=== PATIENT | male | born 1960 | race Two or more races ===

== ENCOUNTER 2021-07-12 11:58 | Inpatient (IN) | payer MEDICAID ==
--- NOTE | 2021-07-11 14:15 | NUR ---
Pt. attended group today. Today's group was about the different communications styles i.e passive, aggressive and assertive. We discussed what the characteristics of each style was. We then discussed where they saw themselves at now and where they would like to be with their communication style. Pt. sat in the group quietly and did not share or wish to engage in the discussion. Carla Uribe LCSW
[~2021-07-12] VITALS: Ht 172.7 cm; Wt 61.2 kg
[~2021-07-12 11:58] MED LIST: ESCI5TAB PO; GLYC1TAB23 PO; KETO120S5 TP; METH-348 PO; PALI156D IM; TRAZ-251 PO; ZIPR20CA12 PO; ZIPR40CA2 PO
--- NOTE | 2021-07-12 15:18 | NUR ---
Noted patient's diet order got completed in EMR, notified RN via TC to ensure pt receives meal trays. Addendum: 07/12/21 at [address] Amended: Links added.
[2021-07-12] MEDS ORDERED: magnesium hydroxide 30ml (MOM) UD suspension PO PRN (15:25)
[2021-07-12] MEDS ORDERED: loperamide 2mg capsule PO PRN (15:25)
[2021-07-12] MEDS ORDERED: mag hydrox/Alum hydrox/simeth 30ml oral suspension PO PRN (15:25)
[2021-07-12] MEDS ORDERED: ZIPR80CA10 PO (16:10)
[2021-07-12] MEDS ORDERED: SODI104S3 NAS (16:10)
[2021-07-12] MEDS ORDERED: SODI104S3 (16:10)
[2021-07-12] MEDS ORDERED: DOCU100C40 PO (16:10)
[2021-07-12] MEDS ORDERED: TRAZ-256 PO (16:19)
[2021-07-12] MEDS ORDERED: METH-350 PO (16:19)
[2021-07-12] MEDS ORDERED: ESCI20TA39 PO (16:19)
[2021-07-12] MEDS ORDERED: KETO120S5 TP (16:19)
[2021-07-12] MEDS ORDERED: salt irrigation nasal spray 45 ML SPRAY NS PRN (16:50)
--- NOTE | 2021-07-12 17:12 | NUR ---
Nursing Progress Note: Legal hold: 5150 Client on involuntary status for GD Report received from nurse Faustino VALENCIA with use of SBAR Why are they here: Pt was at [facility] from 06/08/21-07/12/21 for GD/failure to thrive. Pt was discharged, re-evaluated and placed on a 5150. He was readmitted to [facility] on day of discharge 07/12/21. Pt has a Hx of Schizophrenia, depression, and anxiety. Pt has intermittent CAH to kill himself, pt is depressed and anhedonic, he has severely declined in his ADLs. Pt has a DTI ulcer on his right heel. Plan is for him to be conserved. Assessment What has happened this shift: Pt was readmitted at 1225. His heel ulcer was photographed and redressed; an Allevyn Life was applied. Medix boot was used while pt in bed, and heel was floated. Pt was toileted at regular intervals. Pt continues to be depressed with passive SI. Pt denied AH today though admits to hearing some yesterday. Asked pt what they said to him yesterday, he replied, "same thing." Clarified that pt meant they had told him to kill himself. Pt requested assistance with getting back into bed. Encouraged autonomy in ADLs, assistance provided as needed with transfers, toileting and bed mobility. S/I, H/I: Pt denied HI, has passive SI. A/VH: Pt denied AH today, reports he heard voices yesterday. Sleep: Pt took short naps throughout the day. ADL's: Requires assistance with bed mobility, transfers, toileting, hygiene, and meals at times. He is very drowsy in the morning and a bit unsteady on his feet. Pt has generalized weakness adn has difficulty getting out of bed on his own especially in the morning. Per PCT he needed assist with lunch. Group attendance: Yes, he did attend morning group. Were meds taken: Yes Any med S/E: Very drowsy/fatigued in the morning before and during breakfast. Mental Status Exam Appearance: Disheveled, edentulous older appearing man with dark hair, stahl, and moustache dressed in green hospital scrubs. Eye contact: Good Behavior: Slow moving, needs much support and encouragement to get up out of bed and room. Speech: Clear, slow, delayed response, minimal. Mood: Depressed, anhedonic Affect: Flat Thought process: Slow, may have some thought blocking. Thought Content: Hopeless, he's tired, he needs help with getting into and out of bed. Cognition: A/O X 3 Insight: Fair Judgment: Poor Interventions PRN's used: None Therapeutic interventions: 1:1 assessment, therapeutic communication, active listening, ensured contract for safety, medication administration/education/monitoring, encouragement to come to meals, encouragement with autonomy in ADLs, encouragement to participate in unit activities and attend groups, prompted toileting, assistance with ADLs including transfers, bed mobility, toileting, personal hygiene, bathing and eating, skin breakdown prevention, fall prevention, wound care, incontinent care, provided encouragement, distraction, redirection, positive reinforcement and Q15 minute safety checks. Restraints/seclusion/emergency medication: None Justification of Continued Inpatient Treatment: Pt is gravely disabled, he has had a decline in his ADL and is failure to thrive. Pt is homeless and unable to formulate a plan for food, long term. Plan is for him to be conserved. Addendum: 07/12/21 at 1736 by Lucia Henley RN (Lee) ADMIT NOTE/Nursing progress note.
[2021-07-12] MEDS: ziprasidone 20mg capsule PO SCH (20:14)
[2021-07-12] MEDS: docusate sod 100mg capsule PO SCH (20:15)
[2021-07-12] MEDS: traZODone 50mg tablet PO SCH (20:18)
[2021-07-12 20:36] VITALS: BP 110/72
--- NOTE | 2021-07-12 23:54 | NUR ---
Nursing Progress Note: Legal hold: 5150 Client on involuntary status for GD Report received from nurse Nereida VALENCIA with use of SBAR Why are they here: Pt was at [facility] from 06/08/21-07/12/21 for GD/failure to thrive. Pt was discharged, re-evaluated and placed on a 5150. He was readmitted to [facility] on day of discharge 07/12/21. Pt has a Hx of Schizophrenia, depression, and anxiety. Pt has intermittent CAH to kill himself, pt is depressed and anhedonic, he has severely declined in his ADLs. Pt has a DTI ulcer on his right heel. Plan is for him to be conserved. Assessment What has happened this shift: Pt was up in the group room watching tv at change of shift. He had a room change to 327B. Pt went to his room after snack was med compliant then went to bed. S/I, H/I: Pt denied HI, has passive SI. A/VH: Pt denied AH today, reports he heard voices yesterday. Sleep: See sleep assessment. ADL's: Requires assistance with bed mobility, transfers, toileting, hygiene, and meals at times. He is very drowsy in the morning and a bit unsteady on his feet. Pt has generalized weakness adn has difficulty getting out of bed on his own especially in the morning. Per PCT he needed assist with lunch. Group attendance: Yes, he did attend morning group. Were meds taken: Yes Any med S/E: Very drowsy/fatigued in the morning before and during breakfast. Mental Status Exam Appearance: Disheveled, edentulous older appearing man with dark hair, stahl, and moustache dressed in green hospital scrubs. Eye contact: Good Behavior: Slow moving, needs much support and encouragement to get up out of bed and room. Speech: Clear, slow, delayed response, minimal. Mood: Depressed, anhedonic Affect: Flat Thought process: Slow, may have some thought blocking. Thought Content: Hopeless, he's tired, he needs help with getting into and out of bed. Cognition: A/O X 3 Insight: Fair Judgment: Poor Interventions PRN's used: None Therapeutic interventions: 1:1 assessment, therapeutic communication, active listening, ensured contract for safety, medication administration/education/monitoring, encouragement to come to meals, encouragement with autonomy in ADLs, encouragement to participate in unit activities and attend groups, prompted toileting, assistance with ADLs including transfers, bed mobility, toileting, personal hygiene, bathing and eating, skin breakdown prevention, fall prevention, wound care, incontinent care, provided encouragement, distraction, redirection, positive reinforcement and Q15 minute safety checks. Restraints/seclusion/emergency medication: None Justification of Continued Inpatient Treatment: Pt is gravely disabled, he has had a decline in his ADL and is failure to thrive. Pt is homeless and unable to formulate a plan for food, retirement. Plan is for him to be conserved. Addendum: 07/13/21 at 0204 by Huy Narvaez RN Prn tylenol temp of 100.4
[2021-07-13] MEDS: acetaminophen 325mg tablet PO PRN (01:54)
--- NOTE | 2021-07-13 03:39 | NUR ---
Pt has been up x 3 during the night due to incontinence issues, which is unusual for this patient. He was lying in bed without covers and I asked if he wanted to be covered up, pt stated no because he was feeling hot. I felt his skin, it was hot to touch, I asked Huy his nurse to check his vitals, B/P 105/65 P 90 R 18 O2 94% Temp 100.4, I asked the patient if he was having any discomfort with voiding and he stated yes. Tylenol given for fever, upon recheck it was 98.8, will continue to monitor and notify dayshift stay to monitor and follow up with Dr regarding fever and c/o dysuria, with frequency tonight.
[2021-07-13 07:25] VITALS: BP 115/64
[2021-07-13] MEDS: docusate sod 100mg capsule PO SCH ×2 (08:16→20:00)
[2021-07-13] MEDS: ziprasidone 20mg capsule PO SCH ×2 (08:16→20:00)
[2021-07-13] MEDS: ESCITALOPRAM OXALATE 5 MG TABLET PO SCH (08:16)
[2021-07-13] MEDS: methylphenidate 5mg tablet PO SCH (08:16)
[2021-07-13 08:52] LABS: CLARITY,URINE SLIGHTLY CLOUDY (Clear); COLOR,URINE YELLOW (Yellow); GLUCOSE, URINE NEGATIVE (Neg); KETONES,URINE NEGATIVE (Neg); LEUKOCYTE ESTERASE ,URINE NEGATIVE (Neg); NITRITES, URINE NEGATIVE (Neg); OCCULT BLOOD,URINE NEGATIVE (Neg); PROTEIN,URINE NEGATIVE (Neg)
[2021-07-13 08:55] LABS: UA COLLECTION TYPE CLN CATCH MIDSTREAM
[2021-07-13 09:00] LABS: MUCUS STRANDS MODERATE /LPF (Neg); SQUAMOUS EPITHELIAL CELL,UR FEW /LPF (FEW)
[2021-07-13 09:01] LABS: BACTERIA,URINE FEW /HPF (Neg); RBC,URINE 0-2 /HPF (0-2)
[2021-07-13 09:02] LABS: HYALINE CASTS 0-3 /LPF (NEGATIVE)
--- NOTE | 2021-07-13 11:30 | NUR ---
5 DAY NOTICE Served Cuong a 5 day notice and faxed it back to [facility]. WELLINGTON Pearson
[2021-07-13] MEDS: lactose-reduced food (Ensure Enlive) - 237ml bottle PO SCH (12:45)
--- NOTE | 2021-07-13 15:00 | NUR ---
Recommend: 1. Offload heels when in bed using heel medix boot 2.Assess heel QSHIFT Addendum: 07/13/21 at 1558 by Sushma Ziegler RN Amended: Links added.
--- NOTE | 2021-07-13 15:53 | NUR ---
Nursing Progress Note: Legal hold: 5150 Client on involuntary status for GD Report received from nurse Caprice VALENCIA with use of SBAR Why are they here: Pt was at [facility] from 06/08/21-07/12/21 for GD/failure to thrive. Pt was discharged, re-evaluated and placed on a 5150. He was readmitted to [facility] on day of discharge 07/12/21. Pt has a Hx of Schizophrenia, depression, and anxiety. Pt has intermittent CAH to kill himself, pt is depressed and anhedonic, he has severely declined in his ADLs. Pt has a DTI ulcer on his right heel. Plan is for him to be conserved. Assessment What has happened this shift: Noc charge rn reported that pt was having frequency and dysuria last night as well as a low grade temp. This RN obtained an order for UA/C&S if indicated. A clean catch UA was collected and sent. UA results: 5-10 WBCs, few bacteria, a culture was indicated. Urine was tika colored and very slightly cloudy. Culture pending. Pt was up for breakfast and cooperative with medication. Pt has been prompted to toilet frequently this shift and has no episodes of urinary incontinence today. Pt denied SI and AH today. Pt has orders for a CBC/Diff and a CMP tomorrow morning. Allevyn dressing right heel C/D/I. Medix boot used while pt in bed for pressure offloading. S/I, H/I: Pt denies. A/VH: Pt denies. Sleep: Pt slept 4.75 hours last night, pt took intermittent naps throughout the day. ADL's: Requires assist with routine toileting, personal hygiene, bathing. Needs prompts to come to meals. Group attendance: No Were meds taken: Yes Any med S/E: None noted or reported. Mental Status Exam Appearance: Disheveled, edentulous older appearing man with dark hair, stahl, and moustache dressed in green hospital scrubs. Eye contact: Good Behavior: Slow moving, needs much support and encouragement to get up out of bed and room. Speech: Clear, slow, delayed response, minimal. Mood: Anhedonic Affect: Flat Thought process: Slow, may have some thought blocking. Thought Content: Pt did not express his thoughts today. Cognition: A/O X 3 Insight: Poor Judgment: Poor Interventions PRN's used: None Therapeutic interventions: 1:1 assessment, therapeutic communication, active listening, ensured contract for safety, medication administration/education/monitoring, encouragement to come to meals, encouragement with autonomy in ADLs, encouragement to participate in unit activities and attend groups, prompted toileting, assistance with ADLs including transfers, bed mobility, toileting, personal hygiene, bathing and eating, skin breakdown prevention, fall prevention, incontinent care, provided encouragement, distraction, redirection, positive reinforcement and Q15 minute safety checks. Restraints/seclusion/emergency medication: None Justification of Continued Inpatient Treatment: Pt is gravely disabled, he has had a decline in his ADL and is failure to thrive. Pt is homeless and unable to formulate a plan for food, retirement. Plan is for him to be conserved.
[2021-07-13 19:25] VITALS: BP 103/62
[2021-07-13] MEDS: traZODone 50mg tablet PO SCH (21:02)
--- NOTE | 2021-07-14 02:55 | NUR ---
Nursing Progress Note: Legal hold: 5150 Client on involuntary status for GD Report received from nurse Adolfo VALENCIA with use of SBAR Why are they here: Pt was at [facility] from 06/08/21-07/12/21 for GD/failure to thrive. Pt was discharged, re-evaluated and placed on a 5150. He was readmitted to [facility] on day of discharge 07/12/21. Pt has a Hx of Schizophrenia, depression, and anxiety. Pt has intermittent CAH to kill himself, pt is depressed and anhedonic, he has severely declined in his ADLs. Pt has a DTI ulcer on his right heel. Plan is for him to be conserved. Assessment What has happened this shift: Pt in bed at start of shift. Medix boot on rt foot, drsing on heal CD+I. Encouraged PO Fluid. Pt cooperative. Pt needed prompting to get OOB but ambulated independently to group room for snack. Ate snack and 2 juice boxes. Pt ambulated back and forth in amos then requested help getting back to bed. Voided so far this shift. x2 in urinal 150 cc clear tika urine and x2 on toilet. No bladder distention palpated. Pt denies any discomfort. Continues to be compliant when offered fluids, it is unlikely he will independently drink fluids. Urine culture pending, pt is afebrile. S/I, H/I: Pt denies. A/VH: Pt denies. Sleep: asleep at this time ADL's: Requires assist with routine toileting, personal hygiene, bathing. Needs prompts to come to meals. Group attendance: No Were meds taken: Yes Any med S/E: None noted or reported. Mental Status Exam Appearance: Disheveled, edentulous older appearing man with dark hair, stahl, and moustache dressed in green hospital scrubs. Eye contact: Good Behavior: Slow moving, needs much support and encouragement to get up out of bed and room. Speech: Clear, slow, delayed response, minimal. Mood: Anhedonic Affect: Flat Thought process: Slow, may have some thought blocking. Thought Content: Pt did not express his thoughts today. Cognition: A/O X 3 Insight: Poor Judgment: Poor Interventions PRN's used: None Therapeutic interventions: 1:1 assessment, therapeutic communication, active listening, ensured contract for safety, medication administration/education/monitoring, encouragement to come to meals, encouragement with autonomy in ADLs, encouragement to participate in unit activities and attend groups, prompted toileting, assistance with ADLs including transfers, bed mobility, toileting, personal hygiene, bathing and eating, skin breakdown prevention, fall prevention, incontinent care, provided encouragement, distraction, redirection, positive reinforcement and Q15 minute safety checks. Restraints/seclusion/emergency medication: None Justification of Continued Inpatient Treatment: Pt is gravely disabled, he has had a decline in his ADL and is failure to thrive. Pt is homeless and unable to formulate a plan for food, skilled nursing. Plan is for him to be conserved.
[2021-07-14 08:14] LABS: BASOPHILS % (AUTO) 0.2 % (0-1); EOSINOPHILS # (AUTO) 0.2 X10'3 (0-0.9); EOSINOPHILS % (AUTO) 2.8 % (0-6); HEMATOCRIT 35.6 % (42.0-52.0); HEMOGLOBIN 12.6 g/dl (14.0-17.9); LYMPHOCYTES # (AUTO) 2.4 X10'3 (1.1-4.8); LYMPHOCYTES % (AUTO) 35.3 % (21-51); MEAN CORPUSCULAR HEMOGLOBIN 32.5 PG (27.0-31.0); MEAN CORPUSCULAR HGB CONC 35.5 g/dL (33.0-36.5); MEAN CORPUSCULAR VOLUME 91.5 FL (78-98); MEAN PLATELET VOLUME 7.5 FL (7.4-10.4); MONOCYTES # (AUTO) 0.8 X10'3 (0-0.9); MONOCYTES % (AUTO) 11.4 % (2-12); NEUTROPHILS # (AUTO) 3.3 X10'3 (1.8-7.7); NEUTROPHILS % (AUTO) 50.3 % (42-75); PLATELET COUNT 168 X10'3 (140-440); RED BLOOD COUNT 3.89 X10'6 (4.70-6.10); RED CELL DISTRIBUTION WIDTH 13.4 % (11.5-14.5); WHITE BLOOD COUNT 6.7 X10'3 (4.5-11.0)
[2021-07-14] MEDS: docusate sod 100mg capsule PO SCH ×2 (08:18→20:36)
[2021-07-14] MEDS: ziprasidone 20mg capsule PO SCH ×2 (08:18→20:35)
[2021-07-14] MEDS: ESCITALOPRAM OXALATE 5 MG TABLET PO SCH (08:18)
[2021-07-14] MEDS: methylphenidate 5mg tablet PO SCH (08:19)
[2021-07-14] MEDS: cefpodoxime proxetil 100mg tablet PO SCH ×2 (08:19→17:28)
--- NOTE | 2021-07-14 08:24 | NUR ---
Sent signed Declaration to [facility] as part of the conservatorship process. WELLINGTON Pearson
[2021-07-14 08:36] LABS: ALANINE AMINOTRANSFERASE 65 U/L (12-78); ALBUMIN 3.1 G/DL (3.4-5.0); ALBUMIN/GLOBULIN RATIO 0.8 (1.1-1.5); ALKALINE PHOSPHATASE 86 IU/L (46-116); ANION GAP 6 (8-16); ASPARTATE AMINO TRANSFERASE 30 U/L (10-37); BILIRUBIN,TOTAL 0.5 MG/DL (0.1-1.0); BLOOD UREA NITROGEN 15 MG/DL (7-18); BUN/CREATININE RATIO 19.2 (5.4-32.0); CALCIUM 8.8 MG/DL (8.5-10.1); CHLORIDE 99 MMOL/L (99-107); CREATININE 0.78 MG/DL (0.60-1.10); GLUCOSE 97 MG/DL (70-104); POTASSIUM 3.9 MMOL/L (3.5-5.1); SODIUM 134 MMOL/L (135-145); TOTAL CARBON DIOXIDE 29.3 MMOL/L (24-32); TOTAL PROTEIN 7.1 G/DL (6.4-8.2); eGFR > 90 ML/MIN
[2021-07-14 08:56] VITALS: BP 121/73
[2021-07-14] MEDS: ketoconazole (Nizoral) shampoo TP SCH (09:20)
[2021-07-14] MEDS: lactose-reduced food (Ensure Enlive) - 237ml bottle PO SCH (12:44)
--- NOTE | 2021-07-14 14:49 | NUR ---
Nursing Progress Note: Legal hold: 5150 Client on involuntary status for GD Report received from nurse Caprice VALENCIA with use of SBAR Why are they here: Pt was at [facility] from 06/08/21-07/12/21 for GD/failure to thrive. Pt was discharged, re-evaluated and placed on a 5150. He was readmitted to [facility] on day of discharge 07/12/21. Pt has a Hx of Schizophrenia, depression, and anxiety. Pt has intermittent CAH to kill himself, pt is depressed and anhedonic, he has severely declined in his ADLs. Pt has a DTI ulcer on his right heel. Plan is for him to be conserved. Assessment What has happened this shift: Pt was incontinent of urine, his bed and clothes were saturated before breakfast. Pt was assisted with a shower today, his Nizoral shampoo was used per orders. Pt denied AH and SI today. Pt knew it was June 2021 but had lost track of the day/date. Pt was started on PO ABX Vantin for suspected UTI, culture pending. Preliminary results show no growth after one day. Culturelle was also started. Pt had labs drawn this morning. He had low levels of RBCs 3.89, Hgb 12.6, Hct 35.6, and albumin 3.1. Pt c/o not being able to chew his food well with [facility] soft diet as he has no teeth. Pt wished to have his food pureed. Notified RAYMON Go and the diet order was changed to pureed. Pt was prompted for toileting and has had no further incontinent episodes this shift. Medix boot utilized while pt in bed to relieve pressure. Right heel ulcer remains discolored and intact. S/I, H/I: Pt denies. A/VH: Pt denies. Sleep: Pt slept 7.25 hours last night, pt took intermittent naps throughout the day. ADL's: Requires prompting for toileting, personal hygiene, and to come to meals, needs assistance with bathing. Group attendance: No Were meds taken: Yes Any med S/E: None noted or reported. Mental Status Exam Appearance: Disheveled, edentulous older appearing man with dark hair, stahl, and moustache dressed in green hospital scrubs. Eye contact: Good Behavior: Slow moving, needs much support and encouragement to get up out of bed and room. Speech: Clear, slow, delayed response, minimal. Mood: Anhedonic Affect: Flat Thought process: Slow, may have some thought blocking. Thought Content: He wants pureed food. Cognition: A/O X 3 Insight: Poor Judgment: Poor Interventions PRN's used: None Therapeutic interventions: 1:1 assessment, therapeutic communication, active listening, ensured contract for safety, medication administration/education/monitoring, encouragement to come to meals, encouragement with autonomy in ADLs, encouragement to participate in unit activities and attend groups, prompted toileting, assistance with ADLs including transfers, bed mobility, toileting, personal hygiene, bathing and eating, skin breakdown prevention, fall prevention, incontinent care, provided encouragement, distraction, redirection, positive reinforcement and Q15 minute safety checks. Restraints/seclusion/emergency medication: None Justification of Continued Inpatient Treatment: Pt is gravely disabled, he has had a decline in his ADL and is failure to thrive. Pt is homeless and unable to formulate a plan for food, usp. Plan is for him to be conserved.
[2021-07-14 20:02] VITALS: BP 112/68
[2021-07-14] MEDS: traZODone 50mg tablet PO SCH (20:36)
[2021-07-14] MEDS: lactobacillus rhamnosus 10,000 MMU CELLS/CAPSULE PO SCH (20:36)
--- NOTE | 2021-07-15 02:28 | NUR ---
Nursing Progress Note: Legal hold: 5150 Client on involuntary status for GD Report received from nurse Adolfo VALENCIA with use of SBAR Why are they here: Pt was at [facility] from 06/08/21-07/12/21 for GD/failure to thrive. Pt was discharged, re-evaluated and placed on a 5150. He was readmitted to [facility] on day of discharge 07/12/21. Pt has a Hx of Schizophrenia, depression, and anxiety. Pt has intermittent CAH to kill himself, pt is depressed and anhedonic, he has severely declined in his ADLs. Pt has a DTI ulcer on his right heel. Plan is for him to be conserved. Assessment What has happened this shift: Pt up on unit at start of shift. More alert this shift, speech soft and slow, delays before answering questions. Pt ate snack in group room then stayed and watched a movie. Toileted before bed continent large amount of clear yellow urine. Later in shift incontinent large amount urine in bed requiring bed change. Rt heel floated in boot while in bed. S/I, H/I: Pt denies. A/VH: Pt denies. Sleep: asleep at this time ADL's: Requires assist with routine toileting, personal hygiene, bathing. Needs prompts to come to meals. Group attendance: No Were meds taken: Yes Any med S/E: None noted or reported. Mental Status Exam Appearance: man in green scrubs. Eye contact: Good Behavior: Out of bed walking independently Speech: Clear, slow, delayed response, minimal. Mood: Anhedonic Affect: Flat Thought process: Slow, may have some thought blocking. Thought Content: Pt did not express his thoughts today. Cognition: A/O X 3 Insight: Poor Judgment: Poor Interventions PRN's used: None Therapeutic interventions: 1:1 assessment, therapeutic communication, active listening, ensured contract for safety, medication administration/education/monitoring, encouragement to come to meals, encouragement with autonomy in ADLs, encouragement to participate in unit activities and attend groups, prompted toileting, assistance with ADLs including transfers, bed mobility, toileting, personal hygiene, bathing and eating, skin breakdown prevention, fall prevention, incontinent care, provided encouragement, distraction, redirection, positive reinforcement and Q15 minute safety checks. Restraints/seclusion/emergency medication: None Justification of Continued Inpatient Treatment: Pt is gravely disabled, he has had a decline in his ADL and is failure to thrive. Pt is homeless and unable to formulate a plan for food, retirement. Plan is for him to be conserved.
[2021-07-15 07:25] VITALS: BP 95/59
[2021-07-15] MEDS: cefpodoxime proxetil 100mg tablet PO SCH ×2 (08:34→18:17)
[2021-07-15] MEDS: lactobacillus rhamnosus 10,000 MMU CELLS/CAPSULE PO SCH ×2 (08:34→20:52)
[2021-07-15] MEDS: docusate sod 100mg capsule PO SCH ×2 (08:34→20:52)
[2021-07-15] MEDS: methylphenidate 5mg tablet PO SCH (08:34)
[2021-07-15] MEDS: ESCITALOPRAM OXALATE 5 MG TABLET PO SCH (08:34)
[2021-07-15] MEDS: ziprasidone 20mg capsule PO SCH ×2 (08:48→20:52)
[2021-07-15] MEDS: lactose-reduced food (Ensure Enlive) - 237ml bottle PO SCH (12:01)
--- NOTE | 2021-07-15 15:19 | NUR ---
PRESSURE ULCER EDUCATION: DEFINITION: A pressure ulcer is an area of skin that breaks down when you stay in one position too long. The constant pressure against the skin reduces the blood flow to that area and the affected tissue dies. CAUSES: "Being bedridden or in a wheelchair "Fragile skin "Having a chronic condition, such as diabetes or vascular disease "Inability to move certain parts of your body without assistance "Older age "Incontinence of urine or stool SYMPTOMS: "A reddened area that DOES NOT turn white when pressed on - this can be the beginning of a pressure ulcer "A blister, deep sore or a crater - these can be advanced pressure ulcers FIRST AID: "Relieve the pressure on this area "Keep the area clean and dry "Call your primary doctor if you see any of the above symptoms "DO NOT massage the area "DO NOT use a donut shaped or ring shaped pillow- these actually interfere with the blood flow and cause complications PREVENTION: "Check for pressure ulcers everyday "Change position at least every two hours to relieve pressure "Use items that help relieve pressure- pillows, sheepskin, foam padding, and powders. "Keep skin clean and dry "Eat healthy well balanced meals "Exercise daily IF YOU SEE ANY OF THESE SYMPTOMS WHILE IN THE HOSPITAL - TELL YOUR NURSE IMMEDIATELY. IF YOU SEE ANY OF THESE SYMPTOMS WHILE AT HOME OR HAVE ANY QUESTIONS OR CONCERNS ABOUT PRESSURE ULCERS - CALL YOUR PRIMARY DOCTOR IMMEDIATELY. Addendum: 07/15/21 at 1520 by Doris Parra RN Amended: Links added.
--- NOTE | 2021-07-15 17:16 | NUR ---
Nursing Progress Note: Legal hold: 5150 Client on involuntary status for GD Report received from TAVARES Cody with use of SBAR. Why they are here: Pt was at [facility] from 06/08/21-07/12/21 for GD/failure to thrive. Pt was discharged, re-evaluated and placed on a 5150. He was readmitted to [facility] on day of discharge 07/12/21. Pt has a Hx of Schizophrenia, depression, and anxiety. Pt has intermittent CAH to kill himself, pt is depressed and anhedonic, he has severely declined in his ADLs. Pt has a DTI ulcer on his right heel. Plan is for him to be conserved. Assessment What has happened this shift: Patient is resting quietly in bed at the start of the shift. Awakened for breakfast and is slow moving and requires minimum assistance getting out of bed. Prompted for toilet use and is continent. Answers to direct questions only. Cooperative with 1:1 assessment and medications. Seen by wound nurse today. Pressure relieving boot on when in bed. Isolates to his room most of the day but will come out when prompted and for meals. S/I, H/I: Denies A/VH: Denies Sleep: 2 hours in the morning. Sleeps frequently for long periods of time throughout the day. ADL's: Requires prompting for toileting, personal hygiene, and to come to meals, needs assistance with bathing. Group attendance: No Were meds taken: Yes Any med S/E: None observed or reported. Mental Status Exam Appearance: Disheveled, edentulous older appearing man with dark hair, stahl, and moustache somewhat disheveled with flakey skin wearing green unit scrubs. Eye contact: Good Behavior: Slow moving, needs much support and encouragement to get up out of bed and room, isolative, withdrawn. Speech: Clear, slow, delayed response, scant Mood: Ok. Affect: Flat Thought process: Slow, possible thought blocking. Thought Content: Poverty of thought. Cognition: A/O X 3 not to time Insight: Poor Judgment: Poor Interventions PRN's used: None Therapeutic interventions: 1:1 assessment, therapeutic communication, active listening, ensured contract for safety, medication administration/education/monitoring, encouragement to come to meals, encouragement with autonomy in ADLs, encouragement to participate in unit activities and attend groups, prompted toileting, assistance with ADLs including transfers, bed mobility, toileting, personal hygiene, bathing and eating, skin breakdown prevention, fall prevention, incontinent care, provided encouragement, distraction, redirection, positive reinforcement and Q15 minute safety checks. Restraints/seclusion/emergency medication: None Justification of Continued Inpatient Treatment: Pt is gravely disabled, he has had a decline in his ADL and is failure to thrive. Pt is homeless and unable to formulate a plan for food, [place]. Plan is for him to be conserved.
[2021-07-15 19:00] VITALS: BP 112/69
[2021-07-15 19:58] VITALS: BP 112/69
[2021-07-15] MEDS: traZODone 50mg tablet PO SCH (20:52)
--- NOTE | 2021-07-16 01:14 | NUR ---
Nursing Progress Note: Legal hold: 5250 Client on involuntary status for GD Report received from ANNIE Mata with use of SBAR. Why they are here: Pt was at [facility] from 06/08/21-07/12/21 for GD/failure to thrive. Pt was discharged, re-evaluated and placed on a 5150. He was readmitted to [facility] on day of discharge 07/12/21. Pt has a Hx of Schizophrenia, depression, and anxiety. Pt has intermittent CAH to kill himself, pt is depressed and anhedonic, he has severely declined in his ADLs. Pt has a DTI ulcer on his right heel. Plan is for him to be conserved. Assessment What has happened this shift: Patient watching TV in common area at the beginning of shift. Pleasant and cooperative with care; compliant with medication. PRN Trazodone provided this shift. Patient denies SI, HI, A/VH; does not appear to be responding to IS and no apparent delusions reported. He responds minimally to direct questions but makes needs known. Patient participated in HS snack and paced the unit, boot placed on R foot and toileted with staff assistance prior to bed; observed sleeping and does not appear to be having difficulty. S/I, H/I: Denies A/VH: Denies Sleep: Refer to sleep assessment ADL's: Requires prompting and staff assistance Group attendance: NA Were meds taken: Yes Any med S/E: None observed or reported Mental Status Exam Appearance: Disheveled and wearing green unit attire Eye contact: Good Behavior: Pleasant and cooperative, self isolative, withdrawn slow speech and movement Speech: Clear, slow, delayed response, scant Mood: Ok. Affect: Constricted Thought process: Thought blocking, poverty of thought Thought Content: Meeting needs Cognition: A/O X 3 not to time Insight: Poor Judgment: Poor Interventions PRN's used: Trazodone Therapeutic interventions: 1:1 assessment, therapeutic communication, active listening, ensured contract for safety, medication administration/education/monitoring, encouragement to come to meals, encouragement with autonomy in ADLs, encouragement to participate in unit activities and attend groups, prompted toileting, assistance with ADLs including transfers, bed mobility, toileting, personal hygiene, bathing and eating, skin breakdown prevention, fall prevention, incontinent care, provided encouragement, distraction, redirection, positive reinforcement and Q15 minute safety checks. Restraints/seclusion/emergency medication: NA Justification of Continued Inpatient Treatment: Pt is gravely disabled, he has had a decline in his ADL and is failure to thrive. Pt is homeless and unable to formulate a plan for food, correction. Plan is for him to be conserved.
[2021-07-16 08:00] VITALS: BP 178/78
[2021-07-16] MEDS: cefpodoxime proxetil 100mg tablet PO SCH ×2 (08:15→17:40)
[2021-07-16] MEDS: lactobacillus rhamnosus 10,000 MMU CELLS/CAPSULE PO SCH ×2 (08:15→20:36)
[2021-07-16] MEDS: ziprasidone 20mg capsule PO SCH ×2 (08:15→20:36)
[2021-07-16] MEDS: docusate sod 100mg capsule PO SCH ×2 (08:15→20:36)
[2021-07-16] MEDS: methylphenidate 5mg tablet PO SCH (08:15)
[2021-07-16] MEDS: ESCITALOPRAM OXALATE 5 MG TABLET PO SCH (08:15)
[2021-07-16] MEDS: lactose-reduced food (Ensure Enlive) - 237ml bottle PO SCH (12:30)
--- NOTE | 2021-07-16 14:29 | NUR ---
Initial: Pt admit for schizophrenia, depression, and anxiety. Pt initially on a mechanical soft chopped diet however was changed to pureed diet 07/14 per pt request per d/w RN via TC. Pt with fluctuating PO intake, initially with mostly 50% PO intake however more recently up to average 75% PO intake, though does continue to fluctuate. Noted pt participates in snacks per fat purification worker. Pt started on Ensure Enlive WL and pt documented with 100% PO intake of first ONS received. Overall pt likely meeting estimated nutrient needs with combined PO intake of meals, snacks, and ONS. LBM 07/14, receiving routine bowel care with additional PRN bowel care available. No nutrition intervention implemented at this time. Will continue to follow. Recommendations: 1) Continue pureed diet per pt preference 2) Ensure Enlive WL; monitor need to adjust ONS frequency 3) Offer snacks and encourage PO intake 4) Routine bowel care 5) Weekly scaled weights Addendum: 07/16/21 at [address] Amended: Links added.
--- NOTE | 2021-07-16 16:27 | NUR ---
Nursing Progress Note: Legal hold: 5150 Client on involuntary status for GD Report received from TAVARES Bales with use of SBAR. Why they are here: Pt was at [facility] from 06/08/21-07/12/21 for GD/failure to thrive. Pt was discharged, re-evaluated and placed on a 5150. He was readmitted to [facility] on day of discharge 07/12/21. Pt has a Hx of Schizophrenia, depression, and anxiety. Pt has intermittent CAH to kill himself, pt is depressed and anhedonic, he has severely declined in his ADLs. Pt has a DTI ulcer on his right heel. Plan is for him to be conserved. Assessment What has happened this shift: Patient is resting quietly in bed at the start of the shift. Awakened for breakfast and requires encouragement and assistance to get out of bed. Cooperative with 1:1 assessment and medications. Requires encouragement during meals to eat. Confirms that puree diet is his preference. Pressure relieving boot is in place while in bed. Isolates to his room most of the day sleeping. Does not engage in conversation but answers closed ended questions. S/I, H/I: Denies A/VH: Denies Sleep: 2 hours in the morning. Sleeps frequently for long periods of time throughout the day. ADL's: Requires prompting for toileting, personal hygiene, and to come to meals, needs assistance with bathing. Group attendance: NA Were meds taken: Yes Any med S/E: None observed or reported. Mental Status Exam Appearance: Disheveled, edentulous older appearing man with dark hair, stahl, and moustache somewhat disheveled with flakey skin wearing green unit scrubs. Eye contact: Good Behavior: Slow moving, needs support and encouragement to get up out of bed, isolative, withdrawn. Speech: Clear, slow, delayed response, scant Mood: Ok. Affect: Flat Thought process: Slow, possible thought blocking. Thought Content: Poverty of thought. Cognition: A/O X 3 not to time Insight: Poor Judgment: Poor Interventions PRN's used: None Therapeutic interventions: 1:1 assessment, therapeutic communication, active listening, ensured contract for safety, medication administration/education/monitoring, encouragement to come to meals, encouragement with autonomy in ADLs, encouragement to participate in unit activities and attend groups, prompted toileting, assistance with ADLs including transfers, bed mobility, toileting, personal hygiene, bathing and eating, skin breakdown prevention, fall prevention, incontinent care, provided encouragement, distraction, redirection, positive reinforcement and Q15 minute safety checks. Restraints/seclusion/emergency medication: None Justification of Continued Inpatient Treatment: Pt is gravely disabled, he has had a decline in his ADL and is failure to thrive. Pt is homeless and unable to formulate a plan for food, [facility]. Plan is for him to be conserved.
[2021-07-16 19:00] VITALS: BP 106/64
[2021-07-16] MEDS: traZODone 50mg tablet PO SCH (20:36)
--- NOTE | 2021-07-17 02:05 | NUR ---
Nursing Progress Note: Legal hold: 5250 Client on involuntary status for GD Report received from ANNIE Jacob with use of SBAR. Why they are here: Pt was at [facility] from 06/08/21-07/12/21 for GD/failure to thrive. Pt was discharged, re-evaluated and placed on a 5150. He was readmitted to [facility] on day of discharge 07/12/21. Pt has a Hx of Schizophrenia, depression, and anxiety. Pt has intermittent CAH to kill himself, pt is depressed and anhedonic, he has severely declined in his ADLs. Pt has a DTI ulcer on his right heel. Plan is for him to be conserved. Assessment What has happened this shift: Patient active on the unit at the beginning of shift. Pleasant and cooperative wit care; compliant with with medication. Denies SI, HI, A/VH; does not appear to be responding to IS and no apparent delusions reported. Patient requires some assistance getting in/out of bed as he has an unsteady gait. Patient participated in HS snack and watched TV in recreation room prior to bed; observed sleeping and does not appear to be having difficulty. S/I, H/I: Denies A/VH: Denies Sleep: Refer to sleep assessment ADL's: Requires prompting and staff assistance Group attendance: NA Were meds taken: Yes Any med S/E: None observed or reported Mental Status Exam Appearance: Disheveled and wearing green unit attire Eye contact: Good Behavior: Pleasant and cooperative, self isolative, withdrawn slow speech and movement Speech: Clear, slow, delayed response, scant Mood: Ok. Affect: Constricted Thought process: Poverty of thought Thought Content: Meeting needs Cognition: A/O X 3 not to time Insight: Poor Judgment: Poor Interventions PRN's used: Trazodone Therapeutic interventions: 1:1 assessment, therapeutic communication, active listening, ensured contract for safety, medication administration/education/monitoring, encouragement to come to meals, encouragement with autonomy in ADLs, encouragement to participate in unit activities and attend groups, prompted toileting, assistance with ADLs including transfers, bed mobility, toileting, personal hygiene, bathing and eating, skin breakdown prevention, fall prevention, incontinent care, provided encouragement, distraction, redirection, positive reinforcement and Q15 minute safety checks. Restraints/seclusion/emergency medication: NA Justification of Continued Inpatient Treatment: Pt is gravely disabled, he has had a decline in his ADL and is failure to thrive. Pt is homeless and unable to formulate a plan for food, senior living. Plan is for him to be conserved.
[2021-07-17 08:00] VITALS: BP 115/69
[2021-07-17] MEDS: docusate sod 100mg capsule PO SCH ×2 (09:06→20:28)
[2021-07-17] MEDS: lactobacillus rhamnosus 10,000 MMU CELLS/CAPSULE PO SCH ×2 (09:06→20:28)
[2021-07-17] MEDS: methylphenidate 5mg tablet PO SCH (09:06)
[2021-07-17] MEDS: ESCITALOPRAM OXALATE 5 MG TABLET PO SCH (09:06)
[2021-07-17] MEDS: cefpodoxime proxetil 100mg tablet PO SCH ×2 (09:06→17:57)
[2021-07-17] MEDS: ziprasidone 20mg capsule PO SCH ×2 (09:07→20:28)
[2021-07-17] MEDS: lactose-reduced food (Ensure Enlive) - 237ml bottle PO SCH (12:30)
--- NOTE | 2021-07-17 17:18 | NUR ---
Nursing Progress Note: Legal hold: 5150 Client on involuntary status for GD Report received from TAVARES Bales with use of SBAR. Why they are here: Pt was at [facility] from 06/08/21-07/12/21 for GD/failure to thrive. Pt was discharged, re-evaluated and placed on a 5150. He was readmitted to [facility] on day of discharge 07/12/21. Pt has a Hx of Schizophrenia, depression, and anxiety. Pt has intermittent CAH to kill himself, pt is depressed and anhedonic, he has severely declined in his ADLs. Pt has a DTI ulcer on his right heel. Plan is for him to be conserved. Assessment What has happened this shift: Patient was sleeping at change of shift and refused breakfast. RN got patient up for lunch. Patient needed assistance getting out of bed. Patient drank all his ensure and ate about 50% of his lunch. Patient is very thin. Patient does not engage in conversation and will answer closed end questions but nothing more. Patient only eats in the Community Room and will sit for a while but ultimately goes back to bed. Patient states no to suicidal ideation and denies audio/hallucinations. S/I, H/I: Denies A/VH: Denies Sleep: Sleeps most of the day. ADL's: Requires prompting for toileting, personal hygiene, and to come to meals, needs assistance with bathing. Group attendance: NA Were meds taken: Yes Any med S/E: None observed or reported. Mental Status Exam Appearance: Disheveled, toothless older gentleman with dark hair, short stahl Eye contact: Good Behavior: Slow moving, needs support and encouragement to get up out of bed, isolative, withdrawn. Speech: Clear, slow, poverty of speech Mood: Depressed Affect: Depressed Thought process: Slow, possible thought blocking. Thought Content: Poverty of thought. Cognition: A/O X 3 not to time Insight: Poor Judgment: Poor Interventions PRN's used: None Therapeutic interventions: 1:1 assessment, therapeutic communication, active listening, ensured contract for safety, medication administration/education/monitoring, encouragement to come to meals, encouragement with autonomy in ADLs, encouragement to participate in unit activities and attend groups, prompted toileting, assistance with ADLs including transfers, bed mobility, toileting, personal hygiene, bathing and eating, skin breakdown prevention, fall prevention, incontinent care, provided encouragement, distraction, redirection, positive reinforcement and Q15 minute safety checks. Restraints/seclusion/emergency medication: None Justification of Continued Inpatient Treatment: Pt is gravely disabled, he has had a decline in his ADL and is failure to thrive. Pt is homeless and unable to formulate a plan for food, long-term. Plan is for him to be conserved.
[2021-07-17 19:48] VITALS: BP 106/71
[2021-07-17] MEDS: traZODone 50mg tablet PO SCH (20:28)
--- NOTE | 2021-07-18 03:10 | NUR ---
Nursing Progress Note: Legal hold: 5250 Client on involuntary status for GD Report received from ANNIE Jacob with use of SBAR. Why they are here: Pt was at [facility] from 06/08/21-07/12/21 for GD/failure to thrive. Pt was discharged, re-evaluated and placed on a 5150. He was readmitted to [facility] on day of discharge 07/12/21. Pt has a Hx of Schizophrenia, depression, and anxiety. Pt has intermittent CAH to kill himself, pt is depressed and anhedonic, he has severely declined in his ADLs. Pt has a DTI ulcer on his right heel. Plan is for him to be conserved. Assessment What has happened this shift: Patient active on the unit at the beginning of shift. Pleasant and cooperative with care; compliant with with medication. Denies SI, HI, A/VH; does not appear to be responding to IS and no apparent delusions reported. Patient requires some assistance with ADLs and has an unsteady gait when getting out of bed. He was incontinent of urine this shift. Patient participated in HS snack and paced the unit prior to bed; observed sleeping and does not appear to be having difficulty. S/I, H/I: Denies A/VH: Denies Sleep: Refer to sleep assessment ADL's: Requires prompting and staff assistance Group attendance: NA Were meds taken: Yes Any med S/E: None observed or reported Mental Status Exam Appearance: Disheveled and wearing green unit attire Eye contact: Good Behavior: Pleasant and cooperative, self isolative, withdrawn slow speech and movement Speech: Clear, slow, delayed response, scant Mood: Isabella Affect: Constricted Thought process: Poverty of thought Thought Content: Meeting needs Cognition: A/O X 3 not to time Insight: Poor Judgment: Poor Interventions PRN's used: Trazodone Therapeutic interventions: 1:1 assessment, therapeutic communication, active listening, ensured contract for safety, medication administration/education/monitoring, encouragement to come to meals, encouragement with autonomy in ADLs, encouragement to participate in unit activities and attend groups, prompted toileting, assistance with ADLs including transfers, bed mobility, toileting, personal hygiene, bathing and eating, skin breakdown prevention, fall prevention, incontinent care, provided encouragement, distraction, redirection, positive reinforcement and Q15 minute safety checks. Restraints/seclusion/emergency medication: NA Justification of Continued Inpatient Treatment: Pt is gravely disabled, he has had a decline in his ADL and is failure to thrive. Pt is homeless and unable to formulate a plan for food, [facility]. Plan is for him to be conserved.
[2021-07-18 08:00] VITALS: BP 150/77
[2021-07-18] MEDS: docusate sod 100mg capsule PO SCH ×2 (08:28→20:44)
[2021-07-18] MEDS: methylphenidate 5mg tablet PO SCH (08:28)
[2021-07-18] MEDS: lactobacillus rhamnosus 10,000 MMU CELLS/CAPSULE PO SCH ×2 (08:28→20:44)
[2021-07-18] MEDS: ziprasidone 20mg capsule PO SCH ×2 (08:28→20:44)
[2021-07-18] MEDS: ESCITALOPRAM OXALATE 5 MG TABLET PO SCH (08:28)
[2021-07-18] MEDS: cefpodoxime proxetil 100mg tablet PO SCH ×2 (08:28→17:36)
--- NOTE | 2021-07-18 09:53 | NUR ---
Mailed original LPS Declaration to [facility] Public [facility] via certified mail. WELLINGTON Pearson
--- NOTE | 2021-07-18 12:55 | NUR ---
PROBABLE CAUSE HEARING Patients Name: Cuong Rodriguez Admission Date: 07/12/21 Date of 5150: 07/12/21 Written by: Meri Uribe Criteria: GD Summary of Facts: Pt status is GD. He continues to need prompting to eat or drink. He cannot make a viable plan for food or skilled nursing upon dc. Date of 5250: 07/15/21 Written by: Criteria: GD Summary of Facts: Depression and a/h have improved, pt has chronic depression. Pt does not have a viable plan for dc Diagnosis: major depressive disorder Behavior during past 48 HRS: pt seen by provider yesterday, he was able to answer close ended question he is doing okay, he does not have any insight he kept his eyes closed, he reports that he still feeling depressed, denies any psychotic symptoms, denies any suicide ideations also ideations, it was reported that during the later part of the day, it was reported that his appetite is good he is consuming reasonable amount of fluids. Pt is getting conserved by [facility] and has been served a five day notice FOOD: 25-50% SLEEPIN.5 ADLS: Requires prompting and assistance SENIOR LIVING: lives with mother and brother in [place] but she reports that she cannot take him back as she cannot meet his needs. MEDICATION DOSAGE FREQUENCY DURATION Geodon 80 mg po bid Trazodone 100 mg po q hs Lexapro 5 mg po q day Ritalin 20 mg po q day
[2021-07-18] MEDS: lactose-reduced food (Ensure Enlive) - 237ml bottle PO SCH (13:15)
--- NOTE | 2021-07-18 17:32 | NUR ---
Nursing Progress Note: Legal hold: 5250 Client on involuntary status for GD Report received from TAVARES Dotson with use of SBAR. Why they are here: Pt was at [facility] from 06/08/21-07/12/21 for GD/failure to thrive. Pt was discharged, re-evaluated and placed on a 5150. He was readmitted to [facility] on day of discharge 07/12/21. Pt has a Hx of Schizophrenia, depression, and anxiety. Pt has intermittent CAH to kill himself, pt is depressed and anhedonic, he has severely declined in his ADLs. Pt has a DTI ulcer on his right heel. Plan is for him to be conserved. Assessment What has happened this shift: RN received pt. asleep in bed at start of shift. Pt. awoke for breakfast and took all medications. Pt. is standby assist for walking as well as feeding. Pt. on pureed diet and needs encouragement to eat and drink. Pt. needs prompting for toileting. Pt. was incontinent x2 today. S/I, H/I: Denies A/VH: Denies Sleep: pt. slept 7.50 on NOC shift and napped intermittently during the day. ADL's: Requires prompting for toileting, personal hygiene, and to come to meals, needs assistance with bathing and encouragement while eating. Group attendance: No Were meds taken: Yes Any med S/E: Denies, but pt. has increased fatigue. Mental Status Exam Appearance: Disheveled, toothless older gentleman with dark hair, short stahl wearing clean green scrubs. Eye contact: Good. Behavior: Cooperative, slow moving, needs support and encouragement to get up out of bed, isolative, withdrawn. Speech: Clear, slow, poverty of speech. Mood: Depressed Affect: Congruent with mood. Thought process: Poverty of thought Thought Content: Circumstantial. Cognition: A/O X 3 not to time Insight: Poor Judgment: Poor Interventions PRN's used: None Therapeutic interventions: 1:1 assessment, therapeutic communication, active listening, ensured contract for safety, medication administration/education/monitoring, encouragement to come to meals, encouragement with autonomy in ADLs, encouragement to participate in unit activities and attend groups, prompted toileting, assistance with ADLs including transfers, bed mobility, toileting, personal hygiene, bathing and eating, skin breakdown prevention, fall prevention, incontinent care, provided encouragement, distraction, redirection, positive reinforcement and Q15 minute safety checks. Restraints/seclusion/emergency medication: None Justification of Continued Inpatient Treatment: Pt is gravely disabled, he has had a decline in his ADL and is failure to thrive. Pt is homeless and unable to formulate a plan for food, prison. Plan is for him to be conserved.
[2021-07-18 19:41] VITALS: BP 107/71
[2021-07-18] MEDS: traZODone 50mg tablet PO SCH (20:44)
[2021-07-18] MEDS: ketoconazole (Nizoral) shampoo TP SCH (21:59)
--- NOTE | 2021-07-19 01:45 | NUR ---
Nursing Progress Note: Legal hold: 5250 Client on involuntary status for GD Report received from ANNIE Padron with use of SBAR. Why they are here: Pt was at [facility] from 06/08/21-07/12/21 for GD/failure to thrive. Pt was discharged, re-evaluated and placed on a 5150. He was readmitted to [facility] on day of discharge 07/12/21. Pt has a Hx of Schizophrenia, depression, and anxiety. Pt has intermittent CAH to kill himself, pt is depressed and anhedonic, he has severely declined in his ADLs. Pt has a DTI ulcer on his right heel. Plan is for him to be conserved. Assessment What has happened this shift: Patient finishing dinner in the community room at the beginning of shift. Pleasant and cooperative with care; compliant with medication. Patient requires prompting and staff assistance to complete ADLs; showered this shift with staff assistance and Ketoconazole shampoo used. Patient briefly walked the unit and participated in HS snack. He's observed sleeping and does not appear to be having difficulty. S/I, H/I: Denies A/VH: Denies Sleep: Refer to sleep assessment ADL's: Requires prompting and staff assistance Group attendance: NA Were meds taken: Yes Any med S/E: None observed or reported Mental Status Exam Appearance: Neat, clean and appropriately dressed in green unit attire Eye contact: Good Behavior: Pleasant and cooperative, self isolative, withdrawn slow speech and movement Speech: Clear, slow, delayed response, scant Mood: [place] Affect: Constricted Thought process: Poverty of thought Thought Content: Meeting needs Cognition: A/O X 3 not to time Insight: Poor Judgment: Poor Interventions PRN's used: Trazodone Therapeutic interventions: 1:1 assessment, therapeutic communication, active listening, ensured contract for safety, medication administration/education/monitoring, encouragement to come to meals, encouragement with autonomy in ADLs, encouragement to participate in unit activities and attend groups, prompted toileting, assistance with ADLs including transfers, bed mobility, toileting, personal hygiene, bathing and eating, skin breakdown prevention, fall prevention, incontinent care, provided encouragement, distraction, redirection, positive reinforcement and Q15 minute safety checks. Restraints/seclusion/emergency medication: NA Justification of Continued Inpatient Treatment: Pt is gravely disabled, he has had a decline in his ADL and is failure to thrive. Pt is homeless and unable to formulate a plan for food, group home. Plan is for him to be conserved.
[2021-07-19 07:34] VITALS: BP 97/56
[2021-07-19] MEDS: lactobacillus rhamnosus 10,000 MMU CELLS/CAPSULE PO SCH ×2 (08:34→20:28)
[2021-07-19] MEDS: ESCITALOPRAM OXALATE 5 MG TABLET PO SCH (08:34)
[2021-07-19] MEDS: docusate sod 100mg capsule PO SCH ×2 (08:34→20:28)
[2021-07-19] MEDS: ziprasidone 20mg capsule PO SCH ×2 (08:34→20:28)
[2021-07-19] MEDS: methylphenidate 5mg tablet PO SCH (08:34)
[2021-07-19] MEDS: cefpodoxime proxetil 100mg tablet PO SCH ×2 (08:34→17:59)
[2021-07-19] MEDS: lactose-reduced food (Ensure Enlive) - 237ml bottle PO SCH (12:30)
--- NOTE | 2021-07-19 17:55 | NUR ---
Nursing Progress Note: Legal hold: 5250 Client on involuntary status for GD Report received from TAVARES Vasques with use of SBAR. Why they are here: Pt was at [facility] from 06/08/21-07/12/21 for GD/failure to thrive. Pt was discharged, re-evaluated and placed on a 5150. He was readmitted to [facility] on day of discharge 07/12/21. Pt has a Hx of Schizophrenia, depression, and anxiety. Pt has intermittent CAH to kill himself, pt is depressed and anhedonic, he has severely declined in his ADLs. Pt has a DTI ulcer on his right heel. Plan is for him to be conserved. Assessment What has happened this shift: RN received pt. asleep in bed at start of shift. Pt. awoke for breakfast and took all medications. Pt. assisted to toilet in the AM and was noted pt. had been incontinent of urine. Pt. needs much encouragement during meal times and has to be fed at times. 1:1 done at bedside, pt. gives minimal information but continues to report hearing voices telling him to hang himself. In the afternoon pt. observed getting up to the bathroom independently and returning to bed, however, pt. needs assistance putting MAXI BOOT back on. Pt. had no further bouts of incontinence today. S/I, H/I: Denies A/VH: CAH telling him to hang himself. Sleep: pt. slept 6.5 on NOC shift and napped intermittently during the day. ADL's: Requires prompting for toileting, personal hygiene, and to come to meals, needs assistance with bathing and encouragement while eating. Group attendance: No Were meds taken: Yes Any med S/E: Denies, but pt. is fatigued. Mental Status Exam Appearance: Disheveled, toothless older gentleman with dark hair, short stahl wearing clean green scrubs. Eye contact: Good. Behavior: Cooperative, slow moving, needs support and encouragement to get up out of bed, isolative, withdrawn. Speech: Clear, slow, poverty of speech. Mood: Depressed. Affect: Congruent with mood. Thought process: Poverty of thought Thought Content: Circumstantial. Cognition: A/O X 3 not to time Insight: Poor Judgment: Poor Interventions PRN's used: None Therapeutic interventions: 1:1 assessment, therapeutic communication, active listening, ensured contract for safety, medication administration/education/monitoring, encouragement to come to meals, encouragement with autonomy in ADLs, encouragement to participate in unit activities and attend groups, prompted toileting, assistance with ADLs including transfers, bed mobility, toileting, personal hygiene, bathing and eating, skin breakdown prevention, fall prevention, incontinent care, provided encouragement, distraction, redirection, positive reinforcement and Q15 minute safety checks. Restraints/seclusion/emergency medication: None Justification of Continued Inpatient Treatment: Pt is gravely disabled, he has had a decline in his ADL and is failure to thrive. Pt is homeless and unable to formulate a plan for food, penitentiary. Plan is for him to be conserved.
[2021-07-19 19:51] VITALS: BP 100/64
[2021-07-19] MEDS: traZODone 50mg tablet PO SCH (20:28)
--- NOTE | 2021-07-20 01:57 | NUR ---
Nursing Progress Note: Legal hold: 5250 Client on involuntary status for GD Report received from ANNIE Padron with use of SBAR. Why they are here: Pt was at [facility] from 06/08/21-07/12/21 for GD/failure to thrive. Pt was discharged, re-evaluated and placed on a 5150. He was readmitted to [facility] on day of discharge 07/12/21. Pt has a Hx of Schizophrenia, depression, and anxiety. Pt has intermittent CAH to kill himself, pt is depressed and anhedonic, he has severely declined in his ADLs. Pt has a DTI ulcer on his right heel. Plan is for him to be conserved. Assessment What has happened this shift: Patient laying in bed awake at the beginning of shift. Pleasant and cooperative with care; compliant with medication. Denies SI, HI, A/VH; does not appear to be responding to IS and no apparent delusions reported. One incontinent episode this shift. He refused HS snack and paced the unit prior to bed; observed sleeping and does not appear to be having difficulty. S/I, H/I: Denies A/VH: Denies Sleep: Refer to sleep assessment ADL's: Requires prompting and staff assistance Group attendance: NA Were meds taken: Yes Any med S/E: None observed or reported Mental Status Exam Appearance: Neat, clean and appropriately dressed in green unit attire Eye contact: Good Behavior: Pleasant and cooperative, self isolative, withdrawn slow speech and movement Speech: Clear, slow, delayed response, scant Mood: [place] Affect: Constricted Thought process: Poverty of thought Thought Content: Meeting needs Cognition: A/O X 3 not to time Insight: Poor Judgment: Poor Interventions PRN's used: Trazodone Therapeutic interventions: 1:1 assessment, therapeutic communication, active listening, ensured contract for safety, medication administration/education/monitoring, encouragement to come to meals, encouragement with autonomy in ADLs, encouragement to participate in unit activities and attend groups, prompted toileting, assistance with ADLs including transfers, bed mobility, toileting, personal hygiene, bathing and eating, skin breakdown prevention, fall prevention, incontinent care, provided encouragement, distraction, redirection, positive reinforcement and Q15 minute safety checks. Restraints/seclusion/emergency medication: NA Justification of Continued Inpatient Treatment: Pt is gravely disabled, he has had a decline in his ADL and is failure to thrive. Pt is homeless and unable to formulate a plan for food, group home. Plan is for him to be conserved.
[2021-07-20 07:12] VITALS: BP 106/54
[2021-07-20] MEDS: ESCITALOPRAM OXALATE 5 MG TABLET PO SCH (07:55)
[2021-07-20] MEDS: methylphenidate 5mg tablet PO SCH (07:55)
[2021-07-20] MEDS: docusate sod 100mg capsule PO SCH ×2 (07:55→20:56)
[2021-07-20] MEDS: ziprasidone 20mg capsule PO SCH ×2 (07:55→20:55)
[2021-07-20] MEDS: cefpodoxime proxetil 100mg tablet PO SCH ×2 (07:56→17:58)
[2021-07-20] MEDS: lactobacillus rhamnosus 10,000 MMU CELLS/CAPSULE PO SCH ×2 (07:56→20:56)
[2021-07-20] MEDS: lactose-reduced food (Ensure Enlive) - 237ml bottle PO SCH (13:03)
--- NOTE | 2021-07-20 17:16 | NUR ---
Nursing Progress Note: Legal hold: 5250 Client on involuntary status for GD Report received from TAVARES Vasques with use of SBAR. Why they are here: Pt was at [facility] from 06/08/21-07/12/21 for GD/failure to thrive. Pt was discharged, re-evaluated and placed on a 5150. He was readmitted to [facility] on day of discharge 07/12/21. Pt has a Hx of Schizophrenia, depression, and anxiety. Pt has intermittent CAH to kill himself, pt is depressed and anhedonic, he has severely declined in his ADLs. Pt has a DTI ulcer on his right heel. Plan is for him to be conserved. Assessment What has happened this shift: RN received pt. asleep in bed at start of shift. Pt. awoke for breakfast and took all medications. Pt. assisted to toilet in the AM and was noted pt. had been incontinent of urine. Pt. needs much encouragement during meal times and has to be fed at times. 1:1 done at bedside, pt. gives minimal information but continues to report hearing voices telling him to hang himself. Pt. becomes more independent in the afternoon, walking himself back to bed. However, pt. does not pull the covers over his body and found lying in bed and needs assistance putting his MAXI-BOOT on his right foot. S/I, H/I: Denies A/VH: CAH telling him to hang himself. Sleep: pt. slept 5.5 on NOC shift and napped intermittently during the day. ADL's: Requires prompting for toileting, personal hygiene, and to come to meals, needs assistance with bathing and encouragement while eating. Group attendance: No Were meds taken: Yes Any med S/E: Denies, but pt. is fatigued. Mental Status Exam Appearance: Disheveled, toothless older gentleman with dark hair, short stahl wearing clean green scrubs. Eye contact: Good. Behavior: Cooperative, slow moving, needs support and encouragement to get up out of bed, to eat, and to toilet. Pt. is isolative, withdrawn. Speech: Clear, slow, poverty of speech. Mood: Depressed. Affect: Congruent with mood. Thought process: Poverty of thought. Thought Content: Circumstantial. Cognition: A/O X 3 not to time Insight: Poor Judgment: Poor Interventions PRN's used: None Therapeutic interventions: 1:1 assessment, therapeutic communication, active listening, ensured contract for safety, medication administration/education/monitoring, encouragement to come to meals, encouragement with autonomy in ADLs, encouragement to participate in unit activities and attend groups, prompted toileting, assistance with ADLs including transfers, bed mobility, toileting, personal hygiene, bathing and eating, skin breakdown prevention, fall prevention, incontinent care, provided encouragement, distraction, redirection, positive reinforcement and Q15 minute safety checks. Restraints/seclusion/emergency medication: None Justification of Continued Inpatient Treatment: Pt is gravely disabled, he has had a decline in his ADL and is failure to thrive. Pt is homeless and unable to formulate a plan for food, correction. Plan is for him to be conserved.
[2021-07-20 20:53] VITALS: BP 103/64
[2021-07-20] MEDS: vitamin A & D ointment-NF 1 APPLIC TUBE TP SCH ×2 (20:54→20:57)
[2021-07-20] MEDS: traZODone 50mg tablet PO SCH (20:56)
--- NOTE | 2021-07-21 02:28 | NUR ---
Nursing Progress Note: Legal hold: 5250 Client on involuntary status for GD Report received from ANNIE Padron with use of SBAR. Why they are here: Pt was at [facility] from 06/08/21-07/12/21 for GD/failure to thrive. Pt was discharged, re-evaluated and placed on a 5150. He was readmitted to [facility] on day of discharge 07/12/21. Pt has a Hx of Schizophrenia, depression, and anxiety. Pt has intermittent CAH to kill himself, pt is depressed and anhedonic, he has severely declined in his ADLs. Pt has a DTI ulcer on his right heel. Plan is for him to be conserved. Assessment What has happened this shift: Pt walking in hallway upon shift change. Pt makes minimal response to conversation. Pt in community room before snack time. Pt stated thta what he had for dinner and said it wasn't very good. Pt in rec room watching TV at evening med pass. Pt took medications w/o complaint. A and D ointment applied to back of heel. Pt states that he hears the voices and they say the same thing they always have. Pt went to bed at 2200, helped into bed and boot put on. Pt turned automation engineering manager light tin the middle of the night and asked to use the restroom. S/I, H/I: Denies A/VH: CAH Pt states the same voices he's been hearing Sleep: pt. See sleep hours ADL's: Requires prompting for toileting, personal hygiene, and to come to meals, needs assistance with bathing and encouragement while eating. Group attendance: No group in the evenings Were meds taken: Yes Any med S/E: none Mental Status Exam Appearance: Disheveled, older gentlemen in green scrubs Eye contact: Good. Behavior: cooperative and polite, minimal speech Speech: Clear, slow, poverty of speech. Mood: Depressed. Affect:depressed Thought process: Poverty of thought. Thought Content: Circumstantial. Cognition: A/O X 3 not to time Insight: Poor Judgment: Poor Interventions PRN's used: None Therapeutic interventions: 1:1 assessment, therapeutic communication, active listening, ensured contract for safety, medication administration/education/monitoring, encouragement to come to meals, encouragement with autonomy in ADLs, encouragement to participate in unit activities and attend groups, prompted toileting, assistance with ADLs including transfers, bed mobility, toileting, personal hygiene, bathing and eating, skin breakdown prevention, fall prevention, incontinent care, provided encouragement, distraction, redirection, positive reinforcement and Q15 minute safety checks. Restraints/seclusion/emergency medication: None Justification of Continued Inpatient Treatment: Pt is gravely disabled, he has had a decline in his ADL and is failure to thrive. Pt is homeless and unable to formulate a plan for food, [facility]. Plan is for him to be conserved.
--- NOTE | 2021-07-21 07:40 | NUR ---
Reassessment: Pt continues on Puree diet with fluctuating PO intake, avg 55% x 12 meals and 100% ONS WL meeting est nutrient needs at this time. Pt noted to need encouragement and feeder at times. LBM receiving routine bowel care. No change to nutrition recommendations at this time, will continue to monitor. Recommendations: 1) Continue pureed diet per pt preference; assitance w/ meals 2) Ensure Enlive WL; monitor need to adjust ONS frequency 3) Offer snacks and encourage PO intake 4) Routine bowel care 5) Weekly scaled weights Addendum: 07/21/21 at [address] Amended: Links added.
[2021-07-21 07:43] VITALS: BP 129/72
[2021-07-21] MEDS: vitamin A & D ointment-NF 1 APPLIC TUBE TP SCH ×2 (07:58→20:45)
[2021-07-21] MEDS: methylphenidate 5mg tablet PO SCH (07:59)
[2021-07-21] MEDS: docusate sod 100mg capsule PO SCH ×2 (07:59→20:45)
[2021-07-21] MEDS: ziprasidone 20mg capsule PO SCH ×2 (07:59→20:44)
[2021-07-21] MEDS: lactobacillus rhamnosus 10,000 MMU CELLS/CAPSULE PO SCH ×2 (07:59→20:45)
[2021-07-21] MEDS: ESCITALOPRAM OXALATE 5 MG TABLET PO SCH (07:59)
[2021-07-21] MEDS: lactose-reduced food (Ensure Enlive) - 237ml bottle PO SCH (13:05)
--- NOTE | 2021-07-21 13:28 | NUR ---
Temporary Conservatorship Served [facility] and faxed proof of being served. He has court on 08/19/21 at 2 PM. Placed paperwork in his chart. WELLINGTON Pearson
--- NOTE | 2021-07-21 14:28 | NUR ---
Nursing Progress Note: Legal hold: 5250 Client on involuntary status for GD Report received from TAVARES Vasques with use of SBAR. Why they are here: Pt was at [facility] from 06/08/21-07/12/21 for GD/failure to thrive. Pt was discharged, re-evaluated and placed on a 5150. He was readmitted to [facility] on day of discharge 07/12/21. Pt has a Hx of Schizophrenia, depression, and anxiety. Pt has intermittent CAH to kill himself, pt is depressed and anhedonic, he has severely declined in his ADLs. Pt has a DTI ulcer on his right heel. Plan is for him to be conserved. Assessment What has happened this shift: RN received pt. asleep in bed at start of shift. Pt. did not awake for breakfast but took all medications. Pt. assisted to toilet in the late morning and patient had been incontinent of urine. Pt was cleaned any laying in bed. RN asked patient where his wound is located and patient stated on his but. RN looked to asses and then patient said "no, it's my heel." But RN found patient incontinent of stool. RN cleaned and changed patient. Patient walked to the C.R. for lunch. RN found patient sitting there and not moving. RN assisted patient with his meal. Patient does like to drink fluids. Patient denies S/H ideation. Patient nods yes that he hears voices. RN asked patient if the voices tell him to hang himself. Patient nods yes. RN asked if the medication helps the voices go away. Patient nods his head "no." S/I, H/I: Denies A/VH: CAH telling him to hang himself. Sleep: Patient sleeps or lays in bed most of the day. ADL's: Requires assistance with most ADLs Group attendance: No Were meds taken: Yes Any med S/E: Denies Mental Status Exam Appearance: Disheveled, toothless older gentleman with dark hair, short stahl wearing clean green scrubs. Eye contact: Good. Behavior: Cooperative, isolative, withdrawn. Speech: poverty of speech. Mood: Depressed. Affect: [place] Thought process: Poverty of thought. Thought Content: Circumstantial. Cognition: A/O X 3 not to time Insight: Poor Judgment: Poor Interventions PRN's used: None Therapeutic interventions: 1:1 assessment, therapeutic communication, active listening, ensured contract for safety, medication administration/education/monitoring, encouragement to come to meals, encouragement with autonomy in ADLs, encouragement to participate in unit activities and attend groups, prompted toileting, assistance with ADLs including transfers, bed mobility, toileting, personal hygiene, bathing and eating, skin breakdown prevention, fall prevention, incontinent care, provided encouragement, distraction, redirection, positive reinforcement and Q15 minute safety checks. Restraints/seclusion/emergency medication: None Justification of Continued Inpatient Treatment: Pt is gravely disabled, he has had a decline in his ADL and is failure to thrive. Pt is homeless and unable to formulate a plan for food, [facility]. Plan is for him to be conserved.
--- NOTE | 2021-07-21 17:28 | NUR ---
Group Activity Continued: (Chair Activity Bingo) Patient was actively able to follow the exercises being demonstrated during the Activity Bingo Game. Patient was set up for the game,(his card and chips on the table) and encouraged to play. Patient initiated doing the exercises (out of the corner of his eye and off to the side table) following and completing each move to the best of his ability. He needed assistance to move his chips to the correct spot on the card. Patient maintained this motivated over a 45 minute period of time. Patient remained non-verbal during this group. Please refer to the [facility] Case Notes for a complete overview of the session. Juju Gordon MA, SIGN LANGUAGE INSTRUCTOR #[id number] [facility], Art Therapist Addendum: 07/21/21 at 1733 by Juju Gordon SS Amended: Links added.
[2021-07-21 20:00] VITALS: BP 102/65
[2021-07-21] MEDS: traZODone 50mg tablet PO SCH (20:45)
--- NOTE | 2021-07-22 00:39 | NUR ---
Nursing Progress Note: Legal hold: 5250 Client on involuntary status for GD Report received from ANNIE Mata with use of SBAR. Why they are here: Pt was at [facility] from 06/08/21-07/12/21 for GD/failure to thrive. Pt was discharged, re-evaluated and placed on a 5150. He was readmitted to [facility] on day of discharge 07/12/21. Pt has a Hx of Schizophrenia, depression, and anxiety. Pt has intermittent CAH to kill himself, pt is depressed and anhedonic, he has severely declined in his ADLs. Pt has a DTI ulcer on his right heel. Plan is for him to be conserved. Assessment What has happened this shift: Recieved pt eating dinner in community room. Aske dpt how he was doing today? pt replied, "good", Do you like your dinner?, "No". Pt made minimal conversation, sat in the community room and watched [employer] movies for about an hour and went to room and laid there uncovered. Esperanza srivastava walked in and asked if the pt wanted his boot on and covered up? The pt replied, "yes". Pt took meds at [facility] w/o complaints, Applied A and D ointment to Right heel per orders. Asked pt if he hears voices? pt replys, "yes", what do they say? "the samr S/I, H/I: Denies A/VH: CAH telling him to hang himself. Sleep: Patient sleeps or lays in bed most of the day. ADL's: Requires assistance with most ADLs Group attendance: No Were meds taken: Yes Any med S/E: Denies Mental Status Exam Appearance: Disheveled, toothless older gentleman with dark hair, short stahl wearing clean green scrubs. Eye contact: Good. Behavior: Cooperative, isolative, withdrawn. Speech: poverty of speech. Mood: Depressed. Affect: Flat Thought process: Poverty of thought. Thought Content: Circumstantial. Cognition: A/O X 3 not to time Insight: Poor Judgment: Poor Interventions PRN's used: None Therapeutic interventions: 1:1 assessment, therapeutic communication, active listening, ensured contract for safety, medication administration/education/monitoring, encouragement to come to meals, encouragement with autonomy in ADLs, encouragement to participate in unit activities and attend groups, prompted toileting, assistance with ADLs including transfers, bed mobility, toileting, personal hygiene, bathing and eating, skin breakdown prevention, fall prevention, incontinent care, provided encouragement, distraction, redirection, positive reinforcement and Q15 minute safety checks. Restraints/seclusion/emergency medication: None Justification of Continued Inpatient Treatment: Pt is gravely disabled, he has had a decline in his ADL and is failure to thrive. Pt is homeless and unable to formulate a plan for food, half-way. Plan is for him to be conserved. Addendum: 07/22/21 at 0051 by Lisa Bermudez RN Accidently pushed a button and entered without finishing note, new note added in notes
--- NOTE | 2021-07-22 00:48 | NUR ---
Nursing Progress Note: Legal hold: 5250 Client on involuntary status for GD Report received from ANNIE Mata with use of SBAR. Why they are here: Pt was at [facility] from 06/08/21-07/12/21 for GD/failure to thrive. Pt was discharged, re-evaluated and placed on a 5150. He was readmitted to [facility] on day of discharge 07/12/21. Pt has a Hx of Schizophrenia, depression, and anxiety. Pt has intermittent CAH to kill himself, pt is depressed and anhedonic, he has severely declined in his ADLs. Pt has a DTI ulcer on his right heel. Plan is for him to be conserved. Assessment What has happened this shift: Received pt eating dinner in community room. Aske dpt how he was doing today? pt replied, "good", Do you like your dinner?, "No". Pt made minimal conversation, sat in the community room and watched [employer] movies for about an hour and went to room and laid there uncovered. This magazine writer walked in and asked if the pt wanted his boot on and covered up? The pt replied, "yes". Pt took meds at med pass w/o complaints, Applied A and D ointment to Right heel per orders. Asked pt if he hears voices? pt replys, "yes", what do they say? "the same thing", pt went to sleep shortly after. S/I, H/I: Denies A/VH: CAH: Says the same thing Sleep: See sleep hours ADL's: Requires assistance with most ADLs Group attendance: No group in the evenings Were meds taken: Yes Any med S/E: Denies Mental Status Exam Appearance: Disheveled, wearing green scrubs. Eye contact: Good. Behavior: Cooperative, isolative, withdrawn. Speech: poverty of speech. Mood: Depressed. Affect: Flat Thought process: Poverty of thought. Thought Content: Circumstantial. Cognition: A/O X 3 not to time Insight: Poor Judgment: Poor Interventions PRN's used: None Therapeutic interventions: 1:1 assessment, therapeutic communication, active listening, ensured contract for safety, medication administration/education/monitoring, encouragement to come to meals, encouragement with autonomy in ADLs, encouragement to participate in unit activities and attend groups, prompted toileting, assistance with ADLs including transfers, bed mobility, toileting, personal hygiene, bathing and eating, skin breakdown prevention, fall prevention, incontinent care, provided encouragement, distraction, redirection, positive reinforcement and Q15 minute safety checks. Restraints/seclusion/emergency medication: None Justification of Continued Inpatient Treatment: Pt is gravely disabled, he has had a decline in his ADL and is failure to thrive. Pt is homeless and unable to formulate a plan for food, fpc. Plan is for him to be conserved.
[2021-07-22] MEDS: venlafaxine XR 75mg capsule (Q24H) PO SCH (08:42)
[2021-07-22] MEDS: ziprasidone 20mg capsule PO SCH ×2 (08:42→20:38)
[2021-07-22] MEDS: vitamin A & D ointment-NF 1 APPLIC TUBE TP SCH ×2 (08:43→20:38)
[2021-07-22] MEDS: methylphenidate 5mg tablet PO SCH (08:43)
[2021-07-22] MEDS: lactobacillus rhamnosus 10,000 MMU CELLS/CAPSULE PO SCH ×2 (08:43→20:38)
[2021-07-22] MEDS: docusate sod 100mg capsule PO SCH ×2 (08:43→20:39)
[2021-07-22 09:08] VITALS: BP 112/75
[2021-07-22] MEDS: lactose-reduced food (Ensure Enlive) - 237ml bottle PO SCH (12:59)
--- NOTE | 2021-07-22 16:30 | NUR ---
Nursing Progress Note: Legal hold: T-Con Client on involuntary status for GD Report received from TAVARES Alberts, with use of SBAR. Why they are here: Pt was at [facility] from 06/08/21-07/12/21 for GD/failure to thrive. Pt was discharged, re-evaluated and placed on a 5150. He was readmitted to [facility] on day of discharge 07/12/21. Pt has a Hx of Schizophrenia, depression, and anxiety. Pt has intermittent CAH to kill himself, pt is depressed and anhedonic, he has severely declined in his ADLs. Pt has a DTI ulcer on his right heel. Plan is for him to be conserved. Assessment What has happened this shift: Received patient at shift change sleeping in bed. Patient attends breakfast in the community room with his peers, but he does not socialize with others. After breakfast Cuong was up walking the hallways, strengthening his legs for about an hour. Patient then went for a nap. Patient was hard to wake up for lunch, and ate lunch with his eyes closed most of the time. Patient was too tired to feed himself, so RN fed patient. As he was eating his left leg was tapping on the floor. Patient was then placed back in bed due to sedation and soft boot is applied to right foot. S/I, H/I: Denies A/VH: + AH Sleep: Patient sleeps on and off throughout the day. ADL's: Requires assistance with most ADLs Group attendance: No Were meds taken: Yes Any med S/E: Denies Mental Status Exam Appearance: Disheveled, toothless older gentleman with dark hair, short stahl wearing clean green scrubs. Eye contact: Good. Behavior: Cooperative, isolative, withdrawn. Speech: poverty of speech. Mood: Depressed. Affect: Flat Thought process: Poverty of thought. Thought Content: Getting needs met. Cognition: A/O X 3 not to time Insight: Poor Judgment: Poor Interventions PRN's used: None Therapeutic interventions: 1:1 assessment, therapeutic communication, active listening, ensured contract for safety, medication administration/education/monitoring, encouragement to come to meals, encouragement with autonomy in ADLs, encouragement to participate in unit activities and attend groups, prompted toileting, assistance with ADLs including transfers, bed mobility, toileting, personal hygiene, bathing and eating, skin breakdown prevention, fall prevention, incontinent care, provided encouragement, distraction, redirection, positive reinforcement and Q15 minute safety checks. Restraints/seclusion/emergency medication: None Justification of Continued Inpatient Treatment: Pt is gravely disabled, he has had a decline in his ADL and is failure to thrive. Pt is homeless and unable to formulate a plan for food, retirement. Plan is for him to be conserved
[2021-07-22 19:11] VITALS: BP 109/70
[2021-07-22] MEDS: traZODone 50mg tablet PO SCH (20:39)
--- NOTE | 2021-07-22 23:33 | NUR ---
Nursing Progress Note: Legal hold: T-Con Client on involuntary status for GD Report received from ANNIE Mata, with use of SBAR. Why they are here: Pt was at [facility] from 06/08/21-07/12/21 for GD/failure to thrive. Pt was discharged, re-evaluated and placed on a 5150. He was readmitted to [facility] on day of discharge 07/12/21. Pt has a Hx of Schizophrenia, depression, and anxiety. Pt has intermittent CAH to kill himself, pt is depressed and anhedonic, he has severely declined in his ADLs. Pt has a DTI ulcer on his right heel. Plan is for him to be conserved. Assessment What has happened this shift: Received pt eating dinner in community room at a table with cohorts. Pt made minimal responses and stated he was enjoying the ice cream. Pt sat and watched TV in community room till med pass. At med pass pt took all medications w/o complaint.Pt stses that he heard voices today and they say the same thing. Bed was remade due to old stain and clothes changed due to incontinence. A & D ointment applied to right heel. Pt heel put in boot and left foot propped on pillow. Pt went to sleep shortly after. S/I, H/I: Denies A/VH: + AH Sleep: See sleep hours ADL's: Requires assistance with most ADLs Group attendance: No group in the evenings Were meds taken: Yes Any med S/E: Denies Mental Status Exam Appearance: Disheveled, toothless older gentleman with dark hair, short stahl wearing clean green scrubs. Eye contact: Good. Behavior: Cooperative, isolative, withdrawn. Speech: poverty of speech. Mood: Depressed. Affect: Flat Thought process: Poverty of thought. Thought Content: Getting needs met. Cognition: A/O X 3 not to time Insight: Poor Judgment: Poor Interventions PRN's used: None Therapeutic interventions: 1:1 assessment, therapeutic communication, active listening, ensured contract for safety, medication administration/education/monitoring, encouragement to come to meals, encouragement with autonomy in ADLs, encouragement to participate in unit activities and attend groups, prompted toileting, assistance with ADLs including transfers, bed mobility, toileting, personal hygiene, bathing and eating, skin breakdown prevention, fall prevention, incontinent care, provided encouragement, distraction, redirection, positive reinforcement and Q15 minute safety checks. Restraints/seclusion/emergency medication: None Justification of Continued Inpatient Treatment: Pt is gravely disabled, he has had a decline in his ADL and is failure to thrive. Pt is homeless and unable to formulate a plan for food, group home. Plan is for him to be conserved
[2021-07-23 08:11] VITALS: BP 105/69
[2021-07-23] MEDS: venlafaxine XR 75mg capsule (Q24H) PO SCH (08:34)
[2021-07-23] MEDS: docusate sod 100mg capsule PO SCH ×2 (08:34→20:03)
[2021-07-23] MEDS: lactobacillus rhamnosus 10,000 MMU CELLS/CAPSULE PO SCH ×2 (08:34→20:04)
[2021-07-23] MEDS: ziprasidone 20mg capsule PO SCH ×2 (08:34→20:03)
[2021-07-23] MEDS: methylphenidate 5mg tablet PO SCH (08:35)
[2021-07-23] MEDS: vitamin A & D ointment-NF 1 APPLIC TUBE TP SCH ×2 (08:35→20:05)
[2021-07-23] MEDS: lactose-reduced food (Ensure Enlive) - 237ml bottle PO SCH (12:30)
--- NOTE | 2021-07-23 13:01 | NUR ---
Nursing Progress Note: Legal hold: TCon Client on involuntary status for GD Report received from nurse with use of SBAR: Ernestina Alberts RN Why are they here: Pt was at [facility] from 06/08/21-07/12/21 for GD/failure to thrive. Pt was discharged, re-evaluated and placed on a 5150. He was readmitted to [facility] on day of discharge 07/12/21. Pt has a Hx of Schizophrenia, depression, and anxiety. Pt has intermittent CAH to kill himself, pt is depressed and anhedonic, he has severely declined in his ADLs. Pt has a DTI ulcer on his right heel. Plan is for him to be conserved. Assessment What has happened this shift: Received pt. sleeping in bed at the beginning of the shift, he was awoken by staff to attend breakfast in the Group Room. Pt . continues to require encouragement and direction in order to perform ADLs, exhibits mild weakness, and is incontinent at times. Pt. was able to eat independently during breakfast, but at a very slow rate with encouragement. He does not interact with any of his peers, and after breakfast retreated back to bed. Pt's ordered A&D ointment to his right heel was applied, heels were floated, and foam boot was applied to right foot. 1:1 was completed at bedside, pt. presents as guarded and withdrawn. His speech is whispered and difficult to understand, but he will repeat himself when asked. Pt. denies S/I, but does admit to command A/RUBY which he is able to ignore. He also reports paranoid delusions that random others want to hurt him. When questioned by this aligner typewriter regarding why he is here on the unit, pt. was able to verbalize with some insight, "I wasn't taking care of myself." In the afternoon, pt. sits in a chair at bedside, and appears to be staring blankly in front of himself. He continues to be guarded and withdrawn. S/I, H/I: Denies A/VH: Pt. reports command A/RUBY Sleep: Sleep hours are 7.75, and pt. naps during much of the shift ADL's: Pt. requires direction and encouragement Group attendance: No Were meds taken: Yes Any med S/E: None Mental Status Exam Appearance: Hair and clothing disheveled r/t laying in bed Eye contact: Fair Behavior: Cooperative, fatigued, guarded, and withdrawn Speech: Whispers, minimal responses Mood: Guarded Affect: Constricted Thought process: Poverty of thought with possible thought blocking Thought Content: A/RUBY and paranoid delusions Cognition: A&O x3 (not to time) Insight: Poor Judgment: Poor Interventions PRN's used: None Therapeutic interventions: Introduced self and established rapport, maintained a safe and supportive environment, ensured contract for safety, provided direction and encouragement regarding ADLs, monitored rt. heel and completed ordered treatment/foam boot while in bed, continued to encourage Q2 hour toileting and monitored for incontinence episodes, and maintained Q 15min safety checks. Restraints/seclusion/emergency medication: N/A Justification of Continued Inpatient Treatment: Per RAYMON Go, pt. continues to require medication adjustments and a safe and supportive environment. Addendum: 07/23/21 at 1535 by Ailyn Galan RN Pt. required moderate to full assistance to eat lunch from this aligner typewriter r/t fatigue, endorsed to RAYMON Go.
[2021-07-23 19:36] VITALS: BP 106/69
[2021-07-23] MEDS: traZODone 50mg tablet PO SCH (20:03)
--- NOTE | 2021-07-24 01:05 | NUR ---
Nursing Progress Note: Legal hold: TCon Client on involuntary status for GD Report received from nurse with use of SBAR: ANNIE Mata Why are they here: Pt was at [facility] from 06/08/21-07/12/21 for GD/failure to thrive. Pt was discharged, re-evaluated and placed on a 5150. He was readmitted to [facility] on day of discharge 07/12/21. Pt has a Hx of Schizophrenia, depression, and anxiety. Pt has intermittent CAH to kill himself, pt is depressed and anhedonic, he has severely declined in his ADLs. Pt has a DTI ulcer on his right heel. Plan is for him to be conserved. Assessment What has happened this shift: Patient was found laying in bed sleeping at beginning of shift. Patient self isolated in room all shift. Patient had to awaken by nurse in order to give night medications. Patient was also assisted to restroom before bed. Wound care preformed on right heel. S/I, H/I: Denies A/VH: Denies Sleep:See sleep assessment ADL's: Pt. requires direction and encouragement Group attendance: No Were meds taken: Yes Any med S/E: None Mental Status Exam Appearance: Hair and clothing disheveled r/t laying in bed Eye contact: Fair Behavior: Cooperative, fatigued, guarded, and withdrawn Speech: Whispers, minimal responses Mood: Guarded Affect: Constricted Thought process: Poverty of thought with possible thought blocking Thought Content: A/RUBY and paranoid delusions Cognition: A&O x3 (not to time) Insight: Poor Judgment: Poor Interventions PRN's used: None Therapeutic interventions: Introduced self and established rapport, maintained a safe and supportive environment, ensured contract for safety, provided direction and encouragement regarding ADLs, monitored rt. heel and completed ordered treatment/foam boot while in bed, continued to encourage Q2 hour toileting and monitored for incontinence episodes, and maintained Q 15min safety checks. Restraints/seclusion/emergency medication: N/A Justification of Continued Inpatient Treatment: Per RAYMON Go, pt. continues to require medication adjustments and a safe and supportive environment.
[2021-07-24 08:00] VITALS: BP 107/64
[2021-07-24] MEDS: docusate sod 100mg capsule PO SCH ×2 (08:46→20:15)
[2021-07-24] MEDS: venlafaxine XR 75mg capsule (Q24H) PO SCH (08:46)
[2021-07-24] MEDS: methylphenidate 5mg tablet PO SCH (08:46)
[2021-07-24] MEDS: lactobacillus rhamnosus 10,000 MMU CELLS/CAPSULE PO SCH ×2 (08:46→20:15)
[2021-07-24] MEDS: ziprasidone 20mg capsule PO SCH ×2 (08:46→20:16)
[2021-07-24] MEDS: vitamin A & D ointment-NF 1 APPLIC TUBE TP SCH ×2 (08:48→20:17)
[2021-07-24] MEDS: lactose-reduced food (Ensure Enlive) - 237ml bottle PO SCH (12:30)
--- NOTE | 2021-07-24 17:36 | NUR ---
Nursing Progress Note: Legal hold: TCon Client on involuntary status for GD Report received from nurse, TAVARES Mitchell with use of SBAR Why are they here: Pt was at [facility] from 06/08/21-07/12/21 for GD/failure to thrive. Pt was discharged, re-evaluated and placed on a 5150. He was readmitted to [facility] on day of discharge 07/12/21. Pt has a Hx of Schizophrenia, depression, and anxiety. Pt has intermittent CAH to kill himself, pt is depressed and anhedonic, he has severely declined in his ADLs. Pt has a DTI ulcer on his right heel. Plan is for him to be conserved. Assessment What has happened this shift: Pt cooperative and polite during the 1:1 assessment. He is medication compliant asking questions about hs medicines throughout the day. Provided medication education as needed. Pt acknowledges understanding. Pt up for meals with assistance and encouragement. He continues to isolate on his bed. S/I, H/I: Denies A/VH: Pt. reports command A/RUBY Sleep: naps during much of the shift ADL's: Pt. requires direction and encouragement Group attendance: N/A Were meds taken: Yes Any med S/E: None Mental Status Exam Appearance: Hair neatly combed, pt is well groomed, dressed in personal attaire Eye contact: Fair Behavior: Cooperative, guarded, and withdrawn Speech: Whispers, minimal responses Mood: Guarded Affect: Constricted Thought process: Poverty of thought with thought blocking Thought Content: A/RUBY and paranoid delusions Cognition: A&O x3 (not to time) Insight: Poor Judgment: Poor Interventions PRN's used: None Therapeutic interventions: Assist pt up for meals and snacks, assist pt to the restroom prior to lunch, kept right heel up and floating while in bed, medication administration/educatioin/monitoring, and maintained Q 15min safety checks. Restraints/seclusion/emergency medication: N/A Justification of Continued Inpatient Treatment: Per RAYMON Go, pt. continues to require medication adjustments and a safe and supportive environment.
[2021-07-24] MEDS: traZODone 50mg tablet PO SCH (20:16)
[2021-07-24 20:55] VITALS: BP 116/63
--- NOTE | 2021-07-25 00:57 | NUR ---
Nursing Progress Note: Legal hold: TCon Client on involuntary status for GD Report received from nurse, TAVARES Mata with use of SBAR Why are they here: Pt was at [facility] from 06/08/21-07/12/21 for GD/failure to thrive. Pt was discharged, re-evaluated and placed on a 5150. He was readmitted to [facility] on day of discharge 07/12/21. Pt has a Hx of Schizophrenia, depression, and anxiety. Pt has intermittent CAH to kill himself, pt is depressed and anhedonic, he has severely declined in his ADLs. Pt has a DTI ulcer on his right heel. Plan is for him to be conserved. Assessment What has happened this shift: Pt was in the group room sitting on the exercise bike watching tv. he did not interact with peers he was med compliant and ate snack in group room before returning to his room and bed. S/I, H/I: Denies A/VH: Pt. reports command A/RUBY Sleep: See sleep assessment ADL's: Pt. requires direction and encouragement Group attendance: N/A Were meds taken: Yes Any med S/E: None Mental Status Exam Appearance: Hair neatly combed, pt is well groomed, dressed in personal attaire Eye contact: Fair Behavior: Cooperative, guarded, and withdrawn Speech: Whispers, minimal responses Mood: Guarded Affect: Constricted Thought process: Poverty of thought with thought blocking Thought Content: A/RUBY and paranoid delusions Cognition: A&O x3 (not to time) Insight: Poor Judgment: Poor Interventions PRN's used: None Therapeutic interventions: Assist pt up for meals and snacks, assist pt to the restroom prior to lunch, kept right heel up and floating while in bed, medication administration/educatioin/monitoring, and maintained Q 15min safety checks. Restraints/seclusion/emergency medication: N/A Justification of Continued Inpatient Treatment: Per RAYMON oG, pt. continues to require medication adjustments and a safe and supportive environment.
[2021-07-25 08:00] VITALS: BP 110/72
[2021-07-25] MEDS: vitamin A & D ointment-NF 1 APPLIC TUBE TP SCH ×2 (08:14→20:09)
[2021-07-25] MEDS: lactobacillus rhamnosus 10,000 MMU CELLS/CAPSULE PO SCH ×2 (08:14→20:08)
[2021-07-25] MEDS: venlafaxine XR 75mg capsule (Q24H) PO SCH (08:14)
[2021-07-25] MEDS: methylphenidate 5mg tablet PO SCH (08:14)
[2021-07-25] MEDS: docusate sod 100mg capsule PO SCH ×2 (08:14→20:08)
[2021-07-25] MEDS: ziprasidone 20mg capsule PO SCH ×2 (08:14→20:09)
--- NOTE | 2021-07-25 12:03 | NUR ---
Nursing Progress Note: Legal hold: TCon Client on involuntary status for GD Report received from nurse with use of SBAR: ANNIE Vasques Why are they here: Pt was at [facility] from 06/08/21-07/12/21 for GD/failure to thrive. Pt was discharged, re-evaluated and placed on a 5150. He was readmitted to [facility] on day of discharge 07/12/21. Pt has a Hx of Schizophrenia, depression, and anxiety. Pt has intermittent CAH to kill himself, pt is depressed and anhedonic, he has severely declined in his ADLs. Pt has a DTI ulcer on his right heel. Plan is for him to be conserved. Assessment What has happened this shift: Received pt. sleeping in bed at the beginning of the shift, he was again awoken by staff to attend breakfast in the Group Room. Pt. continues to require encouragement and direction in order to perform ADLs, exhibits mild weakness, and is incontinent at times. He continues to eat independently at a very slow rate, requiring prompting and encouragement. Afterwards, pt. returned back to his room where he sat at bedside looking over his [employer], he put his new slippers on. This instructional writer examined pressure area present on pt's right heel and ordered A&D Ointment was applied, no s/s of increased redness or open areas. Foam boot applied and heels continue to be floated when pt. is in bed. 1:1 was completed, pt.continues to present as guarded with a blunted affect, but he does brighten with conversation. He continues to deny S/I, but does admit to ongoing command A/RUBY which he is able to ignore. Pt. denies any further paranoid thoughts that others want to hurt, but admits to feeling anxious. When this instructional writer questioned pt. regarding the cause of his anxiety, he stated, "I don't know." He agrees to tell staff if he begins to feel unsafe on the unit. Pt. remained guarded throughout the shift, however he was observed to be out of his room sitting in the Recreation Room watching TV. However, pt. is not observed to be interacting with others. S/I, H/I: Denies A/VH: Pt. reports ongoing command A/RUBY Sleep: Sleep hours are 7.25, and pt. naps intermittently during the shift ADL's: Pt. requires direction and encouragement Group attendance: No Were meds taken: Yes Any med S/E: None Mental Status Exam Appearance: Neat and appropriately dressed Eye contact: Fair Behavior: Cooperative, fatigued, guarded, and withdrawn Speech: Whispers, minimal responses Mood: Guarded Affect: Blunted with some brightening Thought process: Poverty of thought with possible thought blocking Thought Content: A/RUBY Cognition: A&O x3 (not to time) Insight: Poor Judgment: Poor Interventions PRN's used: None Therapeutic interventions: Maintained a safe and supportive environment, ensured contract for safety, provided direction and encouragement regarding ADLs with assistance as needed, monitored rt. heel and completed ordered treatment/foam boot while in bed, continued to encourage Q2 hour toileting and monitored for incontinence episodes, provided active listening and positive encouragement, and maintained Q 15min safety checks. Restraints/seclusion/emergency medication: N/A Justification of Continued Inpatient Treatment: Per RAYMON Go, pt. continues to require medication adjustments and a safe and supportive environment.
[2021-07-25] MEDS: lactose-reduced food (Ensure Enlive) - 237ml bottle PO SCH ×2 (13:04→18:21)
[2021-07-25] MEDS: traZODone 50mg tablet PO SCH (20:08)
[2021-07-25 20:47] VITALS: BP 105/63
--- NOTE | 2021-07-26 00:08 | NUR ---
Nursing Progress Note: Legal hold: TCon Client on involuntary status for GD Report received from nurse with use of SBAR: ANNIE Mata Why are they here: Pt was at [facility] from 06/08/21-07/12/21 for GD/failure to thrive. Pt was discharged, re-evaluated and placed on a 5150. He was readmitted to [facility] on day of discharge 07/12/21. Pt has a Hx of Schizophrenia, depression, and anxiety. Pt has intermittent CAH to kill himself, pt is depressed and anhedonic, he has severely declined in his ADLs. Pt has a DTI ulcer on his right heel. Plan is for him to be conserved. Assessment What has happened this shift: Pt was in bed at change of shift lying in bed awake. He got up and went to the rec room and watched tv for a while then moved to the group room when a noisy peer started watching. Cuong stayed in the group room sitting by him self tillnack ate snack and was med compliant. Pt retired to his room shortly after Meds. S/I, H/I: Denies A/VH: Pt. reports ongoing command A/RUBY Sleep: See sleep assessment. ADL's: Pt. requires direction and encouragement Group attendance: No Were meds taken: Yes Any med S/E: None Mental Status Exam Appearance: Neat and appropriately dressed Eye contact: Fair Behavior: Cooperative, fatigued, guarded, and withdrawn Speech: Whispers, minimal responses Mood: Guarded Affect: Blunted with some brightening Thought process: Poverty of thought with possible thought blocking Thought Content: A/RUBY Cognition: A&O x3 (not to time) Insight: Poor Judgment: Poor Interventions PRN's used: None Therapeutic interventions: Maintained a safe and supportive environment, ensured contract for safety, provided direction and encouragement regarding ADLs with assistance as needed, monitored rt. heel and completed ordered treatment/foam boot while in bed, continued to encourage Q2 hour toileting and monitored for incontinence episodes, provided active listening and positive encouragement, and maintained Q 15min safety checks. Restraints/seclusion/emergency medication: N/A Justification of Continued Inpatient Treatment: Per RAYMON Go, pt. continues to require medication adjustments and a safe and supportive environment.
[2021-07-26] MEDS: lactobacillus rhamnosus 10,000 MMU CELLS/CAPSULE PO SCH ×2 (08:28→20:15)
[2021-07-26] MEDS: ziprasidone 20mg capsule PO SCH ×2 (08:28→20:19)
[2021-07-26] MEDS: methylphenidate 5mg tablet PO SCH (08:28)
[2021-07-26] MEDS: docusate sod 100mg capsule PO SCH ×2 (08:28→20:15)
[2021-07-26] MEDS: venlafaxine XR 75mg capsule (Q24H) PO SCH (08:28)
[2021-07-26] MEDS: lactose-reduced food (Ensure Enlive) - 237ml bottle PO SCH ×3 (08:29→17:55)
[2021-07-26] MEDS: vitamin A & D ointment-NF 1 APPLIC TUBE TP SCH ×2 (08:44→20:21)
[2021-07-26 08:53] VITALS: BP 108/64
[2021-07-26] MEDS: ketoconazole (Nizoral) shampoo TP SCH (10:07)
--- NOTE | 2021-07-26 12:23 | NUR ---
Nursing Progress Note: Legal hold: TCon Client on involuntary status for GD Report received from nurse with use of SBAR: ANNIE Vasques Why are they here: Pt was at [facility] from 06/08/21-07/12/21 for GD/failure to thrive. Pt was discharged, re-evaluated and placed on a 5150. He was readmitted to [facility] on day of discharge 07/12/21. Pt has a Hx of Schizophrenia, depression, and anxiety. Pt has intermittent CAH to kill himself, pt is depressed and anhedonic, he has severely declined in his ADLs. Pt has a DTI ulcer on his right heel. Plan is for him to be conserved. Assessment What has happened this shift: Received pt. sleeping in bed at the beginning of the shift, he was again awoken by staff to attend breakfast in the Group Room. Pt. continues to require encouragement and direction in order to perform ADLs, exhibits mild weakness, and is incontinent at times. Pt. required much assistance from staff in order to eat his breakfast this morning r/t fatigue, he appeared to have some difficulty waking up as is not unusual for him. He was able to consume 75% of his meal and all of his Ensure with assistance. After breakfast, pt. was shaved and showered with total assistance from male staff member. He appeared more animated afterwards and reported feeling better. Pt. stood in his room looking out the window watching the snow fall, 1:1 was completed. Pt. reports ongoing command A/RUBY, but denies any further paranoid delusions that others want to hurt him. He responds mostly yes or no to questions, with a whispered and delayed response. When this television writer questioned pt. regarding depression or anxiety, he nodded yes to both. When questioned regarding the cause of his depression, pt. stated after a delay, "About everything." He requested medication for anxiety, but does not appear to be anxious. This television writer provided pt. with a warm blanket and encouraged him to relax. Pt. ended up falling asleep, foam boot applied in bed. Pt. remained guarded throughout the shift, however he continues to be more visible on the unit. S/I, H/I: Denies A/VH: Pt. reports ongoing command A/RUBY Sleep: Sleep hours are 6.5, and pt. naps intermittently during the shift ADL's: Pt. requires direction and encouragement Group attendance: No Were meds taken: Yes Any med S/E: None Mental Status Exam Appearance: Neat and appropriately dressed Eye contact: Fair Behavior: Cooperative, fatigued, guarded, and withdrawn Speech: Whispers, minimal responses. Delayed Mood: Guarded Affect: Blunted with some brightening Thought process: Poverty of thought with possible thought blocking Thought Content: A/RUBY Cognition: A&O x3 (not to time) Insight: Poor Judgment: Poor Interventions PRN's used: None Therapeutic interventions: Maintained a safe and supportive environment, ensured contract for safety, provided direction and encouragement regarding ADLs with assistance as needed, monitored rt. heel and completed ordered treatment/foam boot while in bed, continued to encourage Q2 hour toileting and monitored for incontinence episodes, provided active listening and positive encouragement, and maintained Q 15min safety checks. Restraints/seclusion/emergency medication: N/A Justification of Continued Inpatient Treatment: Per RAYMON Go, pt. continues to require medication adjustments and a safe and supportive environment.
--- NOTE | 2021-07-26 13:56 | NUR ---
Reassessment: Pt continues on Puree diet with fluctuating PO intake, avg 64% x 13 meals and mostly 100% ONS WL meeting est nutrient needs at this time. Noted Ensure Enlive has been changed to TID, though this is not needed at this time as it will be exceeding pt's nutritional needs. Pt noted to need encouragement and feeder at times. LBM receiving routine bowel care. No change to nutrition recommendations at this time, will continue to monitor. Recommendations: 1) Continue pureed diet per pt preference; assistance w/ meals 2) Ensure Enlive TID, recommend decreasing frequency to Once daily 3) Offer snacks and encourage PO intake 4) Routine bowel care 5) Weekly scaled weights Addendum: 07/26/21 at [address] Amended: Links added.
[2021-07-26] MEDS: traZODone 50mg tablet PO SCH (20:15)
[2021-07-26 20:26] VITALS: BP 111/70
--- NOTE | 2021-07-26 23:50 | NUR ---
Nursing Progress Note: Legal hold: TCon Client on involuntary status for GD Report received from nurse with use of SBAR: ANNIE Mata Why are they here: Pt was at [facility] from 06/08/21-07/12/21 for GD/failure to thrive. Pt was discharged, re-evaluated and placed on a 5150. He was readmitted to [facility] on day of discharge 07/12/21. Pt has a Hx of Schizophrenia, depression, and anxiety. Pt has intermittent CAH to kill himself, pt is depressed and anhedonic, he has severely declined in his ADLs. Pt has a DTI ulcer on his right heel. Plan is for him to be conserved. Assessment What has happened this shift: Received pt. sleeping in bed at the beginning of the shift, Pt was awaken for meds then returned to sleep. Pt did not interact with staff or peers this shift. S/I, H/I: Denies A/VH: Pt. reports ongoing command A/RUBY Sleep: See sleep assessment ADL's: Pt. requires direction and encouragement Group attendance: No Were meds taken: Yes Any med S/E: None Mental Status Exam Appearance: Neat and appropriately dressed Eye contact: Fair Behavior: Cooperative, fatigued, guarded, and withdrawn Speech: Whispers, minimal responses. Delayed Mood: Guarded Affect: Blunted with some brightening Thought process: Poverty of thought with possible thought blocking Thought Content: A/RUBY Cognition: A&O x3 (not to time) Insight: Poor Judgment: Poor Interventions PRN's used: None Therapeutic interventions: Maintained a safe and supportive environment, ensured contract for safety, provided direction and encouragement regarding ADLs with assistance as needed, monitored rt. heel and completed ordered treatment/foam boot while in bed, continued to encourage Q2 hour toileting and monitored for incontinence episodes, provided active listening and positive encouragement, and maintained Q 15min safety checks. Restraints/seclusion/emergency medication: N/A Justification of Continued Inpatient Treatment: Per RAYMON Go, pt. continues to require medication adjustments and a safe and supportive environment.
[2021-07-27 07:20] VITALS: BP 102/57
[2021-07-27] MEDS: vitamin A & D ointment-NF 1 APPLIC TUBE TP SCH ×2 (08:54→20:18)
[2021-07-27] MEDS: venlafaxine XR 75mg capsule (Q24H) PO SCH (08:54)
[2021-07-27] MEDS: lactobacillus rhamnosus 10,000 MMU CELLS/CAPSULE PO SCH ×2 (08:54→20:17)
[2021-07-27] MEDS: lactose-reduced food (Ensure Enlive) - 237ml bottle PO SCH ×3 (08:54→18:20)
[2021-07-27] MEDS: ziprasidone 20mg capsule PO SCH ×2 (08:54→20:17)
[2021-07-27] MEDS: docusate sod 100mg capsule PO SCH ×2 (08:54→20:18)
[2021-07-27] MEDS: methylphenidate 5mg tablet PO SCH (08:55)
--- NOTE | 2021-07-27 14:14 | NUR ---
Nursing Progress Note: Legal hold: TCon Client on involuntary status for GD Report received from nurse with use of SBAR: ANNIE Vasques Why are they here: Pt was at [facility] from 06/08/21-07/12/21 for GD/failure to thrive. Pt was discharged, re-evaluated and placed on a 5150. He was readmitted to [facility] on day of discharge 07/12/21. Pt has a Hx of Schizophrenia, depression, and anxiety. Pt has intermittent CAH to kill himself, pt is depressed and anhedonic, he has severely declined in his ADLs. Pt has a DTI ulcer on his right heel. Plan is for him to be conserved. Assessment What has happened this shift: Received pt. sleeping in bed at the beginning of the shift, he was difficult to arouse for breakfast r/t fatigue. Pt. slept in until approximately 0900, when he was awoken to take his medications, and escorted to the Group Room to eat. During breakfast, pt. required moderate to full assistance to eat. Afterwards, pt. returned to his room for a nap and 1:1 was completed. Pt. denies any A/RUBY this shift, however continues to report ongoing depression and anxiety. Upon further questioning he states, "It's the same as yesterday." Pt. was awoken for snack, and afterwards spent time watching TV and working out on the exercise bike, this blurb writer provided positive encouragement, and pt. reported contentment. Pt. attended both Groups today with encouragement from staff. He was visible on the unit throughout most of the shift, however continues to be guarded and is not observed to be interacting with others. Pt. reports no BM x5 days, however he denies any discomfort and bowl sounds are active X4 quadrants. He is currently taking scheduled Colace, will administer MOM, and continue to monitor. S/I, H/I: Denies A/VH: Pt. denies, does not appear to be responding to internal stimuli Sleep: Sleep hours are 8, ADL's: Pt. requires direction and encouragement. He requires moderate to total assistance at times. Group attendance: Yes Were meds taken: Yes Any med S/E: None Mental Status Exam Appearance: Neat and appropriately dressed Eye contact: Fair Behavior: Cooperative, fatigued, and guarded Speech: Whispers, minimal responses. Delayed Mood: Guarded Affect: Blunted with some brightening Thought process: Poverty of thought with possible thought blocking Thought Content: A/RUBY Cognition: A&O x3 (not to time) Insight: Poor Judgment: Poor Interventions PRN's used: None Therapeutic interventions: Maintained a safe and supportive environment, ensured contract for safety, provided direction and encouragement regarding ADLs with assistance as needed, monitored rt. heel and completed ordered treatment/foam boot while in bed, continued to encourage Q2 hour toileting and monitored for incontinence episodes, provided active listening and positive encouragement, encouraged participation on the unit, and maintained Q 15min safety checks. Restraints/seclusion/emergency medication: N/A Justification of Continued Inpatient Treatment: Per RAYMON Go, pt. continues to require medication adjustments and a safe and supportive environment. Addendum: 07/27/21 at 1625 by Ailyn Galan RN Obtained orders for a Dulcolax Suppository r/t no BM X5 days from RAYMON Go. Pt. is agreeable to this, will administer after dinner. Addendum: 07/27/21 at 1839 by Ailyn Galan RN Suppository not needed, pt. was able to have a large BM.
[2021-07-27] MEDS ORDERED: bisacodyl 10mg suppository rectal RC STA (16:21)
[2021-07-27] MEDS: bisacodyl 10mg suppository rectal RC ONE ×2 (16:30→18:20)
[2021-07-27 19:40] VITALS: BP 97/66
[2021-07-27] MEDS: traZODone 50mg tablet PO SCH (20:17)
--- NOTE | 2021-07-28 00:50 | NUR ---
Nursing Progress Note: Legal hold: TCon Client on involuntary status for GD Report received from nurse with use of SBAR: ANNIE Vasques Why are they here: Pt was at [facility] from 06/08/21-07/12/21 for GD/failure to thrive. Pt was discharged, re-evaluated and placed on a 5150. He was readmitted to [facility] on day of discharge 07/12/21. Pt has a Hx of Schizophrenia, depression, and anxiety. Pt has intermittent CAH to kill himself, pt is depressed and anhedonic, he has severely declined in his ADLs. Pt has a DTI ulcer on his right heel. Plan is for him to be conserved. Assessment What has happened this shift: Patient isolates in his room following shift change. He sits in a chair at bedside. Patient is non verbal except when questioned directly. Eye contact is poor. Patient is clean and wearing scrubs. Patient denies S/I or H/I, he denies hallucinations. Patient speaks in a quiet voice. Patient is compliant with medications including rectal suppository. Vitamin cream applied to patients heel on his right foot. Patient continued to sit at bedside until retiring to sleep. S/I, H/I: Denies. A/VH: Pt. denies. Sleep: Will tally at 0500 hours. ADL's: Pt. requires direction and encouragement. He requires moderate to total assistance at times. Group attendance:No group on health services manager. Were meds taken: Yes, medication compliant. Any med S/E: None noted or observed. Mental Status Exam Appearance: Clean, wearing green scrubs. Eye contact: Poor. Behavior: Cooperative, fatigued, and guarded Speech: Whispers, minimal responses. Delayed response. Mood: Guarded. Affect: Blunted. Thought process: Poverty of thought with possible thought blocking. Thought Content: Unknown. Cognition: A&O x3 (not to time) Insight: Poor. Judgment: Poor. Interventions PRN's used: None. Therapeutic interventions: Maintained a safe and supportive environment, ensured contract for safety, provided direction and encouragement regarding ADLs with assistance as needed, monitored rt. heel and completed ordered treatment/foam boot while in bed, continued to encourage Q2 hour toileting and monitored for incontinence episodes, provided active listening and positive encouragement, encouraged participation on the unit, and maintained Q 15min safety checks. Restraints/seclusion/emergency medication: N/A Justification of Continued Inpatient Treatment: Per RAYMON Go, pt. continues to require medication adjustments and a safe and supportive environment.
[2021-07-28 07:38] VITALS: BP 115/69
[2021-07-28] MEDS: lactose-reduced food (Ensure Enlive) - 237ml bottle PO SCH ×3 (07:53→17:10)
[2021-07-28] MEDS: methylphenidate 5mg tablet PO SCH (07:53)
[2021-07-28] MEDS: venlafaxine XR 75mg capsule (Q24H) PO SCH (07:53)
[2021-07-28] MEDS: ziprasidone 20mg capsule PO SCH ×2 (07:53→20:37)
[2021-07-28] MEDS: lactobacillus rhamnosus 10,000 MMU CELLS/CAPSULE PO SCH ×2 (07:53→20:37)
[2021-07-28] MEDS: docusate sod 100mg capsule PO SCH ×2 (07:53→20:37)
[2021-07-28] MEDS: vitamin A & D ointment-NF 1 APPLIC TUBE TP SCH ×2 (07:54→20:37)
--- NOTE | 2021-07-28 17:03 | NUR ---
Nursing Progress Note: Legal hold: TCon Client on involuntary status for GD Report received from TAVARES Dotson with use of SBAR. Why they are here: Pt was at [facility] from 06/08/21-07/12/21 for GD/failure to thrive. Pt was discharged, re-evaluated and placed on a 5150. He was readmitted to [facility] on day of discharge 07/12/21. Pt has a Hx of Schizophrenia, depression, and anxiety. Pt has intermittent CAH to kill himself, pt is depressed and anhedonic, he has severely declined in his ADLs. Pt has a DTI ulcer on his right heel. Plan is for him to be conserved. Assessment What has happened this shift: Patient is resting quietly in bed at the start of the shift. Requires prompting for toilet use and is continent prior to breakfast. Eats breakfast in the community room and interacts very little with staff and peers. Requires encouragement to eat but does so independently. Patient is cooperative with 1:1 assessment and medications. Incontinent of urine in the late morning and requires assistance to change. Isolative to his room in the late morning and is withdrawn. Answers to direct questions only. Speech is very minimal, quiet and delayed. Attends group with staff encouragement. Spends time in the afternoon watching TV in the community room. S/I, H/I: Denies A/VH: Denies. Does not appear internally occupied Sleep: 6.25 hours per sleep assessment. Naps frequently throughout the day. ADL's: Pt. requires direction and encouragement. He requires moderate to total assistance at times. Group attendance: Yes Were meds taken: Yes Any med S/E: None observed or reported Mental Status Exam Appearance: Older man, unshaven, somewhat disheveled from sleep, appropriately dressed in green unit scrubs Eye contact: Fair Behavior: Cooperative, fatigued, and guarded Speech: Clear, soft, scant, delayed Mood: Ok. Euthymic Affect: Blunted Thought process: Poverty of thought with possible thought blocking Thought Content: Poverty of thought Cognition: A&O x2 to self and place Insight: Poor Judgment: Poor Interventions PRN's used: None Therapeutic interventions: Maintained a safe and supportive environment, ensured contract for safety, provided direction and encouragement regarding ADLs with assistance as needed, monitored rt. heel and completed ordered treatment/foam boot while in bed, continued to encourage Q2 hour toileting and monitored for incontinence episodes, provided active listening and positive encouragement, encouraged participation on the unit, and maintained Q 15min safety checks. Restraints/seclusion/emergency medication: N/A Justification of Continued Inpatient Treatment: Per RAYMON Go, pt. continues to require medication adjustments and a safe and supportive environment.
[2021-07-28 19:48] VITALS: BP 115/65
[2021-07-28] MEDS: traZODone 50mg tablet PO SCH (20:36)
--- NOTE | 2021-07-29 05:18 | NUR ---
Nursing Progress Note: Legal hold: TCon Client on involuntary status for GD Report received from nurse with use of SBAR: RN Why are they here: Pt was at [facility] from 06/08/21-07/12/21 for GD/failure to thrive. Pt was discharged, re-evaluated and placed on a 5150. He was readmitted to [facility] on day of discharge 07/12/21. Pt has a Hx of Schizophrenia, depression, and anxiety. Pt has intermittent CAH to kill himself, pt is depressed and anhedonic, he has severely declined in his ADLs. Pt has a DTI ulcer on his right heel. Plan is for him to be conserved. Assessment What has happened this shift: Pts vital signs WNL, physical assessment WNL. R heel was placed in foam boot after A+D anointment was applied. Pt denies pain at this time. Pt is a +1 assist to restroom. He utilizes call light to alert staff when he needs to go. Hernan placed under pt due to past episodes of incontinence. Pt has a flat affect and does not engage in conversation although he does answer direct questions with short answers. Pt slept soundly, and used call light twice throughout the shift to go to the bathroom. S/I, H/I: Denies. A/VH: Pt. denies. Sleep: Will tally at 0500 hours. ADL's: Pt. requires direction and encouragement. He requires moderate to total assistance at times. Group attendance:NA Were meds taken: Yes, medication compliant. Any med S/E: None noted or observed. Mental Status Exam Appearance: Clean, wearing green scrubs. Eye contact: Poor. Behavior: Cooperative, fatigued, and guarded Speech: Whispers, minimal responses. Delayed response. Mood: Guarded. Affect: Blunted. Thought process: Poverty of thought with possible thought blocking. Thought Content: Unknown. Cognition: A&O x3 (not to time) Insight: Poor. Judgment: Poor. Interventions PRN's used: None. Therapeutic interventions: Maintained a safe and supportive environment, ensured contract for safety, provided direction and encouragement regarding ADLs with assistance as needed, monitored rt. heel and completed ordered treatment/foam boot while in bed, continued to encourage Q2 hour toileting and monitored for incontinence episodes, provided active listening and positive encouragement, encouraged participation on the unit, and maintained Q 15min safety checks. Restraints/seclusion/emergency medication: N/A Justification of Continued Inpatient Treatment: Per RAYMON Go, pt. continues to require medication adjustments and a safe and supportive environment.
[2021-07-29] MEDS: venlafaxine XR 75mg capsule (Q24H) PO SCH (07:31)
[2021-07-29] MEDS: ziprasidone 20mg capsule PO SCH ×2 (07:31→21:19)
[2021-07-29] MEDS: methylphenidate 5mg tablet PO SCH (07:31)
[2021-07-29] MEDS: lactose-reduced food (Ensure Enlive) - 237ml bottle PO SCH ×3 (07:31→17:57)
[2021-07-29] MEDS: lactobacillus rhamnosus 10,000 MMU CELLS/CAPSULE PO SCH ×2 (07:31→21:18)
[2021-07-29] MEDS: docusate sod 100mg capsule PO SCH ×2 (07:31→21:19)
[2021-07-29] MEDS: vitamin A & D ointment-NF 1 APPLIC TUBE TP SCH ×2 (07:31→20:00)
[2021-07-29 08:00] VITALS: BP 107/72
--- NOTE | 2021-07-29 17:51 | NUR ---
Nursing Progress Note: Legal hold: TCon Client on involuntary status for GD Report received from TAVARES Bales with use of SBAR. Why they are here: Pt was at [facility] from 06/08/21-07/12/21 for GD/failure to thrive. Pt was discharged, re-evaluated and placed on a 5150. He was readmitted to [facility] on day of discharge 07/12/21. Pt has a Hx of Schizophrenia, depression, and anxiety. Pt has intermittent CAH to kill himself, pt is depressed and anhedonic, he has severely declined in his ADLs. Pt has a DTI ulcer on his right heel. Plan is for him to be conserved. Assessment What has happened this shift: Patient is resting quietly in bed at the start of the shift. Upon awakening the patient is noted to be incontinent of urine. Requires extensive assistance to change and clean up. Patient then sits in the rec room watching TV. Cooperative with 1:1 assessment and medications. Appears to be in a good mood AEB smiling and even chuckles once. Eats breakfast in the community room and interacts very little with peers. After breakfast the patient paces the unit and watches TV. In the afternoon the patient is noted napping. Heel has pressure relieving boot on while in bed. Tx to heel as ordered. S/I, H/I: Denies A/VH: Denies. Does not appear internally occupied Sleep: Naps in the afternoon. ADL's: Pt. requires direction and encouragement. He requires moderate to total assistance at times. Group attendance: NA Were meds taken: Yes Any med S/E: None observed or reported Mental Status Exam Appearance: Older man, unshaven, somewhat disheveled from sleep, appropriately dressed in green unit scrubs Eye contact: Fair Behavior: Cooperative, guarded Speech: Clear, soft, scant, delayed Mood: Could be better, but ok. Affect: Blunted Thought process: Poverty of thought with possible thought blocking Thought Content: Poverty of thought Cognition: A&O x2 to self and place Insight: Poor Judgment: Poor Interventions PRN's used: None Therapeutic interventions: Maintained a safe and supportive environment, ensured contract for safety, provided direction and encouragement regarding ADLs with assistance as needed, monitored rt. heel and completed ordered treatment/foam boot while in bed, continued to encourage Q2 hour toileting and monitored for incontinence episodes, provided active listening and positive encouragement, encouraged participation on the unit, and maintained Q 15min safety checks. Restraints/seclusion/emergency medication: N/A Justification of Continued Inpatient Treatment: RAYMON Harvey, pt. continues to require medication adjustments and a safe and supportive environment.
[2021-07-29 19:32] VITALS: BP 100/60
[2021-07-29] MEDS: traZODone 50mg tablet PO SCH (21:19)
--- NOTE | 2021-07-30 04:27 | NUR ---
Nursing Progress Note: Legal hold: TCon Client on involuntary status for GD Report received from ANNIE Padron with use of SBAR. Why are they here: Pt was at [facility] from 06/08/21-07/12/21 for GD/failure to thrive. Pt was discharged, re-evaluated and placed on a 5150. He was readmitted to [facility] on day of discharge 07/12/21. Pt has a Hx of Schizophrenia, depression, and anxiety. Pt has intermittent CAH to kill himself, pt is depressed and anhedonic, he has severely declined in his ADLs. Pt has a DTI ulcer on his right heel. Plan is for him to be conserved. Assessment What has happened this shift: Patient isolates in his room following shift change. This patient isolates. He does not initiate conversation, he does however respond to direct questions. Patient is somewhat disheveled. Dried food is on patients mouth and scrubs. Patient states he doesn't want to wear his boot in bed. After wound care to patients heel, that heel was then floated over a pillow. The patient is a little more talkative this shift, he responds positively following assistance with ADL's. S/I, H/I: Denies. A/VH: Pt. denies. Sleep: Will tally at 0500 hours. ADL's: Pt. requires direction and encouragement. He requires moderate to total assistance at times. Group attendance:No group on night shift supervisor. Were meds taken: Yes, medication compliant. Any med S/E: None noted or observed. Mental Status Exam Appearance: Clean, wearing green scrubs. Eye contact: Poor. Behavior: Cooperative, fatigued, and guarded Speech: Whispers, minimal responses. Delayed response. Mood: Guarded, moments of brightening. Affect: Blunted. Thought process: Poverty of thought with possible thought blocking. Thought Content: Unknown. Cognition: A&O x3 (not to time) Insight: Fair. Judgment:Fair.. Interventions PRN's used: None. Therapeutic interventions: Maintained a safe and supportive environment, ensured contract for safety, provided direction and encouragement regarding ADLs with assistance as needed, monitored rt. heel and completed ordered treatment/foam boot while in bed, continued to encourage Q2 hour toileting and monitored for incontinence episodes, provided active listening and positive encouragement, encouraged participation on the unit, and maintained Q 15min safety checks. Restraints/seclusion/emergency medication: N/A Justification of Continued Inpatient Treatment: Per RAYMON Go, pt. continues to require medication adjustments and a safe and supportive environment.
[2021-07-30] MEDS: ziprasidone 20mg capsule PO SCH ×2 (07:57→19:28)
[2021-07-30] MEDS: methylphenidate 5mg tablet PO SCH (07:57)
[2021-07-30] MEDS: vitamin A & D ointment-NF 1 APPLIC TUBE TP SCH ×2 (07:58→19:28)
[2021-07-30] MEDS: lactobacillus rhamnosus 10,000 MMU CELLS/CAPSULE PO SCH ×2 (07:58→19:28)
[2021-07-30] MEDS: lactose-reduced food (Ensure Enlive) - 237ml bottle PO SCH ×3 (07:58→17:17)
[2021-07-30] MEDS: venlafaxine XR 75mg capsule (Q24H) PO SCH (07:58)
[2021-07-30] MEDS: docusate sod 100mg capsule PO SCH ×2 (07:58→19:28)
[2021-07-30 08:00] VITALS: BP 96/69
--- NOTE | 2021-07-30 17:19 | NUR ---
Nursing Progress Note: Legal hold: TCon Client on involuntary status for GD Report received from TAVARES Bales with use of SBAR. Why they are here: Pt was at [facility] from 06/08/21-07/12/21 for GD/failure to thrive. Pt was discharged, re-evaluated and placed on a 5150. He was readmitted to [facility] on day of discharge 07/12/21. Pt has a Hx of Schizophrenia, depression, and anxiety. Pt has intermittent CAH to kill himself, pt is depressed and anhedonic, he has severely declined in his ADLs. Pt has a DTI ulcer on his right heel. Plan is for him to be conserved. Assessment What has happened this shift: Patient is resting quietly in bed at the start of the shift. Encouraged to use the toilet once awake which he does independently and is continent. Cooperative with 1:1 assessment and medications. Eats meals in the community room and interact very little with peers. Requires encouragement and minimal assist for eating. In the morning patient spends time watching TV in the rec room. Naps off and on throughout the day. S/I, H/I: Denies A/VH: Denies. Does not appear internally occupied Sleep: Nap off and on throughout the day. ADL's: Pt. requires direction and encouragement. He requires moderate to total assistance at times. Group attendance: No Were meds taken: Yes Any med S/E: None observed or reported Mental Status Exam Appearance: Older man appropriately dressed in green unit scrubs. Eye contact: Fair Behavior: Cooperative, guarded Speech: Clear, soft, scant, delayed Mood: Ok. Affect: Blunted Thought process: Poverty of thought with possible thought blocking Thought Content: Poverty of thought Cognition: A&O x2 to self and place Insight: Poor Judgment: Poor Interventions PRN's used: None Therapeutic interventions: Maintained a safe and supportive environment, ensured contract for safety, provided direction and encouragement regarding ADLs with assistance as needed, monitored rt. heel and completed ordered treatment/foam boot while in bed, continued to encourage Q2 hour toileting and monitored for incontinence episodes, provided active listening and positive encouragement, encouraged participation on the unit, and maintained Q 15min safety checks. Restraints/seclusion/emergency medication: N/A Justification of Continued Inpatient Treatment: Per RAYMON Go, pt. continues to require medication adjustments and a safe and supportive environment.
[2021-07-30] MEDS: traZODone 50mg tablet PO SCH (19:28)
[2021-07-30 20:00] VITALS: BP 104/66
--- NOTE | 2021-07-31 05:36 | NUR ---
Nursing Progress Note: Legal hold: TCon Client on involuntary status for GD Report received from TAVARES Jacob with use of SBAR. Why they are here: Pt was at [facility] from 06/08/21-07/12/21 for GD/failure to thrive. Pt was discharged, re-evaluated and placed on a 5150. He was readmitted to [facility] on day of discharge 07/12/21. Pt has a Hx of Schizophrenia, depression, and anxiety. Pt has intermittent CAH to kill himself, pt is depressed and anhedonic, he has severely declined in his ADLs. Pt has a DTI ulcer on his right heel. Plan is for him to be conserved. Assessment What has happened this shift: Patient is eating dinner in the community room at the start of the shift. Following dinner he remains there and watches TV. Interacts appropriately with peers. Cooperative with 1:1 assessment and medications. Answers direct questions only and speech is quiet and delayed. Requires prompting for toilet use and is continent prior to HS. S/I, H/I: Denies A/VH: Denies. Does not appear internally occupied Sleep: See sleep assessment ADL's: Pt. requires direction and encouragement. He requires moderate to total assistance at times. Group attendance: NA Were meds taken: Yes Any med S/E: None observed or reported Mental Status Exam Appearance: Older man appropriately dressed in green unit scrubs. Eye contact: Fair Behavior: Cooperative, guarded Speech: Clear, soft, scant, delayed Mood: Ok. Affect: Blunted Thought process: Poverty of thought with possible thought blocking Thought Content: Poverty of thought Cognition: A&O x2 to self and place Insight: Poor Judgment: Poor Interventions PRN's used: None Therapeutic interventions: Maintained a safe and supportive environment, ensured contract for safety, provided direction and encouragement regarding ADLs with assistance as needed, monitored rt. heel and completed ordered treatment/foam boot while in bed, continued to encourage Q2 hour toileting and monitored for incontinence episodes, provided active listening and positive encouragement, encouraged participation on the unit, and maintained Q 15min safety checks. Restraints/seclusion/emergency medication: N/A Justification of Continued Inpatient Treatment: Per RAYMON Go, pt. continues to require medication adjustments and a safe and supportive environment.
[2021-07-31 08:00] VITALS: BP 128/79
[2021-07-31] MEDS: docusate sod 100mg capsule PO SCH ×2 (08:30→20:00)
[2021-07-31] MEDS: methylphenidate 5mg tablet PO SCH (08:31)
[2021-07-31] MEDS: ziprasidone 20mg capsule PO SCH ×2 (08:31→21:12)
[2021-07-31] MEDS: venlafaxine XR 75mg capsule (Q24H) PO SCH (08:31)
[2021-07-31] MEDS: lactobacillus rhamnosus 10,000 MMU CELLS/CAPSULE PO SCH ×2 (08:31→21:12)
[2021-07-31] MEDS: vitamin A & D ointment-NF 1 APPLIC TUBE TP SCH ×2 (08:32→20:00)
[2021-07-31] MEDS: lactose-reduced food (Ensure Enlive) - 237ml bottle PO SCH ×3 (08:32→18:11)
--- NOTE | 2021-07-31 16:20 | NUR ---
Nursing Progress Note: Legal hold: TCon Client on involuntary status for GD Report received from TAVARES Mitchell with use of SBAR. Why they are here: Pt was at [facility] from 06/08/21-07/12/21 for GD/failure to thrive. Pt was discharged, re-evaluated and placed on a 5150. He was readmitted to [facility] on day of discharge 07/12/21. Pt has a Hx of Schizophrenia, depression, and anxiety. Pt has intermittent CAH to kill himself, pt is depressed and anhedonic, he has severely declined in his ADLs. Pt has a DTI ulcer on his right heel. Plan is for him to be conserved. Assessment What has happened this shift: Pt appears to be asleep at the start of this shift. Pt up for breakfast, He gets up uses the restroom and walks to the dining area without assistance. Pt observed eating alone in the dining room. Naps off and on throughout the day. S/I, H/I: Denies A/VH: Denies. Does not appear internally occupied Sleep: off and on throughout the day. ADL's: Pt. requires prompts and encouragement. Group attendance: No Were meds taken: Yes Any med S/E: None observed or reported Mental Status Exam Appearance: Clean wearing green unit scrubs. Eye contact: Fair Behavior: Cooperative, guarded Speech: Clear, delayed Mood: "good" Affect: Blunted Thought process: Poverty of thought with possible thought blocking Thought Content: Poverty of thought Cognition: A&O x2 to self and place Insight: Poor Judgment: Poor Interventions PRN's used: None Therapeutic interventions: Provided 1:1 assessment. monitored rt. heel and completed ordered treatment/foam boot while in bed, medication administration/education/monitorig, and maintained Q 15min safety checks. Restraints/seclusion/emergency medication: N/A Justification of Continued Inpatient Treatment: Per RAYMON Go, pt. continues to require medication adjustments and a safe and supportive environment.
[2021-07-31 19:29] VITALS: BP 115/72
[2021-07-31] MEDS: traZODone 50mg tablet PO SCH (21:12)
--- NOTE | 2021-08-01 04:52 | NUR ---
Nursing Progress Note: Legal hold: TCon Client on involuntary status for GD Report received from ANNIE Jacob with use of SBAR. Why they are here: Pt was at [facility] from 06/08/21-07/12/21 for GD/failure to thrive. Pt was discharged, re-evaluated and placed on a 5150. He was readmitted to [facility] on day of discharge 07/12/21. Pt has a Hx of Schizophrenia, depression, and anxiety. Pt has intermittent CAH to kill himself, pt is depressed and anhedonic, he has severely declined in his ADLs. Pt has a DTI ulcer on his right heel. Plan is for him to be conserved. Assessment What has happened this shift: Patient is eating dinner in the community room at the start of the shift. When done, he came and requested help due to incontinence. Patient cooperates with 1:1 assessment and medications, but only responds to yes/no questions. He has poverty of speech and it is somewhat delayed. Patient is cooperative with toileting prior to bed. S/I,H/I: Denies A/VH: Denies. Sleep: See sleep assessment ADL's: Pt. requires direction and encouragement. He requires moderate to total assistance at times. Group attendance: N/A Were meds taken: Yes Any med S/E: None observed or reported Mental Status Exam Appearance: Older man appropriately dressed in green unit scrubs. Eye contact: Fair Behavior: Cooperative, guarded, quiet, delayed responses Speech: Clear, soft, scant, delayed Mood: Ok. Affect: Blunted Thought process: Poverty of thought with possible thought blocking Thought Content: Poverty of thought Cognition: A&O x2 to self and place Insight: Poor Judgment: Poor Interventions PRN's used: None Therapeutic interventions: Maintained a safe and supportive environment, ensured contract for safety, provided direction and encouragement regarding ADLs with assistance as needed, monitored rt. heel and completed ordered treatment/foam boot while in bed, continued to encourage Q2 hour toileting and monitored for incontinence episodes, provided active listening and positive encouragement, encouraged participation on the unit, and maintained Q 15min safety checks. Restraints/seclusion/emergency medication: N/A Justification of Continued Inpatient Treatment: Per RAYMON Go, pt. continues to require medication adjustments and a safe and supportive environment.
--- NOTE | 2021-08-01 07:30 | NUR ---
Reassessment: Pt continues on Puree diet with fluctuating PO intake, avg 54% x 11 meals and avg 75% ONS TID exceeding est nutrient needs at this time. Recommend decrease frequency of ONS to BID. Pt noted to need encouragement and feeder at times. [facility] 07/29 receiving routine bowel care. No change to nutrition recommendations at this time, will continue to monitor. Recommendations: 1) Continue pureed diet per pt preference; assistance w/ meals 2) Ensure Enlive TID, recommend decreasing frequency to BID 3) Offer snacks and encourage PO intake 4) Routine bowel care 5) Weekly scaled weights Addendum: 08/01/21 at [address] Amended: Links added.
[2021-08-01 07:50] VITALS: BP 111/76
[2021-08-01] MEDS: ziprasidone 20mg capsule PO SCH ×2 (08:39→20:23)
[2021-08-01] MEDS: lactobacillus rhamnosus 10,000 MMU CELLS/CAPSULE PO SCH ×2 (08:39→20:24)
[2021-08-01] MEDS: docusate sod 100mg capsule PO SCH ×2 (08:39→20:25)
[2021-08-01] MEDS: venlafaxine XR 75mg capsule (Q24H) PO SCH (08:39)
[2021-08-01] MEDS: methylphenidate 5mg tablet PO SCH (08:39)
[2021-08-01] MEDS: lactose-reduced food (Ensure Enlive) - 237ml bottle PO SCH ×3 (08:41→18:11)
[2021-08-01] MEDS: vitamin A & D ointment-NF 1 APPLIC TUBE TP SCH ×2 (08:42→20:00)
--- NOTE | 2021-08-01 15:19 | NUR ---
Nursing Progress Note: Legal hold: TCon Client on involuntary status for GD Report received from RN with use of SBAR Why they are here: Pt was at [facility] from 06/08/21-07/12/21 for GD/failure to thrive. Pt was discharged, re-evaluated and placed on a 5150. He was readmitted to [facility] on day of discharge 07/12/21. Pt has a Hx of Schizophrenia, depression, and anxiety. Pt has intermittent CAH to kill himself, pt is depressed and anhedonic, he has severely declined in his ADLs. Pt has a DTI ulcer on his right heel. Plan is for him to be conserved. Assessment What has happened this shift: Received patient in bed sleeping w/o distress at the beginning of the shift. Pt up before breakfast and all meals. Pt took AM meds w/o issue and smiling during breakfast. Pt spent time watching TV and appeared to enjoy being around others, although he doesnt say much. He spent time looking outside the window in his room in afternoon. Pt was having difficulty swallowing food at lunch and requested his food pureed. Pt seen ambulating and socializing on unit throughout the day. S/I, H/I: Denies A/VH: Denies. Does not appear internally occupied Sleep: Napped ADL's: Requires prompts and encouragement Group attendance: No Were meds taken: Yes Any med S/E: None observed or reported Mental Status Exam Appearance: Casual in green scrubs. Eye contact: Fair Behavior: Cooperative, guarded Speech: Clear, delayed Mood: "I feel good" Affect: Blunted Thought process: Poverty of thought Thought Content: Poverty of thought Cognition: A&O x2 to self and place Insight: Poor Judgment: Poor Interventions PRN's used: None Therapeutic interventions: Provided 1:1 assessment. Monitored rt. heel and completed ordered treatment/foam boot while in bed, medication administration/education/monitoring, and maintained Q 15min safety checks. Restraints/seclusion/emergency medication: N/A Justification of Continued Inpatient Treatment: Per RAYMON Go, pt. continues to require medication adjustments and a safe and supportive environment.
[2021-08-01 20:20] VITALS: BP 100/64
[2021-08-01] MEDS: traZODone 50mg tablet PO SCH (20:24)
--- NOTE | 2021-08-02 03:34 | NUR ---
Nursing Progress Note: Legal hold: T-Con Client on involuntary status for GD Report received from ANNIE Padron with use of SBAR. Why they are here: Pt was at [facility] from 06/08/21-07/12/21 for GD/failure to thrive. Pt was discharged, re-evaluated and placed on a 5150. He was readmitted to [facility] on day of discharge 07/12/21. Pt has a Hx of Schizophrenia, depression, and anxiety. Pt has intermittent CAH to kill himself, pt is depressed and anhedonic, he has severely declined in his ADLs. Pt has a DTI ulcer on his right heel. Plan is for him to be conserved. Assessment What has happened this shift: Patient seen pacing the halls after finishing his dinner. He ended up in the chair in his room looking outside. Patient reports he was able to easier eat his food tonight. He had food in his stahl, so that was cleaned up. He continues to have delayed responses to questions. Later at 0015, patient woke up and got up to go to the bathroom. He lost balance and landed on his butt. Patient helped back to bed. The patient denies pain, injury, discomfort. "I just landed on my butt." S/I,H/I: Denies A/VH: Denies. Sleep: See sleep assessment ADL's: Pt. requires direction and encouragement. He requires moderate to total assistance at times. Group attendance: N/A Were meds taken: Yes Any med S/E: None observed or reported Mental Status Exam Appearance: Older man appropriately dressed in green unit scrubs. Eye contact: Fair Behavior: Cooperative, guarded, quiet, delayed responses Speech: Clear, soft, scant, delayed Mood: Ok. Affect: Blunted Thought process: Poverty of thought with possible thought blocking Thought Content: Poverty of thought Cognition: A&O x2 to self and place Insight: Poor Judgment: Poor Interventions PRN's used: None Therapeutic interventions: Maintained a safe and supportive environment, ensured contract for safety, provided direction and encouragement regarding ADLs with assistance as needed, monitored rt. heel and completed ordered treatment/foam boot while in bed, continued to encourage Q2 hour toileting and monitored for incontinence episodes, provided active listening and positive encouragement, encouraged participation on the unit, and maintained Q 15min safety checks. Restraints/seclusion/emergency medication: N/A Justification of Continued Inpatient Treatment: RAYMON Harvey, pt. continues to require medication adjustments and a safe and supportive environment.
[2021-08-02] MEDS: docusate sod 100mg capsule PO SCH ×2 (07:44→20:21)
[2021-08-02] MEDS: ziprasidone 20mg capsule PO SCH ×2 (07:44→20:21)
[2021-08-02] MEDS: venlafaxine XR 75mg capsule (Q24H) PO SCH (07:44)
[2021-08-02] MEDS: lactobacillus rhamnosus 10,000 MMU CELLS/CAPSULE PO SCH ×2 (07:44→20:21)
[2021-08-02] MEDS: methylphenidate 5mg tablet PO SCH (07:45)
[2021-08-02] MEDS: vitamin A & D ointment-NF 1 APPLIC TUBE TP SCH ×2 (07:45→20:00)
[2021-08-02 07:47] VITALS: BP 111/71
[2021-08-02] MEDS: lactose-reduced food (Ensure Enlive) - 237ml bottle PO SCH ×3 (08:00→17:56)
--- NOTE | 2021-08-02 09:03 | NUR ---
Pt. attended group today. We talked about healthy living habits such as sleep, exercise, and nutrition and medication management. Pt. sat quietly in the group listening to his peers and this [employer]. He sat on the exercise bike during the group and slowly moved his legs. His overall demeanor was calm and pleasant. Meri Uribe LCSW
--- NOTE | 2021-08-02 14:18 | NUR ---
Nursing Progress Note: Legal hold: TCon Client on involuntary status for GD Report received from RN with use of SBAR Why they are here: Pt was at [facility] from 06/08/21-07/12/21 for GD/failure to thrive. Pt was discharged, re-evaluated and placed on a 5150. He was readmitted to [facility] on day of discharge 07/12/21. Pt has a Hx of Schizophrenia, depression, and anxiety. Pt has intermittent CAH to kill himself, pt is depressed and anhedonic, he has severely declined in his ADLs. Pt has a DTI ulcer on his right heel. Plan is for him to be conserved. Assessment What has happened this shift: Patient was asleep at change of shift and up for breakfast. Patient took his medication without and swallowing problem. Patient stayed in the Community Room for a while. Patient was seen walking down the amos with wet pants. RN took patient to the BR and cleaned him up. Diaper was soaked. RN gave patient a sponge bath in the BR. RN cleaned patient's bed. Patient needs to be checked q 2 hours to see if he is wet. Patient was tearful when RN cleaned patient up. A little later patient walked by the nurses stations and said "Thank you" to RN. Patient appears depressed but is up a lot more in the afternoon and stays in the CR and watches T.V. Patient denies suicidal ideation and denies A/V hallucinations. S/I, H/I: Denies A/VH: Denies. Sleep: Napped in the morning ADL's: Patient is almost complete care. Group attendance: No Were meds taken: Yes Any med S/E: None observed or reported Mental Status Exam Appearance: Casual in green scrubs. Eye contact: Fair Behavior: Cooperative Speech: Soft. Poverty of Speech Mood: Depressed Affect: Flat Thought process: Linear Thought Content: Difficult to ascertain Cognition: A&O x2 to self and place Insight: Poor Judgment: Poor Interventions PRN's used: None Therapeutic interventions: Provided 1:1 assessment. Monitored rt. heel and completed ordered treatment/foam boot while in bed, medication administration/education/monitoring, and maintained Q 15min safety checks. Restraints/seclusion/emergency medication: N/A Justification of Continued Inpatient Treatment: Per RAYMON Go, pt. continues to require medication adjustments and a safe and supportive environment.
[2021-08-02 20:00] VITALS: BP 106/72
[2021-08-02] MEDS: traZODone 50mg tablet PO SCH (20:21)
--- NOTE | 2021-08-03 01:33 | NUR ---
Nursing Progress Note: [place] Legal hold: TCon Client on involuntary status for GD Report received from RN with use of SBAR Why they are here: Pt was at [facility] from 06/08/21-07/12/21 for GD/failure to thrive. Pt was discharged, re-evaluated and placed on a 5150. He was readmitted to [facility] on day of discharge 07/12/21. Pt has a Hx of Schizophrenia, depression, and anxiety. Pt has intermittent CAH to kill himself, pt is depressed and anhedonic, he has severely declined in his ADLs. Pt has a DTI ulcer on his right heel. Plan is for him to be conserved. Assessment What has happened this shift: Patient was asleep at change of shift. Woke pt up for assessment, pt denies MH symptoms and voiced no needs. Pt did not get up for snacks, took all HS medications and took pt to the BR where his diaper was soaked. Cleaned pt up and put dry scrubs on. Pt went back to bed and stated he was sleepy. S/I, H/I: Denies A/VH: Denies. Sleep: ADL's: Patient is almost complete care. Group attendance: No Were meds taken: Yes Any med S/E: None observed or reported Mental Status Exam Appearance: Casual in green scrubs. Eye contact: Fair Behavior: Cooperative Speech: Soft. Poverty of Speech Mood: Depressed Affect: Flat Thought process: Linear Thought Content: Difficult to ascertain Cognition: A&O x2 to self and place Insight: Poor Judgment: Poor Interventions PRN's used: None Therapeutic interventions: Provided 1:1 assessment. Monitored rt. heel and completed ordered treatment/foam boot while in bed, medication administration/education/monitoring, and maintained Q 15min safety checks. Restraints/seclusion/emergency medication: N/A Justification of Continued Inpatient Treatment: Per RAYMON Go, pt. continues to require medication adjustments and a safe and supportive environment.
[2021-08-03 07:51] VITALS: BP 114/69
[2021-08-03] MEDS: lactose-reduced food (Ensure Enlive) - 237ml bottle PO SCH ×3 (08:00→18:06)
[2021-08-03] MEDS: vitamin A & D ointment-NF 1 APPLIC TUBE TP SCH ×2 (08:00→20:00)
[2021-08-03] MEDS: lactobacillus rhamnosus 10,000 MMU CELLS/CAPSULE PO SCH ×2 (08:28→20:33)
[2021-08-03] MEDS: docusate sod 100mg capsule PO SCH ×2 (08:28→20:33)
[2021-08-03] MEDS: venlafaxine XR 75mg capsule (Q24H) PO SCH (08:28)
[2021-08-03] MEDS: methylphenidate 5mg tablet PO SCH (08:29)
[2021-08-03] MEDS: ziprasidone 20mg capsule PO SCH ×2 (08:29→20:33)
--- NOTE | 2021-08-03 17:35 | NUR ---
Nursing Progress Note: Legal hold: TCon Client on involuntary status for GD Report received from RN with use of SBAR Why they are here: Pt was at [facility] from 06/08/21-07/12/21 for GD/failure to thrive. Pt was discharged, re-evaluated and placed on a 5150. He was readmitted to [facility] on day of discharge 07/12/21. Pt has a Hx of Schizophrenia, depression, and anxiety. Pt has intermittent CAH to kill himself, pt is depressed and anhedonic, he has severely declined in his ADLs. Pt has a DTI ulcer on his right heel. Plan is for him to be conserved. Assessment Received patient while he was sleeping in his bed. Assisted patient from his bed to a standing position, and ambulated patient to the bathroom in his room to urinate. Patient moves easily and is moderately strong. Patient incontinent of urine. Patient received toileting and jr-care from ERIC Abdi. Patient was then assisted with ambulation to the dining room for coffee. Patient required prompting but minimal assist with eating his meals. Patient toileted at least every 2 hours and as needed. Patient takes approximately one hour to eat each meal. Patient drinks Ensure Shake sent by the kitchen at each meal. During lunch, patient was noted to have white thick drainage on his entire tongue, and c/o a sore throat. Text sent to RAYMON Artis, to inform patient looks as though he has a yeast infection on his tongue and possibly including his throat. Waiting to hear back from Efraín after text sent. Patient denies any problems during 1:1 patient assessment, and informs the wound on his right heel does not cause any pain at this time. Patient assisted to his room for wound care on his right heel. Dark area on right heel appears to be 3cm x 2cm. Sock and slipper removed from right foot. A syringe of normal saline, cleansed darkened area right posterior heel using 2x2 gauze. Applied A & D Ointment, as well as covered with a bordered gauze. Reapplied sock and slipper and placed right foot in a Medix Boot per wound care orders. Patients right heel elevated while in bed. Rested this afternoon in bed and will get patient up in a chair in the dining room for dinner. S/I, H/I: Denies A/VH: Denies. Sleep: 8.25 hrs at night ADL's: Requires assistance with eating, toileting, wound care, prompting and showering at this time. Group attendance: No Group Meeting held this morning. Attended Group Meeting this afternoon. Were meds taken: Yes, without hesitation. Any med S/E: None observed or reported Mental Status Exam Appearance: Short Stature Male with Black Hair Dressed in green scrubs. Eye contact: Fair Behavior: Cooperative Speech: Soft. Poverty of Speech Mood: Blunted. Depressed. Affect: Flat Thought process: Linear Thought Content: Difficult to ascertain Cognition: A&O x2 to self and place Insight: Poor Judgment: Poor Interventions PRN's used: None Therapeutic interventions: Provided 1:1 assessment. Monitored rt. heel and completed ordered treatment/foam boot while in bed, medication administration/education/monitoring, and maintained Q 15min safety checks. Restraints/seclusion/emergency medication: N/A Justification of Continued Inpatient Treatment: Per RAYMON Go, pt. continues to require medication adjustments and a safe and supportive environment.
[2021-08-03] MEDS ORDERED: fluconazole 150mg tablet PO ONE (18:00)
[2021-08-03] MEDS: acetaminophen 325mg tablet PO PRN (18:09)
[2021-08-03 19:49] VITALS: BP 86/51
[2021-08-03] MEDS: traZODone 50mg tablet PO SCH (20:32)
[2021-08-03 20:38] VITALS: BP 110/70
--- NOTE | 2021-08-04 02:46 | NUR ---
Nursing Progress Note: Cuong Legal hold: TCon Client on involuntary status for GD Report received from RN with use of SBAR Why they are here: Pt was at [facility] from 06/08/21-07/12/21 for GD/failure to thrive. Pt was discharged, re-evaluated and placed on a 5150. He was readmitted to [facility] on day of discharge 07/12/21. Pt has a Hx of Schizophrenia, depression, and anxiety. Pt has intermittent CAH to kill himself, pt is depressed and anhedonic, he has severely declined in his ADLs. Pt has a DTI ulcer on his right heel. Plan is for him to be conserved. Assessment Patient was falling asleep in the community room, pt assisted to his room by the Charge Nurse. Pt was toileted and changed and given his onetime dose of Diflucan. Pt was showered this evening with assistance from PCT, October. Pt was assisted back to bed, right foot placed in Medix boot and elevated per wound care orders. Pt took all HS medications and voiced no needs. Pt observed to be sleeping and in no distress. Pt assisted to toilet X2 during NOC shift. S/I, H/I: Denies A/VH: Denies. Sleep: ADL's: Requires assistance with eating, toileting, wound care, prompting and showering at this time. Group attendance: Were meds taken: Yes, without hesitation. Any med S/E: None observed or reported Mental Status Exam Appearance: Short Stature Male with Black Hair Dressed in green scrubs. Eye contact: Fair Behavior: Cooperative Speech: Soft. Poverty of Speech Mood: Blunted. Depressed. Affect: Flat Thought process: Linear Thought Content: Difficult to ascertain Cognition: A&O x2 to self and place Insight: Poor Judgment: Poor Interventions PRN's used: None Therapeutic interventions: Provided 1:1 assessment. Monitored rt. heel and completed ordered treatment/foam boot while in bed, medication administration/education/monitoring, and maintained Q 15min safety checks. Restraints/seclusion/emergency medication: N/A Justification of Continued Inpatient Treatment: Per RAYMON Go, pt. continues to require medication adjustments and a safe and supportive environment.
--- NOTE | 2021-08-04 07:14 | NUR ---
Sent placement packet to [facility]. [place] Pearson
--- NOTE | 2021-08-04 07:16 | NUR ---
[facility] phone # [phone] (Warren). [facility] phone# [phone] (Andria), fax# [phone]. WELL[place] Pearson
[2021-08-04 07:42] VITALS: BP 116/73
[2021-08-04] MEDS: vitamin A & D ointment-NF 1 APPLIC TUBE TP SCH ×2 (08:00→20:03)
[2021-08-04] MEDS: docusate sod 100mg capsule PO SCH ×2 (08:17→20:03)
[2021-08-04] MEDS: lactobacillus rhamnosus 10,000 MMU CELLS/CAPSULE PO SCH ×2 (08:17→20:03)
[2021-08-04] MEDS: ziprasidone 20mg capsule PO SCH ×2 (08:18→20:03)
[2021-08-04] MEDS: lactose-reduced food (Ensure Enlive) - 237ml bottle PO SCH ×3 (08:18→18:01)
[2021-08-04] MEDS: methylphenidate 5mg tablet PO SCH (08:18)
[2021-08-04] MEDS: venlafaxine XR 75mg capsule (Q24H) PO SCH (08:18)
--- NOTE | 2021-08-04 17:12 | NUR ---
Nursing Progress Note: Legal hold: TCon Client on involuntary status for GD Report received from RN with use of SBAR Why they are here: Pt was at [facility] from 06/08/21-07/12/21 for GD/failure to thrive. Pt was discharged, re-evaluated and placed on a 5150. He was readmitted to [facility] on day of discharge 07/12/21. Pt has a History of Schizophrenia, depression, and anxiety. Pt has intermittent CAH to kill himself, patient is depressed and anhedonic, he has severely declined in his ADLs. Pt has a DTI ulcer on his right heel. Plan is for him to be conserved. Assessment: Received patient while he was in the bathroom voiding at the time. Patient had saturated Depends on from last night. Dry Depends applied with clean green scrubs. 1:1 patient assessment & interview done with this patient. Patient is soft spoken and replies to each question asked. Patient reports I dont have any problems today. Patient reports sleeping well last night. Patient ambulated to the dining room with stand by assist at approximately 0640. Patient requested a cup of coffee at 0705. Yesterday patient had a tongue coated in thrush of white & red, with noted white pustules down his throat. Patient stated at that time that his throat really hurt. Diflucan po given last night. Patients tongue is pink in color today with no noted white pustules in back of his throat. Patient reports he can swallow easier today. Patient ambulated approximately 5 laps around the unit after breakfast, and sat and exercised his legs on the stationary bike until lunch. Patient was able to feed himself breakfast and lunch. Patients wound care provided to right heel per Wound Care orders. Area darkened on right heel and appears smaller than initially visualized a few weeks ago. A & D Ointment applied to Tegaderm dressing and applied to right heel. Medix boot applied to patients right foot per orders. Patient has rested in bed this afternoon. Of note, patient asked if he could call his mother this morning. Informed RAYMON Kenny, of patients request, and informed by Efraín that he has already to call all of his contact phone numbers in which he could not connect to any family members at all. S/I, H/I: Denies A/VH: Denies. Sleep: 2 hour nap this afternoon. ADL's: Requires assistance with meal set up and showers. Group attendance: Attended Morning Group Meeting. No Group Meeting held this afternoon. Were meds taken: Yes, without hesitation. Any med S/E: None observed or reported Mental Status Exam Appearance: Short Stature Male with Black Hair Dressed in green scrubs. Eye contact: Fair Behavior: Cooperative Speech: Soft. Poverty of Speech Mood: Blunted. Flat. Affect: Flat Thought process: Linear Thought Content: Difficult to ascertain Cognition: A&O x2 to self and place Insight: Poor Judgment: Poor Interventions PRN's used: None Therapeutic interventions: Provided 1:1 assessment. Monitored rt. heel and completed ordered treatment/foam boot while in bed, medication administration/education/monitoring, and maintained Q 15min safety checks. Restraints/seclusion/emergency medication: N/A Justification of Continued Inpatient Treatment: RAYMON Harvye, pt. continues to require medication adjustments and a safe and supportive environment.
[2021-08-04 19:00] VITALS: BP 110/71
[2021-08-04] MEDS: traZODone 50mg tablet PO SCH (20:03)
--- NOTE | 2021-08-05 03:21 | NUR ---
Nursing Progress Note: Cuong Legal hold: TCon Client on involuntary status for GD Report received from RN with use of SBAR Why they are here: Pt was at [facility] from 06/08/21-07/12/21 for GD/failure to thrive. Pt was discharged, re-evaluated and placed on a 5150. He was readmitted to [facility] on day of discharge 07/12/21. Pt has a History of Schizophrenia, depression, and anxiety. Pt has intermittent CAH to kill himself, patient is depressed and anhedonic, he has severely declined in his ADLs. Pt has a DTI ulcer on his right heel. Plan is for him to be conserved. Assessment: Received patient in community room finishing up with dinner. Pt states he is doing well and has no needs at this time. Pt states he is feeling better and can swallow much easier. Patient requires assistance with toileting and 1 2 person transfer assist. Pt to bed with boot on right heel elevated. S/I, H/I: Denies A/VH: Denies. Sleep: ADL's: Requires assistance with meal set, toileting, showers. Group attendance: Were meds taken: Yes, without hesitation. Any med S/E: None observed or reported Mental Status Exam Appearance: Short Stature Male with Black Hair Dressed in green scrubs. Eye contact: Fair Behavior: Cooperative Speech: Soft. Poverty of Speech Mood: Blunted. Flat. Affect: Flat Thought process: Linear Thought Content: Difficult to ascertain Cognition: A&O x2 to self and place Insight: Poor Judgment: Poor Interventions PRN's used: None Therapeutic interventions: Provided 1:1 assessment. Monitored rt. heel and completed ordered treatment/foam boot while in bed, medication administration/education/monitoring, and maintained Q 15min safety checks. Restraints/seclusion/emergency medication: N/A Justification of Continued Inpatient Treatment: Per RAYMON Go, pt. continues to require medication adjustments and a safe and supportive environment.
[2021-08-05 07:48] VITALS: BP 123/75
[2021-08-05] MEDS: methylphenidate 5mg tablet PO SCH (07:51)
[2021-08-05] MEDS: docusate sod 100mg capsule PO SCH ×2 (07:51→20:45)
[2021-08-05] MEDS: venlafaxine XR 75mg capsule (Q24H) PO SCH (07:51)
[2021-08-05] MEDS: lactobacillus rhamnosus 10,000 MMU CELLS/CAPSULE PO SCH ×2 (07:52→20:45)
[2021-08-05] MEDS: vitamin A & D ointment-NF 1 APPLIC TUBE TP SCH ×2 (07:52→20:45)
[2021-08-05] MEDS: ziprasidone 20mg capsule PO SCH ×2 (07:52→20:45)
[2021-08-05] MEDS: lactose-reduced food (Ensure Enlive) - 237ml bottle PO SCH ×3 (07:52→17:52)
--- NOTE | 2021-08-05 15:23 | NUR ---
Nursing Progress Note: Legal hold: TCON Client on involuntary status for GD Report received from nurse Ernestina Avila RN with use of SBAR Why are they here: Pt was at [facility] from 06/08/21-07/12/21 for GD/failure to thrive. Pt was discharged, re-evaluated and placed on a 5150. He was readmitted to [facility] on day of discharge 07/12/21. Pt has a Hx of Schizophrenia, depression, and anxiety. Pt has intermittent CAH to kill himself, pt is depressed and anhedonic, he has severely declined in his ADLs. Pt has a DTI ulcer on his right heel. Plan is for him to be conserved. Assessment What has happened this shift: Pt was up for breakfast. Pt was cooperative with medication and able to take them whole all at once with water without difficulty. Pt watched some TV in the rec room after breakfast. Before lunch he was sitting in the chair in his room looking out the window at the view. When asked if pt was feeling depressed, he replied, "yeah." Pt has a delayed response to most questions but will answer if given time. When asked about AH he said, "they're here." When asked what they are saying he replied, "same thing...they tell me to kill myself." When asked if he felt like the meds were helping he answered "yes." Asked pt if he had any questions for this RN. He asked, "can you bring me something for my anxiety?" Pt verbalizes that he feels anxious every day. Pt does not have any PRN anxiety meds ordered currently. Notified RAYMON Go who states that he will order something. S/I, H/I: Pt denies. A/VH: +CAH Sleep: Pt slept 6.75 hours last night per noc shift report, pt took a nap in the afternoon. ADL's: Requires prompting for toileting and assistance with urinary incontinent episodes, personal hygiene, bathing. Needs prompts to come to meals. Group attendance: No Were meds taken: Yes Any med S/E: None noted or reported. Mental Status Exam Appearance: Thin, older appearing man with dark hair dressed in green hospital scrubs. Eye contact: Fair Behavior: Slow moving, does not socialize, mostly isolative to self though is present in the milieu for meals and TV, paces slowly in the amos at times. Speech: Clear, slow, delayed response, minimal. Mood: Depressed Affect: Flat Thought process: Slow, may have some thought blocking. Thought Content: He feels anxious daily. Cognition: A/O X 3 Insight: Fair Judgment: Poor Interventions PRN's used: None Therapeutic interventions: 1:1 assessment, therapeutic communication, active listening, ensured contract for safety, medication administration/education/monitoring, encouragement to come to meals, encouragement with autonomy in ADLs, encouragement to participate in unit activities and attend groups, prompted toileting, assistance with personal hygiene, bathing, dressing, and incontinent care, skin breakdown prevention, fall prevention, provided encouragement, distraction, redirection, positive reinforcement and Q15 minute safety checks. Restraints/seclusion/emergency medication: None Justification of Continued Inpatient Treatment: Pt is gravely disabled, he has had a decline in his ADL and is failure to thrive. Pt is homeless and unable to formulate a plan for food, alf. He is in the process of conservatorship.
[2021-08-05 19:00] VITALS: BP 106/70
[2021-08-05] MEDS: traZODone 50mg tablet PO SCH (20:45)
--- NOTE | 2021-08-06 01:54 | NUR ---
5150 NOTE: REASON FOR ADMISSION: Patients current status is gravely disabled. He continues to need prompting to eat or drink. He cannot make a viable plan for food or nursing home when discharged. Patient is diagnosed with schizophrenia. Has a history of non-compliance with treatment and auditory hallucinations.
--- NOTE | 2021-08-06 03:21 | NUR ---
Nursing Progress Note: Cuong Legal hold: TCON Client on involuntary status for GD Report received from nurse Adolfo VALENCIA with use of SBAR Why are they here: Patients current status is gravely disabled. He continues to need prompting to eat or drink. He cannot make a viable plan for food or senior care when discharged. Patient is diagnosed with schizophrenia. Has a history of non-compliance with treatment and auditory hallucinations. Assessment What has happened this shift: Received pt in community room still working on his meal tray. PT stated he is getting tired of the pureed food prep. He states he hears voices and they tell him to kill himself, although he doesnt hear it currently today. He also states he is slightly depressed. Pt stayed in the community for a while listening and watching TV with peers. Took all HS medications without issue and was assisted to the bathroom before retiring to bed. S/I, H/I: Pt denies. A/VH: +CAH Sleep: ADL's: Requires prompting for toileting and assistance with urinary incontinent episodes, personal hygiene, bathing. Needs prompts to come to meals. Group attendance: No Were meds taken: Yes Any med S/E: None noted or reported. Mental Status Exam Appearance: Thin, older appearing man with dark hair dressed in green hospital scrubs. Eye contact: Fair Behavior: Slow moving, does not socialize, mostly isolative to self though , paces slowly in the amos at times. Speech: Clear, slow, delayed response, minimal. Mood: Depressed Affect: Flat Thought process: Slow, may have some thought blocking. Thought Content: He feels anxious daily. Cognition: A/O X 3 Insight: Fair Judgment: Poor Interventions PRN's used: None Therapeutic interventions: 1:1 assessment, therapeutic communication, active listening, ensured contract for safety, medication administration/education/monitoring, encouragement to come to meals, encouragement with autonomy in ADLs, encouragement to participate in unit activities and attend groups, prompted toileting, assistance with personal hygiene, bathing, dressing, and incontinent care, skin breakdown prevention, fall prevention, provided encouragement, distraction, redirection, positive reinforcement and Q15 minute safety checks. Restraints/seclusion/emergency medication: None Justification of Continued Inpatient Treatment: Pt is gravely disabled, he has had a decline in his ADL and is failure to thrive. Pt is homeless and unable to formulate a plan for food, senior care. He is in the process of conservatorship.
[2021-08-06 08:00] VITALS: BP 109/71
[2021-08-06] MEDS: lactobacillus rhamnosus 10,000 MMU CELLS/CAPSULE PO SCH ×2 (08:12→20:07)
[2021-08-06] MEDS: vitamin A & D ointment-NF 1 APPLIC TUBE TP SCH ×2 (08:12→20:07)
[2021-08-06] MEDS: ziprasidone 20mg capsule PO SCH ×2 (08:12→20:07)
[2021-08-06] MEDS: docusate sod 100mg capsule PO SCH ×2 (08:12→20:07)
[2021-08-06] MEDS: venlafaxine XR 75mg capsule (Q24H) PO SCH (08:12)
[2021-08-06] MEDS: methylphenidate 5mg tablet PO SCH (08:12)
[2021-08-06] MEDS: lactose-reduced food (Ensure Enlive) - 237ml bottle PO SCH ×3 (08:13→17:43)
--- NOTE | 2021-08-06 15:33 | NUR ---
Nursing Progress Note: Legal hold: TCON Client on involuntary status for GD Report received from nurse Ernestina Avila RN with use of SBAR Why are they here: Patients current status is gravely disabled. He continues to need prompting to eat or drink. He cannot make a viable plan for food or long term when discharged. Patient is diagnosed with schizophrenia. Has a history of non-compliance with treatment and auditory hallucinations. Assessment What has happened this shift: Pt put on his call light to ask for help getting out of bed for breakfast. His soft boot was removed from right heel and pt was prompted to use the bathroom Pt was cooperative with medication and able to take them whole with water without difficulty. Pt watched some football in the rec room today. Pt continues to endorse some depression and ongoing CAH to kill himself. No episodes of urinary incontinence this shift. No unsafe behaviors noted. S/I, H/I: Pt denies. A/VH: +CAH Sleep: Pt slept 5.75 hours last night per noc shift report. ADL's: Requires prompting for toileting and assistance with urinary incontinent episodes, personal hygiene, bathing. Needs prompts to come to meals, cannot remove his pressure relieving soft boot by himself. Group attendance: No groups today. Were meds taken: Yes Any med S/E: None noted or reported. Mental Status Exam Appearance: Thin, older appearing man with dark hair dressed in green hospital scrubs. Eye contact: Fair Behavior: Slow moving, does not socialize, watches TV. Speech: Clear, slow, delayed response, minimal. Mood: Depressed Affect: Flat Thought process: Slow, may have some thought blocking. Thought Content: He like football. Cognition: A/O X 3 Insight: Fair Judgment: Poor Interventions PRN's used: None Therapeutic interventions: 1:1 assessment, therapeutic communication, active listening, ensured contract for safety, medication administration/education/monitoring, encouragement to come to meals, encouragement with autonomy in ADLs, encouragement to participate in unit activities and attend groups, prompted toileting, assistance with personal hygiene, bathing, dressing, and incontinent care, skin breakdown prevention, fall prevention, provided encouragement, distraction, redirection, positive reinforcement and Q15 minute safety checks. Restraints/seclusion/emergency medication: None Justification of Continued Inpatient Treatment: Pt is gravely disabled, he has had a decline in his ADL and is failure to thrive. Pt is homeless and unable to formulate a plan for food, long term. He is in the process of conservatorship.
[2021-08-06 19:00] VITALS: BP 127/75
[2021-08-06] MEDS: acetaminophen 325mg tablet PO PRN (19:02)
[2021-08-06] MEDS: traZODone 50mg tablet PO SCH (20:07)
--- NOTE | 2021-08-07 02:43 | NUR ---
Nursing Progress Note: Cuong Legal hold: TCON Client on involuntary status for GD Report received from nurse Adolfo VALENCIA with use of SBAR Why are they here: Patients current status is gravely disabled. He continues to need prompting to eat or drink. He cannot make a viable plan for food or alf when discharged. Patient is diagnosed with schizophrenia. Has a history of non-compliance with treatment and auditory hallucinations. Assessment What has happened this shift: Pt in his room finishing up his meal tray. Cooperative with care and vitals and states he has back pain 8/10. PRN Tylenol given with good effect. When asked about having suicidal thoughts the patient responded yes however couldnt understand if he had a plan or not. Stated his depression is 5/10. Pt got up and went to the community room and watched TV with another peer until bedtime. S/I, H/I: +SI A/VH: Denies Sleep: ADL's: Requires prompting for toileting and assistance with urinary incontinent episodes, personal hygiene, bathing, cannot remove his pressure relieving soft boot by himself. Group attendance: Were meds taken: Yes Any med S/E: None noted or reported. Mental Status Exam Appearance: Thin, older appearing man with dark hair dressed in green hospital scrubs. Eye contact: Fair Behavior: Slow moving, does not socialize, watches TV. Speech: Clear, slow, delayed response, minimal. Mood: Depressed Affect: Flat Thought process: Slow, may have some thought blocking. Thought Content: could not assess Cognition: A/O X 3 Insight: Fair Judgment: Poor Interventions PRN's used: None Therapeutic interventions: 1:1 assessment, therapeutic communication, active listening, ensured contract for safety, medication administration/education/monitoring, encouragement to come to meals, encouragement with autonomy in ADLs, encouragement to participate in unit activities and attend groups, prompted toileting, assistance with personal hygiene, bathing, dressing, and incontinent care, skin breakdown prevention, fall prevention, provided encouragement, distraction, redirection, positive reinforcement and Q15 minute safety checks. Restraints/seclusion/emergency medication: None Justification of Continued Inpatient Treatment: Pt is gravely disabled, he has had a decline in his ADL and is failure to thrive. Pt is homeless and unable to formulate a plan for food, alf. He is in the process of conservatorship.
[2021-08-07 07:18] VITALS: BP 129/73
--- NOTE | 2021-08-07 07:27 | NUR ---
Reassessment: Pt continues on Puree diet now w/ double protein TID with fluctuating PO intake, avg 60% x 15 meals and avg 77% ONS TID exceeding est nutrient needs at this time. Communicated w/ RN recommendation to decrease frequency of ONS to Once daily or d/c all together. [facility] 07/29 receiving routine bowel care. No change to nutrition recommendations at this time, will continue to monitor. Recs 1. Continue Puree diet w/ double protein TID per diet order 2. Ensure Enlive TID; decreased frequency to Once daily 3. Bowel care per rx 4. Weekly wts Addendum: 08/07/21 at [address] Amended: Links added.
[2021-08-07] MEDS ORDERED: LORazepam 1 MG tablet PO SCH (08:00)
[2021-08-07] MEDS: vitamin A & D ointment-NF 1 APPLIC TUBE TP SCH ×2 (08:00→20:00)
[2021-08-07] MEDS: methylphenidate 5mg tablet PO SCH (08:34)
[2021-08-07] MEDS: docusate sod 100mg capsule PO SCH ×2 (08:34→20:36)
[2021-08-07] MEDS: venlafaxine XR 75mg capsule (Q24H) PO SCH (08:34)
[2021-08-07] MEDS: ziprasidone 20mg capsule PO SCH ×2 (08:34→20:35)
[2021-08-07] MEDS: lactobacillus rhamnosus 10,000 MMU CELLS/CAPSULE PO SCH ×2 (08:34→20:35)
[2021-08-07] MEDS: lactose-reduced food (Ensure Enlive) - 237ml bottle PO SCH ×3 (08:46→18:00)
[2021-08-07] MEDS: fluconazole 40mg/ml oral suspension 35ml bottle PO SCH (16:22)
--- NOTE | 2021-08-07 16:46 | NUR ---
Nursing Progress Note: Cuong Legal hold: TCON Client on involuntary status for GD Report received from nurse Ernestina Avila RN with use of SBAR Why are they here: Patients current status is gravely disabled. He cannot make a viable plan for food or assisted when discharged. Patient is diagnosed with schizophrenia. Has a history of non-compliance with treatment and auditory hallucinations. Assessment What has happened this shift: Pt. received sleeping at shift change. He woke to receive his medication and 1:1 assessment completed at the bedside. Pt. denies SI, HI, he endorses some voices. Pt. presents as extremely fatigued, hrs of sleep approx. 7. N.O for 1mg Ativan started yesterday. Pt. was unable to verbalize admission reasons stating I dont know. Pt. continues to show thick white plaques covering his tongue, and he c/o a sore throat. Pt. was restarted on PO diflucan swish and spit for thrush, and Ativan was decreased to 0.5mg BID. Pt. continues to require extensive assist with ADLs. Pt. was assisted tit [employer] room to watch football. N.O swish and spit started for thrush, zero ASEs found. S/I, H/I: Denies. A/VH: Endorses AH, denies VH Sleep: 6.75 hrs per NOC, two naps. ADL's: Requires assistance, and has episodes of incontinence. Group attendance: No groups today. Were meds taken: Yes Any med S/E: None noted or reported. Mental Status Exam Appearance: Older male, thin green hospital scrubs. Eye contact: Fair Behavior: Socially withdrawn Speech: Soft spoken and slow. Mood: Depressed Affect: Flat Thought process: Poverty of thought. Thought Content: Im very tired. Cognition: A/O X 3 Insight: Fair Judgment: Poor Interventions PRN's used: None Therapeutic interventions: 1:1 assessment, therapeutic communication, active listening, ensured contract for safety, medication administration/education/monitoring, encouragement to come to meals, encouragement with autonomy in ADLs, encouragement to participate in unit activities and attend groups, prompted toileting, assistance with personal hygiene, bathing, dressing, and incontinent care, skin breakdown prevention, fall prevention, provided encouragement, distraction, redirection, positive reinforcement and Q15 minute safety checks. Restraints/seclusion/emergency medication: None Justification of Continued Inpatient Treatment: Pt is gravely disabled, he has had a decline in his ADL and is failure to thrive. Pt is homeless and unable to formulate a plan for food, assisted. He is in the process of conservatorship.
[2021-08-07 20:00] VITALS: BP 119/78
[2021-08-07] MEDS: traZODone 50mg tablet PO SCH (20:36)
[2021-08-07] MEDS: LORazepam 0.5 MG tablet PO SCH (20:36)
--- NOTE | 2021-08-08 04:01 | NUR ---
Nursing Progress Note: Legal hold: TCON Client on involuntary status for GD Report received from nurse Cecil RN with use of SBAR Why are they here: Patients current status is gravely disabled. He cannot make a viable plan for food or chcf when discharged. Patient is diagnosed with schizophrenia. Has a history of non-compliance with treatment and auditory hallucinations. Assessment What has happened this shift: Pt. Sitting at bedside eating his dinner at start of shift. He answers questions but there is a long pause and he answers usually only yes or no questions. Pt. denies SI, HI, he did not answer when asked about voices. Pt has white coating on tongue denies sore throat. Pt up on unit waking back and forth in amos for a while. Ointment applied to rt heel boot to elevate heel applied at bedtime. Pt had an episode of incontinence during night. Cooperative with linen and clothing change went right back to sleep. S/I, H/I: Denies. A/VH: Endorses AH, denies VH Sleep: asleep at this time ADL's: Requires assistance, and has episodes of incontinence. Group attendance: NA Were meds taken: Yes Any med S/E: None noted or reported. Mental Status Exam Appearance: Short thin man in green hospital scrubs. Eye contact: Fair Behavior: Socially withdrawn Speech: Soft spoken and slow. Mood: Depressed Affect: Flat Thought process: Poverty of thought. Thought Content: Im very tired. Cognition: A/O X 3 Insight: Fair Judgment: Poor
[2021-08-08 08:00] VITALS: BP 108/69
[2021-08-08] MEDS: fluconazole 40mg/ml oral suspension 35ml bottle PO SCH (08:16)
[2021-08-08] MEDS: methylphenidate 5mg tablet PO SCH (08:16)
[2021-08-08] MEDS: venlafaxine XR 75mg capsule (Q24H) PO SCH (08:16)
[2021-08-08] MEDS: docusate sod 100mg capsule PO SCH ×2 (08:16→20:33)
[2021-08-08] MEDS: lactobacillus rhamnosus 10,000 MMU CELLS/CAPSULE PO SCH ×2 (08:16→20:33)
[2021-08-08] MEDS: LORazepam 0.5 MG tablet PO SCH ×2 (08:16→20:33)
[2021-08-08] MEDS: ziprasidone 20mg capsule PO SCH ×2 (08:17→20:33)
[2021-08-08] MEDS: vitamin A & D ointment-NF 1 APPLIC TUBE TP SCH ×2 (08:17→20:35)
[2021-08-08] MEDS: lactose-reduced food (Ensure Enlive) - 237ml bottle PO SCH ×3 (08:17→17:52)
--- NOTE | 2021-08-08 16:44 | NUR ---
Nursing Progress Note: Legal hold: TCON Client on involuntary status for GD Report received from nurse Cecil VALENCIA with use of SBAR Why are they here: Patients current status is gravely disabled. He cannot make a viable plan for food or senior care when discharged. Patient is diagnosed with schizophrenia. Has a history of non-compliance with treatment and auditory hallucinations. Assessment What has happened this shift: Patient was asleep at change of shift and gotten up for breakfast. Patient was able to feed himself and he looked good today. Patient ate well. Patient says he does hear voices but not now. Patient denies VH. Patient also denies suicidal/homicidal ideation. Later in the morning patient was incontinent of urine in his bed. RN cleaned patient and the bed and then made his bed. RN walked with patient to the Community Room to watch T.V. Patient was steady on his feet. Patient ate lunch in the CR by himself. Late afternoon patient walked back to his bed. RN placed patient's boot on and covered him up until dinner. Patient is sweet and easy to take care of. + S/I, H/I: Denies. A/VH: Yes AH, denies VH Sleep: Napped in the morning and afternoon ADL's: Requires assistance, and has episodes of incontinence. Group attendance: No groups today. Were meds taken: Yes Any med S/E: None noted or reported. Mental Status Exam Appearance: Small stature older gentleman wearing green hospital scrubs. Eye contact: Fair Behavior: Withdrawn, [place]ola[place] Speech: Soft spoken, Poverty of speech Mood: Depressed Affect: Flat Thought process: Linear Thought Content: Difficult to ascertain Cognition: A/O X 3 Insight: Fair Judgment: Poor Interventions PRN's used: None Therapeutic interventions: 1:1 assessment, therapeutic communication, active listening, ensured contract for safety, medication administration/education/monitoring, encouragement to come to meals, encouragement with autonomy in ADLs, encouragement to participate in unit activities and attend groups, prompted toileting, assistance with personal hygiene, bathing, dressing, and incontinent care, skin breakdown prevention, fall prevention, provided encouragement, distraction, redirection, positive reinforcement and Q15 minute safety checks. Restraints/seclusion/emergency medication: None Justification of Continued Inpatient Treatment: Pt is gravely disabled, he has had a decline in his ADL and is failure to thrive. Pt is homeless and unable to formulate a plan for food, senior care. He is in the process of conservatorship.
[2021-08-08 19:54] VITALS: BP 110/70
[2021-08-08] MEDS: traZODone 50mg tablet PO SCH (20:33)
--- NOTE | 2021-08-09 03:01 | NUR ---
Nursing Progress Note: Cuong Legal hold: TCON Client on involuntary status for GD Report received from nurse Cecil RN with use of SBAR Why are they here: Patients current status is gravely disabled. He cannot make a viable plan for food or intermediate when discharged. Patient is diagnosed with schizophrenia. Has a history of non-compliance with treatment and auditory hallucinations. Assessment What has happened this shift: Pt. Sitting at bedside eating his dinner at start of shift. He answers questions, speech is halting with long pauses. In response to inquiry said "I had a good day how was your day" Pt. denies SI, HI, A/V hallucinations. Does not appear to be responding to internal stimuli. Pt up on unit waking back and forth in amos for a while. Pt incontinent urine wearing a depends. Cooperative with jr care and depend change. Pt has white areas in mouth oral care done. Pt cooperative but does not perform hygiene tasks even with instruction. Ointment applied to rt heel boot to elevate heel applied at bedtime. S/I, H/I: Denies. A/VH: denies Sleep: asleep at this time ADL's: Requires assistance, and has episodes of incontinence. Group attendance: NA Were meds taken: Yes Any med S/E: None noted or reported. Mental Status Exam Appearance: Short thin man in green hospital scrubs. Eye contact: Fair Behavior: Socially withdrawn Speech: Soft spoken and slow. Mood: Depressed Affect: Flat Thought process: Poverty of thought. Thought Content: Im very tired. Cognition: A/O X 3 Insight: Fair Judgment: Poor
[2021-08-09 07:34] VITALS: BP 140/81
[2021-08-09] MEDS: lactose-reduced food (Ensure Enlive) - 237ml bottle PO SCH ×3 (08:24→18:00)
[2021-08-09] MEDS: fluconazole 40mg/ml oral suspension 35ml bottle PO SCH (08:24)
[2021-08-09] MEDS: vitamin A & D ointment-NF 1 APPLIC TUBE TP SCH ×2 (08:24→20:00)
[2021-08-09] MEDS: methylphenidate 5mg tablet PO SCH (08:27)
[2021-08-09] MEDS: lactobacillus rhamnosus 10,000 MMU CELLS/CAPSULE PO SCH ×2 (08:32→19:55)
[2021-08-09] MEDS: LORazepam 0.5 MG tablet PO SCH ×2 (08:32→19:55)
[2021-08-09] MEDS: venlafaxine XR 75mg capsule (Q24H) PO SCH (08:32)
[2021-08-09] MEDS: docusate sod 100mg capsule PO SCH ×2 (08:32→19:55)
[2021-08-09] MEDS: ziprasidone 20mg capsule PO SCH ×2 (10:14→19:55)
--- NOTE | 2021-08-09 15:56 | NUR ---
Nursing Progress Note: CLARISSA Legal hold: TCON Client on involuntary status for GD Report received from TAVARES Vasques with use of SBAR Why are they here: Patients current status is gravely disabled. He cannot make a viable plan for food or halfway when discharged. Assessment What has happened this shift: Received patient sleeping at shift change, no distress noted. Pt was awoken by staff to eat his breakfast. Pt ate 100%. Pt was incontinent of urine. Pt was assisted to the toilet where he had a BM. Pt showered and linens changed. Oral care performed. Pt denies S/I, H/I. Endorses intermittent AH, but denies VH. Pt took nap after breakfast, got up at snack time and then watched T.V in rec room. Pt eats slow, but eats independently. Pt is able to make needs known when asked. Pt sat in his room chair most of the afternoon. S/I, H/I: Denies. A/VH: Yes AH, denies VH Sleep: 5.5 hours per sleep assessment. Intermittent naps ADL's: Requires assistance, and has episodes of incontinence. Group attendance: No scheduled groups today. Were meds taken: Yes, without issue. Any med S/E: None noted or reported. Mental Status Exam Appearance: Small stature older gentleman wearing green hospital scrubs. Scruffy facial hair. Eye contact: Fair Behavior: Calm, cooperative, presents depressed. Speech: Soft spoken, Poverty of speech Mood: Depressed Affect: Flat Thought process: Linear Thought Content: Difficult to ascertain Cognition: A/O X 3 Insight: Fair Judgment: Poor Interventions PRN's used: None Therapeutic interventions: 1:1 assessment, therapeutic communication, active listening, medication administration/education/monitoring, encouragement to come to meals, encouragement with autonomy in ADLs, encouragement to participate in unit activities and attend groups, prompted toileting, assistance with personal hygiene, bathing, dressing, and incontinent care, skin breakdown prevention, fall prevention, provided encouragement, positive reinforcement and Q15 minute safety checks. Restraints/seclusion/emergency medication: None Justification of Continued Inpatient Treatment: Pt is gravely disabled, he has had a decline in his ADL and is failure to thrive. Pt is homeless and unable to formulate a plan for food, halfway. He is in the process of conservatorship.
[2021-08-09 18:57] VITALS: BP 110/68
[2021-08-09 19:01] VITALS: BP 110/68
[2021-08-09] MEDS: traZODone 50mg tablet PO SCH (19:55)
--- NOTE | 2021-08-10 00:19 | NUR ---
Nursing Progress Note: Legal hold: TCON Client on involuntary status for GD Report received from ANNIE Mata with use of SBAR Why are they here: Patients current status is gravely disabled. He cannot make a viable plan for food or usp when discharged. Assessment What has happened this shift: Patient eating dinner in his room at the beginning of shift. Pleasant and cooperative with care; compliant with medication. Pressure wound appears to be improving. Denies SI, HI, A/VH. Patient observed briefly walking the unit and watching TV in the community room. Patient assisted to the toilet, brief changed and his boot put on R foot prior to bed; observed sleeping and does not appear to be having difficulty. S/I, H/I: Denies A/VH: Denies Sleep: Refer to sleep assessment ADL's: Requires prompting and assistance Group attendance: NA Were meds taken: Yes Any med S/E: None observed or reported Mental Status Exam Appearance: Neat and appropriately dressed in green unit attire Eye contact: Good Behavior: Pleasant and cooperative, self isolates Speech: Low volume, minimal, delayed responses Mood: Depressed Affect: Flat Thought process: Poverty of thought Thought Content: Meeting needs Cognition: A/O X 3 Insight: Fair Judgment: Poor Interventions PRN's used: None Therapeutic interventions: 1:1 assessment, therapeutic communication, active listening, medication administration/education/monitoring, encouragement to come to meals, encouragement with autonomy in ADLs, encouragement to participate in unit activities and attend groups, prompted toileting, assistance with personal hygiene, bathing, dressing, and incontinent care, skin breakdown prevention, fall prevention, provided encouragement, positive reinforcement and Q15 minute safety checks. Restraints/seclusion/emergency medication: None Justification of Continued Inpatient Treatment: Pt is gravely disabled, he has had a decline in his ADL and is failure to thrive. Pt is homeless and unable to formulate a plan for food, usp. He is in the process of conservatorship.
[2021-08-10 07:24] VITALS: BP 128/71
[2021-08-10] MEDS: fluconazole 40mg/ml oral suspension 35ml bottle PO SCH (08:28)
[2021-08-10] MEDS: venlafaxine XR 75mg capsule (Q24H) PO SCH (08:29)
[2021-08-10] MEDS: lactobacillus rhamnosus 10,000 MMU CELLS/CAPSULE PO SCH ×2 (08:29→20:48)
[2021-08-10] MEDS: docusate sod 100mg capsule PO SCH ×3 (08:29→20:46)
[2021-08-10] MEDS: methylphenidate 5mg tablet PO SCH (08:29)
[2021-08-10] MEDS: LORazepam 0.5 MG tablet PO SCH ×2 (08:29→20:46)
[2021-08-10] MEDS: lactose-reduced food (Ensure Enlive) - 237ml bottle PO SCH ×3 (08:29→18:05)
[2021-08-10] MEDS: ziprasidone 20mg capsule PO SCH ×2 (08:29→20:47)
[2021-08-10] MEDS: vitamin A & D ointment-NF 1 APPLIC TUBE TP SCH ×2 (08:30→20:51)
--- NOTE | 2021-08-10 16:58 | NUR ---
Nursing Progress Note: CLARISSA Legal hold: TCON Client on involuntary status for GD Report received from TAVARES Vasques with use of SBAR Why are they here: Patients current status is gravely disabled. He cannot make a viable plan for food or alf when discharged. Assessment What has happened this shift: Received patient sleeping at shift change, no distress noted. Pt was awoken for breakfast. Pt was incontinent of urine. Pts was changed, oral care and hygiene were completed. Pt is able to assist with ADLs, but continues to be incontinent of urine. Pt remained out of bed until after lunch, sitting in rec room (with mask on) watching T.V. After lunch pt was assisted to toilet where he had a BM. Pt c/o pain, moderate/ hard stool noted. Received order to increase stool softener to 100mg TID and increase fluid intake. Encouraged fluid at each encounter. Pt was reeducated on the use of his call light so staff can assist him to the bathroom. Pt requires moderate amount of encouragement for ADLs, but pt is willing and complies. Pt wasnt very talkative today, but was able to make needs known. Pt said not today when asked about AH. S/I, H/I: Denies both. A/VH: Not today. Sleep: 7.25 hours per sleep assessment. Napped after lunch. ADL's: Requires assistance, and has episodes of urine incontinence. Group attendance: No scheduled groups today r/t Covid outbreak on unit. Were meds taken: Yes, without issue. Any med S/E: None noted or reported. Mental Status Exam Appearance: Small stature older gentleman wearing green hospital scrubs. Scruffy facial hair. Eye contact: Fair Behavior: Calm, cooperative, presents depressed. Speech: Soft spoken, Poverty of speech Mood: Depressed Affect: Flat Thought process: Linear Thought Content: Difficult to ascertain Cognition: A/O X 3 Insight: Fair Judgment: Poor Interventions PRN's used: None Therapeutic interventions: 1:1 assessment, therapeutic communication, active listening, medication administration/education/monitoring, encouragement to participate in unit activities and attend groups, prompted toileting, assistance with personal hygiene, bathing, dressing, and incontinent care, skin breakdown prevention, fall prevention, provided encouragement, positive reinforcement and Q15 minute safety checks. Restraints/seclusion/emergency medication: None Justification of Continued Inpatient Treatment: Pt is gravely disabled, he has had a decline in his ADL and is failure to thrive. Pt is homeless and unable to formulate a plan for food, alf. He is in the process of conservatorship.
[2021-08-10 20:10] VITALS: BP 105/69
[2021-08-10] MEDS: traZODone 50mg tablet PO SCH (20:47)
--- NOTE | 2021-08-11 03:09 | NUR ---
Nursing Progress Note: Legal hold: TCON Client on involuntary status for GD Report received from ANNIE Mata with use of SBAR Why are they here: Patients current status is gravely disabled. He cannot make a viable plan for food or senior care when discharged. Assessment What has happened this shift: Patient was found sitting in his room eating dinner at beginning of shift. Patient was checked on again later and had only eaten 25%. Patient traveled to recreation room and watched movies with other patients. Patient needed assisted talking medications due to him continuing to drop them. Patient was assisted to the bathroom and then into bed. Nurse placed A&D ointment on patient heal and preformed oral care on patient S/I, H/I: Denies A/VH: Denies Sleep: Refer to sleep assessment ADL's: Requires prompting and assistance Group attendance: NA Were meds taken: Yes Any med S/E: None observed or reported Mental Status Exam Appearance: Neat and appropriately dressed in green unit attire Eye contact: Good Behavior: Pleasant and cooperative, self isolates Speech: Low volume, minimal, delayed responses Mood: Depressed Affect: Flat Thought process: Poverty of thought Thought Content: Meeting needs Cognition: A/O X 3 Insight: Fair Judgment: Poor Interventions PRN's used: None Therapeutic interventions: 1:1 assessment, therapeutic communication, active listening, medication administration/education/monitoring, encouragement to come to meals, encouragement with autonomy in ADLs, encouragement to participate in unit activities and attend groups, prompted toileting, assistance with personal hygiene, bathing, dressing, and incontinent care, skin breakdown prevention, fall prevention, provided encouragement, positive reinforcement and Q15 minute safety checks. Restraints/seclusion/emergency medication: None Justification of Continued Inpatient Treatment: Pt is gravely disabled, he has had a decline in his ADL and is failure to thrive. Pt is homeless and unable to formulate a plan for food, senior care. He is in the process of conservatorship.
[2021-08-11 08:00] VITALS: BP 137/66
[2021-08-11] MEDS: vitamin A & D ointment-NF 1 APPLIC TUBE TP SCH ×2 (08:00→20:51)
[2021-08-11] MEDS: methylphenidate 5mg tablet PO SCH (08:30)
[2021-08-11] MEDS: lactobacillus rhamnosus 10,000 MMU CELLS/CAPSULE PO SCH ×2 (08:31→20:49)
[2021-08-11] MEDS: docusate sod 100mg capsule PO SCH ×3 (08:31→20:49)
[2021-08-11] MEDS: ziprasidone 20mg capsule PO SCH ×2 (08:31→20:50)
[2021-08-11] MEDS: LORazepam 0.5 MG tablet PO SCH ×2 (08:31→20:51)
[2021-08-11] MEDS: venlafaxine XR 75mg capsule (Q24H) PO SCH (08:31)
[2021-08-11] MEDS: lactose-reduced food (Ensure Enlive) - 237ml bottle PO SCH ×3 (08:33→18:00)
[2021-08-11] MEDS: fluconazole 40mg/ml oral suspension 35ml bottle PO SCH (08:34)
--- NOTE | 2021-08-11 13:44 | NUR ---
PLACEMENT UPDATE Per Abrahan Cuong Rosa's packet has been sent to the following: Tello Chun: they are reviewing [facility]; they declined due to clt's medical needs Len Tucker: sent an email to see if they are accepting people, also have a call in to Tello Gupta: have 2 messages in with no call back yet, conservator is also calling. WELLINGTON Pearson
--- NOTE | 2021-08-11 17:34 | NUR ---
Nursing Progress Note: CLARISSA Legal hold: TCON Client on involuntary status for GD Report received from TAVARES Jacob with use of SBAR Why are they here: Patients current status is gravely disabled. He cannot make a viable plan for food or penitentiary when discharged. Assessment What has happened this shift: RN received pt. asleep in bed at start of the shift. Pt. was incontinent of urine and changed. Pt. awoke for breakfast and ate at his bedside. Pt. asked to lie down after breakfast. RN attempted to get pt. up for toileting, but while standing up pt. became incontinent. Pt. changed and sat up in his chair, pt. looking outside window. Pt. denies all mental health symptoms during interview but gives minimal info. Pt. does make a joke during 1:1. Pt. became incontinent while sitting in his chair and needed to be changed. Pt. wanted to lie down and sleep afterward. In afternoon pt. got up and observed sitting in community room watching TV. Pt. observed pacing hallway. Oral hygiene done. S/I, H/I: Denies A/VH: Denies Sleep: 7 hours per sleep assessment. Napped intermittently. ADL's: Requires assistance, and has episodes of urine incontinence. Group attendance: No scheduled groups today r/t Covid outbreak on unit. Were meds taken: Yes Any med S/E: None noted or reported. Mental Status Exam Appearance: Small stature older gentleman wearing green hospital scrubs. Scruffy facial hair. Eye contact: Fair Behavior: Calm, cooperative, socially withdrawn, and guarded. Speech: Soft spoken, Poverty of speech Mood: Depressed Affect: Flat Thought process: Linear Thought Content: Circumstantial Cognition: A/O X 3 Insight: Fair Judgment: Poor Interventions PRN's used: None Therapeutic interventions: 1:1 assessment, therapeutic communication, active listening, medication administration/education/monitoring, encouragement to participate in unit activities and attend groups, prompted toileting, assistance with personal hygiene, bathing, dressing, and incontinent care, skin breakdown prevention, fall prevention, provided encouragement, positive reinforcement and Q15 minute safety Restraints/seclusion/emergency medication: None Justification of Continued Inpatient Treatment: Pt is gravely disabled, he has had a decline in his ADL and is failure to thrive. Pt is homeless and unable to formulate a plan for food, penitentiary. He is in the process of conservatorship.
--- NOTE | 2021-08-11 18:16 | NUR ---
Provider started pt. on Nystatin oral solution in addition to Diflucan due to persistent thrush.
[2021-08-11 19:00] VITALS: BP 130/80
[2021-08-11] MEDS: traZODone 50mg tablet PO SCH (20:51)
[2021-08-11] MEDS: nystatin 500,000 unit/5ML UD oral suspension PO SCH (21:00)
--- NOTE | 2021-08-12 02:17 | NUR ---
Nursing Progress Note: CLARISSA Legal hold: TCON Client on involuntary status for GD Report received from TAVARES Padron with use of SBAR Why are they here: Patients current status is gravely disabled. He cannot make a viable plan for food or snf when discharged. Assessment Patient was found eating dinner in his room at beginning of shift. Patient drank 100% of his nutrition shake. Patient was assisted to restroom by nurse after an incontinent episode. Patient was assisted into bed and wound care was preformed. Patient took all night medications but had to be assisted due to hands shaking. Oral care was preformed and patient went to bed. S/I, H/I: Denies A/VH: Denies Sleep:See sleep assessment ADL's: Requires assistance, and has episodes of urine incontinence. Group attendance: No scheduled groups today r/t Covid outbreak on unit. Were meds taken: Yes Any med S/E: None noted or reported. Mental Status Exam Appearance: Small stature older gentleman wearing [employer] scrubs. Scruffy facial hair. Eye contact: Fair Behavior: Calm, cooperative, socially withdrawn, and guarded. Speech: Soft spoken, Poverty of speech Mood: Depressed Affect: Flat Thought process: Linear Thought Content: Circumstantial Cognition: A/O X 3 Insight: Fair Judgment: Poor Interventions PRN's used: None Therapeutic interventions: 1:1 assessment, therapeutic communication, active listening, medication administration/education/monitoring, encouragement to participate in unit activities and attend groups, prompted toileting, assistance with personal hygiene, bathing, dressing, and incontinent care, skin breakdown prevention, fall prevention, provided encouragement, positive reinforcement and Q15 minute safety Restraints/seclusion/emergency medication: None Justification of Continued Inpatient Treatment: Pt is gravely disabled, he has had a decline in his ADL and is failure to thrive. Pt is homeless and unable to formulate a plan for food, snf. He is in the process of conservatorship.
[2021-08-12 08:00] VITALS: BP 121/71
[2021-08-12] MEDS: LORazepam 0.5 MG tablet PO SCH ×2 (08:38→20:47)
[2021-08-12] MEDS: docusate sod 100mg capsule PO SCH ×3 (08:38→20:42)
[2021-08-12] MEDS: fluconazole 40mg/ml oral suspension 35ml bottle PO SCH (08:38)
[2021-08-12] MEDS: lactobacillus rhamnosus 10,000 MMU CELLS/CAPSULE PO SCH ×2 (08:38→20:42)
[2021-08-12] MEDS: lactose-reduced food (Ensure Enlive) - 237ml bottle PO SCH ×3 (08:39→18:00)
[2021-08-12] MEDS: venlafaxine XR 75mg capsule (Q24H) PO SCH (08:39)
[2021-08-12] MEDS: ziprasidone 20mg capsule PO SCH ×2 (08:40→20:40)
[2021-08-12] MEDS: methylphenidate 5mg tablet PO SCH (08:40)
[2021-08-12] MEDS: nystatin 500,000 unit/5ML UD oral suspension PO SCH ×3 (08:40→20:53)
[2021-08-12] MEDS: vitamin A & D ointment-NF 1 APPLIC TUBE TP SCH ×2 (08:41→20:47)
[2021-08-12] MEDS ORDERED: LORazepam 0.5 MG tablet PO ONE (13:30)
--- NOTE | 2021-08-12 16:58 | NUR ---
F/u 08/12: Pt PO continues to fluctuate on pureed/thin diet w/ double protein TIDWM per diet order ~64% avg overall meeting estimated needs. Pt actually receiving vanilla Ensure high protein TIDWM at this time as national shortage on Ensure Enlive except for chocolate which pt reports as allergy. SANTO d/w RN regarding stopping Ensure Enlive TIDWM if MD agreeable. RN reports when pt received Ensures he eats much less of his meals as well likely explaining fluctuating PO trends. LBM 08/10 receiving routine colace. No nutrition intervention at this time. Will continue to monitor. Recs 1. Continue Puree diet w/ double protein TID per diet order 2. Ensure Enlive TID; stop as exceeding nutrient needs and eating less of meals when consumes per RN; if MD agreeable 3. Bowel care per rx 4. Weekly wts Addendum: 08/12/21 at [address] Amended: Links added.
--- NOTE | 2021-08-12 17:04 | NUR ---
Nursing Progress Note: CLARISSA Legal hold: TCON Client on involuntary status for GD Report received from TAVARES Bales with use of SBAR Why are they here: Patients current status is gravely disabled. He cannot make a viable plan for food or [facility] when discharged. Assessment Received patient when he was lying in bed. 1:1 patient assessment completed, and patient started to feed himself while in his bed with the HOB up. Medications administered to patient and wound care provided to deep tissue injury on his right heel. Patient toileted a minimum of every 1.5 hours during the day. Patient reports he is slightly anxious this morning. Ativan given with 0800 medications. Patient got out of bed without assistance and was walking in the hallway and went to the Community Room where he was sitting at least 6 feet away from other patients, watching a movie. At approximately 1330, took patient his lunch in the Community Room. Patient was noted to be tapping his feet and had visible shaking of his forearms per ERIC Abdi. Jin asked patient if he was okay, and he responded No, anxiety. TC placed to RAYMON Moreno, to request one time dose of Ativan 0.5 mg po now. Etelvina approved the order and Ativan was immediately dispensed to the patient. Approximately 45 minutes later, patient states he was feeling better, and requested to return to bed. Assisted patient to his bathroom and he was helped to the toilet to void or have a BM. Patient voided, Depends changed and placed in new green scrubs and assisted to bed to rest with Medix Boot on his right foot. S/I, H/I: Denies A/VH: Denies Sleep: 9.50 hours ADL's: Requires assistance, and has episodes of urine incontinence. Group attendance: No Scheduled Group Meetings today. Were meds taken: Yes, without hesitation. Any med S/E: None noted or reported. Mental Status Exam Appearance: Small stature older gentleman with black stahl wearing green hospital scrubs. Eye contact: Fair, mostly looks down to floor when conversing. Behavior: Calm, Cooperative. Speech: Soft spoken, Poverty of speech Mood: Hopeless Affect: Despondent Thought process: Poverty of Thought Thought Content: Poverty of Thought Cognition: A/O X 3 Insight: Fair Judgment: Poor Interventions PRN's used: None Therapeutic interventions: 1:1 assessment, therapeutic communication, active listening, medication administration/education/monitoring, encouragement to participate in unit activities and attend groups, prompted toileting, assistance with personal hygiene, bathing, dressing, and incontinent care, skin breakdown prevention, fall prevention, provided encouragement, positive reinforcement and Q15 minute safety Restraints/seclusion/emergency medication: None Justification of Continued Inpatient Treatment: Pt is gravely disabled, he has had a decline in his ADL and is failure to thrive. Pt is homeless and unable to formulate a plan for food, mcfp. He is in the process of conservatorship.
[2021-08-12 19:23] VITALS: BP 122/85
[2021-08-12] MEDS: traZODone 50mg tablet PO SCH (20:47)
--- NOTE | 2021-08-13 00:07 | NUR ---
Nursing Progress Note: CLARISSA Legal hold: TCON Client on involuntary status for GD Report received from TAVARES aguirre with use of SBAR Why are they here: Patients current status is gravely disabled. He cannot make a viable plan for food or [facility] when discharged. Assessment Patient was observed sitting in room finishing dinner at beginning of shift. Patient was given ensure and drank 100%. Patient was seen walking alone to community room and watching tv with other patients. Patient took all night medications including oral rinse. Patient went back to his room after eating snack. Patient was assisted to bathroom by nurse after incontinent episode. Patient had oral care preformed as well as wound care. After new clothes patient got into bed and went to sleep. S/I, H/I: Denies A/VH: Denies Sleep: See sleep assessment ADL's: Requires assistance, and has episodes of urine incontinence. Group attendance: No Scheduled Group Meetings today. Were meds taken: Yes, without hesitation. Any med S/E: None noted or reported. Mental Status Exam Appearance: Small stature older gentleman with black stahl wearing green hospital scrubs. Eye contact: Fair, mostly looks down to floor when conversing. Behavior: Calm, Cooperative. Speech: Soft spoken, Poverty of speech Mood: Hopeless Affect: Despondent Thought process: Poverty of Thought Thought Content: Poverty of Thought Cognition: A/O X 3 Insight: Fair Judgment: Poor Interventions PRN's used: None Therapeutic interventions: 1:1 assessment, therapeutic communication, active listening, medication administration/education/monitoring, encouragement to participate in unit activities and attend groups, prompted toileting, assistance with personal hygiene, bathing, dressing, and incontinent care, skin breakdown prevention, fall prevention, provided encouragement, positive reinforcement and Q15 minute safety Restraints/seclusion/emergency medication: None Justification of Continued Inpatient Treatment: Pt is gravely disabled, he has had a decline in his ADL and is failure to thrive. Pt is homeless and unable to formulate a plan for food, [facility]. He is in the process of conservatorship.
[2021-08-13 06:54] VITALS: BP 114/63
[2021-08-13] MEDS: LORazepam 0.5 MG tablet PO SCH (07:52)
[2021-08-13] MEDS: lactobacillus rhamnosus 10,000 MMU CELLS/CAPSULE PO SCH ×2 (07:52→20:49)
[2021-08-13] MEDS: docusate sod 100mg capsule PO SCH ×3 (07:52→20:49)
[2021-08-13] MEDS: fluconazole 40mg/ml oral suspension 35ml bottle PO SCH (07:53)
[2021-08-13] MEDS: venlafaxine XR 75mg capsule (Q24H) PO SCH (07:53)
[2021-08-13] MEDS: methylphenidate 5mg tablet PO SCH (07:53)
[2021-08-13] MEDS: nystatin 500,000 unit/5ML UD oral suspension PO SCH ×3 (07:53→20:49)
[2021-08-13] MEDS: lactose-reduced food (Ensure Enlive) - 237ml bottle PO SCH (07:53)
[2021-08-13] MEDS: vitamin A & D ointment-NF 1 APPLIC TUBE TP SCH ×2 (07:53→20:50)
[2021-08-13] MEDS: ziprasidone 20mg capsule PO SCH ×2 (07:56→20:49)
[2021-08-13 08:00] VITALS: BP 114/63
[2021-08-13 08:58] LABS: HIV ANTIBODY 1&2 RAPID NON-REACTIVE (Neg)
[2021-08-13] MEDS ORDERED: LORazepam 0.5 MG tablet PO PRN ×2 (13:20→20:00)
[2021-08-13 14:59] LABS: ALANINE AMINOTRANSFERASE 89 U/L (12-78); ALBUMIN 3.5 G/DL (3.4-5.0); ALBUMIN/GLOBULIN RATIO 0.8 (1.1-1.5); ALKALINE PHOSPHATASE 116 IU/L (46-116); ANION GAP 7 (8-16); ASPARTATE AMINO TRANSFERASE 38 U/L (10-37); BILIRUBIN,TOTAL 0.3 MG/DL (0.1-1.0); BLOOD UREA NITROGEN 22 MG/DL (7-18); BUN/CREATININE RATIO 26.5 (5.4-32.0); CALCIUM 8.7 MG/DL (8.5-10.1); CHLORIDE 101 MMOL/L (99-107); CREATININE 0.83 MG/DL (0.60-1.10); GLUCOSE 129 MG/DL (70-104); POTASSIUM 4.3 MMOL/L (3.5-5.1); SODIUM 138 MMOL/L (135-145); TOTAL CARBON DIOXIDE 29.7 MMOL/L (24-32); TOTAL PROTEIN 7.8 G/DL (6.4-8.2); eGFR > 90 ML/MIN
--- NOTE | 2021-08-13 17:33 | NUR ---
Nursing Progress Note: CLARISSA Legal hold: TCON Client on involuntary status for GD Report received from TAVARES Bales with use of SBAR Why are they here: Patients current status is gravely disabled. He cannot make a viable plan for food or care home when discharged. Assessment Received patient who awoke before breakfast and was toileted at this time. Incontinent of a large amount of urine in Depends. Incontinent care, scrubs and depends changed. Patient unsteady on his feet ambulating to the Community Room for breakfast. During my third day today with the patient, noted increased lethargy, decreased speech and conversation, only answers yes/no to questions asked, increased difficulty ambulating alone; Patient steps to the right three steps or back and almost loses his balance. Patient fed himself meals, and takes up to 2-3 hours to eat in the Community Room or with HOB up in his Hospital Bed. Oral care provided after each meal. Patient slowly completes his own oral care. Discussed concerns with Nereida & Etelvina regarding patient currently on Ativan twice a day scheduled, with his noted decreased mobility, verbal communication & urinary incontinence. Patient started the increased dose over the last few days. Patient is able to tell staff Anxiety when he is experiencing a problem. Patient has declined over the past 3 days on Ativan. Per Etelvina, received order to change Ativan to 0.5mg po q6h prn anxiety, draw CMP today, and change Ensure Live to one can/day per Fur Cleaner. Dietary states patient is eating his protein daily and has a great appetite. Orders input. Labs for CMP & Ammonia drawn. (1700) Patient only received the 0800 dose of Ativan 0.5 mg po today. Patient was observed getting out of his bed without assistance, and ambulated to the Community Room then to the end of the amos and stated "Can I get a shower now." ERIC Lopez assisted the patient to shower and bed linens changed. Patient requested to sit in the Community Room after his shower was complete. Patient awake and waiting for dinner at this time. Patient has been able to get up without assistance and ambulate approximately 5 laps around the hallways. Patient is steady and stable with ambulating alone at this time. Much improvement noted this afternoon as compared to the last 3 days. S/I, H/I: Denies A/VH: - AH /+ VH Patient states Sometimes, when asked if he has verbal hallucinations. Sleep: 7.0 hrs. ADL's: Requires assistance with all tasks, especially when Incontinent of Urine, Tray Set Up, Oral Care Group attendance: No Scheduled Group Meetings today. Were meds taken: Yes, without hesitation. Any med S/E: None noted or reported. Mental Status Exam Appearance: Small stature older gentleman with black stahl wearing green hospital scrubs. Eye contact: Poor, mostly looks down to floor when conversing. Behavior: Withdrawn Speech: Difficult to hear. Answers Yes/No. Does not generate conversations. Mood: Flat Affect: Flat Thought process: Poverty of Thought Thought Content: Poverty of Thought Cognition: A/O X 3 Insight: Fair Judgment: Poor Interventions PRN's used: None Therapeutic interventions: 1:1 assessment, therapeutic communication, active listening, medication administration/education/monitoring, encouragement to participate in unit activities and attend groups, prompted toileting, assistance with personal hygiene, bathing, dressing, and incontinent care, skin breakdown prevention, fall prevention, provided encouragement, positive reinforcement and Q15 minute safety Restraints/seclusion/emergency medication: None Justification of Continued Inpatient Treatment: Pt is gravely disabled, he has had a decline in his ADL and is failure to thrive. Pt is homeless and unable to formulate a plan for food, care home. He is in the process of conservatorship.
[2021-08-13 19:00] VITALS: BP 105/65
[2021-08-13] MEDS: traZODone 50mg tablet PO SCH (20:49)
--- NOTE | 2021-08-13 23:54 | NUR ---
Nursing Progress Note: Legal hold: TCON Client on involuntary status for GD Report received from TAVARES Padron with use of SBAR Why are they here: Patients current status is gravely disabled. He cannot make a viable plan for food or intermediate when discharged. Assessment: The patient is out of his room shortly following shift change. He engages in watching a movie in the break room. 1:1 Interview in the community room. The patient is alert, oriented, and polite. The patient speaks very softly. The patient denies H/I, S/I, or any hallucinations. The patient tells this underwriter solicitation director that he is still feeling very depressed, "but I feel a little bit better." Patient enjoys movie. He is compliant with medications. Lotion applied to patients right heel, no skin breakdown noted. Oral care completed. Patient finishes movie and ambulates to bed. S/I, H/I: Denies. A/VH: Denies. Sleep: Will tally in am. ADL's: Requires some prompting. Group attendance: No group on nights. Were meds taken: Yes, medication compliant. Any med S/E: None noted or reported Mental Status Exam: Appearance: Clean, wearing green scrubs. Eye contact: Fair. Behavior: Quiet, exhibits light socialization. Speech: Soft speech, regular rhythm. Mood: Flat. Affect: Flat. Thought process: Poverty of Thought. Thought Content: Poverty of Thought. Cognition: A/O X 3. Insight: Fair. Judgment: Poor. Interventions PRN's used: None. Therapeutic interventions: 1:1 assessment, therapeutic communication, active listening, medication administration/education/monitoring, encouragement to participate in unit activities and attend groups, prompted toileting, assistance with personal hygiene, bathing, dressing, and incontinent care, skin breakdown prevention, fall prevention, provided encouragement, positive reinforcement and Q15 minute safety Restraints/seclusion/emergency medication: None Justification of Continued Inpatient Treatment: Pt is gravely disabled, he has had a decline in his ADL and is failure to thrive. Pt is homeless and unable to formulate a plan for food, intermediate. He is in the process of conservatorship. Addendum: 08/14/21 at 0609 by Syed Mayfield RN Around 0400 Cuong activated his emergency akhtar. He had voided in bed. He was assisted to bathroom. Patient voided in toilet. He was then cleaned, His pull up diaper changed. He was given fresh scrubs. He slowly walked to bed. This underwriter solicitation director learned upon questioning the patient, that he is , from [place]. He tells this underwriter solicitation director that he remembers enjoying ceremonial dances when younger. The patient then retired to sleep.
[2021-08-14 08:00] VITALS: BP 108/79
[2021-08-14] MEDS: vitamin A & D ointment-NF 1 APPLIC TUBE TP SCH ×2 (08:00→20:50)
[2021-08-14] MEDS: lactose-reduced food (Ensure Enlive) - 237ml bottle PO SCH (08:00)
[2021-08-14] MEDS: methylphenidate 5mg tablet PO SCH (09:07)
[2021-08-14] MEDS: venlafaxine XR 75mg capsule (Q24H) PO SCH (09:07)
[2021-08-14] MEDS: lactobacillus rhamnosus 10,000 MMU CELLS/CAPSULE PO SCH ×2 (09:07→20:44)
[2021-08-14] MEDS: docusate sod 100mg capsule PO SCH ×3 (09:07→20:44)
[2021-08-14] MEDS: ziprasidone 20mg capsule PO SCH ×2 (09:08→20:44)
[2021-08-14] MEDS: fluconazole 40mg/ml oral suspension 35ml bottle PO SCH (09:09)
[2021-08-14] MEDS: nystatin 500,000 unit/5ML UD oral suspension PO SCH ×3 (09:09→20:44)
--- NOTE | 2021-08-14 16:25 | NUR ---
Nursing Progress Note: Legal hold: TCON Client on involuntary status for GD Report received from TAVARES Mitchell with use of SBAR Why are they here: Patients current status is gravely disabled. He cannot make a viable plan for food or alf when discharged. Assessment What happened this shift: At the start of shift pt up and asking for coffee. Pt toileted, faced washed then assisted with ambulation to the community room for coffee. Pt later ate his meal there while watching TV alone. After breakfast pt assisted back to his room. Pt again toileted. Pt incontinent of urine. Incontinent care, depends and scrubs changed. Oral care performed then both Diflucan and Nystatin given. It is noted pt has broken off sharp pieces of teeth on both upper and lower gums and bleeding. Pt reports, "my mouth is painful all the time." The blood appears to be from these sharp teeth. Pt is somewhat unsteady most of the morning. In the later part of the afternoon he did ambulate on his own up and down the hallway twice then went into the community room and got on the exercise bike. S/I, H/I: Denies A/VH: Endorses some +AH Sleep: Short nap in am ADL's: Pt is a total care pt most of the time Group attendance: N/A Were Meds taken: Yes Any med S/E: None noted or reported. Mental Status Exam Appearance: Small stature, thin, older gentleman with salt & pepper stahl wearing [facility] scrubs. Eye contact: Poor, mostly looks down Behavior: Withdrawn, cooperative Speech: Mumbles Mood: Depressed Affect: Flat Thought process: Getting his basic needs met Thought Content: only responds to questions Cognition: A/O X 3 Insight: Fair Judgment: Poor Interventions PRN's used: None Therapeutic interventions: Provided therapeutic communication during 1:1 assessment, medication administration/education/monitoring, provided full care with ADL's, assisted with ambulation, monitored fall prevention, and Q15 minute safety Restraints/seclusion/emergency medication: None Justification of Continued Inpatient Treatment: Pt is gravely disabled, he has had a decline in his ADL and is failure to thrive. Pt is homeless and unable to formulate a plan for food, alf. He is in the process of conservatorship.
[2021-08-14 19:02] VITALS: BP 170/70
[2021-08-14] MEDS: traZODone 50mg tablet PO SCH (20:44)
--- NOTE | 2021-08-15 02:18 | NUR ---
Nursing Progress Note: Legal hold: TCON Client on involuntary status for GD Report received from TAVARES Padron with use of SBAR Why are they here: Patients current status is gravely disabled. He cannot make a viable plan for food or skilled nursing when discharged. Assessment What happened this shift: Pt up eating in group room at start of shift. Pt eats extremely slowly. His verbal responses to questions are delayed. He speaks softly and slowly. Pt said he hears voices that tell him to hurt himself. Pt is slightly more animated than last week. He toileted himself. Asked for a clean depends afterward. Pt Walked in halls before going to bed. S/I, H/I: Denies A/VH: Endorses some +CAH Sleep: Sleeping at this time ADL's: Independent to bathroom x1 this shift. Group attendance: N/A Were Meds taken: Yes Any med S/E: None noted or reported. Mental Status Exam Appearance: Small stature, thin, older gentleman with salt & pepper stahl wearing green hospital scrubs. Eye contact: Poor, mostly looks down Behavior: Withdrawn, cooperative Speech: Soft and slow Mood: Depressed Affect: Flat Thought process: Getting his basic needs met Thought Content: only responds to questions Cognition: A/O X 3 Insight: Fair Judgment: Poor Interventions PRN's used: None Therapeutic interventions: Provided therapeutic communication during 1:1 assessment, medication administration/education/monitoring, provided full care with ADL's, assisted with ambulation, monitored fall prevention, and Q15 minute safety Restraints/seclusion/emergency medication: None Justification of Continued Inpatient Treatment: Pt is gravely disabled, he has had a decline in his ADL and is failure to thrive. Pt is homeless and unable to formulate a plan for food, skilled nursing. He is in the process of conservatorship.
[2021-08-15 07:25] VITALS: BP 96/52
[2021-08-15] MEDS: nystatin 500,000 unit/5ML UD oral suspension PO SCH ×4 (08:00→20:46)
[2021-08-15] MEDS: ziprasidone 20mg capsule PO SCH ×2 (08:07→20:46)
[2021-08-15] MEDS: venlafaxine XR 75mg capsule (Q24H) PO SCH (08:07)
[2021-08-15] MEDS: lactobacillus rhamnosus 10,000 MMU CELLS/CAPSULE PO SCH (08:07)
[2021-08-15] MEDS: docusate sod 100mg capsule PO SCH ×3 (08:08→20:46)
[2021-08-15] MEDS: methylphenidate 5mg tablet PO SCH (08:08)
[2021-08-15] MEDS: vitamin A & D ointment-NF 1 APPLIC TUBE TP SCH ×2 (08:59→20:47)
[2021-08-15] MEDS: lactose-reduced food (Ensure Enlive) - 237ml bottle PO SCH (08:59)
--- NOTE | 2021-08-15 12:29 | NUR ---
Nutrition Consult "pt underweight and not gaining": Pt PO ~48% avg pureed/thin diet per pt request w/ double protein TIDWM per diet order. Currently PO 100% avg vanilla ensure high protein once daily given only chocolate ensure enlive in stock at this time and pt reported chocolate allergy. Current PO meal/ONS intake meeting estimated kcal needs and providing almost double estimated protein needs. RD d/w RN regarding ONS impact on meal trends as prior RN reported ONS at meals negatively impacted meal intake. Pt current wt appropriate as well as PO intake not including snacks provided on the floor. No further nutrition intervention at this time. Addendum: 08/15/21 at [address] Amended: Links added.
--- NOTE | 2021-08-15 16:36 | NUR ---
Nursing Progress Note: Cuong Wang Legal hold: TCON Client on involuntary status for GD Report received from Nurse Nila VALENCIA with use of SBAR Why are they here: Patient current status is gravely disabled. He cannot make a viable plan for food or detention when discharged. Patient is diagnosed with schizophrenia. Has a history of non-compliance with treatment and auditory hallucinations. Assessment What has happened this shift: Pt. received sleeping in his room, he awoke and received his medications and 1:1 assessment completed at the bedside. Pt. reports he was admitted because I wasnt taking care of myself, currently denies S/HI but endorses AH voices telling me to kill myself, denies V/H. Pt. requires assistance with ADLs and toileting. Pt. ate his breakfast in his room this morning and received oral care after his meal. Pt. observed shaking one leg consistently and reported a lot of anxiety PRN Ativan given; med was effective. Pt. ambulating and sat in the main tv room this shift, but doesnt interact or socialize with cohorts. He ate lunch in main dining area, however minimal verbal exchange observed. Pt. continues to receive Nystatin PO with minimal residual of thrush found on tongue, he denies pain or discomfort. S/I, H/I: Denies. A/VH: Endorses AH, denies VH Sleep: 7.5 hrs per NOC, two naps ADL's: Minimum to extensive assist. With ADLs. Group attendance: No groups. Were meds taken: Yes Any med S/E: None noted or reported. Mental Status Exam Appearance: Older male, very thin and wearing green hospital scrubs. Eye contact: Fair Behavior: Withdrawn Speech: Soft spoken and slow. Mood: Depressed Affect: Flat Thought process: Poverty of thought. Thought Content: Im very tired. Cognition: A/O X 3 Insight: Fair Judgment: Poor Interventions PRN's used: Ativan Therapeutic interventions: 1:1 assessment, therapeutic communication, active listening, ensured contract for safety, medication administration/education/monitoring, encouragement to come to meals, encouragement with autonomy in ADLs, encouragement to participate in unit activities and attend groups, prompted toileting, assistance with personal hygiene, bathing, dressing, and incontinent care, skin breakdown prevention, fall prevention, provided encouragement, distraction, redirection, positive reinforcement and Q15 minute safety checks. Restraints/seclusion/emergency medication: None Justification of Continued Inpatient Treatment: Pt is gravely disabled, he has had a decline in his ADL and is failure to thrive. Pt is homeless and unable to formulate a plan for food, detention. He is in the process of conservatorship.
[2021-08-15 20:03] VITALS: BP 103/71
[2021-08-15] MEDS: traZODone 50mg tablet PO SCH (20:46)
--- NOTE | 2021-08-16 02:24 | NUR ---
Nursing Progress Note: Legal hold: TCON Client on involuntary status for GD Report received from TAVARES Jacob with use of SBAR Why they are here: Patients current status is gravely disabled. He cannot make a viable plan for food or [facility] when discharged. Assessment What happened this shift: Pt sitting in room eating in start of shift. Pt eats extremely slowly. Ate only 25% of dinner drank 100% of Ensure. Per Nutrition Consult "pt underweight and not gaining" Pt does not like pureed diet. Offered Yogurt which he said he does not like. Offered applesauce which he said "I have been eating Applesauce all day." Given a jello which he ate about 1/2 of. His verbal responses to questions are delayed. He speaks softly and slowly. Pt denied A/H this shift. Pt was incontinent a large amount of Urine. Ambulates independently, Did not independently use the toilet this shift. S/I, H/I: Denies A/VH: Denied Sleep: Sleeping at this time ADL's: Incontinent Group attendance: N/A Were Meds taken: Yes Any med S/E: None noted or reported. Mental Status Exam Appearance: Small stature, thin, older gentleman with salt & pepper stahl wearing [facility] scrubs. Eye contact: Poor, mostly looks down Behavior: Withdrawn, pleasant and cooperative Speech: Soft and slow Mood: Depressed Affect: Flat Thought process: Getting his basic needs met Thought Content: only responds to questions Cognition: A/O X 3 Insight: Fair Judgment: Poor Interventions PRN's used: None Therapeutic interventions: Provided therapeutic communication during 1:1 assessment, medication administration/education/monitoring, provided full care with ADL's, assisted with ambulation, monitored fall prevention, and Q15 minute safety Restraints/seclusion/emergency medication: None Justification of Continued Inpatient Treatment: Pt is gravely disabled, he has had a decline in his ADL and is failure to thrive. Pt is homeless and unable to formulate a plan for food, [facility]. He is in the process of conservatorship.
[2021-08-16 07:25] VITALS: BP 113/69
[2021-08-16] MEDS: docusate sod 100mg capsule PO SCH ×3 (08:04→20:06)
[2021-08-16] MEDS: methylphenidate 5mg tablet PO SCH (08:04)
[2021-08-16] MEDS: nystatin 500,000 unit/5ML UD oral suspension PO SCH ×3 (08:05→20:06)
[2021-08-16] MEDS: ziprasidone 20mg capsule PO SCH ×2 (08:05→20:05)
[2021-08-16] MEDS: vitamin A & D ointment-NF 1 APPLIC TUBE TP SCH ×2 (08:05→20:06)
[2021-08-16] MEDS: venlafaxine XR 75mg capsule (Q24H) PO SCH (08:05)
[2021-08-16] MEDS: lactose-reduced food (Ensure Enlive) - 237ml bottle PO SCH (08:29)
[2021-08-16] MEDS: ketoconazole (Nizoral) shampoo TP SCH (13:23)
[2021-08-16] MEDS: LORazepam 0.5 MG tablet PO SCH ×2 (13:24→20:06)
--- NOTE | 2021-08-16 17:17 | NUR ---
Nursing Progress Note: Legal hold: TCON Client on involuntary status for GD Report received from TAVARES Vasques with use of SBAR Why they are here: Patients current status is gravely disabled. He cannot make a viable plan for food or jail when discharged. Assessment What happened this shift: Received patient sleeping at shift change, no distress noted. Pt woke and ate breakfast in his room. Pt continues to be incontinent of urine and requires frequent toileting. Patient after breakfast, oral care completed and clean scrubs. Pt was showered in the afternoon. Pt came to group room and watched T.V for the morning. Noted he independently walked back to his room to get his Ensure. Pt is encouraged fluids at each encounter. Pt ate 100% of his breakfast; 100% Ensure. Lunch 75% of meal and Ensure. Pt is not much of a conversationalist, but answers questions appropriately. Pt denies all psychotic symptoms. Pt was awake and out of bed most of the shift. New wound care order: Discontinue boot, encourage pt to doff sock in bed. Float heels. S/I, H/I: Denies both. A/VH: Denies both today. Sleep: 6.75 hours per sleep assessment ADL's: Incontinent. Showered today. Group attendance: No scheduled group today. Were Meds taken: Yes, without issue. Any med S/E: None noted or reported. Mental Status Exam Appearance: Small stature, thin, older gentleman with salt & pepper stahl wearing [facility] scrubs. Eye contact: Poor, mostly looks down Behavior: Withdrawn, pleasant and cooperative. Watched T.V Speech: Soft and slow, minimal. Mood: Euthymic. Affect: Flat Thought process: Getting his basic needs met Thought Content: Only responds to questions Cognition: A/O X 3 Insight: Fair Judgment: Poor Interventions PRN's used: None Therapeutic interventions: Provided therapeutic communication during 1:1 assessment, medication administration/education/monitoring, provided full care with ADL's, assisted with ambulation, monitored fall prevention, and Q15 minute safety Restraints/seclusion/emergency medication: None Justification of Continued Inpatient Treatment: Pt is gravely disabled, he has had a decline in his ADL and is failure to thrive. Pt is homeless and unable to formulate a plan for food, jail. He is in the process of conservatorship.
--- NOTE | 2021-08-16 18:07 | NUR ---
It was brought to copy writer's attention that after pt voided in toilet there was mild amount of blood in toilet. Toilet had been flushed, so copy writer unsure of where blood came from. Pt has not had a BM today and is on scheduled Colace 100mg TID. Oceanography Teacher changed pt's depends three times today each time depends were full. No blood was noted. Oceanography Teacher asked pt if it hurt when he had a BM pt stated shook head "yes." Oceanography Teacher shook his head yes when asked if it hurt when he urinated. Pt then said "my foot hurts too." Notified RAYMON Benitez - continue to monitor and endorse to NOC shift. Pt will receive another dose of Colace this evening. Pt has not tenderness with palpation and auscultated bowel sounds x4.
[2021-08-16 19:12] VITALS: BP 127/87
[2021-08-16] MEDS: traZODone 50mg tablet PO SCH (20:05)
--- NOTE | 2021-08-17 00:22 | NUR ---
Nursing Progress Note: Legal hold: TCON Client on involuntary status for GD Report received from Cecil RN with use of SBAR Why they are here: Patients current status is gravely disabled. He cannot make a viable plan for food or skilled nursing when discharged. Assessment What happened this shift: Pt in community room watching TV at shift change. Pt spoke minimally and made short replies to questions. Pt had snack in community room and took evening meds w/o complications. After snack this nurse went to get the pt and the pt had soaked through his green scrubs and shirt. Pt brought back to his room where scrubs and brief promptly changed.No blood noted in toilet as it had been noted in a previous report. Oral care performed and chap stick applied.Pt given prune juice, and drank all of it. Shaved patients mustache. Applied A and D ointment to right heel and floated pts feet per wound care order. Patient states he still hears voices. Patient went to sleep shortly after. New wound care order: Discontinue boot, encourage pt to doff sock in bed. Float heels. S/I, H/I: Denies both. A/VH: positive A/H Sleep: See sleep hours ADL's: Incontinent. Showered today. Group attendance: No group in the evenings Were Meds taken: Yes, without issue. Any med S/E: None noted or reported. Mental Status Exam Appearance: Small stature, thin, older gentleman with salt & pepper stahl wearing green hospital scrubs. Eye contact: Poor, mostly looks down Behavior: Withdrawn, pleasant and cooperative. Watched T.V Speech: Soft and slow, minimal. Mood: Euthymic. Affect: Flat Thought process: Getting his basic needs met Thought Content: Only responds to questions Cognition: A/O X 3 Insight: Fair Judgment: Poor Interventions PRN's used: None Therapeutic interventions: Provided therapeutic communication during 1:1 assessment, medication administration/education/monitoring, provided full care with ADL's, assisted with ambulation, monitored fall prevention, and Q15 minute safety Restraints/seclusion/emergency medication: None Justification of Continued Inpatient Treatment: Pt is gravely disabled, he has had a decline in his ADL and is failure to thrive. Pt is homeless and unable to formulate a plan for food, skilled nursing. He is in the process of conservatorship.
[2021-08-17 07:00] VITALS: BP 112/64
[2021-08-17] MEDS: venlafaxine XR 75mg capsule (Q24H) PO SCH (08:06)
[2021-08-17] MEDS: docusate sod 100mg capsule PO SCH ×3 (08:06→20:20)
[2021-08-17] MEDS: methylphenidate 5mg tablet PO SCH (08:06)
[2021-08-17] MEDS: ziprasidone 20mg capsule PO SCH ×2 (08:06→20:19)
[2021-08-17] MEDS: LORazepam 0.5 MG tablet PO SCH ×3 (08:07→20:20)
[2021-08-17] MEDS: lactose-reduced food (Ensure Enlive) - 237ml bottle PO SCH (08:50)
[2021-08-17] MEDS: vitamin A & D ointment-NF 1 APPLIC TUBE TP SCH ×2 (08:50→20:20)
[2021-08-17] MEDS: nystatin 500,000 unit/5ML UD oral suspension PO SCH ×3 (08:50→20:20)
--- NOTE | 2021-08-17 16:51 | NUR ---
Nursing Progress Note: Cuong Wang Legal hold: TCON Client on involuntary status for GD Report received from TAVARES Vasques with use of SBAR Why they are here: Patients current status is gravely disabled. He cannot make a viable plan for food or senior care when discharged. Assessment What happened this shift: Received patient sleeping in his room, he woke to receive his medication, and 1:1 assessment completed at the bedside. Pt. denies SI, HI has no A/H, V/H and denies anxiety as well. Pt. reports he was admitted d/t not taking care of myself. Pt. ate his breakfast in his room; good intake, his thrush continues and Nystatin PO in place. Pt. napped after breakfast and ambulated ad dipesh before lunch. He ate lunch in the MDR with cohorts, but remains socially withdrawn, he does not present as internally preoccupied. Pt. continues to present with poverty of thought and struggles to engage. S/I, H/I: Denies both. A/VH: Denies. Sleep: 7.5 hours per NOC, two naps ADL's: Requires assist with intermittent incontinence. Group attendance: No group today. Were Meds taken: Yes Any med S/E: None noted or reported. Mental Status Exam Appearance: Thin, older male wearing green hospital scrubs. Eye contact: Poor Behavior: Pleasant, withdrawn, isolates Speech: Soft spoken Mood: Euthymic. Affect: Flat Thought process: Getting his needs met Thought Content: Resting Cognition: A/O X 3 Insight: Fair Judgment: Poor Interventions PRN's used: None Therapeutic interventions: Provided therapeutic communication during 1:1 assessment, medication administration/education/monitoring, provided full care with ADL's, assisted with ambulation, monitored fall prevention, and Q15 minute safety Restraints/seclusion/emergency medication: None Justification of Continued Inpatient Treatment: Pt is gravely disabled, he has had a decline in his ADL and is failure to thrive. Pt is homeless and unable to formulate a plan for food, senior care. He is in the process of conservatorship.
--- NOTE | 2021-08-17 17:39 | NUR ---
Pt. reported BM last night, no s/sx of constipation on my shift. Meal intake 75% to 100%.
[2021-08-17 19:27] VITALS: BP 117/78
[2021-08-17] MEDS: traZODone 50mg tablet PO SCH (20:20)
--- NOTE | 2021-08-18 00:49 | NUR ---
Nursing Progress Note: Cuong Wang Legal hold: TCON Client on involuntary status for GD Report received from ANNIE Cote with use of SBAR Why they are here: Patients current status is gravely disabled. He cannot make a viable plan for food or fci when discharged. Assessment What happened this shift: Pt in community room watching TV with cohorts at shift change. Pt non verbal today, nods head yes or no. Pt took self to bathroom and had a large BM. Pt went back to the community room where snacks were served, pt had a hot tea. Pt got meds shortly after w/o complications. Pt shook head yes claiming he still hears voices. Pt went to bed at 2200. Pt got cleaned up, oral care performed, ChapStick applied, A and D ointment applied to right heel, heels floated. Pt went to sleep. S/I, H/I: Denies both. A/VH: yes V/H Sleep: ADL's: Requires assist with intermittent incontinence. Group attendance: No group in the evenings Were Meds taken: Yes Any med S/E: None noted or reported. Mental Status Exam Appearance: Thin, older male wearing green hospital scrubs. Eye contact: Poor Behavior: Pleasant, withdrawn, isolates Speech: Soft spoken Mood: Euthymic. Affect: Flat Thought process: Getting his needs met Thought Content: Resting Cognition: A/O X 3 Insight: Fair Judgment: Poor Interventions PRN's used: None Therapeutic interventions: Provided therapeutic communication during 1:1 assessment, medication administration/education/monitoring, provided full care with ADL's, assisted with ambulation, monitored fall prevention, and Q15 minute safety Restraints/seclusion/emergency medication: None Justification of Continued Inpatient Treatment: Pt is gravely disabled, he has had a decline in his ADL and is failure to thrive. Pt is homeless and unable to formulate a plan for food, fci. He is in the process of conservatorship.
[2021-08-18 08:00] VITALS: BP 116/73
[2021-08-18] MEDS: lactose-reduced food (Ensure Enlive) - 237ml bottle PO SCH (08:00)
[2021-08-18] MEDS: methylphenidate 5mg tablet PO SCH (08:16)
[2021-08-18] MEDS: ziprasidone 20mg capsule PO SCH ×2 (08:16→20:11)
[2021-08-18] MEDS: LORazepam 0.5 MG tablet PO SCH ×3 (08:16→20:11)
[2021-08-18] MEDS: venlafaxine XR 75mg capsule (Q24H) PO SCH (08:16)
[2021-08-18] MEDS: docusate sod 100mg capsule PO SCH ×3 (08:16→20:11)
[2021-08-18] MEDS: nystatin 500,000 unit/5ML UD oral suspension PO SCH ×3 (08:47→20:11)
[2021-08-18] MEDS: vitamin A & D ointment-NF 1 APPLIC TUBE TP SCH ×2 (08:47→20:00)
--- NOTE | 2021-08-18 09:12 | NUR ---
Reassessment: Pt PO ~65% avg of pureed/thin meals per pt request w/ double protein TIDWM per diet order. Currently PO ~83% avg vanilla ensure high protein once daily given only chocolate ensure enlive in stock at this time and pt reported chocolate allergy. Current PO meal/ONS intake exceeding estimated kcal needs.LBM 08/16, receiving routine bowel care. No further nutrition intervention at this time. Will continue to monitor. Recs 1. Continue Puree diet w/ double protein TID per diet order 2. Ensure Enlive PO daily per Physician 3. Bowel care per rx 4. Weekly wts Addendum: 08/18/21 at 911 by Real Ledbetter Senior Support Analyst RD Amended: Links added. Addendum: 08/18/21 at [address] I have reviewed assessment by Senior Support Analyst
--- NOTE | 2021-08-18 17:39 | NUR ---
Nursing Progress Note Legal hold: TCON Client on involuntary status for GD Report received from RN with use of SBAR Why they are here: Patients current status is gravely disabled. He cannot make a viable plan for food or intermediate when discharged. Assessment What happened this shift: Received Pt in bed sleeping w/o distress. Pt woke for vitals and was cooperative. Pt ate breakfast and lunch slowly yet well and took meds w/o issues. Pt continues to deny anxiety or depression at this time and denies A/VHs as well. Pt eating better as pain in mouth decreases. Pt ambulated in AM and watched TV in Rec. Rm with others. Pt ambulated about halls as well. Although Pts movements are very slow and requires much time to complete adls, eating etc., he is quite capable. Pt does not interact much with peers or staff. He will answer Qs in soft slow voice. S/I, H/I: Denies A/VH: Denies Sleep: Napped in morning and afternoon ADL's: Requires assist with intermittent incontinence Group attendance: No groups today Were Meds taken: Yes Any med S/E: None noted or reported Mental Status Exam Appearance: Mildly disheveled in hospital for special care scrubs Eye contact: Poor Behavior: Pleasant, withdrawn, isolative Speech: Soft, quiet Mood: Euthymic Affect: Flat Thought process: Getting his needs met Thought Content: Resting Cognition: A/O X 3 Insight: Fair Judgment: Poor Interventions PRN's used: None Therapeutic interventions: Provided therapeutic communication during 1:1 assessment, medication administration/education/monitoring, provided full care with ADL's, assisted with ambulation, monitored fall prevention, and Q15 minute safety Restraints/seclusion/emergency medication: None Justification of Continued Inpatient Treatment: Pt is gravely disabled, he has had a decline in his ADL and is failure to thrive. Pt is homeless and unable to formulate a plan for food, intermediate. He is in the process of conservatorship.
[2021-08-18 20:00] VITALS: BP 125/77
[2021-08-18] MEDS: traZODone 50mg tablet PO SCH (20:11)
[2021-08-18 21:39] VITALS: BP 125/77
--- NOTE | 2021-08-18 23:53 | NUR ---
Nursing Progress Note Legal hold: TCON Client on involuntary status for GD Report received from Adolfo VALENCIA with use of SBAR Why they are here: Patients current status is gravely disabled. He cannot make a viable plan for food or long-term when discharged. Assessment What happened this shift: Pt eating dinner at bedside at shift change. Pt needed help opening containers. Pt taken to bathroom and got cleaned up after eating and walked to rec room to watch TV. Pt didn't have much to say today, answers were minimal and speech very soft. Pt admits to still hearing same voices from when he first arrived on unit. Pt asked for hot tea at snack time. Pt took meds at evening med pass w/o complications. Pt cleaned and put to bed, A and D ointment applied to right heel , heels floated S/I, H/I: Denies A/VH: A/H + Sleep: See sleep hours ADL's: Requires assist with intermittent incontinence Group attendance: No group in the evenings Were Meds taken: Yes Any med S/E: None noted or reported Mental Status Exam Appearance: Mildly disheveled in green hospital scrubs Eye contact: Poor Behavior: Pleasant, withdrawn, isolative Speech: Soft, quiet Mood: Euthymic Affect: Flat Thought process: Getting his needs met Thought Content: watching TV and rest Cognition: A/O X 3 Insight: Fair Judgment: Poor Interventions PRN's used: None Therapeutic interventions: Provided therapeutic communication during 1:1 assessment, medication administration/education/monitoring, provided full care with ADL's, assisted with ambulation, monitored fall prevention, and Q15 minute safety Restraints/seclusion/emergency medication: None Justification of Continued Inpatient Treatment: Pt is gravely disabled, he has had a decline in his ADL and is failure to thrive. Pt is homeless and unable to formulate a plan for food, long-term. He is in the process of conservatorship.
[2021-08-19] MEDS: vitamin A & D ointment-NF 1 APPLIC TUBE TP SCH ×2 (08:00→20:54)
[2021-08-19] MEDS: docusate sod 100mg capsule PO SCH ×3 (08:07→20:52)
[2021-08-19] MEDS: LORazepam 0.5 MG tablet PO SCH ×3 (08:07→20:52)
[2021-08-19] MEDS: venlafaxine XR 75mg capsule (Q24H) PO SCH (08:07)
[2021-08-19] MEDS: ziprasidone 20mg capsule PO SCH ×2 (08:07→20:52)
[2021-08-19] MEDS: methylphenidate 5mg tablet PO SCH (08:07)
[2021-08-19] MEDS: lactose-reduced food (Ensure Enlive) - 237ml bottle PO SCH (08:09)
[2021-08-19 08:27] VITALS: BP 118/77
[2021-08-19] MEDS: nystatin 500,000 unit/5ML UD oral suspension PO SCH ×3 (11:12→20:53)
--- NOTE | 2021-08-19 17:14 | NUR ---
Nursing Progress Note Legal hold: TCON Client on involuntary status for GD Report received from Nii CHAPIN with use of SBAR: Why they are here: Patients current status is gravely disabled. He cannot make a viable plan for food or nursing home when discharged. Assessment What happened this shift: Patient resting quietly in bed at the start of the shift. Awakened for breakfast and is incontinent. Requires assistance to get out of bed and change. Ambulates slowly but independently. Cooperative with 1:1 assessment and medications. Watches TV in the community room after breakfast. Right heel elevated when in bed. Seen today by wound nurse. Answers direct questions only and speech is soft and scant but clear. Continues on oral nystatin for thrush. Denies mouth pain at this time. Naps in the afternoon. S/I, H/I: Denies A/VH: Denies Sleep: Naps in the adternoon ADL's: Requires minimum to moderate assistance. Group attendance: NA Were Meds taken: Yes Any med S/E: None observed or reported. Mental Status Exam Appearance: Older appearing thin man, somewhat disheveled, wearing green hospital scrubs. Eye contact: Fair Behavior: Pleasant, withdrawn Speech: Soft, quiet, scant Mood: Good. Affect: Constricted Thought process: Somewhat linear with long pauses. Possible thought blocking. Thought Content: Poverty of thought Cognition: A/O x2 to self and place. Insight: Poor Judgment: Poor Interventions PRN's used: None Therapeutic interventions: Provided therapeutic communication during 1:1 assessment, medication administration/education/monitoring, provided full care with ADL's, assisted with ambulation, monitored fall prevention, and Q15 minute safety Restraints/seclusion/emergency medication: None Justification of Continued Inpatient Treatment: Pt is gravely disabled, he has had a decline in his ADL and is failure to thrive. Pt is homeless and unable to formulate a plan for food, nursing home. He is in the process of conservatorship.
[2021-08-19 19:58] VITALS: BP 113/76
[2021-08-19] MEDS: traZODone 50mg tablet PO SCH (20:52)
--- NOTE | 2021-08-20 04:08 | NUR ---
Nursing Progress Note Legal hold: TCON Client on involuntary status for GD Report received from Adolfo VALENCIA with use of SBAR Why they are here: Patients current status is gravely disabled. He cannot make a viable plan for food or jail when discharged. Assessment What happened this shift: Pt finished eating dinner by the time this personal lines underwriter was out on the floor. Pt spent good portion of the night in the community room passively watching TV while another patient spoke at him. No noticeable distress or response to this. Patient ate a snack before bedtime and was compliant with all medications. Verbal responses were incredibly rare and as such patient did not report any symptoms. Patient was helped back to room and encouraged to do as many bedtime ADLs as possible. patient was then given a limited bedbath, received new scrubs, and had heels elevated before falling asleep. S/I, H/I: Denies A/VH: Sleep: See sleep hours ADL's: Requires assist with intermittent incontinence Group attendance: No group in the evenings Were Meds taken: Yes Any med S/E: None noted or reported Mental Status Exam Appearance: disheveled, unwashed in green hospital scrubs Eye contact: almost absent Behavior: withdrawn, isolative Speech: Soft, quiet Mood: Euthymic Affect: Flat Thought process: Getting his needs met Thought Content: watching TV and rest Cognition: A/O X 3 Insight: Fair Judgment: Poor Interventions PRN's used: None Therapeutic interventions: Provided therapeutic communication during 1:1 assessment, medication administration/education/monitoring, provided full care with ADL's, assisted with ambulation, monitored fall prevention, and Q15 minute safety Restraints/seclusion/emergency medication: None Justification of Continued Inpatient Treatment: Pt is gravely disabled, he has had a decline in his ADL and is failure to thrive. Pt is homeless and unable to formulate a plan for food, jail. He is in the process of conservatorship.
[2021-08-20] MEDS: docusate sod 100mg capsule PO SCH ×3 (07:49→20:30)
[2021-08-20] MEDS: LORazepam 0.5 MG tablet PO SCH ×3 (07:49→20:30)
[2021-08-20] MEDS: methylphenidate 5mg tablet PO SCH (07:49)
[2021-08-20] MEDS: nystatin 500,000 unit/5ML UD oral suspension PO SCH ×2 (07:49→13:11)
[2021-08-20] MEDS: venlafaxine XR 75mg capsule (Q24H) PO SCH (07:49)
[2021-08-20] MEDS: ziprasidone 20mg capsule PO SCH ×2 (07:50→20:30)
[2021-08-20] MEDS: lactose-reduced food (Ensure Enlive) - 237ml bottle PO SCH (07:50)
[2021-08-20 08:21] VITALS: BP 108/65
--- NOTE | 2021-08-20 17:12 | NUR ---
Nursing Progress Note Legal hold: TCON Client on involuntary status for GD Report received from Evelyn CHAPIN with use of SBAR Why they are here: Patients current status is gravely disabled. He cannot make a viable plan for food or assisted when discharged. Assessment What happened this shift: Patient resting quietly in bed at the start of the shift. Assisted to the restroom and is continent. Cooperative with medications and 1:1 assessment. Oral care provided which patient requires assistance with. Denies any mouth pain at this time. Continues on oral nystatin for thrush. Eats breakfast and interacts appropriately with staff and peers. Eats slowly but independently. After breakfast the patient watches TV in the community room then returns to his room and naps. Heels are offloaded as ordered. Awakened for lunch and eats slowly. Watches TV in the community room and then returns to his room and takes a short nap. Hospitalist notified of thrush not improving. New order is given for PO Diflucan. Patient requests to make a phone call which staff assists with and patient talks on the phone with his mom before returning to his nap. S/I, H/I: Denies A/VH: Denies Sleep: 2 hours in the morning. Takes long naps during the day. ADL's: Requires minimum to moderate assistance Group attendance: NA Were Meds taken: Yes Any med S/E: None observed or reported. Mental Status Exam Appearance: Older appearing thin man, somewhat disheveled, wearing green hospital scrubs. Eye contact: Fair Behavior: Pleasant, withdrawn Speech: Soft, quiet, scant Mood: Good. Affect: Constricted Thought process: Somewhat linear with long pauses. Possible thought blocking. Thought Content: Poverty of thought Cognition: A/O x2 to self and place Insight: Poor Judgment: Poor Interventions PRN's used: None Therapeutic interventions: Provided therapeutic communication during 1:1 assessment, medication administration/education/monitoring, provided full care with ADL's, assisted with ambulation, monitored fall prevention, and Q15 minute safety Restraints/seclusion/emergency medication: None Justification of Continued Inpatient Treatment: Pt is gravely disabled, he has had a decline in his ADL and is failure to thrive. Pt is homeless and unable to formulate a plan for food, assisted. He is in the process of conservatorship.
[2021-08-20] MEDS: fluconazole 100mg tablet PO SCH (17:33)
[2021-08-20 19:30] VITALS: BP 137/76
[2021-08-20] MEDS: traZODone 50mg tablet PO SCH (20:29)
--- NOTE | 2021-08-21 02:18 | NUR ---
Nursing Progress Note Cuong Legal hold: TCON Client on involuntary status for GD Report received from Adolfo CHAPIN with use of SBAR Why they are here: Patients current status is gravely disabled. He cannot make a viable plan for food or snf when discharged. Assessment What happened this shift: Patient in community room watching football game. Pt calm and cooperative, makes minimal conversation and only answers by nodding his head yes or no. Pt had a snack before bedtime and took all HS medications without issue. Pt noted to be using the stationary bicycle before going to bed. PT assisted to bed and helped with ADLs. Heals floated before pt fell asleep. S/I, H/I: Denies A/VH: Denies Sleep: ADL's: Requires minimum to moderate assistance Group attendance: NA Were Meds taken: Yes Any med S/E: None observed or reported. Mental Status Exam Appearance: Older appearing thin man, somewhat disheveled, wearing green hospital scrubs. Eye contact: Fair Behavior: Pleasant, withdrawn Speech: Soft, quiet, scant Mood: Good. Affect: Constricted Thought process: Somewhat linear with long pauses. Possible thought blocking. Thought Content: Poverty of thought Cognition: A/O x2 to self and place Insight: Poor Judgment: Poor Interventions PRN's used: None Therapeutic interventions: Provided therapeutic communication during 1:1 assessment, medication administration/education/monitoring, provided full care with ADL's, assisted with ambulation, monitored fall prevention, and Q15 minute safety Restraints/seclusion/emergency medication: None Justification of Continued Inpatient Treatment: Pt is gravely disabled, he has had a decline in his ADL and is failure to thrive. Pt is homeless and unable to formulate a plan for food, snf. He is in the process of conservatorship.
[2021-08-21] MEDS: lactose-reduced food (Ensure Enlive) - 237ml bottle PO SCH (08:00)
[2021-08-21] MEDS ORDERED: venlafaxine XR 75mg capsule (Q24H) PO SCH ×2 (08:00)
[2021-08-21] MEDS ORDERED: venlafaxine 37.5mg tablet PO SCH (08:00)
[2021-08-21 08:03] VITALS: BP 114/69
[2021-08-21] MEDS: docusate sod 100mg capsule PO SCH ×3 (08:33→20:22)
[2021-08-21] MEDS: LORazepam 0.5 MG tablet PO SCH ×3 (08:33→20:22)
[2021-08-21] MEDS: ziprasidone 20mg capsule PO SCH ×2 (08:34→20:22)
[2021-08-21] MEDS: methylphenidate 5mg tablet PO SCH (08:35)
[2021-08-21] MEDS: fluconazole 100mg tablet PO SCH (13:22)
--- NOTE | 2021-08-21 17:10 | NUR ---
Nursing Progress Note: Legal hold: TCON Client on involuntary status for GD Report received from ANNIE Rivas with use of SBAR Why they are here: Patients current status is gravely disabled. He cannot make a viable plan for food or prison when discharged. Assessment What happened this shift: Received patient while he was sleeping in bed. Socks were still on the patient. Wound care orders are to remove socks when patient is in bed as well as float his right heel. Right heel has 2 areas that are a slight purple in color and the skin around the deep tissue injury is peeling off at this time. Patient having slight difficulty arousing before ambulating to the dining room after change of Attends and clothing. Patient unsteady on feet, walking sideways and backwards, with moderate supervision required so that he does not fall. Patient requested to go back to bed after breakfast. Patient on Ativan three times a day. Patient slept from [id number]. Asked patient if he was too drowsy to take another dose of Ativan, or if he would like to hold it for this dose. Patient stated Give it to me. Will continue to monitor patients response to Ativan and his ability to function while eating meals, ambulating in the hallway, and participating in activities. Patient fed self for lunch then has been sitting in Community Room this afternoon. Photo taken of left heel per Policy & Procedure and placed in patient's chart. S/I, H/I: Denies A/VH: Denies Sleep: 6.5 hours. ADL's: Requires minimum to moderate assistance to ambulate, to complete own oral care, and feed himself his meals in the dining room. Stayed awake but remained drowsy throughout the day. Group attendance: No Group Meeting Held Today. Were Meds taken: Yes, Without Hesitation. Any med S/E: Increased Drowsiness this morning and after 0800 dose of Ativan. Will continue to monitor patients ability to ambulate. Patient required moderate assistance to ambulate to/from dining room. Mental Status Exam Appearance: Older appearing thin man, somewhat disheveled, wearing green hospital scrubs. Eye contact: Poor Behavior: Speech: Slow, Whispers. Responds only by Shaking Head or Saying Yes/No in Soft Voice. Mood: Good. Affect: Constricted Thought process: Disorganized. Thought Blocking Thought Content: Poverty of thought Cognition: A & O x2 (Person; Place). Insight: Poor Judgment: Poor Interventions PRN's used: None Therapeutic interventions: Provided therapeutic communication during 1:1 assessment, medication administration/education/monitoring, provided full care with ADL's, assisted with ambulation, monitored fall prevention, and Q15 minute safety Restraints/seclusion/emergency medication: None Justification of Continued Inpatient Treatment: Pt is gravely disabled, he has had a decline in his ADL and is failure to thrive. Pt is homeless and unable to formulate a plan for food, prison. He is in the process of conservatorship.
[2021-08-21 19:22] VITALS: BP 118/64
[2021-08-21] MEDS: traZODone 50mg tablet PO SCH (20:22)
--- NOTE | 2021-08-22 02:47 | NUR ---
Nursing Progress Note: Legal hold: TCON Client on involuntary status for GD Report received from ANNIE Mata with use of SBAR Why they are here: Patients current status is gravely disabled. He cannot make a viable plan for food or [facility] when discharged. Assessment What happened this shift: Received in the community room finishing up his dinner. Pt slow to respond to questions but does eventually answer. Pt states he is always depressed and that his anxiety is a little better since receiving Ativan. PCT assisted pt to the bathroom. Pt up for snacks and took all HS medications without issue. Pt noted to be sitting in his room in a chair looking out the window before bed time. Wound care orders state to encourage pt to remove sock while in bed and float heels on pillows. S/I, H/I: Denies A/VH: Denies Sleep: 6.5 hours. ADL's: Requires minimum to moderate assistance to ambulate, to complete own oral care, and feed himself his meals in the dining room. Group attendance: Were Meds taken: Yes, Any med S/E: none noted Mental Status Exam Appearance: Older appearing thin man, somewhat disheveled, wearing green hospital scrubs. Eye contact: Poor Behavior: Pleasant, withdrawn Speech: Slow, Whispers. Responds only by Shaking Head or Saying Yes/No in Soft Voice. Mood: Good. Affect: Constricted Thought process: Disorganized. Thought Blocking Thought Content: Poverty of thought Cognition: A & O x2 (Person; Place). Insight: Poor Judgment: Poor Interventions PRN's used: None Therapeutic interventions: Provided therapeutic communication during 1:1 assessment, medication administration/education/monitoring, provided full care with ADL's, assisted with ambulation, monitored fall prevention, and Q15 minute safety Restraints/seclusion/emergency medication: None Justification of Continued Inpatient Treatment: Pt is gravely disabled, he has had a decline in his ADL and is failure to thrive. Pt is homeless and unable to formulate a plan for food, [facility]. He is in the process of conservatorship.
[2021-08-22] MEDS: fluconazole 100mg tablet PO SCH (07:44)
[2021-08-22] MEDS: ziprasidone 20mg capsule PO SCH ×2 (07:44→21:18)
[2021-08-22] MEDS: venlafaxine XR 75mg capsule (Q24H) PO SCH (07:45)
[2021-08-22] MEDS: docusate sod 100mg capsule PO SCH ×3 (07:45→21:17)
[2021-08-22] MEDS: LORazepam 0.5 MG tablet PO SCH ×3 (07:46→21:17)
[2021-08-22] MEDS: methylphenidate 5mg tablet PO SCH (07:46)
[2021-08-22] MEDS: lactose-reduced food (Ensure Enlive) - 237ml bottle PO SCH ×2 (08:00→09:00)
[2021-08-22 08:44] VITALS: BP 138/80
--- NOTE | 2021-08-22 14:23 | NUR ---
Pt. attended group today. Today's group was about the different communications styles i.e passive, aggressive and assertive. We discussed what the characteristics of each style was. We then discussed where they saw themselves at now and where they would like to be with their communication style. Pt. sat and listened in the group. He didn't not respond when asked questions, he just sat quietly and ate his snack. His demeanor is calm and compliant. Meri Uribe, RECORDS OFFICER
--- NOTE | 2021-08-22 17:00 | NUR ---
Nursing Progress Note: Cuong Wang Legal hold: TCON Client on involuntary status for GD Report received from Nila CHAPIN with use of SBAR Why they are here: Patients current status is gravely disabled. He cannot make a viable plan for food or chcf when discharged. Assessment What happened this shift: Pt. received sleeping in his room, he woke to receive his medication and 1:1 assessment completed at the bedside. Pt. denies SI, HI, A/H, V/H, and no c/o anxiety. Pt. presents with thought blocking, guarded, and very soft spoken, and offers few words. He does report not taking care of myself as reason r/t admit. Pt. continues on diflucan PO for ongoing thrush, no c/o pain reported. Pt. required assistance to get dressed, oral hygiene, and was incontinent; jr care provided. He ate his meals in the dining room with cohorts, but socially isolates himself, he stayed OOB most of the shift watching TV, and attended group. Pt. was toileted Q2hr, and Tx to Rt. heel continues with no s/sx of infection. Pt. was encouraged to nap at 1500 as he presents with fatigue. Pt. slept for a few hours before dinner. S/I, H/I: Denies A/VH: Denies Sleep: One nap (2hr) ADL's: Requires minimum to moderate assistance Group attendance: Yes Were Meds taken: Yes Any med S/E: None observed or reported. Mental Status Exam Appearance: Older male, thin, and wearing green hospital scrubs. Eye contact: Fair Behavior: Pleasant, withdrawn Speech: Soft, minimal Mood: Im okay. Affect: Flat Thought process: Thought blocking Thought Content: Poverty of thought Cognition: A/O x2 Insight: Poor Judgment: Poor Interventions PRN's used: None Therapeutic interventions: Provided therapeutic communication during 1:1 assessment, medication administration/education/monitoring, provided full care with ADL's, assisted with ambulation, monitored fall prevention, and Q15 minute safety Restraints/seclusion/emergency medication: None Justification of Continued Inpatient Treatment: Pt is gravely disabled, he has had a decline in his ADL and is failure to thrive. Pt is homeless and unable to formulate a plan for food, chcf. He is in the process of conservatorship.
[2021-08-22 20:22] VITALS: BP 115/75
[2021-08-22] MEDS: traZODone 50mg tablet PO SCH (21:17)
--- NOTE | 2021-08-23 02:44 | NUR ---
Nursing Progress Note: Cuong Wang Legal hold: TCON Client on involuntary status for GD Report received from TAVARES Mata with use of SBAR Why they are here: Patients current status is gravely disabled. He cannot make a viable plan for food or mcc when discharged. Assessment What happened this shift: Pt. received eating dinner in the group room, 1:1 assessment completed at the bedside. Pt. denies SI, HI, A/H, V/H, and no c/o anxiety. Pt. presents with thought blocking, guarded, and very soft spoken. Pt. was given assistance to get dressed in clean scrubs at bedtime, oral hygiene was provided, pt was incontinent. Changed brief and provided wound care to the Rt heel. Heels elevated to relieve pressure. S/I, H/I: Denies A/VH: Denies Sleep: Sleeping at this time ADL's: Requires minimum to moderate assistance Group attendance: N/A Were Meds taken: Yes Any med S/E: None observed or reported. Mental Status Exam Appearance: Older male, thin, and wearing green hospital scrubs. Eye contact: Fair Behavior: Pleasant, withdrawn Speech: Soft, minimal Mood: Im okay. Affect: Flat Thought process: Thought blocking Thought Content: Poverty of thought Cognition: A/O x2 Insight: Poor Judgment: Poor Interventions PRN's used: None Therapeutic interventions: Provided therapeutic communication during 1:1 assessment, medication administration/education/monitoring, provided full care with ADL's, assisted with ambulation, monitored fall prevention, and Q15 minute safety Restraints/seclusion/emergency medication: None Justification of Continued Inpatient Treatment: Pt is gravely disabled, he has had a decline in his ADL and is failure to thrive. Pt is homeless and unable to formulate a plan for food, mcc. He is in the process of conservatorship.
[2021-08-23] MEDS: ziprasidone 20mg capsule PO SCH ×2 (07:56→20:08)
[2021-08-23] MEDS: venlafaxine XR 75mg capsule (Q24H) PO SCH (07:57)
[2021-08-23] MEDS: methylphenidate 5mg tablet PO SCH (07:57)
[2021-08-23] MEDS: docusate sod 100mg capsule PO SCH ×3 (07:57→20:07)
[2021-08-23] MEDS: fluconazole 100mg tablet PO SCH (07:57)
[2021-08-23] MEDS: LORazepam 0.5 MG tablet PO SCH ×3 (07:57→20:07)
[2021-08-23 08:37] VITALS: BP 166/70
--- NOTE | 2021-08-23 17:36 | NUR ---
Nursing Progress Note: Cuong Wang Legal hold: TCON Client on involuntary status for GD Report received from TAVARES Vasques with use of SBAR Why they are here: Patients current status is gravely disabled. He cannot make a viable plan for food or senior living when discharged. Assessment What happened this shift: Patient received sleeping in bed at change of shift. He was escorted by staff to the community room for breakfast. Patient was receptive to 1:1 assessment and routine medication. He presents with slow responses and movements, however is able to complete tasks. Patient noted eating independently this morning. He presents as quiet, yet polite and cooperative. Pt. continues on Diflucan PO for ongoing thrush, no c/o pain reported. Patient was noted sitting in the community room with peers after breakfast. He denies SI/HI, AH or VH. Does not appear to be responding to IS. Patient escorted back to room after breakfast. This show card writer assisted patient to the restroom along with oral care and personal hygiene. Wound care treatment provided to R heel per order, clean and dry. Patients heels ZAIN and continue to be floated while he is in bed. Patient is self-isolative, does not communicate with other peers very often. Patient was noted to be incontinent later in the day requiring new scrubs and jr-care, which was provided by staff. He attended group x1 today. He napped intermittently throughout the day and was observed participating in the community room for all meal/snack times today. S/I, H/I: Denies both A/VH: Denies both. Does not appear to be responding to IS. Sleep: Napped intermittently throughout the day ADL's: Requires minimum to moderate assistance Group attendance: Yes x1 Were Meds taken: Yes Any med S/E: None observed or reported. Mental Status Exam Appearance: Older male, thin, and wearing green hospital scrubs. Eye contact: Fair Behavior: Pleasant, withdrawn, quiet Speech: Soft, minimal Mood: Doing okay Affect: Flat Thought process: Thought blocking Thought Content: Poverty of thought Cognition: A&O x2 Insight: Poor Judgment: Poor Interventions PRN's used: None Therapeutic interventions: Provided therapeutic communication during 1:1 assessment, medication administration/education/monitoring, provided full care with ADL's, assisted with ambulation, monitored fall prevention, and Q15 minute safety. Restraints/seclusion/emergency medication: None Justification of Continued Inpatient Treatment: Pt is gravely disabled, he has had a decline in his ADL and is failure to thrive. Pt is homeless and unable to formulate a plan for food, senior living. He is in the process of conservatorship.
--- NOTE | 2021-08-23 17:52 | NUR ---
Group Art Tx Continued: Patient remained in the group and was able to maintain a focus upon listening as others in the group process shared. Patient never fully engaged in any communication or completion of the activities. Patient remained pleasant and presented as interested in what was taking place around him. * Please refer to [employer] for a compete overview of the group experience for this patient. Juju Gordon MA, PROCESSING MANAGER #[id number] [facility], [facility] Art Therapist Addendum: 08/23/21 at 1753 by Juju Gordon SS Amended: Links added.
[2021-08-23 20:00] VITALS: BP 101/68
[2021-08-23] MEDS: traZODone 50mg tablet PO SCH (20:08)
--- NOTE | 2021-08-24 01:02 | NUR ---
Nursing Progress Note Legal hold: TCON Report received from Brandie Mata RN Why they are here: Patients current status is gravely disabled. He cannot make a viable plan for food or alf when discharged. Evening assessment: The patient spent the entire evening watching tv and very slowly eating his dinner. He did not appear to be socializing with others. He did feed himself but ate very little. During the evening assessment he gave no eye contact and gave one or two word replies to the assessment questions. His affect was flat and his speech was slow and monotone. He was medication compliant. He required assistance with toileting and getting ready for bed. When asked if he felt depressed he stated "like a 5" He admits to AH and denies that they are improving. He denied visual hallucinations. Suicidal and homicidal thoughts are denied. The patient will remain on the inpatient unit until he is placed by the public guardian in the appropriate level of care.
[2021-08-24 07:43] VITALS: BP 141/88
[2021-08-24] MEDS: lactose-reduced food (Ensure Enlive) - 237ml bottle PO SCH (08:00)
[2021-08-24] MEDS: LORazepam 0.5 MG tablet PO SCH ×3 (08:06→20:12)
[2021-08-24] MEDS: venlafaxine XR 75mg capsule (Q24H) PO SCH (08:06)
[2021-08-24] MEDS: methylphenidate 5mg tablet PO SCH (08:06)
[2021-08-24] MEDS: docusate sod 100mg capsule PO SCH ×3 (08:06→20:12)
[2021-08-24] MEDS: ziprasidone 20mg capsule PO SCH ×2 (08:06→20:12)
[2021-08-24] MEDS: fluconazole 100mg tablet PO SCH (08:07)
--- NOTE | 2021-08-24 15:05 | NUR ---
Reassessment: Pt PO ~65% avg of pureed/thin meals per pt request w/ double protein TIDWM per diet order in addition to ~70% avg vanilla ensure enlive. Current PO meal/ONS intake exceeding estimated kcal/protein needs. Recommend d/c double protein TIDWM to help reduce excessive kcal/protein intake. LBM 08/23, receiving routine bowel care. Will continue to monitor. Addendum: 08/24/21 at [address] RD Amended: Links added. Addendum: 08/24/21 at [address] Recommendations: 1. Continue Puree diet as tolerated per pt request 2. Discontinue double protein TIDWM 3. Ensure Enlive PO daily per Physician 4. Bowel care per rx 5. Weekly wts Addendum: 08/24/21 at [address] I have reviewed assessment by public health internship
--- NOTE | 2021-08-24 17:05 | NUR ---
Nursing Progress Note: Cuong Wang Legal hold: TCON Client on involuntary status for GD Report received from TAVARES Vasques with use of SBAR Why they are here: Patients current status is gravely disabled. He cannot make a viable plan for food or mcc when discharged. Assessment What happened this shift: Patient received sleeping in bed at shift change. He was receptive to routine medication and morning assessment. Patient escorted to the community room for breakfast by staff. Patient requires set-up assistance for meals and is able to eat slowly but independently. He continues to present with slow responses and movements, yet is able to complete tasks. He denies SI/HI, AH or VH. Does not appear to be responding to IS. Patient was incontinent of urine and required jr-care and new scrubs provided by staff. He was observed sitting in a chair looking out his window today. He continues to self-isolate the majority of the day and present as quiet, yet polite and cooperative. This greeting card writer assisted patient with oral care and personal hygiene today. Patient did not attend group therapy today despite encouragement. Wound care treatment provided to R heel per order, clean and dry. Patients heels ZAIN and continue to be floated while he is in bed. He napped intermittently throughout the day and was observed participating in the community room for all meal/snack times today. S/I, H/I: Denies both A/VH: Denies both. Does not appear to be responding to IS. Sleep: Napped intermittently throughout the day ADL's: Requires minimum to moderate assistance Group attendance: No Were Meds taken: Yes Any med S/E: None observed or reported. Mental Status Exam Appearance: Older male, thin, and wearing [facility] scrubs. Eye contact: Fair Behavior: Pleasant, withdrawn, quiet Speech: Soft, minimal Mood: Doing okay Affect: Flat Thought process: Thought blocking Thought Content: Poverty of thought Cognition: A&O x2 Insight: Poor Judgment: Poor Interventions PRN's used: None Therapeutic interventions: Provided therapeutic communication during 1:1 assessment, medication administration/education/monitoring, provided full care with ADL's, assisted with ambulation, monitored fall prevention, and Q15 minute safety. Restraints/seclusion/emergency medication: None Justification of Continued Inpatient Treatment: Pt is gravely disabled, he has had a decline in his ADL and is failure to thrive. Pt is homeless and unable to formulate a plan for food, mcc. He is in the process of conservatorship.
[2021-08-24] MEDS: traZODone 50mg tablet PO SCH (20:12)
[2021-08-24 20:52] VITALS: BP 102/72
--- NOTE | 2021-08-24 22:09 | NUR ---
Pt was observed to have tremor to his legs while sitting, which I have not observed in the patient before, assessment done for EPS and pt is also having stiffness to his arms with +cogwheeling, contacted OCP and he ordered Cogentin 1 mg po x 1 now and he will evaluate in the am.
[2021-08-24] MEDS ORDERED: benztropine 1mg tablet PO ONE (22:10)
--- NOTE | 2021-08-25 00:34 | NUR ---
Nursing Progress Note: for Cuong Wang Legal hold: TCON Client on involuntary status for GD Report received from TAVARES Vasques with use of SBAR Why they are here: Patients current status is gravely disabled. He cannot make a viable plan for food or detention when discharged. Assessment What happened this shift: Patient eating dinner in community room during shift change. He was receptive to routine medication and assessment. Patient requiring set-up assistance for meals and is able to eat independently but slowly. He continues to present with slow responses and movements, and is rigid with movements. He denies SI/HI, AH or VH. Does not appear to be responding to IS. Patient incontinent of urine and unkept, shower assist provided by staff. Wound care treatment to R heel per order, clean and dry. Patients heels ZAIN and continue to be floated while he is in bed. In the community room for a movie he requested to watch and snack time. S/I, H/I: Denies both A/VH: Denies both. Does not appear to be responding to IS. Sleep: sleeping after shower. ADL's: Requires moderate assistance Group attendance: No Were Meds taken: Yes Any med S/E: None observed or reported. Mental Status Exam Appearance: Thin, unkept, wearing green hospital scrubs. Eye contact: Fair Behavior: Pleasant, withdrawn, quiet Speech: Soft, minimal Mood: Doing okay Affect: Flat Thought process: Thought blocking Thought Content: Poverty of thought Cognition: A&O x2 Insight: Poor Judgment: Poor Interventions PRN's used: None Therapeutic interventions: Provided therapeutic communication during 1:1 assessment, medication administration/education/monitoring, full care with ADL's, assisted with ambulation, monitored fall prevention, and Q15 minute safety. Restraints/seclusion/emergency medication: None Justification of Continued Inpatient Treatment: Pt is gravely disabled, he has had a decline in his ADL and is failure to thrive. Pt is homeless and unable to formulate a plan for food, detention. He is in the process of conservatorship.
[2021-08-25 08:00] VITALS: BP 105/66
[2021-08-25] MEDS: LORazepam 0.5 MG tablet PO SCH ×3 (08:19→20:26)
[2021-08-25] MEDS: methylphenidate 5mg tablet PO SCH (08:19)
[2021-08-25] MEDS: docusate sod 100mg capsule PO SCH ×3 (08:19→20:26)
[2021-08-25] MEDS: ziprasidone 20mg capsule PO SCH ×2 (08:19→20:26)
[2021-08-25] MEDS: venlafaxine XR 75mg capsule (Q24H) PO SCH (08:19)
[2021-08-25] MEDS: fluconazole 100mg tablet PO SCH (08:19)
[2021-08-25] MEDS: lactose-reduced food (Ensure Enlive) - 237ml bottle PO SCH (08:31)
--- NOTE | 2021-08-25 15:58 | NUR ---
Group Art Tx Continued: Patient was sitting at the group table still eating his lunch at the onset of group. Patient was able to eat his lunch and then join into the session. Patient was able to listen, however, did not connect, communicate or attempt to interact with anyone specifically. Juju Gordon MA, MATHEMATICAL SCIENTIST #[id number] [facility], Art Therapist Addendum: 08/25/21 at 1604 by Juju Gordon SS Amended: Links added.
--- NOTE | 2021-08-25 16:39 | NUR ---
Nursing Progress Note: Legal hold: TCon Client on involuntary status for GD Report received from nurse with use of SBAR: ANNIE Vasques Why are they here: Pt was at [facility] from 06/08/21-07/12/21 for GD/failure to thrive. Pt was discharged, re-evaluated and placed on a 5150. He was readmitted to [facility] on day of discharge 07/12/21. Pt has a Hx of Schizophrenia, depression, and anxiety. Pt has intermittent CAH to kill himself, pt is depressed and anhedonic, he has severely declined in his ADLs. Pt has a DTI ulcer on his right heel. Plan is for him to be conserved. Assessment What has happened this shift: Received pt. sleeping in bed at the beginning of the shift, he was awoken by staff to attend breakfast in the Group Room. Pt. was observed to be eating independently and denied the need for any help from staff, although he continues to eat at a very slow pace. Afterwards, pt. required direction and encouragement from this entry writer to return to his room for a nap, as he exhibited fatigue and was again observed to have tremor in his legs while sitting. However, pt. did not exhibit any other s/s of EPS, and when questioned by this entry writer stated, "It's normal for me." 1:1 was completed at bedside, pt. denies all MH s/s however does admit to some ongoing paranoid delusional thoughts that random others may want to hurt him. His speech remains whispered with a delayed response, however his affect is brighter. Oral care was provided and pt's socks were removed and his were floated while in bed. Pt. was observed to be more present on the unit this shift, and was up watching TV in the Recreation Room and attended afternoon group. S/I, H/I: Denies A/VH: Pt. denies, does not appear to be responding to internal stimuli Sleep: Sleep hours are 6.75, and pt. naps intermittently ADL's: Pt. requires direction and encouragement. He requires moderate to total assistance at times. Group attendance: Yes Were meds taken: Yes Any med S/E: None Mental Status Exam Appearance: Neat and appropriately dressed, however ongoing mild weakness and requires assistance with ADLs Eye contact: Fair Behavior: Cooperative, quiet, and slow to respond Speech: Whispers, minimal responses. Delayed Mood: Guarded Affect: Blunted with some brightening Thought process: Poverty of thought with possible thought blocking Thought Content: A/RUBY Cognition: A&O x4 Insight: Poor Judgment: Poor Interventions PRN's used: None Therapeutic interventions: Maintained a safe and supportive environment, ensured contract for safety, provided direction and encouragement regarding ADLs with assistance as needed, monitored rt. heel and floated heels while in bed, continued to encourage Q2 hour toileting and monitored for incontinence episodes, provided active listening and positive encouragement, encouraged participation on the unit, and maintained Q 15min safety checks. Restraints/seclusion/emergency medication: N/A Justification of Continued Inpatient Treatment: RAYMON Harvey, pt. continues to require a safe and supportive environment. He continues to await placement.
[2021-08-25 19:26] VITALS: BP 93/58
[2021-08-25] MEDS: traZODone 50mg tablet PO SCH (20:26)
[2021-08-25] MEDS: benztropine 1mg tablet PO SCH (20:26)
--- NOTE | 2021-08-25 23:22 | NUR ---
Nursing Progress Note: Cuong Legal hold: TCon Client on involuntary status for GD Report received from nurse with use of SBAR: Faustino VALENCIA Why are they here: Pt was at [facility] from 06/08/21-07/12/21 for GD/failure to thrive. Pt was discharged, re-evaluated and placed on a 5150. He was readmitted to [facility] on day of discharge 07/12/21. Pt has a Hx of Schizophrenia, depression, and anxiety. Pt has intermittent CAH to kill himself, pt is depressed and anhedonic, he has severely declined in his ADLs. Pt has a DTI ulcer on his right heel. Plan is for him to be conserved. Assessment What has happened this shift: Received pt in the community room finishing up his dinner. Pt stated he was doing well (nodding his head with a smile.) He is cooperative, quiet and slow to respond. Pt took HS medications without issue and stayed in community room watching a movie with peers until bedtime. PCT assisted pt to the restroom, and floated heels. Pt had no other needs and is in no distress. Continue to monitor throughout the night. S/I, H/I: Denies A/VH: Pt. denies, does not appear to be responding to internal stimuli Sleep: ADL's: Pt. requires direction and encouragement. He requires moderate to total assistance at times. Group attendance: NA Were meds taken: Yes Any med S/E: None Mental Status Exam Appearance: Neat and appropriately dressed, however ongoing mild weakness and requires assistance with ADLs Eye contact: Fair Behavior: Cooperative, quiet, and slow to respond Speech: Whispers, minimal responses. Delayed Mood: Guarded Affect: Blunted with some brightening Thought process: Poverty of thought with possible thought blocking Thought Content: A/RUBY Cognition: A&O x4 Insight: Poor Judgment: Poor Interventions PRN's used: None Therapeutic interventions: Maintained a safe and supportive environment, ensured contract for safety, provided direction and encouragement regarding ADLs with assistance as needed, monitored rt. heel and floated heels while in bed, continued to encourage Q2 hour toileting and monitored for incontinence episodes, provided active listening and positive encouragement, encouraged participation on the unit, and maintained Q 15min safety checks. Restraints/seclusion/emergency medication: N/A Justification of Continued Inpatient Treatment: Per RAYMON Go, pt. continues to require a safe and supportive environment. He continues to await placement.
[2021-08-26 08:00] VITALS: BP 126/75
[2021-08-26] MEDS: lactose-reduced food (Ensure Enlive) - 237ml bottle PO SCH (08:00)
[2021-08-26] MEDS: venlafaxine XR 75mg capsule (Q24H) PO SCH (08:30)
[2021-08-26] MEDS: methylphenidate 5mg tablet PO SCH (08:31)
[2021-08-26] MEDS: fluconazole 100mg tablet PO SCH (08:31)
[2021-08-26] MEDS: benztropine 1mg tablet PO SCH ×2 (08:31→20:10)
[2021-08-26] MEDS: ziprasidone 20mg capsule PO SCH ×2 (08:31→20:10)
[2021-08-26] MEDS: LORazepam 0.5 MG tablet PO SCH ×3 (08:31→20:10)
[2021-08-26] MEDS: docusate sod 100mg capsule PO SCH ×3 (08:31→20:11)
[2021-08-26] MEDS ORDERED: magnesium hydroxide 30ml (MOM) UD suspension PO ONE (15:30)
--- NOTE | 2021-08-26 17:30 | NUR ---
Nursing Progress Note: Cuong Legal hold: TCon Client on involuntary status for GD Report received from nurse with use of SBAR: ANNIE Linares Why are they here: Pt was at [facility] from 06/08/21-07/12/21 for GD/failure to thrive. Pt was discharged, re-evaluated and placed on a 5150. He was readmitted to [facility] on day of discharge 07/12/21. Pt has a Hx of Schizophrenia, depression, and anxiety. Pt has intermittent CAH to kill himself, pt is depressed and anhedonic, he has severely declined in his ADLs. Pt has a DTI ulcer on his right heel. Plan is for him to be conserved. Assessment What has happened this shift: Patient received sleeping in his room at change of shift. He was awoken by staff to join in the community room with peers for breakfast. He was receptive to routine medication and morning assessment. Patient observed eating breakfast independently this morning only requiring set-up assistance. He was escorted back to his room after breakfast and was observed quietly sitting in a chair looking out his window. Patient continues to present with slow responses and movements, yet is able to complete tasks. Patient was receptive to 1:1 assessment and scheduled medications. His speech remains whispered with a delayed response. He denies SI/HI, AH or VH. Does not appear to be responding to IS. Patient was independent of personal hygiene care on this shift, noted going to the bathroom independently without assistance. He continues to self-isolate the majority of the day and present as quiet, yet polite and cooperative. Wound care treatment provided to R heel per order, clean and dry. Patients heels CUSHION GUM APPLICATOR and continue to be floated while he is in bed. Oral care provided. Patient was noted to be more active on the unit this shift, observed quietly sitting in the community room with peers watching television throughout the day. He was incontinent x1 today requiring assistance with hygiene care and changing into clean green scrubs. He participated for all meals/snacks in the community room. S/I, H/I: Denies A/VH: Pt. denies, does not appear to be responding to internal stimuli Sleep: Sleep hours are 6.25, no naps noted today ADL's: Pt. requires direction and encouragement. He requires moderate to total assistance at times. Group attendance: No group provided Were meds taken: Yes Any med S/E: None observed or reported Mental Status Exam Appearance: Neat and appropriately dressed, however ongoing mild weakness and requires assistance with ADLs Eye contact: Fair Behavior: Cooperative, quiet, and slow to respond Speech: Whispers, minimal responses. Delayed. Poverty of speech. Mood: Guarded Affect: Blunted with some brightening Thought process: Poverty of thought with possible thought blocking Thought Content: Meeting needs. Unable to assess, patient has poverty of speech. Cognition: A&O x4 Insight: Poor Judgment: Poor Interventions PRN's used: None Therapeutic interventions: Maintained a safe and supportive environment, ensured contract for safety, provided direction and encouragement regarding ADLs with assistance as needed, monitored rt. heel and floated heels while in bed, continued to encourage Q2 hour toileting and monitored for incontinence episodes, provided active listening and positive encouragement, encouraged participation on the unit, and maintained Q 15min safety checks. Restraints/seclusion/emergency medication: N/A Justification of Continued Inpatient Treatment: RAYMON Harvey, pt. continues to require a safe and supportive environment. He continues to await placement.
[2021-08-26] MEDS: traZODone 50mg tablet PO SCH (20:10)
[2021-08-26 20:29] VITALS: BP 111/70
--- NOTE | 2021-08-27 02:29 | NUR ---
Nursing Progress Note: Cuong Legal hold: TCon Client on involuntary status for GD Report received from nurse with use of SBAR: ANNIE Harmon Why are they here: Pt was at [facility] from 06/08/21-07/12/21 for GD/failure to thrive. Pt was discharged, re-evaluated and placed on a 5150. He was readmitted to [facility] on day of discharge 07/12/21. Pt has a Hx of Schizophrenia, depression, and anxiety. Pt has intermittent CAH to kill himself, pt is depressed and anhedonic, he has severely declined in his ADLs. Pt has a DTI ulcer on his right heel. Plan is for him to be conserved. Assessment What has happened this shift: Patient received sleeping in his room at change of shift. He was cooperative to routine medication and night assessment. Patient was sitting in the community room drinking tea when nurse gave him his night medications. Patient continues to present with slow responses and movements, but is able to complete tasks. S/I, H/I: Denies A/VH: Pt. denies, does not appear to be responding to internal stimuli Sleep: will tally at the end of shift ADL's: Pt. requires direction and encouragement. He requires moderate to total assistance at times. Group attendance: No group provided Were meds taken: Yes Any med S/E: None observed or reported Mental Status Exam Appearance: Neat and appropriately dressed, however ongoing mild weakness and requires assistance with ADLs Eye contact: Fair Behavior: Cooperative, quiet, and slow to respond Speech: Whispers, minimal responses. Delayed. Poverty of speech. Mood: Guarded Affect: Blunted with some brightening Thought process: Poverty of thought with possible thought blocking Thought Content: Meeting needs. Unable to assess, patient has poverty of speech. Cognition: A&O x4 Insight: Poor Judgment: Poor Interventions PRN's used: None Therapeutic interventions: Maintained a safe and supportive environment, ensured contract for safety, provided direction and encouragement regarding ADLs with assistance as needed, monitored rt. heel and floated heels while in bed, continued to encourage Q2 hour toileting and monitored for incontinence episodes, provided active listening and positive encouragement, encouraged participation on the unit, and maintained Q 15min safety checks. Restraints/seclusion/emergency medication: N/A Justification of Continued Inpatient Treatment: Per RAYMON Go, pt. continues to require a safe and supportive environment. He continues to await placement.
[2021-08-27 07:15] VITALS: BP 118/69
[2021-08-27] MEDS: polyethylene glycol 3350 17gm powd pack PO SCH (08:02)
[2021-08-27] MEDS: benztropine 1mg tablet PO SCH ×2 (08:02→20:47)
[2021-08-27] MEDS: fluconazole 100mg tablet PO SCH (08:02)
[2021-08-27] MEDS: ziprasidone 20mg capsule PO SCH ×2 (08:02→20:46)
[2021-08-27] MEDS: venlafaxine XR 75mg capsule (Q24H) PO SCH (08:02)
[2021-08-27] MEDS: docusate sod 100mg capsule PO SCH ×3 (08:02→20:47)
[2021-08-27] MEDS: methylphenidate 5mg tablet PO SCH (08:03)
[2021-08-27] MEDS: LORazepam 0.5 MG tablet PO SCH ×3 (08:03→20:48)
[2021-08-27] MEDS: lactose-reduced food (Ensure Enlive) - 237ml bottle PO SCH (08:22)
--- NOTE | 2021-08-27 12:48 | NUR ---
Nursing Progress Note: Legal hold: TCon Client on involuntary status for GD Report received from nurse with use of SBAR: ANNIE Linares Why are they here: Pt was at [facility] from 06/08/21-07/12/21 for GD/failure to thrive. Pt was discharged, re-evaluated and placed on a 5150. He was readmitted to [facility] on day of discharge 07/12/21. Pt has a Hx of Schizophrenia, depression, and anxiety. Pt has intermittent CAH to kill himself, pt is depressed and anhedonic, he has severely declined in his ADLs. Pt has a DTI ulcer on his right heel. Plan is for him to be conserved. Assessment What has happened this shift: Received pt. sleeping in bed at the beginning of the shift, he awoke independently and attended breakfast in the Group Room. Pt. was able to eat independently and is requiring less direction and assistance to preform ADLs, however continues to exhibit mild weakness and is incontinent at times. 1:1 was completed, pt.continues to present with whispered speech with delayed responses, but he does brighten with conversation. He continues to deny any S/I, but does admit to ongoing command A/RUBY which he is able to ignore. Pt. also jokes with this technical proposal writer when questioned regarding any needs, he states with a laugh and a wide grin, "Bring me some weed." Pt. remains up on the unit throughout much of the day watching TV. He is not observed to be interacting with others, however his affect is brighter. S/I, H/I: Denies A/VH: Pt. reports ongoing command A/RUBY Sleep: Sleep hours are 8.25, ADL's: Pt. requires direction and encouragement Group attendance: No Were meds taken: Yes Any med S/E: None Mental Status Exam Appearance: Neat and appropriately dressed Eye contact: Fair Behavior: Cooperative, fatigued, guarded, and withdrawn Speech: Whispers, minimal responses Mood: Guarded Affect: Blunted with brightening Thought process: Poverty of thought Thought Content: Immediate needs and A/RUBY Cognition: A&O x3 (not to time) Insight: Poor Judgment: Poor Interventions PRN's used: None Therapeutic interventions: Maintained a safe and supportive environment, ensured contract for safety, provided direction and encouragement regarding ADLs with assistance as needed, monitored rt. heel and kept floated while in bed, continued to encourage Q2 hour toileting and monitored for incontinence episodes, provided active listening and positive encouragement, and maintained Q 15min safety checks. Restraints/seclusion/emergency medication: N/A Justification of Continued Inpatient Treatment: Per RAYMON Hill, pt. continues to require a safe and supportive environment. Discharge per conservator.
[2021-08-27 17:50] VITALS: BP 115/76
--- NOTE | 2021-08-27 17:50 | NUR ---
Fall: Pt. was heard yelling out for "Help," at approximately 1750 from his room. Tech responded to pt. and found him sitting on the floor with his back resting against his bed. Pt. reported to staff that he was reaching for a piece of candy on his table while ambulating in his room and slipped. Pt. denied any pain or injuries and was assessed by this journalists and other writers and no injuries were found. Pt. denied any dizziness or feelings of lightheadedness prior to the fall. V/S were WNL. Pt. was helped up from the floor by two staff members and was able to ambulate independently to dinner in the Group Room. A yellow fall band was placed on pt, he continues to wear non-slip socks, and bed continues to be low and locked. Fall was reported to RAYMON Hill and no new orders were obtained. Per RAYMON Hill, pt's Cogentin has been increased which will decrease his stiff movements, and hopefully reduce his risk of falls in the future. Will endorse to Noc shift and continue to monitor.
--- NOTE | 2021-08-27 19:30 | NUR ---
Verbal order received from Lanette ENNIS to do CMP, CBC & UA in the am (in light of pt fall)
[2021-08-27 20:14] VITALS: BP 95/65
[2021-08-27] MEDS: traZODone 50mg tablet PO SCH (20:48)
--- NOTE | 2021-08-28 03:00 | NUR ---
Nursing Progress Note: Legal hold: TCon Client on involuntary status for GD Report received from ANNIE Jacob with use of SBAR: Why are they here: Pt was at [facility] from 06/08/21-07/12/21 for GD/failure to thrive. Pt was discharged, re-evaluated and placed on a 5150. He was readmitted to [facility] on day of discharge 07/12/21. Pt has a Hx of Schizophrenia, depression, and anxiety. Pt has intermittent CAH to kill himself, pt is depressed and anhedonic, he has severely declined in his ADLs. Pt has a DTI ulcer on his right heel. Plan is for him to be conserved. Assessment What has happened this shift: At the start of the shift, pt was up to the bathroom with assistance, then back to bed. He is oriented to himself and speaks softly (whispers). He denies any discomfort at the time of examination. He denies any AH/VH or SI/HI. He responds appropriately to questions and took his medicines whole in applesauce without any difficulty I got an order from the P.A. earlier in the shift to do am labs: CMP, CBC and UA (if able to obtain it) in light of his fall S/I, H/I: Denies A/VH: Pt. denies any current hallucinations Sleep: Sleeping at the time of this note ADL's: Pt. requires direction and encouragement Group attendance: N/A Were meds taken: Yes- whole with applesauce Any med S/E: None Mental Status Exam: Appearance: Elderly male, fair grooming, wearing green scrubs (edentulous) Eye contact: Fair Behavior: Cooperative, guarded, and withdrawn Speech: Whispers, minimal responses Mood: "Ok" Affect: Blunted with brightening (smiled once) Thought process: Poverty of thought Thought Content: Going to sleep Cognition: A&O to self and situation Insight: Poor Judgment: Poor Interventions PRN's used: None Therapeutic interventions: Maintained a safe and supportive environment, ensured contract for safety, provided direction and encouragement regarding ADLs with assistance as needed, monitored rt. heel and kept floated while in bed, continued to encourage Q2 hour toileting and monitored for incontinence episodes, provided active listening and positive encouragement, and maintained Q 15min safety checks. Restraints/seclusion/emergency medication: N/A Justification of Continued Inpatient Treatment: Per RAYMON Hill, pt. continues to require a safe and supportive environment. Discharge per rafy.
[2021-08-28 08:10] VITALS: BP 112/108
[2021-08-28] MEDS: ziprasidone 20mg capsule PO SCH ×2 (08:23→20:20)
[2021-08-28] MEDS: LORazepam 0.5 MG tablet PO SCH ×2 (08:24→12:58)
[2021-08-28] MEDS: benztropine 1mg tablet PO SCH ×2 (08:24→20:21)
[2021-08-28] MEDS: venlafaxine XR 75mg capsule (Q24H) PO SCH (08:24)
[2021-08-28] MEDS: methylphenidate 5mg tablet PO SCH (08:24)
[2021-08-28] MEDS: docusate sod 100mg capsule PO SCH ×2 (08:24→20:20)
[2021-08-28] MEDS: polyethylene glycol 3350 17gm powd pack PO SCH (08:25)
[2021-08-28] MEDS: fluconazole 100mg tablet PO SCH (08:25)
[2021-08-28 08:38] LABS: BASOPHILS % (AUTO) 0.5 % (0-1); EOSINOPHILS # (AUTO) 0.1 X10'3 (0-0.9); EOSINOPHILS % (AUTO) 1.5 % (0-6); HEMATOCRIT 42.2 % (42.0-52.0); HEMOGLOBIN 14.7 g/dl (14.0-17.9); LYMPHOCYTES # (AUTO) 1.7 X10'3 (1.1-4.8); LYMPHOCYTES % (AUTO) 36.4 % (21-51); MEAN CORPUSCULAR HGB CONC 34.8 g/dL (33.0-36.5); MEAN CORPUSCULAR VOLUME 91.9 FL (78-98); MEAN PLATELET VOLUME 7.5 FL (7.4-10.4); MONOCYTES # (AUTO) 0.5 X10'3 (0-0.9); MONOCYTES % (AUTO) 9.8 % (2-12); NEUTROPHILS # (AUTO) 2.5 X10'3 (1.8-7.7); NEUTROPHILS % (AUTO) 51.8 % (42-75); PLATELET COUNT 154 X10'3 (140-440); RED CELL DISTRIBUTION WIDTH 13.2 % (11.5-14.5); WHITE BLOOD COUNT 4.8 X10'3 (4.5-11.0)
[2021-08-28] MEDS: lactose-reduced food (Ensure Enlive) - 237ml bottle PO SCH (08:41)
[2021-08-28] MEDS: acetaminophen 325mg tablet PO PRN (08:49)
[2021-08-28 08:58] LABS: ALANINE AMINOTRANSFERASE 94 U/L (12-78); ALBUMIN 3.8 G/DL (3.4-5.0); ALBUMIN/GLOBULIN RATIO 0.9 (1.1-1.5); ALKALINE PHOSPHATASE 132 IU/L (46-116); ANION GAP 5 (8-16); ASPARTATE AMINO TRANSFERASE 47 U/L (10-37); BILIRUBIN,TOTAL 0.3 MG/DL (0.1-1.0); BLOOD UREA NITROGEN 22 MG/DL (7-18); BUN/CREATININE RATIO 29.3 (5.4-32.0); CALCIUM 8.9 MG/DL (8.5-10.1); CHLORIDE 103 MMOL/L (99-107); CREATININE 0.75 MG/DL (0.60-1.10); GLUCOSE 94 MG/DL (70-104); POTASSIUM 4.6 MMOL/L (3.5-5.1); SODIUM 139 MMOL/L (135-145); TOTAL CARBON DIOXIDE 31.3 MMOL/L (24-32); TOTAL PROTEIN 7.9 G/DL (6.4-8.2); eGFR > 90 ML/MIN
[2021-08-28] MEDS ORDERED: LORazepam 0.5 MG tablet PO PRN (16:50)
--- NOTE | 2021-08-28 17:22 | NUR ---
Nursing Progress Note: Cuong Legal hold: TCon Client on involuntary status for GD Report received from nurse with use of SBAR: Darren RN Why are they here: Pt was at [facility] from 06/08/21-07/12/21 for GD/failure to thrive. Pt was discharged, re-evaluated and placed on a 5150. He was readmitted to [facility] on day of discharge 07/12/21. Pt has a Hx of Schizophrenia, depression, and anxiety. Pt has a DTI ulcer on his right heel. Plan is for him to be conserved. Assessment What has happened this shift: Pt. received sleeping in his room, he woke to recive his medications and 1:1 assessment completed at the bedside. Pt. denies SI, HI, AH,VH, but endorses anxiety sometimes. He reports he w s admitted d/t not taking care of myself and is unable to verbalize a discharge plan; pt. is currently pending conservatorship. Pt. presents as frail with a whispered voice. Pt. reported pain in his throat and was given PRN Tylenol X1; effective. He ate his meals in the dining room with cohorts, but does not engage socially, he is willing to sit with others at a tables. Pt. often remained after meals and watched tv. Pt. continues with Tx for thrush, however thrush is still prevalent; provider aware. In addition, pt has broken teeth at the gum line with sharp edges present; provider has requested dental consult. Tx for Rt. heel continues and left open to air, documented photo completed this shift. Pt. SP fall from 08/27/21 without injuries, and no c/o pain this shift. Pt. had unwitnessed fall at 1512, he was found sitting on the floor in dining room, pt. reported pain to Rt. arm but sated I didnt hit my head, no swelling or redness noted, mobility intact, VSS. Fall intervention in place, and pt. encouraged to transfer with staff present. He was assisted to his room for incontinence/jr care as needed this shift, two naps this shift. S/I, H/I: Denies A/VH: Pt. Denies both, no s/sx of responding to internal stimuli Sleep: Sleep hours are 6.50, two naps today ADL's: He requires moderate to total assistance and encouragement Group attendance: No group today Were meds taken: Yes Any med S/E: None observed or reported Mental Status Exam Appearance: Thin male with tattoos and facial hair wearing green unit scrubs Eye contact: Fair Behavior: Cooperative, unsocial, and slow to respond Speech: Whispers, poverty of speech. Mood: Down cast Affect: Flat Thought process: Poverty of thought with possible thought blocking Thought Content: Meeting needs. Cognition: A&O x4 Insight: Poor Judgment: Poor Interventions PRN's used: None Therapeutic interventions: Maintained a safe and supportive environment, ensured contract for safety, provided direction and encouragement regarding ADLs with assistance as needed, monitored rt. heel and floated heels while in bed, continued to encourage Q2 hour toileting and monitored for incontinence episodes, provided active listening and positive encouragement, encouraged participation on the unit, and maintained Q 15min safety checks. Restraints/seclusion/emergency medication: N/A Justification of Continued Inpatient Treatment: RAYMON Harvey, pt. continues to require a safe and supportive environment. He continues to await placement.
[2021-08-28 19:27] VITALS: BP 132/80
[2021-08-28 19:55] LABS: CLARITY,URINE CLEAR (Clear); COLOR,URINE YELLOW (Yellow); GLUCOSE, URINE NEGATIVE (Neg); KETONES,URINE NEGATIVE (Neg); LEUKOCYTE ESTERASE ,URINE NEGATIVE (Neg); NITRITES, URINE NEGATIVE (Neg); OCCULT BLOOD,URINE NEGATIVE (Neg); PH,URINE 6.5 (4.8-8.0); PROTEIN,URINE NEGATIVE (Neg)
[2021-08-28 20:07] LABS: UA COLLECTION TYPE NON-SPECIFIED
--- NOTE | 2021-08-29 03:00 | NUR ---
Nursing Progress Note: Legal hold: TCon Client on involuntary status for GD Report received from ANNIE Jacob with use of SBAR: Why are they here: Pt was at [facility] from 06/08/21-07/12/21 for GD/failure to thrive. Pt was discharged, re-evaluated and placed on a 5150. He was readmitted to [facility] on day of discharge 07/12/21. Pt has a Hx of Schizophrenia, depression, and anxiety. Pt has intermittent CAH to kill himself, pt is depressed and anhedonic, he has severely declined in his ADLs. Pt has a DTI ulcer on his right heel. Plan is for him to be conserved. Assessment What has happened this shift: At the start of the shift, pt was up in the TV room. He responded appropriately to questions and denied any current discomfort. He is oriented to himself/situation and speaks softly (whispers). He ambulated back to his room with observation. He has a slow, slightly unsteady, shuffling gait. He was able to void in the toilet. He also provided the urine specimen for U/A. He denies any discomfort from his fall earlier in the day. He denies any AH/VH or SI/HI. He took all his medicines whole in applesauce without any difficulty Labs: UA: WNL CBC: WNL CMP Normal except AST: 47 ALT: 94 & Alk Phos: 132 S/I, H/I: Denies A/VH: Pt. denies any current hallucinations Sleep: Sleeping at the time of this note ADL's: Pt. requires direction and encouragement Group attendance: N/A Were meds taken: Yes- whole with applesauce Any med S/E: None Mental Status Exam: Appearance: Elderly male, fair grooming, wearing green scrubs (edentulous) Eye contact: Fair Behavior: Cooperative, guarded, and withdrawn Speech: Whispers, minimal responses Mood: "Good" Affect: Blunted with brightening (smiled once) Thought process: Poverty of thought Thought Content: Going to sleep Cognition: A&O to self and situation Insight: Poor Judgment: Poor Interventions PRN's used: None Therapeutic interventions: Maintained a safe and supportive environment, ensured contract for safety, provided direction and encouragement regarding ADLs with assistance as needed, monitored rt. heel and kept floated while in bed. Provided active listening and positive encouragement, and maintained Q 15min safety checks. MONITOR PT WHILE HE IS AMBULATING SINCE HE IS UNSTEADY Restraints/seclusion/emergency medication: N/A Justification of Continued Inpatient Treatment: Per RAYMON Hill, pt. continues to require a safe and supportive environment. Discharge per conservbacilio.
[2021-08-29 07:50] VITALS: BP 122/76
[2021-08-29] MEDS: venlafaxine XR 75mg capsule (Q24H) PO SCH (07:58)
[2021-08-29] MEDS: benztropine 1mg tablet PO SCH ×2 (07:58→20:42)
[2021-08-29] MEDS: polyethylene glycol 3350 17gm powd pack PO SCH (07:58)
[2021-08-29] MEDS: ziprasidone 20mg capsule PO SCH ×2 (07:58→20:42)
[2021-08-29] MEDS: docusate sod 100mg capsule PO SCH ×2 (07:58→20:43)
[2021-08-29] MEDS: methylphenidate 5mg tablet PO SCH (07:59)
[2021-08-29] MEDS: lactose-reduced food (Ensure Enlive) - 237ml bottle PO SCH (08:41)
--- NOTE | 2021-08-29 17:51 | NUR ---
Nursing Progress Note: Legal hold: TCon Client on involuntary status for GD Report received from ANNIE Dotson with use of SBAR: Why are they here: Pt was at [facility] from 06/08/21-07/12/21 for GD/failure to thrive. Pt was discharged, re-evaluated and placed on a 5150. He was readmitted to [facility] on day of discharge 07/12/21. Pt has a Hx of Schizophrenia, depression, and anxiety. Pt has intermittent CAH to kill himself, pt is depressed and anhedonic, he has severely declined in his ADLs. Pt has a DTI ulcer on his right heel. Plan is for him to be conserved. Assessment What has happened this shift: Received patient while he was sleeping in bed. Patient awoke easily and ambulated to the bathroom to void. Patient extremely unsteady on his feet. Patient required assistance of 2 staff members, who when ambulating, side stepped to left or right, almost falling. PATIENT CANNOT AMBULATE WITHOUT THE ASSISTANCE OF TWO STAFF MEMBERS AT ANY TIME. Patient has had 2 recent falls, and is extremely unsteady on his feet. Patient speaks softly, and answers with yes or no responses. 1:1 Patient Assessment and Interview Done. Patient voided in the toilet, but his Depends was saturated in urine when he awoke. Patient then ambulated to the Community Room to eat breakfast. Patient fed himself 100% of his Pureed Breakfast, then sat and watched TV until approximately 1000. Patient again toileted at that time, then again at least every 2 hours. Patients right heel has a healing DTI, with a light purple spot the size of a quarter, with layers of dry skin surround his heel. Will continue to monitor patient closely. S/I, H/I: Denies A/VH: Denies Sleep: 6.50 hours ADL's: Pt. requires direction and encouragement Group attendance: N/A Were meds taken: Yes, without hesitation. Any med S/E: None observed or reported. Mental Status Exam: Appearance: Elderly male, fair grooming, wearing green scrubs (edentulous) Eye contact: Fair Behavior: Cooperative. Guarded Speech: Whispers Mood: "Good" Affect: Blunted. Smiles at times. Thought process: Poverty of thought Thought Content: Poverty of Thought. Cognition: A&O x2 Insight: Poor Judgment: Poor Interventions PRN's used: None Therapeutic interventions: Maintained a safe and supportive environment, ensured contract for safety, provided direction and encouragement regarding ADLs with assistance as needed, monitored rt. heel and kept floated while in bed. Provided active listening and positive encouragement, and maintained Q 15min safety checks. MONITOR PT WHILE HE IS AMBULATING SINCE HE IS UNSTEADY Restraints/seclusion/emergency medication: N/A Justification of Continued Inpatient Treatment: Per RAYMON Hill, pt. continues to require a safe and supportive environment. Discharge per conservator.
[2021-08-29 20:09] VITALS: BP 128/83
--- NOTE | 2021-08-30 03:00 | NUR ---
Nursing Progress Note: Legal hold: TCon Client on involuntary status for GD Report received from ANNIE Jacob with use of SBAR: Why are they here: Pt was at [facility] from 06/08/21-07/12/21 for GD/failure to thrive. Pt was discharged, re-evaluated and placed on a 5150. He was readmitted to [facility] on day of discharge 07/12/21. Pt has a Hx of Schizophrenia, depression, and anxiety. Pt has intermittent CAH to kill himself, pt is depressed and anhedonic, he has severely declined in his ADLs. Pt has a DTI ulcer on his right heel. Plan is for him to be conserved. Assessment What has happened this shift: At the start of the shift, pt was up in the bathroom. He was able to get back to bed with observation. His gait is unsteady, bradykinesic, and shuffling. He does display some extrapyramydal-like effects of repetitive chewing despite no food in his mouth (on Benztropine) He responded appropriately to questions and denied any current discomfort. He is oriented to himself/situation and speaks softly (whispers). He denies any AH/VH or SI/HI. He took all his medicines whole in applesauce without any difficulty Labs 08/28/2021: UA: WNL CBC: WNL CMP Normal except AST: 47 ALT: 94 & Alk Phos: 132 S/I, H/I: Denies A/VH: Pt. denies any current hallucinations Sleep: Sleeping at the time of this note ADL's: Pt. requires direction and encouragement. MONITOR PT WHILE HE IS AMBULATING SINCE HE IS UNSTEADY Group attendance: N/A Were meds taken: Yes- whole with applesauce Any med S/E: None Mental Status Exam: Appearance: Elderly male, fair grooming, wearing green scrubs (edentulous) Eye contact: Fair Behavior: Cooperative, guarded, and withdrawn Speech: Whispers, minimal responses Mood: "Good" Affect: Blunted with brightening (smiled occasionally) Thought process: Poverty of thought Thought Content: Going to sleep Cognition: A&O to self and situation Insight: Poor Judgment: Poor Interventions PRN's used: None Therapeutic interventions: Maintained a safe and supportive environment, ensured contract for safety, provided direction and encouragement regarding ADLs with assistance as needed, monitored rt. heel and kept floated while in bed. Provided active listening and positive encouragement, and maintained Q 15min safety checks. Restraints/seclusion/emergency medication: N/A Justification of Continued Inpatient Treatment: Per RAYMON Hill, pt. continues to require a safe and supportive environment. Discharge per conservator.
[2021-08-30 08:00] VITALS: BP 101/74
[2021-08-30] MEDS: benztropine 1mg tablet PO SCH ×2 (08:16→20:04)
[2021-08-30] MEDS: lactose-reduced food (Ensure Enlive) - 237ml bottle PO SCH (08:16)
[2021-08-30] MEDS: docusate sod 100mg capsule PO SCH ×2 (08:16→20:04)
[2021-08-30] MEDS: venlafaxine XR 75mg capsule (Q24H) PO SCH (08:16)
[2021-08-30] MEDS: ziprasidone 20mg capsule PO SCH ×2 (08:17→20:04)
[2021-08-30] MEDS: polyethylene glycol 3350 17gm powd pack PO SCH (08:17)
[2021-08-30] MEDS: methylphenidate 5mg tablet PO SCH (08:27)
--- NOTE | 2021-08-30 15:52 | NUR ---
Group Art Tx, Continued: Patient was able to comprehend and complete the drawing fromt heart exercise. His drawing expressed a broken looking heart holding soft red and orange colors. Patient nodded he would be interested in working 1:1 to write via a board of education secretary/helper to complete the journaling. Please note:Based on this therapists observation,this is the most complete and emotional expression this patient has done since his admission and time in group art therapy. *Please refer to [facility] for a complete overview of todays session. Juju Gordon MA, HELPER SHEAR OPERATOR #[id number] [facility] Art Therapist Addendum: 08/30/21 at 1554 by Juju Gordon SS Amended: Links added.
--- NOTE | 2021-08-30 17:57 | NUR ---
Nursing Progress Note: Legal hold: TCon Client on involuntary status for GD Report received from ANNIE Jacob with use of SBAR: Why are they here: Pt was at [facility] from 06/08/21-07/12/21 for GD/failure to thrive. Pt was discharged, re-evaluated and placed on a 5150. He was readmitted to [facility] on day of discharge 07/12/21. Pt has a Hx of Schizophrenia, depression, and anxiety. Pt has intermittent CAH to kill himself, pt is depressed and anhedonic, he has severely declined in his ADLs. Pt has a DTI ulcer on his right heel. Plan is for him to be conserved. What happened this shift: Received patient while he was sleeping in his bed. Woke patient up to toilet and go to the dining room for his breakfast. Ambulated to toilet to void with the assist of 2 persons. Patient was unsteady on feet while walking from his bed to the toilet, and made multiple steps backwards and sideways. Patient was difficult without the assistance of two staff members. Patient was incontinent of urine in his Depends before taking him to the bathroom. Patient ate 100% of his breakfast without assistance. Patient picked up his pill cups from in front of him, and poured each pill cup into his mouth then took a drink of fluids, and continued with the 2 other cups of pills. Patient has been up all day. Spoke to RAYMON Kenny, and ordered a PT evaluation and treat, as he requires a walker at this time due to the past 3 days of 2 falls. Patient participated by coloring a heart in the afternoon group meeting, and enjoyed making a paper airplane and flying it across the Community Room. Patient had three bowel movements, and was toileted successfully multiple times throughout the day. S/I, H/I: Denies A/VH: Denies Sleep: 9.75 hours ADL's: Patient received a shower, oral care and a change of linen & socks. Group attendance: There was no morning Group Meeting, but patient attended and participated in the afternoon Group Art Meeting. Were meds taken: Yes, without hesitation. Patient picked up own pill cups (3 of them) and administered own medications. Any med S/E: None observed or reported. Mental Status Exam: Appearance: Elderly male, fair grooming, wearing green scrubs (edentulous) Eye contact: Fair Behavior: Cooperative. Speech: Speaking in sentences. Smiling and Laughing loudly. Mood: "Good" Affect: Thought process: Poverty of thought Thought Content: Speaking with his mother. Cognition: A&O to self and situation Insight: Poor Judgment: Poor Interventions PRN's used: None Therapeutic interventions: Maintained a safe and supportive environment, ensured contract for safety, provided direction and encouragement regarding ADLs with assistance as needed, monitored rt. heel and kept floated while in bed. Provided active listening and positive encouragement, and maintained Q 15min safety checks. Restraints/seclusion/emergency medication: N/A Justification of Continued Inpatient Treatment: Per RAYMON Hill, pt. continues to require a safe and supportive environment. Discharge per rafy.
[2021-08-30 20:57] VITALS: BP 117/85
--- NOTE | 2021-08-30 23:12 | NUR ---
Nursing Progress Note: Legal hold: TCon Client on involuntary status for GD Report received from ANNIE Lincoln with use of SBAR: Why are they here: Pt was at [facility] from 06/08/21-07/12/21 for GD/failure to thrive. Pt was discharged, re-evaluated and placed on a 5150. He was readmitted to [facility] on day of discharge 07/12/21. Pt has a Hx of Schizophrenia, depression, and anxiety. Pt has intermittent CAH to kill himself, pt is depressed and anhedonic, he has severely declined in his ADLs. Pt has a DTI ulcer on his right heel. Plan is for him to be conserved. What happened this shift: Pt was ambulating in the amos at change of shift. Spent time in the group room eating and sitting quietly Pt is pleasant, says he feels good and is smiling. Pt seems to have trouble with dexterity using smaller pill cup but was able to take his pills. S/I, H/I: Denies A/VH: Denies Sleep: 9.75 hours ADL's: Pt assisted with oral care Group attendance: No evening groups Were meds taken: Yes Any med S/E: None observed or reported. Mental Status Exam: Appearance: Elderly male, fair grooming, wearing green scrubs, poor dentition Eye contact: Fair Behavior: Cooperative. Speech: Speaking in sentences. Smiling and Laughing loudly. Mood: "Good" Affect: blunted Thought process: linear Thought Content: poverty of thought Cognition: A&O to self and situation Insight: Poor Judgment: Poor Interventions PRN's used: None Therapeutic interventions: Maintained a safe and supportive environment, ensured contract for safety, provided direction and encouragement regarding ADLs with assistance as needed, monitored rt. heel and kept floated while in bed. Provided active listening and positive encouragement, and maintained Q 15min safety checks. Restraints/seclusion/emergency medication: N/A Justification of Continued Inpatient Treatment: Per RAYMON Hill, pt. continues to require a safe and supportive environment. Discharge per rafy.
--- NOTE | 2021-08-31 07:28 | NUR ---
Reassessment: Pt PO ~100% avg of pureed/thin meals per pt request w/ double protein TIDWM per diet order in addition to ~100% avg vanilla ensure enlive. Current PO meal/ONS intake greatly exceeding estimated kcal/protein needs. Recommend d/c double protein TIDWM and ONS to help reduce excessive kcal/protein intake. LBM 2, receiving routine bowel care. Will continue to monitor. Recommendations: 1. Continue Puree diet as tolerated per pt request 2. Discontinue double protein TIDWM 3. Ensure Enlive PO daily per Physician, consider d/c 4. Bowel care per rx 5. Weekly wts Addendum: 08/31/21 at [address] Amended: Links added.
[2021-08-31] MEDS: polyethylene glycol 3350 17gm powd pack PO SCH (07:46)
[2021-08-31] MEDS: venlafaxine XR 75mg capsule (Q24H) PO SCH (07:50)
[2021-08-31] MEDS: ziprasidone 20mg capsule PO SCH ×2 (07:50→20:08)
[2021-08-31] MEDS: docusate sod 100mg capsule PO SCH ×2 (07:51→20:07)
[2021-08-31] MEDS: benztropine 1mg tablet PO SCH ×2 (07:51→20:08)
[2021-08-31] MEDS: methylphenidate 5mg tablet PO SCH (07:51)
[2021-08-31 07:52] VITALS: BP 121/75
[2021-08-31] MEDS: lactose-reduced food (Ensure Enlive) - 237ml bottle PO SCH (08:00)
--- NOTE | 2021-08-31 17:43 | NUR ---
Group Art Tx, Continued: Patient was engaged and participating at his currently functional level. He has been better able to follow the directives, although is unable to clearly identify or talk about his loss. He ed a picture of a house with a pencil... he noted when asked "I'ts just an ordinary house." No further conversations. *Please refer to [id number] for a complete overview of todays session. Juju Gordon MA, THERAPY AIDE #[id number] [facility] Art Therapist Addendum: 08/31/21 at 1744 by Juju Gordon SS Amended: Links added.
--- NOTE | 2021-08-31 18:00 | NUR ---
Nursing Progress Note: Cuong Legal hold: TCon Client on involuntary status for GD Report received from ANNIE Vasques with use of SBAR: Why are they here: Pt was at [facility] from 06/08/21-07/12/21 for GD/failure to thrive. Pt was discharged, re-evaluated and placed on a 5150. He was readmitted to [facility] on day of discharge 07/12/21. Pt has a Hx of Schizophrenia, depression, and anxiety. Pt has intermittent CAH to kill himself, pt is depressed and anhedonic, he has severely declined in his ADLs. Pt has a DTI ulcer on his right heel. Plan is for him to be conserved. What happened this shift: Patient received sleeping in bed at change of shift. He was awoken by staff to toilet and perform ADLs before breakfast. Patient was noted to be incontinent/ continent of urine. He was escorted to the community room by staff requiring one person assist with ambulation. He presents as unsteady with a shuffled gait. Patient observed sitting in the community room watching television until breakfast arrived. He was receptive to routine medication. Patient was observed eating his breakfast without assistance. Patient received shower this morning requiring assistance from staff. He was dressed in clean clothing with clean linen applied to bed. 1:1 assessment completed, lungs CTA. Patient denies SI/HI, AH or VH. Does not appear to be responding to internal stimuli. He was observed sleeping in his room later in the morning until lunch arrived. Patient continues to present as withdrawn and self-isolative throughout the day. He communicates in very low tone whispers. He was observed participating in group therapy later in the day. Oral care provided to patient by staff. Patients feet were cleaned per ADL care and left out to air and floating while in bed. Patient observed sleeping in his room between meals and group therapy today. He joined for all meal/snack times in the community room. S/I, H/I: Denies A/VH: Denies. Does not appear to be responding to IS. Sleep: Slept 7.25 hours last night per NOC shift. Napped intermittently throughout the day. ADL's: Patient received a shower, oral care and a change of linen & socks. Requires one person assist. Group attendance: Yes Were meds taken: Yes, without hesitation. Any med S/E: None observed or reported. Mental Status Exam: Appearance: Clean, showered this shift. Elderly male, fair grooming, wearing green scrubs (edentulous) Eye contact: Fair Behavior: Cooperative, quiet, self-isolative Speech: Speaking in very low tone whispers Mood: "Good" Affect: Flat Thought process: Poverty of thought Thought Content: Meeting needs. Cognition: A&O to self and situation Insight: Poor Judgment: Poor Interventions PRN's used: None Therapeutic interventions: Maintained a safe and supportive environment, ensured contract for safety, provided direction and encouragement regarding ADLs with assistance as needed, monitored rt. heel and kept floated while in bed. Provided active listening and positive encouragement, and maintained Q 15min safety checks. Restraints/seclusion/emergency medication: N/A Justification of Continued Inpatient Treatment: Patient continues to require a safe and supportive environment. Discharge per conservator.
[2021-08-31 20:00] VITALS: BP 108/66
--- NOTE | 2021-09-01 00:35 | NUR ---
Nursing Progress Note: Legal hold: TCon Client on involuntary status for GD Report received from ANNIE Harmon with use of SBAR: Why are they here: Pt was at [facility] from 06/08/21-07/12/21 for GD/failure to thrive. Pt was discharged, re-evaluated and placed on a 5150. He was readmitted to [facility] on day of discharge 07/12/21. Pt has a Hx of Schizophrenia, depression, and anxiety. Pt has intermittent CAH to kill himself, pt is depressed and anhedonic, he has severely declined in his ADLs. Pt has a DTI ulcer on his right heel. Plan is for him to be conserved. Assessment What has happened this shift: Received pt in the bathroom. Pt has steady gait and is not requiring assistance. Pt remained in his room all shift. Pt cooperative with assessment and medications. Pt asleep by 2030. S/I, H/I: Denies A/VH: Pt. denies any current hallucinations Sleep: Sleeping at the time of this note ADL's: Pt. requires direction and encouragement. MONITOR PT WHILE HE IS AMBULATING SINCE HE IS UNSTEADY Group attendance: N/A Were meds taken: Yes- whole with applesauce Any med S/E: None Mental Status Exam: Appearance: Elderly male, fair grooming, wearing green scrubs (edentulous) Eye contact: Fair Behavior: Cooperative, guarded, and withdrawn Speech: Whispers, minimal responses Mood: "Good" Affect: Blunted with brightening (smiled occasionally) Thought process: Poverty of thought Thought Content: Going to sleep Cognition: A&O to self and situation Insight: Poor Judgment: Poor Interventions PRN's used: None Therapeutic interventions: Maintained a safe and supportive environment, ensured contract for safety, provided direction and encouragement regarding ADLs with assistance as needed, monitored rt. heel and kept floated while in bed. Provided active listening and positive encouragement, and maintained Q 15min safety checks. Restraints/seclusion/emergency medication: N/A Justification of Continued Inpatient Treatment: Per RAYMON Hill, pt. continues to require a safe and supportive environment. Discharge per rafy.
[2021-09-01 07:52] VITALS: BP 127/78
[2021-09-01] MEDS: venlafaxine XR 75mg capsule (Q24H) PO SCH (07:56)
[2021-09-01] MEDS: docusate sod 100mg capsule PO SCH ×2 (07:57→20:53)
[2021-09-01] MEDS: methylphenidate 5mg tablet PO SCH (07:57)
[2021-09-01] MEDS: benztropine 1mg tablet PO SCH ×2 (07:57→20:53)
[2021-09-01] MEDS: ziprasidone 20mg capsule PO SCH ×2 (07:57→20:53)
[2021-09-01] MEDS: polyethylene glycol 3350 17gm powd pack PO SCH (07:57)
[2021-09-01 08:00] VITALS: BP_SYST 131; BP_SYST 135; BP_SYST 138; BP_DIAS 84; BP_DIAS 86; BP_DIAS 93
[2021-09-01] MEDS: lactose-reduced food (Ensure Enlive) - 237ml bottle PO SCH ×2 (08:00→08:24)
--- NOTE | 2021-09-01 09:01 | NUR ---
PLACEMENT UPDATE Andria from [facility] reported Cuong's packet is currently at [facility], [facility], and [facility]. [facility]. She reported he has been denied at all of the [place] facilities ([facility], [place], etc). Sent updated notes (08/17/21-08/31/21) to Andria. WELLINGTON Pearson
--- NOTE | 2021-09-01 16:12 | NUR ---
Nursing Progress Note: Legal hold: TCon Client on involuntary status for GD Report received from ANNIE Vasques with use of SBAR: Why are they here: Pt was at [facility] from 06/08/21-07/12/21 for GD/failure to thrive. Pt was discharged, re-evaluated and placed on a 5150. He was readmitted to [facility] on day of discharge 07/12/21. Pt has a Hx of Schizophrenia, depression, and anxiety. Pt has intermittent CAH to kill himself, pt is depressed and anhedonic, he has severely declined in his ADLs. Pt has a DTI ulcer on his right heel. Plan is for him to be conserved. What happened this shift: Pt was sleeping at change of shift. Today washed pts feet and applied barrier cream for dry cracked feet. Taught pt to use walker due to recent falls. Pt displayed good technique walking with walker and walking faster. Pts conservator called today and spoke with pt. She told him his hearing will be tomorrow in [facility] court. Pt declined desiring to attend court via web camera. Pt ambulating on his own and laid self in bed. Pt needed help positioning himself in bed and floating heels. Pt encouraged and set up for oral care.. S/I, H/I: Denies A/VH: Denies. Does not appear to be responding to IS. Sleep: Napped intermittently throughout the day. ADL's: Patient received a shower, oral care and a change of linen & socks. Requires one person assist. Group attendance: Yes Were meds taken: Yes, without hesitation. Any med S/E: None observed or reported. Mental Status Exam: Appearance: Clean, showered this shift. Elderly male, fair grooming, wearing green scrubs (edentulous) Eye contact: Fair Behavior: Cooperative, quiet, self-isolative Speech: Speaking in very low tone whispers Mood: "Good" Affect: Flat Thought process: Poverty of thought Thought Content: Meeting needs. Cognition: A&O to self and situation Insight: Poor Judgment: Poor Interventions PRN's used: None Therapeutic interventions: Maintained a safe and supportive environment, ensured contract for safety, provided direction and encouragement regarding ADLs with assistance as needed, monitored rt. heel and kept floated while in bed. Provided active listening and positive encouragement, and maintained Q 15min safety checks. Restraints/seclusion/emergency medication: N/A Justification of Continued Inpatient Treatment: Patient continues to require a safe and supportive environment. Discharge per conservator.
[2021-09-01 19:52] VITALS: BP 101/79
[2021-09-01 20:00] VITALS: BP_SYST 113; BP_SYST 128; BP_DIAS 73; BP_DIAS 78; BP_DIAS 80
[2021-09-01] MEDS: traZODone 50mg tablet PO PRN (20:53)
--- NOTE | 2021-09-02 01:30 | NUR ---
Nursing Progress Note: Legal hold: TCon Client on involuntary status for GD Report received from ANNIE Mata with use of SBAR: Why are they here: Pt was at [facility] from 06/08/21-07/12/21 for GD/failure to thrive. Pt was discharged, re-evaluated and placed on a 5150. He was readmitted to [facility] on day of discharge 07/12/21. Pt has a Hx of Schizophrenia, depression, and anxiety. Pt has intermittent CAH to kill himself, pt is depressed and anhedonic, he has severely declined in his ADLs. Pt has a DTI ulcer on his right heel. Plan is for him to be conserved. What happened this shift: Patient finishing his dinner at the beginning of shift. Pleasant and cooperative with care; compliant with medication. Patient denies SI, HI, A/VH; endorsed depression. Patient provided oral care and changed into clean scrubs prior to bed. Wound care to R heel completed; wound appears to be healing with no s/s of infection and patient denies discomfort. Lotion applied to both feet and clean socks applied. Patient is self initiating care and asking for help when needed. He continues to ambulate well with FFW. Observed sleeping and does not appear to be having difficulty. S/I, H/I: Denies A/VH: Denies Sleep: Refer to sleep assessment ADL's: Requires some assistance with hygiene and grooming, ambulates with FFW Group attendance: NA Were meds taken: Yes Any med S/E: None observed or reported Mental Status Exam: Appearance: Neat and appropriately dressed in green unit attire Eye contact: Good Behavior: Pleasant and cooperative, self-isolative Speech: Clear, quiet, minimal Mood: "Good" Affect: Flat Thought process: Poverty of thought Thought Content: Meeting needs Cognition: A&O to self and situation Insight: Poor Judgment: Poor Interventions PRN's used: None Therapeutic interventions: Maintained a safe and supportive environment, ensured contract for safety, provided direction and encouragement regarding ADLs with assistance as needed, monitored rt. heel and kept floated while in bed. Provided active listening and positive encouragement, and maintained Q 15min safety checks. Restraints/seclusion/emergency medication: NA Justification of Continued Inpatient Treatment: Patient continues to require a safe and supportive environment. Discharge per conservator.
[2021-09-02 07:52] VITALS: BP 121/72
[2021-09-02 08:00] VITALS: BP_SYST 134; BP_SYST 136; BP_SYST 148; BP_DIAS 82; BP_DIAS 87; BP_DIAS 91
[2021-09-02] MEDS: ziprasidone 20mg capsule PO SCH ×2 (08:22→20:35)
[2021-09-02] MEDS: methylphenidate 5mg tablet PO SCH (08:22)
[2021-09-02] MEDS: benztropine 1mg tablet PO SCH ×2 (08:22→20:35)
[2021-09-02] MEDS: polyethylene glycol 3350 17gm powd pack PO SCH (08:22)
[2021-09-02] MEDS: venlafaxine XR 75mg capsule (Q24H) PO SCH (08:22)
[2021-09-02] MEDS: docusate sod 100mg capsule PO SCH ×2 (08:22→20:35)
--- NOTE | 2021-09-02 17:39 | NUR ---
Nursing Progress Note: Cuong Legal hold: TCon Client on involuntary status for GD Report received from Ernestina Alberts RN with use of SBAR: Why are they here: Pt was at [facility] from 06/08/21-07/12/21 for GD/failure to thrive. Pt was discharged, re-evaluated and placed on a 5150. He was readmitted to [facility] on day of discharge 07/12/21. Pt has a Hx of Schizophrenia, depression, and anxiety. Pt has intermittent CAH to kill himself, pt is depressed and anhedonic, he has severely declined in his ADLs. Pt has a DTI ulcer on his right heel. Plan is for him to be conserved. What happened this shift: Patient received sleeping in his room at shift change. He was awoken to eat breakfast in his room. Patient noted to be in good-spirits, smiling and laughing with staff on this shift. 1:1 assessment completed, lungs CTA. He was receptive to routine medication. Patient continues requiring standby assist with transfers and ambulation. Patient noted to be unsteady on his feet, having to catch himself from falling while ambulating between his bed and the bathroom. Staff assisted patient to sit down in chair next to his bed. Oral care provided to patient by staff. Patients feet were cleaned per ADL care and left out to air and floating while in bed. Patient endorsed that he is feeling the same, just tired. Patient ate all meals today without assistance. He denies SI/HI, AH or VH. Does not appear to be responding to internal stimuli. Patient continues to present as withdrawn and self-isolative throughout the day. He communicates in very low tone whispers. Patient observed sleeping in his room most of the day aside from meal and snack times. S/I, H/I: Denies A/VH: Denies. Does not appear to be responding to IS. Sleep: Slept 6.75 hours last night per NOC shift. Napped intermittently throughout the day. ADL's: Requires prompting and one person assist. Group attendance: None provided Were meds taken: Yes, without hesitation. Any med S/E: None observed or reported. Mental Status Exam: Appearance: Elderly male, fair grooming, wearing green scrubs (edentulous) Eye contact: Fair Behavior: Cooperative, quiet, self-isolative Speech: Speaking in very low tone whispers Mood: Feeling the same, just tired. Affect: Flat Thought process: Poverty of thought Thought Content: Meeting needs. Cognition: A&O to self and situation Insight: Poor Judgment: Poor Interventions PRN's used: None Therapeutic interventions: Maintained a safe and supportive environment, ensured contract for safety, provided direction and encouragement regarding ADLs with assistance as needed, monitored rt. heel and kept floated while in bed. Provided active listening and positive encouragement, and maintained Q 15min safety checks. Restraints/seclusion/emergency medication: N/A Justification of Continued Inpatient Treatment: Patient continues to require a safe and supportive environment. Discharge per conservator. Per RAYMON Go, no change in medication or treatment plan at this time patient is awaiting placement.
[2021-09-02 19:57] VITALS: BP 109/64
[2021-09-02 20:00] VITALS: BP_SYST 113; BP_SYST 122; BP_SYST 130; BP_DIAS 71; BP_DIAS 72; BP_DIAS 76
[2021-09-02] MEDS: traZODone 50mg tablet PO PRN (20:35)
--- NOTE | 2021-09-03 02:19 | NUR ---
Nursing Progress Note: Legal hold: TCon Client on involuntary status for GD Report received from ANNIE Mata with use of SBAR: Why are they here: Pt was at [facility] from 06/08/21-07/12/21 for GD/failure to thrive. Pt was discharged, re-evaluated and placed on a 5150. He was readmitted to [facility] on day of discharge 07/12/21. Pt has a Hx of Schizophrenia, depression, and anxiety. Pt has intermittent CAH to kill himself, pt is depressed and anhedonic, he has severely declined in his ADLs. Pt has a DTI ulcer on his right heel. Plan is for him to be conserved. What happened this shift: Patient sitting up in his ed at the beginning of shift. Pleasant and cooperative with care; compliant with medication. Orthostatic VSS and ambulating well with FFW (needs some reminders to use FFW). He was joking with fha underwriter this shift and denies SI, HI, A/VH. Patient participated in HS snack in the community room and continued to watch TV with peers. Staff assisted with hygiene care prior to bed; observed sleeping and does not appear to be having difficulty. S/I, H/I: Denies A/VH: Denies Sleep: Refer to sleep assessment ADL's: Requires some assistance with hygiene and grooming, ambulates with FFW Group attendance: NA Were meds taken: Yes Any med S/E: None observed or reported Mental Status Exam: Appearance: Neat and appropriately dressed in green unit attire Eye contact: Good Behavior: Pleasant and cooperative, active on the unit Speech: Clear, quiet, minimal Mood: "Good" Affect: Congruent Thought process: Linear Thought Content: Meeting needs Cognition: A&O to self and situation Insight: Poor Judgment: Poor Interventions PRN's used: None Therapeutic interventions: Maintained a safe and supportive environment, ensured contract for safety, provided direction and encouragement regarding ADLs with assistance as needed, monitored rt. heel and kept floated while in bed. Provided active listening and positive encouragement, and maintained Q 15min safety checks. Restraints/seclusion/emergency medication: NA Justification of Continued Inpatient Treatment: Patient continues to require a safe and supportive environment. Discharge per conservator.
[2021-09-03 07:40] VITALS: BP 129/77
[2021-09-03 08:00] VITALS: BP_SYST 100; BP_SYST 110; BP_DIAS 70; BP_DIAS 80
[2021-09-03] MEDS: docusate sod 100mg capsule PO SCH ×2 (08:10→20:08)
[2021-09-03] MEDS: lactose-reduced food (Ensure Enlive) - 237ml bottle PO SCH (08:10)
[2021-09-03] MEDS: polyethylene glycol 3350 17gm powd pack PO SCH (08:10)
[2021-09-03] MEDS: ziprasidone 20mg capsule PO SCH ×2 (08:10→20:08)
[2021-09-03] MEDS: benztropine 1mg tablet PO SCH ×2 (08:10→20:09)
[2021-09-03] MEDS: venlafaxine XR 75mg capsule (Q24H) PO SCH (08:10)
[2021-09-03] MEDS: methylphenidate 5mg tablet PO SCH (08:11)
--- NOTE | 2021-09-03 14:42 | NUR ---
Nursing Progress Note: Legal hold: TCon Client on involuntary status for GD Report received from nurse with use of SBAR: Ernestina Alberts RN Why are they here: Pt was at [facility] from 06/08/21-07/12/21 for GD/failure to thrive. Pt was discharged, re-evaluated and placed on a 5150. He was readmitted to [facility] on day of discharge 07/12/21. Pt has a Hx of Schizophrenia, depression, and anxiety. Pt has intermittent CAH to kill himself, pt is depressed and anhedonic, he has severely declined in his ADLs. Pt has a DTI ulcer on his right heel. Plan is for him to be conserved. Assessment What has happened this shift: Received pt. sleeping in bed at the beginning of the shift, he awoke and greeted this poem writer animatedly. Pt. continues to be able to eat independently with set-up help only from staff. He also continues to be more present on the unit, and was observed to be watching TV in the Recreation Room throughout much of the morning, but remains withdrawn from others. 1:1 was completed at bedside in the afternoon. Pt. denies any command A/RUBY this shift which have been an ongoing struggle for him. He also denies any other MH s/s, and his speech volume has improved although he continues to respond to direct questions only with a minimal response. Fall precautions remain in place, and pt. continues to exhibit some unsteadiness on his feet requiring stand-by assistance with transfers. Pt. must be reminded to use his FWW. Orthostatic V/S were completed and were WNL. Pt's unsteadiness appeared to increase after lunch possibly r/t fatigue. He required assistance changing his clothes, and then completely lost his balance falling backwards onto the bed. This poem writer was at bedside and helped to guide pt. to sit on the bed. Pt. was encouraged to nap and agreed, oral care was provided and pt's socks were removed and his were floated while in bed. Will continue to monitor. S/I, H/I: Denies A/VH: Pt. denies, does not appear to be responding to internal stimuli Sleep: Sleep hours are 6.75, and pt. naps intermittently ADL's: Pt. requires direction and encouragement. He requires stand-by assistance with transfers and a FWW r/t ongoing weakness/unsteadiness and fall precautions. Group attendance: N/A Were meds taken: Yes Any med S/E: None Mental Status Exam Appearance: Hair and clothing disheveled Eye contact: Good Behavior: Cooperative, guarded, and withdrawn Speech: Soft, however volume has improved. Pt. responds to closed-ended questions with a minimal response. Mood: Guarded, however pleasant Affect: Blunted with brightening Thought process: Poverty of thought with possible thought blocking Thought Content: Goal oriented Cognition: A&O x4 Insight: Poor Judgment: Poor Interventions PRN's used: None Therapeutic interventions: Maintained a safe and supportive environment, ensured contract for safety, maintained fall precautions and provided stand-by assistance with transfers, monitored rt. heel and floated heels while in bed, obtained orthostatic V/S per orders, continued to encourage Q2 hour toileting and monitored for incontinence episodes, provided active listening and positive encouragement, encouraged participation on the unit, and maintained Q 15min safety checks. Restraints/seclusion/emergency medication: N/A Justification of Continued Inpatient Treatment: Per Dr. Byrd, pt. continues to require medication adjustments due to blood pressure issues and a safe and supportive environment.
[2021-09-03 19:40] VITALS: BP 130/77
[2021-09-03 19:54] VITALS: BP_SYST 113; BP_SYST 115; BP_SYST 129; BP_DIAS 64; BP_DIAS 77; BP_DIAS 80
[2021-09-03] MEDS: traZODone 50mg tablet PO PRN (20:08)
--- NOTE | 2021-09-04 02:55 | NUR ---
Nursing Progress Note: Legal hold: TCON Client on involuntary status for GD Report received from ANNIE Mata with use of SBAR: Why are they here: Pt was at [facility] from 06/08/21-07/12/21 for GD/failure to thrive. Pt was discharged, re-evaluated and placed on a 5150. He was readmitted to [facility] on day of discharge 07/12/21. Pt has a Hx of Schizophrenia, depression, and anxiety. Pt has intermittent CAH to kill himself, pt is depressed and anhedonic, he has severely declined in his ADLs. Pt has a DTI ulcer on his right heel. Plan is for him to be conserved. What happened this shift: Patient finishing his dinner in his room at the beginning of shift. Pleasant and cooperative with care; compliant with medication. Orthostatic VSS this shift. Denies SI, HI, A/VH. He continues to joke and laugh with staff. Patient briefly walked the unit and watched TV. One urinary incontinent episode this shift. Foot care and oral care provided prior to bed; observed sleeping and does not appear to be having difficulty. S/I, H/I: Denies A/VH: Denies Sleep: Refer to sleep assessment ADL's: Requires some assistance with hygiene and grooming, ambulates with FFW Group attendance: NA Were meds taken: Yes Any med S/E: None observed or reported Mental Status Exam: Appearance: Neat and appropriately dressed in green unit attire Eye contact: Good Behavior: Pleasant and cooperative, social with staff Speech: Clear, quiet, minimal Mood: "Good" Affect: Congruent Thought process: Linear Thought Content: Meeting needs Cognition: A&O to self and situation Insight: Poor Judgment: Poor Interventions PRN's used: None Therapeutic interventions: Maintained a safe and supportive environment, ensured contract for safety, provided direction and encouragement regarding ADLs with assistance as needed, monitored rt. heel and kept floated while in bed. Provided active listening and positive encouragement, and maintained Q 15min safety checks. Restraints/seclusion/emergency medication: NA Justification of Continued Inpatient Treatment: Patient continues to require a safe and supportive environment.
[2021-09-04 07:00] VITALS: BP 111/77
[2021-09-04 07:44] VITALS: BP 113/74
[2021-09-04] MEDS: polyethylene glycol 3350 17gm powd pack PO SCH (08:20)
[2021-09-04] MEDS: methylphenidate 5mg tablet PO SCH (08:21)
[2021-09-04] MEDS: venlafaxine XR 75mg capsule (Q24H) PO SCH (08:21)
[2021-09-04] MEDS: ziprasidone 20mg capsule PO SCH ×2 (08:21→20:19)
[2021-09-04] MEDS: benztropine 1mg tablet PO SCH ×2 (08:22→20:19)
[2021-09-04] MEDS: docusate sod 100mg capsule PO SCH ×2 (08:22→20:19)
[2021-09-04] MEDS: lactose-reduced food (Ensure Enlive) - 237ml bottle PO SCH (08:22)
[2021-09-04 08:29] LABS: BASOPHILS % (AUTO) 0.4 % (0-1); EOSINOPHILS # (AUTO) 0.1 X10'3 (0-0.9); EOSINOPHILS % (AUTO) 2.7 % (0-6); HEMATOCRIT 39.5 % (42.0-52.0); HEMOGLOBIN 13.6 g/dl (14.0-17.9); LYMPHOCYTES # (AUTO) 1.6 X10'3 (1.1-4.8); LYMPHOCYTES % (AUTO) 37.3 % (21-51); MEAN CORPUSCULAR HEMOGLOBIN 31.8 PG (27.0-31.0); MEAN CORPUSCULAR HGB CONC 34.6 g/dL (33.0-36.5); MEAN CORPUSCULAR VOLUME 92.1 FL (78-98); MEAN PLATELET VOLUME 7.4 FL (7.4-10.4); MONOCYTES # (AUTO) 0.5 X10'3 (0-0.9); MONOCYTES % (AUTO) 10.8 % (2-12); NEUTROPHILS # (AUTO) 2.1 X10'3 (1.8-7.7); NEUTROPHILS % (AUTO) 48.8 % (42-75); PLATELET COUNT 144 X10'3 (140-440); RED BLOOD COUNT 4.28 X10'6 (4.70-6.10); RED CELL DISTRIBUTION WIDTH 13.3 % (11.5-14.5); WHITE BLOOD COUNT 4.3 X10'3 (4.5-11.0)
[2021-09-04 08:49] LABS: ALANINE AMINOTRANSFERASE 97 U/L (12-78); ALBUMIN 3.4 G/DL (3.4-5.0); ALBUMIN/GLOBULIN RATIO 0.9 (1.1-1.5); ALKALINE PHOSPHATASE 145 IU/L (46-116); ASPARTATE AMINO TRANSFERASE 46 U/L (10-37); BILIRUBIN,DIRECT 0.2 MG/DL (0-0.3); BILIRUBIN,TOTAL 0.3 MG/DL (0.1-1.0); TOTAL PROTEIN 7.3 G/DL (6.4-8.2)
--- NOTE | 2021-09-04 09:48 | NUR ---
ORTHOSTATIC VITALS Supine: 111/77 HR: 81 Sittin/79 HR: 84 Standin/74. HR 87 Patient reports that he gets dizzy with standing.
--- NOTE | 2021-09-04 18:19 | NUR ---
Nursing Progress Note: Legal hold: T-Con Client on involuntary status for GD Report received from nurse with use of SBAR: Ernestina Alberts RN Why are they here: Pt was at [facility] from 06/08/21-07/12/21 for GD/failure to thrive. Pt was discharged, re-evaluated and placed on a 5150. He was readmitted to [facility] on day of discharge 07/12/21. Pt has a Hx of Schizophrenia, depression, and anxiety. Pt has intermittent CAH to kill himself, pt is depressed and anhedonic, he has severely declined in his ADLs. Pt has a DTI ulcer on his right heel. Plan is for him to be conserved. Assessment What has happened this shift: Received patient sleeping in bed at shift change. Breakfast is served in the patients room, and he is able to eat independently. Orthostatic vitals were performed and were WNL, although patient reports dizziness with standing. Patient takes his medications without hesitation. A&D ointment applied to right heel, which is healing well. Patient does have some tardive dyskinesia AEB abnormal mouth movements, patient is on Cogentin 1 mg b.i.d. Patient denies AVH. Patient is eating well and had a BM today. Patient has to be reminded to use walker. S/I, H/I: Denies A/VH: Pt. denies, does not appear to be responding to internal stimuli Sleep: Sleep hours are 7.5, and pt. naps intermittently ADL's: Pt. requires direction and encouragement. He requires stand-by assistance with transfers and a FWW r/t ongoing weakness/unsteadiness and fall precautions. Group attendance: N/A Were meds taken: Yes Any med S/E: None Mental Status Exam Appearance: male with salt and pepper hair wearing green scrubs. Eye contact: Good Behavior: Cooperative, withdrawn Speech: Soft. Pt. responds to closed-ended questions with a minimal response. Mood: Pleasant. Affect: Blunted. Thought process: Poverty of thought with possible thought blocking Thought Content: Goal oriented Cognition: A&O x4 Insight: Poor Judgment: Poor Interventions PRN's used: None Therapeutic interventions: Maintained a safe and supportive environment, ensured contract for safety, maintained fall precautions and provided stand-by assistance with transfers, monitored rt. heel and floated heels while in bed, obtained orthostatic V/S per orders, continued to encourage Q2 hour toileting and monitored for incontinence episodes, provided active listening and positive encouragement, encouraged participation on the unit, and maintained Q 15min safety checks. Restraints/seclusion/emergency medication: N/A Justification of Continued Inpatient Treatment: Per Dr. Byrd, pt. continues to require medication adjustments and a safe and supportive environment.
[2021-09-04 19:48] VITALS: BP 107/69
[2021-09-04 19:55] VITALS: BP 107/69
[2021-09-04 19:56] VITALS: BP 116/81
[2021-09-04 19:57] VITALS: BP 102/71
--- NOTE | 2021-09-05 01:36 | NUR ---
Nursing Progress Note: Legal hold: T-Con Client on involuntary status for GD Report received from nurse with use of SBAR: Ernestina Alberts RN Why are they here: Pt was at [facility] from 06/08/21-07/12/21 for GD/failure to thrive. Pt was discharged, re-evaluated and placed on a 5150. He was readmitted to [facility] on day of discharge 07/12/21. Pt has a Hx of Schizophrenia, depression, and anxiety. Pt has intermittent CAH to kill himself, pt is depressed and anhedonic, he has severely declined in his ADLs. Pt has a DTI ulcer on his right heel. Plan is for him to be conserved. Assessment What has happened this shift: Received patient sleeping in bed at shift change Up to group room for snack. Pt says he hears voices telling him to kill himself. He said if he was to kill himself he would use a rope. When asked where he would like to go when he leaves here he said "[place] it was [place] to [place] it [place]." Orthostatic vitals were performed and were WNL, Patient takes his medications without hesitation. S/I, H/I: Denies A/VH: Pt says he hears voices telling him to kill himself. Sleep:sleeping at this time ADL's: Pt. requires direction and encouragement. He independently transferred from bed to FWW and ambulated to group room. Group attendance: N/A Were meds taken: Yes Any med S/E: None Mental Status Exam Appearance: male with salt and pepper hair wearing green scrubs. Eye contact: Good Behavior: Cooperative, withdrawn Speech: Soft. Pt. more talkative this shift than in past Mood: Pleasant. Affect: Blunted. Thought process: Slow but linear Thought Content: Goal oriented Cognition: A&O x4 Insight: Poor Judgment: Poor Interventions PRN's used: None Therapeutic interventions: Maintained a safe and supportive environment, ensured contract for safety, maintained fall precautions and provided stand-by assistance with transfers, monitored rt. heel and floated heels while in bed, obtained orthostatic V/S per orders, continued to encourage Q2 hour toileting and monitored for incontinence episodes, provided active listening and positive encouragement, encouraged participation on the unit, and maintained Q 15min safety checks. Restraints/seclusion/emergency medication: N/A Justification of Continued Inpatient Treatment: Per Dr. Byrd, pt. continues to require medication adjustments and a safe and supportive environment.
[2021-09-05 07:41] VITALS: BP_SYST 119; BP_SYST 131; BP_SYST 135; BP_DIAS 72; BP_DIAS 74; BP_DIAS 82
[2021-09-05 08:00] VITALS: BP 119/72
[2021-09-05] MEDS: lactose-reduced food (Ensure Enlive) - 237ml bottle PO SCH (08:36)
[2021-09-05] MEDS: venlafaxine XR 75mg capsule (Q24H) PO SCH (08:44)
[2021-09-05] MEDS: ziprasidone 20mg capsule PO SCH ×2 (08:44→20:04)
[2021-09-05] MEDS: docusate sod 100mg capsule PO SCH ×2 (08:44→20:04)
[2021-09-05] MEDS: benztropine 1mg tablet PO SCH ×2 (08:45→20:04)
[2021-09-05] MEDS: polyethylene glycol 3350 17gm powd pack PO SCH (08:45)
[2021-09-05] MEDS: methylphenidate 5mg tablet PO SCH (08:45)
--- NOTE | 2021-09-05 13:44 | NUR ---
Nursing Progress Note: Legal hold: TCon Client on involuntary status for GD Report received from nurse with use of SBAR: ANNIE Dotson Why are they here: Pt was at [facility] from 06/08/21-07/12/21 for GD/failure to thrive. Pt was discharged, re-evaluated and placed on a 5150. He was readmitted to [facility] on day of discharge 07/12/21. Pt has a Hx of Schizophrenia, depression, and anxiety. Pt has intermittent CAH to kill himself, pt is depressed and anhedonic, he has severely declined in his ADLs. Pt has a DTI ulcer on his right heel. Plan is for him to be conserved. Assessment What has happened this shift: Received pt. sleeping in bed at the beginning of the shift, he required stand-by transfer to use the bathroom before returning back to bed. Pt. continues to be able to eat independently with set-up help only from staff. 1:1 was completed after breakfast at bedside, pt. denies any S/I, but does report some ongoing depression and is also reporting command A/RUBY that tell him to hurt himself. These H/A appear to be intermittent, as pt. denies them some days, but reports them others. Pt's speech clarity and volume continue to improve, however he continues to exhibit paucity of verbal output. Fall precautions remain in place, and pt. continues to exhibit some unsteadiness on his feet requiring stand-by assistance with transfers. Pt. must be reminded to use his FWW. Orthostatic V/S were completed and were WNL. Pt. was incontinent X1 this shift, and he continues to require moderate assistance to perform ADLs including changing his clothes and oral care. S/I, H/I: Denies A/VH: Pt. reports command A/RUBY which tell him to hurt himself Sleep: Sleep hours are 6.25, and pt. naps intermittently ADL's: Pt. requires direction and encouragement. He requires stand-by assistance with transfers and a FWW r/t ongoing weakness/unsteadiness and fall precautions. Group attendance: N/A Were meds taken: Yes Any med S/E: Some ongoing tardive dyskinesia AEB involuntary mouth movements, pt. continues to take Cogentin. Mental Status Exam Appearance: Hair and clothing disheveled Eye contact: Good Behavior: Cooperative, guarded, and withdrawn Speech: Soft, however volume and clarity have improved. Pt. responds to closed-ended questions with a minimal response and paucity of verbal output. Mood: Guarded, however pleasant Affect: Blunted with brightening Thought process: Poverty of thought with possible thought blocking Thought Content: Goal oriented Cognition: A&O x4 Insight: Poor Judgment: Poor Interventions PRN's used: None Therapeutic interventions: Maintained a safe and supportive environment, ensured contract for safety, maintained fall precautions and provided stand-by assistance with transfers, monitored rt. heel and floated heels while in bed, obtained orthostatic V/S per orders, continued to encourage Q2 hour toileting and monitored for incontinence episodes, provided active listening and positive encouragement, encouraged participation on the unit, and maintained Q 15min safety checks. Restraints/seclusion/emergency medication: N/A Justification of Continued Inpatient Treatment: Per RAYMON Go pt. continues to require a safe and supportive environment and is currently at baseline.
[2021-09-05 20:00] VITALS: BP 109/73
[2021-09-05 21:59] VITALS: BP 109/73
[2021-09-05 22:00] VITALS: BP 122/81
[2021-09-05 22:01] VITALS: BP 106/78
--- NOTE | 2021-09-06 00:02 | NUR ---
Nursing Progress Note: Legal hold: TCon Client on involuntary status for GD Report received from nurse with use of SBAR: TAVARES Mata Why are they here: Pt was at [facility] from 06/08/21-07/12/21 for GD/failure to thrive. Pt was discharged, re-evaluated and placed on a 5150. He was readmitted to [facility] on day of discharge 07/12/21. Pt has a Hx of Schizophrenia, depression, and anxiety. Pt has intermittent CAH to kill himself, pt is depressed and anhedonic, he has severely declined in his ADLs. Pt has a DTI ulcer on his right heel. Plan is for him to be conserved. Assessment What has happened this shift: Pt sitting in room eating at start of shift. Pt eats extremely slowly but ultimately ate 100% of dinner. Pt then ambulated independently to Group room watched basketball game with other pts. Pt scrub top had food on it and his hair looks dirty. Unable to convince pt to take a shower but did allow scrub top changed. Orthostatic V/S were completed and were WNL. Pt describes mood as good denies A/H at this time. Independently went to bathroom, no episodes of incontinence so far this shift. Lotion applied to both heels and feet. Heels elevated off bed with a pillow. Pt stated "the boot is uncomfortable." Oral care performed by staff before pt went to sleep. S/I, H/I: Denies A/VH: "Not right now" Sleep: asleep at this time ADL's: Pt. requires direction and encouragement. He requires stand-by assistance with transfers and a FWW r/t ongoing weakness/unsteadiness and fall precautions. Group attendance: N/A Were meds taken: Yes Any med S/E: Some ongoing tardive dyskinesia AEB involuntary mouth movements, pt. continues to take Cogentin. Mental Status Exam Appearance: Hair and clothing disheveled Eye contact: Good Behavior: Cooperative, guarded, and withdrawn Speech: Soft, however volume and clarity have improved. Pt. responds to closed-ended questions with a minimal response and paucity of verbal output. Mood: Guarded, however pleasant Affect: Blunted with brightening Thought process: Poverty of thought with possible thought blocking Thought Content: Goal oriented Cognition: A&O x4 Insight: Poor Judgment: Poor Interventions PRN's used: None Therapeutic interventions: Maintained a safe and supportive environment, ensured contract for safety, maintained fall precautions and provided stand-by assistance with transfers, monitored rt. heel and floated heels while in bed, obtained orthostatic V/S per orders, continued to encourage Q2 hour toileting and monitored for incontinence episodes, provided active listening and positive encouragement, encouraged participation on the unit, and maintained Q 15min safety checks. Restraints/seclusion/emergency medication: N/A Justification of Continued Inpatient Treatment: Per RAYMON Go pt. continues to require a safe and supportive environment and is currently at baseline.
[2021-09-06 08:00] VITALS: BP_SYST 101; BP_SYST 107; BP_SYST 111; BP_SYST 117; BP_DIAS 70; BP_DIAS 78; BP_DIAS 79
[2021-09-06] MEDS: methylphenidate 5mg tablet PO SCH (08:48)
[2021-09-06] MEDS: benztropine 1mg tablet PO SCH ×2 (08:48→20:10)
[2021-09-06] MEDS: polyethylene glycol 3350 17gm powd pack PO SCH (08:48)
[2021-09-06] MEDS: docusate sod 100mg capsule PO SCH ×2 (08:48→20:10)
[2021-09-06] MEDS: lactose-reduced food (Ensure Enlive) - 237ml bottle PO SCH (08:48)
[2021-09-06] MEDS: ziprasidone 20mg capsule PO SCH ×2 (08:48→20:10)
[2021-09-06] MEDS: venlafaxine XR 75mg capsule (Q24H) PO SCH (08:48)
--- NOTE | 2021-09-06 10:57 | NUR ---
Reassessment: Pt PO ~100% avg of pureed/thin meals per pt request w/ double protein TIDWM per diet order in addition to ~100% avg vanilla ensure enlive. Current PO meal/ONS intake greatly exceeding estimated kcal/protein needs. D/w nurse recommending discontinue ensure enlive to help reduce excessive kcal/protein intake if MD agreeable. Noted ammonia 35 on 09/04 per EMR. LBM 09/05, receiving routine bowelcare. Will continue to monitor. Recommendations: 1. Continue Puree diet as tolerated per pt request; double protein per diet order 2. Stop ensure Enlive PO daily per Physician 3. Bowel care per rx 4. Weekly wts Addendum: 09/06/21 at [address] Amended: Links added. Addendum: 09/06/21 at [address] RD has reviewed and approves of above note.
--- NOTE | 2021-09-06 15:58 | NUR ---
Nursing Progress Note: Legal hold: TCon Client on involuntary status for GD Report received from nurse with use of SBAR: ANNIE Vasques Why are they here: Pt was at [facility] from 06/08/21-07/12/21 for GD/failure to thrive. Pt was discharged, re-evaluated and placed on a 5150. He was readmitted to [facility] on day of discharge 07/12/21. Pt has a Hx of Schizophrenia, depression, and anxiety. Pt has intermittent CAH to kill himself, pt is depressed and anhedonic, he has severely declined in his ADLs. Pt has a DTI ulcer on his right heel. Plan is for him to be conserved. Assessment What has happened this shift: Received pt. sleeping in bed at the beginning of the shift, he awoke and continues to require stand-by assistance to transfer. Pt. continues to be able to eat independently with set-up help only from staff. Per dietary, he is consuming an adequate amount of protein and recommending discontinuation of Ensure, this was endorsed to Dr. Farley and received an order to discontinue. 1:1 was completed after breakfast at bedside, pt. continues to deny any S/I, but does report some ongoing depression, however when questioned regarding what is causing him to be depressed pt. states, "I don't know." Pt. also reports intermittent command A/RUBY. He remained up throughout the morning sitting in a chair at bedside and later in the Recreation Room watching TV. Fall precautions remain in place, and pt. continues to exhibit some unsteadiness on his feet requiring stand-by assistance with transfers. Pt. must be reminded to use his FWW. Orthostatic V/S were completed and again were WNL, and this order was discontinued by Dr. Farley. Pt. was incontinent X1 this shift, and he continues to require moderate assistance to perform ADLs including changing his clothes and oral care. S/I, H/I: Denies A/VH: Pt. reports command A/RUBY which tell him to hurt himself Sleep: Sleep hours are 6.5, and pt. naps in the afternoon ADL's: Pt. requires direction and encouragement. He requires stand-by assistance with transfers and a FWW r/t ongoing weakness/unsteadiness and fall precautions. Group attendance: N/A Were meds taken: Yes Any med S/E: Some ongoing tardive dyskinesia AEB involuntary mouth movements, pt. continues to take Cogentin. Mental Status Exam Appearance: Hair and clothing disheveled, he agrees to shower with encouragement, "Later." Eye contact: Good Behavior: Cooperative, guarded, and withdrawn Speech: Soft, however volume and clarity have improved. Pt. responds to closed-ended questions with a minimal response and paucity of verbal output. Mood: Guarded, however pleasant Affect: Blunted with brightening Thought process: Poverty of thought with possible thought blocking Thought Content: Goal oriented Cognition: A&O x4 Insight: Poor Judgment: Poor Interventions PRN's used: None Therapeutic interventions: Maintained a safe and supportive environment, ensured contract for safety, maintained fall precautions and provided stand-by assistance with transfers, monitored rt. heel and floated heels while in bed, obtained orthostatic V/S per orders, continued to encourage Q2 hour toileting and monitored for incontinence episodes, provided active listening and positive encouragement, encouraged participation on the unit, and maintained Q 15min safety checks. Restraints/seclusion/emergency medication: N/A Justification of Continued Inpatient Treatment: Per RAYMON Go pt. continues to require a safe and supportive environment and is currently at baseline.
--- NOTE | 2021-09-06 16:04 | NUR ---
1:1 This below named therapist, met briefly with his patient to provide an expressive art activity using two templates. The patient was asked to complete in preparation for a mural making activity tomorrow. Patient took the handouts. Patients' motivation to work on this project was uncertain. Will follow up tomorrow 09/08/21 Juju Gordon MA, [employer] #[id number] [facility] Art Therapist
[2021-09-06 19:39] VITALS: BP 128/71
--- NOTE | 2021-09-06 23:27 | NUR ---
Nursing Progress Note: Legal hold: TCon Client on involuntary status for GD Report received from nurse with use of SBAR: ANNIE Mata Why are they here: Pt was at [facility] from 06/08/21-07/12/21 for GD/failure to thrive. Pt was discharged, re-evaluated and placed on a 5150. He was readmitted to [facility] on day of discharge 07/12/21. Pt has a Hx of Schizophrenia, depression, and anxiety. Pt has intermittent CAH to kill himself, pt is depressed and anhedonic, he has severely declined in his ADLs. Pt has a DTI ulcer on his right heel. Plan is for him to be conserved. Assessment What has happened this shift: Pt sat quietly in his room this evening and ate meals in his room as well. pt is pleasant but reports depression "a little bit." Pt was provided with assistance with oral care/hygiene, grooming and assisted with changing into clean scrubs before bed. S/I, H/I: Denies A/VH: +AH Sleep: see sleep hours ADL's: Pt. requires direction and encouragement. He requires stand-by assistance with transfers and a FWW r/t ongoing weakness/unsteadiness and fall precautions. Group attendance: N/A Were meds taken: Yes Any med S/E: Some ongoing tardive dyskinesia AEB involuntary mouth movements, pt. continues to take Cogentin. Mental Status Exam Appearance: Pt declined a shower, was assisted with changing into clean scrubs Eye contact: Good Behavior: Cooperative, guarded, and withdrawn Speech: Soft, Mood: Depressed Affect: Blunted with brightening Thought process: Poverty of thought with possible thought blocking Thought Content: Goal oriented Cognition: A&O x4 Insight: Poor Judgment: Poor Interventions PRN's used: None Therapeutic interventions: Maintained a safe and supportive environment, ensured contract for safety, maintained fall precautions and provided stand-by assistance with transfers, monitored rt. heel and floated heels while in bed, obtained orthostatic V/S per orders, continued to encourage Q2 hour toileting and monitored for incontinence episodes, provided active listening and positive encouragement, encouraged participation on the unit, and maintained Q 15min safety checks. Restraints/seclusion/emergency medication: N/A Justification of Continued Inpatient Treatment: Per RAYMON Go pt. continues to require a safe and supportive environment and is currently at baseline.
[2021-09-07 07:37] VITALS: BP 133/80
[2021-09-07] MEDS: polyethylene glycol 3350 17gm powd pack PO SCH (08:00)
[2021-09-07] MEDS: docusate sod 100mg capsule PO SCH ×2 (08:00→20:02)
[2021-09-07] MEDS: ziprasidone 20mg capsule PO SCH ×2 (08:41→20:03)
[2021-09-07] MEDS: benztropine 1mg tablet PO SCH ×2 (08:41→20:03)
[2021-09-07] MEDS: methylphenidate 5mg tablet PO SCH (08:41)
[2021-09-07] MEDS: venlafaxine XR 75mg capsule (Q24H) PO SCH (08:42)
--- NOTE | 2021-09-07 13:41 | NUR ---
Nursing Progress Note: Legal hold: TCon Client on involuntary status for GD Report received from nurse with use of SBAR: ANNIE Vasques Why are they here: Pt was at [facility] from 06/08/21-07/12/21 for GD/failure to thrive. Pt was discharged, re-evaluated and placed on a 5150. He was readmitted to [facility] on day of discharge 07/12/21. Pt has a Hx of Schizophrenia, depression, and anxiety. Pt has intermittent CAH to kill himself, pt is depressed and anhedonic, he has severely declined in his ADLs. Pt has a DTI ulcer on his right heel. Plan is for him to be conserved. Assessment What has happened this shift: Received pt. sleeping in bed at the beginning of the shift, he awoke and continues to require stand-by assistance to transfer. 1:1 was completed later at bedside, pt. denies any depression this shift, and his affect appears brighter. However, he continues to report command A/RUBY. Pt. remained up throughout the morning sitting in a chair at bedside, and in the afternoon sat in the Group Room watching TV. Fall precautions remain in place, and pt. continues to exhibit some unsteadiness on his feet requiring stand-by assistance with transfers. Pt. must be reminded to use his FWW. Per report from Noc shift, pt. had an episode of diarrhea, his Colace and Miralax were held, will endorse to [facility] Go. He continues to require moderate assistance to perform ADLs including changing his clothes and oral care. S/I, H/I: Denies A/VH: Pt. reports ongoing command A/RUBY which tell him to hurt himself Sleep: Sleep hours are 7.75 ADL's: Pt. requires direction and encouragement. He requires stand-by assistance with transfers and a FWW r/t ongoing weakness/unsteadiness and fall precautions. Group attendance: N/A Were meds taken: Yes Any med S/E: Some ongoing tardive dyskinesia AEB involuntary mouth movements, pt. continues to take Cogentin. Mental Status Exam Appearance: Hair and clothing disheveled, he agrees to shower with encouragement, "Later." Eye contact: Good Behavior: Cooperative, guarded, and withdrawn Speech: Soft, however volume and clarity have improved. Pt. responds to closed-ended questions with a minimal response and paucity of verbal output. Mood: Guarded, however pleasant Affect: Blunted with brightening Thought process: Poverty of thought with possible thought blocking Thought Content: Goal oriented Cognition: A&O x4 Insight: Poor Judgment: Poor Interventions PRN's used: None Therapeutic interventions: Maintained a safe and supportive environment, ensured contract for safety, maintained fall precautions and provided stand-by assistance with transfers, monitored rt. heel and floated heels while in bed, continued to encourage Q2 hour toileting and monitored for incontinence episodes, provided active listening and positive encouragement, encouraged participation on the unit, and maintained Q 15min safety checks. Restraints/seclusion/emergency medication: N/A Justification of Continued Inpatient Treatment: Per Dr. Farley, pt. is at baseline and requires a safe and supportive environment while awaiting placement at an [facility].
--- NOTE | 2021-09-07 16:52 | NUR ---
1:1 Patient worked slowly, yet steadily on his expressive art activity today while the group mural design was taking place as peers 1:1, were able to find placement for their completed picture gluing it in place. Patients' design was a carefully colored butterfly in light and dark browns. In the center on both wings were 2 small hearts. Patient was willing to have his design added to the group mural project, which was the glued in place with the assistance from this therapist. Patient was attentive and able to answer simple questions or nod in response when asked direct questions. Juju Gordon MA, ELECTRICAL EXPERIMENT[employer] MECHANIC #[id number] [facility] Art Therapist
[2021-09-07 20:00] VITALS: BP 128/74
--- NOTE | 2021-09-08 01:20 | NUR ---
Nursing Progress Note: Legal hold: TCon Client on involuntary status for GD Report received from nurse with use of SBAR: Faustino RN Why are they here: Pt was at [facility] from 06/08/21-07/12/21 for GD/failure to thrive. Pt was discharged, re-evaluated and placed on a 5150. He was readmitted to [facility] on day of discharge 07/12/21. Pt has a Hx of Schizophrenia, depression, and anxiety. Pt has intermittent CAH to kill himself, pt is depressed and anhedonic, he has severely declined in his ADLs. Pt has a DTI ulcer on his right heel. Plan is for him to be conserved. Assessment What has happened this shift: Pts HS temp was 99.3, got order for covid swab, pt tested covid negative. Pt is sitting at bedside and eats snack. He makes good eye contact and is answering questions in a reasonable timeframe. Pt drinks tea before bed and takes his HS medications without issue. Oral care done, pt also used mouthwash. Pt denies SI/HI/AH/VH at this time. Pt assisted to bed. S/I, H/I: Denies A/VH: denies Sleep: see sleep hours ADL's: Pt. requires direction and encouragement. He requires stand-by assistance with transfers and a FWW r/t ongoing weakness/unsteadiness and fall precautions. Group attendance: N/A Were meds taken: Yes Any med S/E: Some ongoing tardive dyskinesia AEB involuntary mouth movements, pt. continues to take Cogentin. Mental Status Exam Appearance: WNL Eye contact: Good Behavior: Cooperative, guarded, and withdrawn Speech: Soft, Mood: Depressed Affect: Blunted with brightening Thought process: Poverty of thought Thought Content: Goal oriented Cognition: A&O x4 Insight: Poor Judgment: Poor Interventions PRN's used: None Therapeutic interventions: Maintained a safe and supportive environment, ensured contract for safety, maintained fall precautions and provided stand-by assistance with transfers, monitored rt. heel and floated heels while in bed, obtained orthostatic V/S per orders, continued to encourage Q2 hour toileting and monitored for incontinence episodes, provided active listening and positive encouragement, encouraged participation on the unit, and maintained Q 15min safety checks. Restraints/seclusion/emergency medication: N/A Justification of Continued Inpatient Treatment: RAYMON Harvey pt. continues to require a safe and supportive environment and is currently at baseline.
--- NOTE | 2021-09-08 07:20 | NUR ---
Emailed Warren Wilkes (email: [email or web address]), [facility] Public Guardian to inform her of Cuong's issues with his mouth and teeth. Requested she schedule him a dental appointment. WELLINGTON Pearson
[2021-09-08 08:00] VITALS: BP 110/64
[2021-09-08] MEDS: methylphenidate 5mg tablet PO SCH (08:02)
[2021-09-08] MEDS: ziprasidone 20mg capsule PO SCH ×2 (08:02→20:29)
[2021-09-08] MEDS: polyethylene glycol 3350 17gm powd pack PO SCH (08:03)
[2021-09-08] MEDS: benztropine 1mg tablet PO SCH ×2 (08:03→20:29)
[2021-09-08] MEDS: venlafaxine XR 75mg capsule (Q24H) PO SCH (08:03)
[2021-09-08] MEDS: docusate sod 100mg capsule PO SCH ×3 (08:03→20:28)
[2021-09-08] MEDS: ketoconazole (Nizoral) shampoo TP SCH (11:24)
--- NOTE | 2021-09-08 17:27 | NUR ---
Nursing Progress Note: Cuong Legal hold: TCon Client on involuntary status for GD Report received from nurse with use of SBAR: ANNIE Vasques Why are they here: Pt was at [facility] from 06/08/21-07/12/21 for GD/failure to thrive. Pt was discharged, re-evaluated and placed on a 5150. He was readmitted to [facility] on day of discharge 07/12/21. Pt has a Hx of Schizophrenia, depression, and anxiety. Pt has intermittent CAH to kill himself, pt is depressed and anhedonic, he has severely declined in his ADLs. Pt has a DTI ulcer on his right heel. Plan is for him to be conserved. Assessment What has happened this shift: Patient received sleeping in bed at shift change. He was awoken for scheduled morning medications and breakfast. He was receptive to 1:1 assessment. Patient observed eating slowly and independent. He was assisted by staff to take a shower on this shift. Patient requiring one person assist for ADLs. He was changed into clean clothing with clean linen applied to bed. Right heel cleaned per ADL care, A&D Ointment applied, and heels floated in bed. No s/s of increased redness. Patient continues to present as quiet and withdrawn yet polite and pleasant. He denies SI/HI/AH/VH at this time. Does not appear to be responding to internal stimuli. Patient was observed sitting in the community room watching television while eating his lunch. He participated in group therapy with peers, noted interacting appropriately. Patient was noted to be incontinent later in the day requiring assistance from staff to get cleaned up. Patient was noted to be much wore steady on his feet today, noted ambulating with his 4WW and a steady gait to the community room. He was active and awake the majority of the shift. S/I, H/I: Denies A/VH: Denies. Does not appear to be responding to IS. Sleep: Patient slept 6.5 hours last night per NOC shift, no naps noted today ADL's: Pt. requires direction and encouragement. He requires stand-by assistance with transfers and a FWW r/t ongoing weakness/unsteadiness and fall precautions. Group attendance: Yes Were meds taken: Yes Any med S/E: Some ongoing tardive dyskinesia AEB involuntary mouth movements, pt. continues to take Cogentin. Mental Status Exam Appearance: Clean, showered this shift. Adult male wearing green unit scrubs. Short grain stahl. Edentulous. Eye contact: Good Behavior: Quiet, reserved, and withdrawn Speech: Soft, Clear, WNL Mood: Doing fine Affect: Blunted with brightening Thought process: Poverty of thought Thought Content: Meeting needs. Cognition: A&O x4 Insight: Poor Judgment: Poor Interventions PRN's used: None Therapeutic interventions: Maintained a safe and supportive environment, ensured contract for safety, maintained fall precautions and provided stand-by assistance with transfers, monitored rt. heel and floated heels while in bed, continued to encourage Q2 hour toileting and monitored for incontinence episodes, provided active listening and positive encouragement, encouraged participation on the unit, and maintained Q15 min safety checks. Restraints/seclusion/emergency medication: N/A Justification of Continued Inpatient Treatment: Per RAYMON Go pt. continues to require a safe and supportive environment and is currently at baseline.
[2021-09-08 19:58] VITALS: BP 115/71
--- NOTE | 2021-09-09 05:04 | NUR ---
Nursing Progress Note: Legal hold: TCon Client on involuntary status for GD Report received from nurse with use of SBAR: ANNIE Bravo Why are they here: Pt was at [facility] from 06/08/21-07/12/21 for GD/failure to thrive. Pt was discharged, re-evaluated and placed on a 5150. He was readmitted to [facility] on day of discharge 07/12/21. Pt has a Hx of Schizophrenia, depression, and anxiety. Pt has intermittent CAH to kill himself, pt is depressed and anhedonic, he has severely declined in his ADLs. Pt has a DTI ulcer on his right heel. Plan is for him to be conserved. Assessment What has happened this shift: Pt is visible on the unit and watches TV in the group room for most of the night before bed. He is ambulating well at a quicker pace with his FFW. Pt is pleasant and cooperative with 1:1 and his speech is not so delayed. PT takes HS medications but declines his Colace. Oral care is done for pt, his gums are bloody and inflamed. When RN helps pt into bed she asks, is there anything else I can get you? He responds, yea a rum and coke would be nice and then laughs and smiles. S/I, H/I: Denies A/VH: denies Sleep: see sleep hours ADL's: Pt. requires direction and encouragement. He requires stand-by assistance with transfers and a FWW r/t ongoing weakness/unsteadiness and fall precautions. Group attendance: N/A Were meds taken: Yes Any med S/E: Some ongoing tardive dyskinesia AEB involuntary mouth movements, pt. continues to take Cogentin. Mental Status Exam Appearance: WNL Eye contact: Good Behavior: Cooperative, guarded, and withdrawn Speech: Soft, Mood: Depressed Affect: Blunted with brightening Thought process: Poverty of thought Thought Content: Goal oriented Cognition: A&O x4 Insight: Poor Judgment: Poor Interventions PRN's used: None Therapeutic interventions: Maintained a safe and supportive environment, ensured contract for safety, maintained fall precautions and provided stand-by assistance with transfers, monitored rt. heel and floated heels while in bed, obtained orthostatic V/S per orders, continued to encourage Q2 hour toileting and monitored for incontinence episodes, provided active listening and positive encouragement, encouraged participation on the unit, and maintained Q 15min safety checks. Restraints/seclusion/emergency medication: N/A Justification of Continued Inpatient Treatment: RAY[facility] Harvey pt. continues to require a safe and supportive environment and is currently at baseline.
[2021-09-09] MEDS: polyethylene glycol 3350 17gm powd pack PO SCH ×2 (07:50→07:57)
[2021-09-09] MEDS: benztropine 1mg tablet PO SCH ×2 (07:51→20:15)
[2021-09-09] MEDS: venlafaxine XR 75mg capsule (Q24H) PO SCH (07:51)
[2021-09-09] MEDS: ziprasidone 20mg capsule PO SCH ×2 (07:51→20:16)
[2021-09-09] MEDS: methylphenidate 5mg tablet PO SCH (07:51)
[2021-09-09] MEDS: docusate sod 100mg capsule PO SCH ×3 (07:51→20:00)
[2021-09-09 08:27] VITALS: BP 118/72
--- NOTE | 2021-09-09 16:32 | NUR ---
Nursing Progress Note: Legal hold: TCon Client on involuntary status for GD Report received from TAVARES Mitchell with use of SBAR Why they are here: Pt was at [facility] from 06/08/21-07/12/21 for GD/failure to thrive. Pt was discharged, re-evaluated and placed on a 5150. He was readmitted to [facility] on day of discharge 07/12/21. Pt has a Hx of Schizophrenia, depression, and anxiety. Pt has intermittent CAH to kill himself, pt is depressed and anhedonic, he has severely declined in his ADLs. Pt has a DTI ulcer on his right heel. Plan is for him to be conserved. Assessment What has happened this shift: Patient resting quietly in bed at the start of the shift. Cooperative with 1:1 assessment and medications. Heels floated while in bed for skin integrity. He requires stand-by assistance with transfers and a FWW r/t ongoing weakness/unsteadiness and fall precautions. Incontinent of urine at times, wears a brief. Complains of having loose stools so routine Miralax and Colace are held. Isolates to his room in the afternoon and naps off and on. S/I, H/I: Denies A/VH: Denies. Sleep: 2 hours in the morning. Naps off and on. ADL's: minimum assist of 1 person required. Group attendance: NA Were meds taken: Colace/ Miralax held for loose stools. All other medication administered as ordered. Any med S/E: Some ongoing tardive dyskinesia AEB involuntary mouth movements, slight hand tremor, pt. continues to take Cogentin. Mental Status Exam Appearance: Older appearing man, thin, somewhat disheveled, obvious dental carries, clean wearing green unit scrubs. Eye contact: Good Behavior: Cooperative, withdrawn, isolative Speech: Soft, minimal Mood: Fine. Affect: Blunted with brightening Thought process: Poverty of thought Thought Content: Meeting needs. Cognition: A&O x2 to self and place Insight: Poor Judgment: Poor Interventions PRN's used: None Therapeutic interventions: Maintained a safe and supportive environment, ensured contract for safety, maintained fall precautions and provided stand-by assistance with transfers, monitored rt. heel and floated heels while in bed, continued to encourage Q2 hour toileting and monitored for incontinence episodes, provided active listening and positive encouragement, encouraged participation on the unit, and maintained Q15 min safety checks. Restraints/seclusion/emergency medication: N/A Justification of Continued Inpatient Treatment: RAY[facility] Harvey pt. continues to require a safe and supportive environment and is currently at baseline.
--- NOTE | 2021-09-09 23:41 | NUR ---
Nursing Progress Note: Legal hold: TCon Client on involuntary status for GD Report received from nurse with use of SBAR: Cecil RN Why are they here: Pt was at [facility] from 06/08/21-07/12/21 for GD/failure to thrive. Pt was discharged, re-evaluated and placed on a 5150. He was readmitted to [facility] on day of discharge 07/12/21. Pt has a Hx of Schizophrenia, depression, and anxiety. Pt has intermittent CAH to kill himself, pt is depressed and anhedonic, he has severely declined in his ADLs. Pt has a DTI ulcer on his right heel. Plan is for him to be conserved. Assessment What has happened this shift: Pt is sitting in the community room watching [employer]. He eats a snack and drinks tea. He smiles at staff and is slightly more talkative this shift. Pt is medication compliant bur declines the colace again because he says he has been having BMs "just fine." He says he is "bored". S/I, H/I: Denies A/VH: denies Sleep: see sleep hours ADL's: Pt. requires direction and encouragement. He requires stand-by assistance with transfers and a FWW r/t ongoing weakness/unsteadiness and fall precautions. Group attendance: N/A Were meds taken: Yes Any med S/E: Some ongoing tardive dyskinesia AEB involuntary mouth movements, pt. continues to take Cogentin. Mental Status Exam Appearance: WNL Eye contact: Good Behavior: Cooperative, guarded, and withdrawn Speech: Soft, Mood: Depressed Affect: Blunted with brightening Thought process: Poverty of thought Thought Content: Goal oriented Cognition: A&O x4 Insight: Poor Judgment: Poor Interventions PRN's used: None Therapeutic interventions: Maintained a safe and supportive environment, ensured contract for safety, maintained fall precautions and provided stand-by assistance with transfers, monitored rt. heel and floated heels while in bed, obtained orthostatic V/S per orders, continued to encourage Q2 hour toileting and monitored for incontinence episodes, provided active listening and positive encouragement, encouraged participation on the unit, and maintained Q 15min safety checks. Restraints/seclusion/emergency medication: N/A Justification of Continued Inpatient Treatment: Per RAY[facility] Go pt. continues to require a safe and supportive environment and is currently at baseline.
[2021-09-10] MEDS: polyethylene glycol 3350 17gm powd pack PO SCH (08:00)
[2021-09-10 08:06] VITALS: BP 101/71
[2021-09-10] MEDS: ziprasidone 20mg capsule PO SCH ×2 (08:19→19:46)
[2021-09-10] MEDS: benztropine 1mg tablet PO SCH ×2 (08:19→19:46)
[2021-09-10] MEDS: docusate sod 100mg capsule PO SCH ×2 (08:20→19:42)
[2021-09-10] MEDS: venlafaxine XR 75mg capsule (Q24H) PO SCH (08:20)
[2021-09-10] MEDS: methylphenidate 5mg tablet PO SCH (08:20)
--- NOTE | 2021-09-10 15:22 | NUR ---
Nursing Progress Note: Legal hold: LPS Client on involuntary status for GD Report received from TAVARES Mitchell with use of SBAR Why they are here: Pt was at [facility] from 06/08/21-07/12/21 for GD/failure to thrive. Pt was discharged, re-evaluated and placed on a 5150. He was readmitted to [facility] on day of discharge 07/12/21. Pt has a Hx of Schizophrenia, depression, and anxiety. Pt has intermittent CAH to kill himself, pt is depressed and anhedonic, he has severely declined in his ADLs. Pt has a DTI ulcer on his right heel. Plan is for him to be conserved. Assessment What has happened this shift: Patient sleeping in bed at the start of the shift. Pt spent most of the day sitting in his room in the chair eating. He went from eating breakfast to snack to lunch to snack before he felt like getting up and watching some TV in the Community Room. Pt given bedside wash basin and encouraged to wash self and clean his mouth. Pt unable to care for self required assistance for ADL's. Pt right heel is almost healed. Pt needs to continue to float heels. Heels floated while in bed for skin integrity. Pt able to use FWW and walk from room to room. Refused morning dose of Miralax. Napped in the afternoon. S/I, H/I: Denies A/VH: Denies. Sleep: Napped in the afternoon ADL's: minimum assist of 1 person required. Group attendance: NA Were Meds taken: Miralax held; all other meds taken as prescribed Any med S/E: Some ongoing tardive dyskinesia AEB involuntary mouth movements, slight hand tremor, pt. continues to take Cogentin. Mental Status Exam Appearance: disheveled older male, obvious dental carries, wearing green unit scrubs. Eye contact: Good Behavior: Cooperative, withdrawn, isolative Speech: Soft, minimal Mood: good Affect: Blunted with brightening Thought process: Poverty of thought Thought Content: Meeting needs. Cognition: A&O x2 to self and place Insight: Poor Judgment: Poor Interventions PRN's used: None Therapeutic interventions: Provided 1:1 assessment with therapeutic communication and active listening, encouraged self-care by providing personal hygiene products and prompting and educating self-care, monitored rt. heel and floated while in bed, continued to encourage Q2 hour toileting and monitored for incontinence episodes, encouraged participation on the unit, and maintained Q15 min safety checks. Restraints/seclusion/emergency medication: N/A Justification of Continued Inpatient Treatment: [facility] Harvey pt. continues to require a safe and supportive environment and is currently at baseline.
[2021-09-10 19:19] VITALS: BP 118/70
[2021-09-10] MEDS: traZODone 50mg tablet PO PRN (19:46)
--- NOTE | 2021-09-10 22:20 | NUR ---
Nursing Progress Note: Legal hold: LPS Report received from Cecil Dayshift relief charge nurse Why they are here: Pt was at [facility] from 06/08/21-07/12/21 for GD/failure to thrive. Pt was discharged, re-evaluated and placed on a 5150. He was readmitted to [facility] on day of discharge 07/12/21. Pt has a Hx of Schizophrenia, depression, and anxiety. Pt has intermittent CAH to kill himself, pt is depressed and anhedonic, he has severely declined in his ADLs. Pt has a DTI ulcer on his right heel. Plan is for him to be conserved. Assessment for this shift: The patient was up on the unit at the beginning of the shift. He ate poorly and appeared to only eat approximately 15-20%. He sat by himself and was not social with peers. He was pleasant when approached for the evening assessment. He was noted to have constant chewing jaw movement even though he had no food in his mouth. His arms were stiff. He answered questions appropriately. He is medication compliant. He stated that his sleep has been good. He denied anxiety. When asked if he felt depressed he stated, "A little bit" He denied suicidal or thoughts to harm others. He appeared calm and no paranoia or irritability was noted. Eye contact was intermittent and his affect was fairly flat. He did endorse hearing voices "they want to kill me or hurt someone else" He did have an episode of stool incontinence of a loose stool and his colace was held. The patient was cooperative with oral care at . He was assisted to bed with his heels floating off the bed on two pillows. The patient is pending placement and is packet is out to several D facilities.
[2021-09-11 08:00] VITALS: BP 156/95
[2021-09-11] MEDS: polyethylene glycol 3350 17gm powd pack PO SCH ×2 (08:00→08:23)
[2021-09-11] MEDS: methylphenidate 5mg tablet PO SCH (08:23)
[2021-09-11] MEDS: ziprasidone 20mg capsule PO SCH ×2 (08:23→20:42)
[2021-09-11] MEDS: benztropine 1mg tablet PO SCH ×2 (08:24→20:42)
[2021-09-11] MEDS: venlafaxine XR 75mg capsule (Q24H) PO SCH (08:24)
[2021-09-11] MEDS: docusate sod 100mg capsule PO SCH ×2 (08:24→20:42)
--- NOTE | 2021-09-11 15:02 | NUR ---
Nursing Progress Note: Legal hold: LPS Client on involuntary status for GD Report received from nurse with use of SBAR: Ernestina Alberts RN Why are they here: Pt was at [facility] from 06/08/21-07/12/21 for GD/failure to thrive. Pt was discharged, re-evaluated and placed on a 5150. He was readmitted to [facility] on day of discharge 07/12/21. Pt has a Hx of Schizophrenia, depression, and anxiety. Pt has intermittent CAH to kill himself, pt is depressed and anhedonic, he has severely declined in his ADLs. Pt has a DTI ulcer on his right heel. Plan is for him to be conserved. Assessment What has happened this shift: Received pt. sleeping in bed at the beginning of the shift, he awoke and continues to require stand-by assistance to transfer. Pt. continues to use his FWW with encouragement, and fall precautions remain in place. Pt. sat up in the Group Room during much of the day watching TV, however remains guarded from others. He ate meals in his room and 1:1 was completed at bedside. Pt. denies any depression or S/I, however reports ongoing command A/RUBY which tell him to hurt himself and others. However, pt. does not appear to be internally preoccupied, will continue to monitor. Pt. refused his ordered Miralax this shift, however did take scheduled Colace. Weekly picture of pressure area on rt. heel was obtained, and appears to be healing well. No s/s of increased redness was noted, and heels continue to be floated when pt. is in bed. S/I, H/I: Denies A/VH: Pt. reports ongoing command A/RUBY which tell him to hurt himself and others Sleep: Sleep hours are 7.25 ADL's: Pt. requires direction and encouragement. He requires stand-by assistance with transfers and a FWW. Fall precautions remain in place Group attendance: N/A Were meds taken: Yes Any med S/E: None Mental Status Exam Appearance: Somewhat disheveled, however appropriately dressed Eye contact: Good Behavior: Cooperative and somewhat guarded Speech: Soft, however volume and fluidity of output continue to improve Mood: Guarded, however pleasant Affect: Blunted with brightening Thought process: Poverty of thought with possible thought blocking Thought Content: Ongoing command A/RUBY Cognition: A&O x4 Insight: Poor Judgment: Poor Interventions PRN's used: None Therapeutic interventions: Maintained a safe and supportive environment, ensured contract for safety, maintained fall precautions and provided stand-by assistance with transfers, monitored rt. heel and floated heels while in bed, continued to encourage Q2 hour toileting and monitored for incontinence episodes, provided active listening and positive encouragement, encouraged participation on the unit, and maintained Q 15min safety checks. Restraints/seclusion/emergency medication: N/A Justification of Continued Inpatient Treatment: Pt. continues to require a safe and supportive environment while awaiting placement.
[2021-09-11] MEDS: acetaminophen 325mg tablet PO PRN (18:21)
[2021-09-11 19:00] VITALS: BP 112/78
[2021-09-11] MEDS: traZODone 50mg tablet PO PRN (20:42)
--- NOTE | 2021-09-12 03:06 | NUR ---
RN PROGRESS NOTE: LEGAL HOLD: LPS for GD REASON FOR ADMIT: Pt was at [facility] from 06/08/21-07/12/21 for GD/failure to thrive. Pt was discharged, re-evaluated and placed on a 5150. He was readmitted to [facility] on day of discharge 07/12/21. Pt has a Hx of Schizophrenia, depression, and anxiety. Pt has intermittent CAH to kill himself, pt is depressed and anhedonic, he has severely declined in his ADLs. Pt has a DTI ulcer on his right heel. Plan is for him to be conserved. THIS SHIFT: Client was sitting in a chair in his room, eating at COS. Client is pleasant when approached. Client tries to remove his tray and ambulates to restroom independently. Client took all evening meds. He is cooperative. Affect is blunted. His mood is stable. DISCHARGE: TBD
[2021-09-12 07:00] VITALS: BP 110/72
[2021-09-12] MEDS: methylphenidate 5mg tablet PO SCH (09:07)
[2021-09-12] MEDS: venlafaxine XR 75mg capsule (Q24H) PO SCH (09:07)
[2021-09-12] MEDS: ziprasidone 20mg capsule PO SCH ×2 (09:07→20:06)
[2021-09-12] MEDS: benztropine 1mg tablet PO SCH ×2 (09:08→20:07)
[2021-09-12] MEDS: docusate sod 100mg capsule PO SCH ×2 (09:08→20:07)
[2021-09-12] MEDS: polyethylene glycol 3350 17gm powd pack PO SCH (09:08)
[2021-09-12 09:18] VITALS: BP 110/72
--- NOTE | 2021-09-12 11:05 | NUR ---
Pt. attended group today. Today, being entin we did an creative mural with different Loya theme coloring pages and also utilized magazine cut outs to add to the mural. Pt. engaged in the group quietly. He chose not to color but did pick out pictures that he connected with and explained to the group why he liked them. His mood appeared to be good with a restricted affect. His demeanor was pleasant, calm and compliant. He was eating and enjoying his snack in the group and listened to all the this Cork Insulator and his peers were saying. His thought content appeared WNL. Meri Uribe LCSW
--- NOTE | 2021-09-12 17:44 | NUR ---
Nursing Progress Note: Legal hold: LPS Client on involuntary status for GD Report received from nurse with use of SBAR: Cecil RN Why are they here: Pt was at [facility] from 06/08/21-07/12/21 for GD/failure to thrive. Pt was discharged, re-evaluated and placed on a 5150. He was readmitted to [facility] on day of discharge 07/12/21. Pt has a Hx of Schizophrenia, depression, and anxiety. Pt has intermittent CAH to kill himself, pt is depressed and anhedonic, he has severely declined in his ADLs. Pt has a DTI ulcer on his right heel. Plan is for him to be conserved. Assessment What has happened this shift: Received pt. sleeping in bed at shift change. Patient attends breakfast in the community room, but is withdrawn and does not communicate with peers. Patient was in community room for most of the day watching t.v. S/I, H/I: Denies A/VH: Pt. reports ongoing command A/H which tell him to hurt himself and others Sleep: 6.0 at night. ADL's: Pt. requires direction and encouragement. He requires stand-by assistance with transfers and a FWW. Fall precautions remain in place Group attendance: Yes. Were meds taken: Yes Any med S/E: None Mental Status Exam Appearance: Disheveled in unit attire. Eye contact: Good Behavior: Cooperative and somewhat guarded Speech: Soft, clear. Mood: Guarded, however pleasant Affect: Blunted Thought process: Poverty of thought with possible thought blocking Thought Content: Ongoing command A/H Cognition: A&O x4 Insight: Poor Judgment: Poor Interventions PRN's used: None Therapeutic interventions: Maintained a safe and supportive environment, ensured contract for safety, maintained fall precautions and provided stand-by assistance with transfers, monitored rt. heel and floated heels while in bed, continued to encourage Q2 hour toileting and monitored for incontinence episodes, provided active listening and positive encouragement, encouraged participation on the unit, and maintained Q 15min safety checks. Restraints/seclusion/emergency medication: N/A Justification of Continued Inpatient Treatment: Pt. continues to require a safe and supportive environment while awaiting placement.
[2021-09-12] MEDS: traZODone 50mg tablet PO PRN (20:07)
[2021-09-12 20:18] VITALS: BP 131/80
--- NOTE | 2021-09-13 02:32 | NUR ---
Nursing Progress Note: Legal hold: T-Con Client on involuntary status for GD Report received from ANNIE Jacob with use of SBAR: Why are they here: Pt was at [facility] from 06/08/21-07/12/21 for GD/failure to thrive. Pt was discharged, re-evaluated and placed on a 5150. He was readmitted to [facility] on day of discharge 07/12/21. Pt has a Hx of Schizophrenia, depression, and anxiety. Pt has intermittent CAH to kill himself, pt is depressed and anhedonic, he has severely declined in his ADLs. Pt has a DTI ulcer on his right heel. Plan is for him to be conserved. Assessment What has happened this shift: The patient was eating his dinner in the group room. He still takes a considerable amount of time eating. Patient is lucid and speaking clearly. He admits there is some depression and CAH telling him to hurt others. He spent the whole evening watching TV. Patient smiles often when watching TV. He continues to be med compliant, and is better able to move around safely now on his own. S/I, H/I: Denies A/VH: +AH Sleep: See sleep hours ADL's: Needs prompting and assist with some ADLs.. Group attendance: N/A Were meds taken: Yes Any med S/E: Some ongoing tardive dyskinesia AEB involuntary mouth movements, pt. continues to take Cogentin. Mental Status Exam Appearance: Older male wearing unit green scrubs. Eye contact: Good Behavior: Cooperative, guarded, and withdrawn Speech: Soft, Mood: Depressed Affect: Blunted with brightening Thought process: Poverty of thought Thought Content: Goal oriented Cognition: A&O x4 Insight: Poor Judgment: Poor Interventions PRN's used: None Therapeutic interventions: Maintained a safe and supportive environment, ensured contract for safety, maintained fall precautions and provided stand-by assistance with transfers, monitored rt. heel and floated heels while in bed, obtained orthostatic V/S per orders, continued to encourage Q2 hour toileting and monitored for incontinence episodes, provided active listening and positive encouragement, encouraged participation on the unit, and maintained Q 15min safety checks. Restraints/seclusion/emergency medication: N/A Justification of Continued Inpatient Treatment: Per RAYMON Go pt. continues to require a safe and supportive environment and is currently at baseline.
[2021-09-13 08:00] VITALS: BP 124/78
[2021-09-13] MEDS: ziprasidone 20mg capsule PO SCH ×2 (08:18→20:23)
[2021-09-13] MEDS: docusate sod 100mg capsule PO SCH ×2 (08:18→20:00)
[2021-09-13] MEDS: venlafaxine XR 75mg capsule (Q24H) PO SCH (08:18)
[2021-09-13] MEDS: benztropine 1mg tablet PO SCH ×2 (08:18→20:23)
[2021-09-13] MEDS: methylphenidate 5mg tablet PO SCH (08:18)
[2021-09-13] MEDS: polyethylene glycol 3350 17gm powd pack PO SCH (08:19)
--- NOTE | 2021-09-13 10:15 | NUR ---
Reassessment: Pt PO ~78% avg of pureed/thin meals per pt request w/ double protein TIDWM per diet order and currently meeting nutrient needs. LBM 09/12, receiving routine bowel care. Will continue to monitor. Recommendations: 1. Continue Puree diet as tolerated per pt request; double protein per diet order 2. Bowel care per rx 3. Weekly wts Addendum: 09/13/21 at [address] Amended: Links added. Addendum: 09/13/21 at [address] I have reviewed assessment by manufacturing engineering intern
--- NOTE | 2021-09-13 16:23 | NUR ---
Nursing Progress Note Legal hold: LPS Conserved Client on involuntary status for GD Report received from RN with use of SBAR Why they are here: Pt was at [facility] from 06/08/21-07/12/21 for GD/failure to thrive. Pt was discharged, re-evaluated and placed on a 5150. He was readmitted to [facility] on day of discharge 07/12/21. Pt has a Hx of Schizophrenia, depression, and anxiety. Pt has intermittent CAH to kill himself, pt is depressed and anhedonic, he has severely declined in his ADLs. Pt has a DTI ulcer on his right heel. Plan is for him to be conserved. Assessment What has happened this shift: Received Pt in bed sleeping w/o distress at the beginning of the shift. Pt woke and cooperative with vitals. Pt returned to sleep and woke and ambulated well with walker to community room and ate all of breakfast. Pt ate lunch well too. Pt continues to ambulate with and w/o walker well. Cuong took all AM meds w/o issue and engages in one word answers to Qs and assessments. Pt needs assist with ADLs. Pt socialized with others in community room. S/I, H/I: Denies A/VH: Denies Sleep: Napped in the afternoon ADL's: Minimum assist of 1 person required Group attendance: NA Were Meds taken: Yes, w/o issues Any med S/E: Pt takes Cogentin for EPS Sxs Mental Status Exam Appearance: Disheveled in green scrubs. Eye contact: Good Behavior: Cooperative, withdrawn, isolative Speech: Soft, minimal Mood: Content/ Euthymic Affect: Blunted, responds well if engaged Thought process: Poverty of thought Thought Content: Getting needs met Cognition: A&O x2 to self and place Insight: Poor Judgment: Poor Interventions PRN's used: None Therapeutic interventions: Provided 1:1 assessment with therapeutic communication and active listening, encouraged self-care by providing personal hygiene products and prompting and educating self-care, monitored rt. heel and floated while in bed, continued to encourage Q2 hour toileting and monitored for incontinence episodes, encouraged participation on the unit, and maintained Q15 min safety checks. Restraints/seclusion/emergency medication: N/A Justification of Continued Inpatient Treatment: Per RAYMON Go pt. continues to require a safe and supportive environment and is currently at baseline.
--- NOTE | 2021-09-13 17:45 | NUR ---
Group Art Tx. Continued: Patient is able to follow directives, and slowly was working on a drawing. Patient did not present as highly responsive to a group process, however, would answer simple questions 1:1 with both this therapist and his peers. *Please refer to Omicia for a complete overview of todays session. Juju Gordon MA, DISPLAY ARTIST #[id number] [facility] Art Therapist Addendum: 09/13/21 at 1745 by Juju Gordon SS Amended: Links added.
[2021-09-13 20:00] VITALS: BP 113/70
--- NOTE | 2021-09-14 01:19 | NUR ---
Nursing Progress Note: Cuong Legal hold: LPS Conserved Client on involuntary status for GD Report received from RN with use of SBAR Why they are here: Pt was at [facility] from 06/08/21-07/12/21 for GD/failure to thrive. Pt was discharged, re-evaluated and placed on a 5150. He was readmitted to [facility] on day of discharge 07/12/21. Pt has a Hx of Schizophrenia, depression, and anxiety. Pt has intermittent CAH to kill himself, pt is depressed and anhedonic, he has severely declined in his ADLs. Pt has a DTI ulcer on his right heel. Plan is for him to be conserved. Assessment What has happened this shift: Received Pt in community room finishing up with dinner. Pt states he is alright and feels good. Pt smiling and stating he needs to finish his dinner and needs all the calories he can get. There were other peers in the room talking about what their nickname was as a kid and Cuong mentioned his nickname was trouble maker. Pt took all HS medications and watching TV in community room before bedtime. S/I, H/I: Denies A/VH: Denies Sleep: ADL's: Minimum assist of 1 person required Group attendance: NA Were Meds taken: Yes, w/o issues Any med S/E: Pt takes Cogentin for EPS Sxs Mental Status Exam Appearance: Disheveled in green scrubs. Eye contact: Good Behavior: Cooperative, withdrawn, isolative Speech: Soft, minimal Mood: Content/ Euthymic Affect: Blunted, responds well if engaged Thought process: Poverty of thought Thought Content: Getting needs met Cognition: A&O x2 to self and place Insight: Poor Judgment: Poor Interventions PRN's used: None Therapeutic interventions: Provided 1:1 assessment with therapeutic communication and active listening, encouraged self-care by providing personal hygiene products and prompting and educating self-care, monitored rt. heel and floated while in bed, continued to encourage Q2 hour toileting and monitored for incontinence episodes, encouraged participation on the unit, and maintained Q15 min safety checks. Restraints/seclusion/emergency medication: N/A Justification of Continued Inpatient Treatment: Per RAYMON Go pt. continues to require a safe and supportive environment and is currently at baseline.
[2021-09-14 07:36] VITALS: BP 134/84
[2021-09-14] MEDS: venlafaxine XR 75mg capsule (Q24H) PO SCH (08:10)
[2021-09-14] MEDS: methylphenidate 5mg tablet PO SCH (08:10)
[2021-09-14] MEDS: docusate sod 100mg capsule PO SCH ×2 (08:10→20:13)
[2021-09-14] MEDS: polyethylene glycol 3350 17gm powd pack PO SCH (08:11)
[2021-09-14] MEDS: ziprasidone 20mg capsule PO SCH ×2 (08:11→20:13)
[2021-09-14] MEDS: benztropine 1mg tablet PO SCH ×2 (08:11→20:15)
--- NOTE | 2021-09-14 09:10 | NUR ---
Pt. attended group today. Today we discussed Wellness and utilized the Self Care Wheel to help Patients determine the wellness/self-care activities they enjoy in each domain presented in the wheel. The four domains are the physical, spiritual, emotional and physical. Pt. sat in the group with us eating slowly. This Transmission Supervisor sat with him and helped him complete his self care wheel. He was able to come up with one self care activity for each domain of the wheel. His demeanor was pleasant, calm and compliant. He did not chose to share about his self care activities himself with the group but he gave this Transmission Supervisor permission to share. He appears to enjoy sitting in the group and listening to this Transmission Supervisor and his peers. He shared minimally with a restricted affect but he appears to be in a good mood. Meri Uribe, RADHIKA
--- NOTE | 2021-09-14 09:20 | NUR ---
Faxed last 2 weeks of notes to [facility] and [facility]. WELLINGTON Pearson
--- NOTE | 2021-09-14 17:18 | NUR ---
Group Art Tx. Continued: Patient remained in the group room for the entire session. Patient was still working on eating his lunch when the group was starting. He appeared to be listening and at one point, when finished with his meal, and seemed interested in drawing on the piece of paper that was on the table in front of him. Patient did not complete a drawing today. He remained quiet, yet seemed more interested in watching a nature/waterfall/music video that was playing softly in the background. Patient had limited interactions with his peers, although was responding to his respiratory technician when asked questions, he would nod of answer briefly. *Please refer to Overblog for a complete overview of todays session. Juju Gordon MA, MEDICAL TECHNICIAN ASSISTANT #[id number] [facility] Art Therapist Addendum: 09/14/21 at 1720 by Juju Gordon SS Amended: Links added.
--- NOTE | 2021-09-14 17:35 | NUR ---
Nursing Progress Note: Cuong Wang Legal hold: LPS Conserved Client on involuntary status for GD Report received from Caprice VALENCIA with use of SBAR Why are they here: Patient admitted to [facility] on 5150 GD. 5150 states [employer] (payee) was concerned he could not utilize his funds and they were concerned he could not obtain food and clothing due to his mental illness. He has a wound to his right finger and states delusions regarding a nuclear submarine. Public guardian will serve 5 day notice for temporary conservatorship. He does have a history of LPS conservatorship. Assessment What has happened this shift: Received pt. sleeping, he woke to receive his medications, 1:1 assessment completed at the bedside. Pt. denies SI, HI, and endorses AH stating I hear voices telling me bad things Pt. reports Im here because I wasnt taking care of myself. Pt is cooperative but guarded. Pt. presents with white thick scaly rash to bilateral cheeks; Hospitalist paged per providers request. Pt. ate all meals in the dining room with cohorts, but isolates himself socially. Pt. spent most of the shift OOB in the tv room. Pt. has minimal interest in talking unless spoken to. Pt. has been independent with ADLs and continent this shift. S/I, H/I: Denies A/VH: Endorses AH, Denies VH Sleep: One nap ADL's: Independent after prompting Group attendance: Yes Were meds taken: Yes Any med S/E: None Mental Status Exam Appearance: Disheveled older male with edentulous in green scrubs Eye contact: Good Behavior: Cooperative, paranoid Speech: Pressured whisper Mood: Guarded Affect: Constricted Thought process: Disorganized Thought Content: Paranoid delusions Cognition: A&O X2 Insight: Poor Judgment: Poor Interventions PRN's used: None Therapeutic interventions: Maintained a safe and supportive environment, ensured contract for safety, provided clear and simple instructions, attempted to orient to reality, monitored for any s/s of infection, encouraged participation on the unit and independent completion of ADLs, and maintained Q 15 min safety checks. Restraints/seclusion/emergency medication: N/A Justification of Continued Inpatient Treatment: Pt. continues to require a safe and supportive environment and medication adjustments.
[2021-09-14 19:40] VITALS: BP 106/74
--- NOTE | 2021-09-15 03:53 | NUR ---
Nursing Progress Note: Cuong Wang Legal hold: LPS Conserved Client on involuntary status for GD Report received from Latonia VALENCIA with use of SBAR Why are they here: Patient admitted to [facility] on 5150 GD. 5150 states [employer] (payee) was concerned he could not utilize his funds and they were concerned he could not obtain food and clothing due to his mental illness. He has a wound to his right finger and states delusions regarding a nuclear submarine. Public guardian will serve 5 day notice for temporary conservatorship. He does have a history of LPS conservatorship. Assessment What has happened this shift: Patient was received sitting in community room watching tv and finishing dinner. Patient stayed in community room all shift eating food, observing the other patients and watching tv. Patient is very quiet only nodding his head when nurse asked him questions. Patient was later encouraged to go to bed from [facility] and then was assisted to the bathroom and into bed. ADLs and continent this shift. S/I, H/I: Denies A/VH: Endorses AH, Denies VH Sleep: See sleep assessment ADL's: Independent after prompting Group attendance: Yes Were meds taken: Yes Any med S/E: None Mental Status Exam Appearance: Disheveled older male with dry patches of skin on his face in green scrubs Eye contact: Good Behavior: Cooperative, paranoid Speech: Pressured whisper Mood: Guarded Affect: Constricted Thought process: Disorganized Thought Content: Paranoid delusions Cognition: A&O X2 Insight: Poor Judgment: Poor Interventions PRN's used: None Therapeutic interventions: Maintained a safe and supportive environment, ensured contract for safety, provided clear and simple instructions, attempted to orient to reality, monitored for any s/s of infection, encouraged participation on the unit and independent completion of ADLs, and maintained Q 15 min safety checks. Restraints/seclusion/emergency medication: N/A Justification of Continued Inpatient Treatment: Pt. continues to require a safe and supportive environment and medication adjustments.
[2021-09-15 07:21] VITALS: BP 101/60
[2021-09-15] MEDS: polyethylene glycol 3350 17gm powd pack PO SCH ×2 (08:00→08:36)
[2021-09-15] MEDS: docusate sod 100mg capsule PO SCH (08:36)
[2021-09-15] MEDS: ziprasidone 20mg capsule PO SCH (08:36)
[2021-09-15] MEDS: benztropine 1mg tablet PO SCH (08:36)
[2021-09-15] MEDS: methylphenidate 5mg tablet PO SCH (08:36)
[2021-09-15] MEDS: venlafaxine XR 75mg capsule (Q24H) PO SCH (08:36)
[2021-09-15] MEDS ORDERED: VENL75CA61 PO (11:21)
[2021-09-15] MEDS ORDERED: ZIPR60CA7 PO (11:21)
[2021-09-15] MEDS ORDERED: KETO120S5 TP (11:21)
[2021-09-15] MEDS ORDERED: BENZ1TAB90 PO (11:21)
[2021-09-15] MEDS ORDERED: polyethylene glycol 3350 pkt PO (11:21)
[2021-09-15] MEDS ORDERED: hydrocortisone cream TP (11:21)
[2021-09-15] MEDS ORDERED: ZIPR40CA14 PO (11:21)
[2021-09-15] MEDS ORDERED: Lorazepam PO (11:21)
[2021-09-15] MEDS ORDERED: METH-350 PO (11:21)
[2021-09-15] MEDS ORDERED: TRAZ-251 PO (11:21)
[2021-09-15] MEDS ORDERED: DOCU100C40 PO (11:21)
[2021-09-15] MEDS ORDERED: SODI104S3 NS (11:21)
--- NOTE | 2021-09-15 11:33 | NUR ---
Dr. Redman evaluated plaque-like rash on pt's face and obtained a new order for Hydrocortisone Cream 0.5% BID. Pt. will shower and first dose will be applied. 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
[2021-09-15] MEDS: ketoconazole (Nizoral) shampoo TP SCH (12:20)
--- NOTE | 2021-09-15 12:54 | NUR ---
DISCHARGE PLAN Cuong has been accepted at [facility]. [facility] will set up transportation once all necessary paperwork has been completed. We are still waiting for his chest x-ray to be read. All other documents are ready. WELLINGTON Pearson
--- NOTE | 2021-09-15 14:08 | NUR ---
Discharge Note: Pt. ambulated off the unit with FWW accompanied by staff to [facility] vehicle which will be transporting him to [facility]. Pt's belongings were inventoried and returned by [email or web address]. His discharge paperwork was sent with him, pt. is LPS conserved. Pt. was also sent with ordered Hydrocortisone Cream and Ketoconazole Shampoo. He is able to contract for safety.
== END 2021-09-15 14:15 | DRG 750 ==
LOC: ADULT MH 11:58
PROVIDERS: ADMIT Psychiatry & Neurology Psychiatry; ATTEND Psychiatry & Neurology Psychiatry
DX: F20.9 Schizophrenia, unspecified (principal); B37.0 Candidal stomatitis; B48.8 Other specified mycoses; F33.1 Major depressive disorder, recurrent, moderate; L89.619 Pressure ulcer of right heel, unspecified stage; D64.9 Anemia, unspecified; B19.20 Unspecified viral hepatitis C without hepatic coma; Z20.822 Contact with and (suspected) exposure to COVID-19; F41.1 Generalized anxiety disorder; N39.0 Urinary tract infection, site not specified; R63.0 Anorexia; I95.1 Orthostatic hypotension; G47.00 Insomnia, unspecified; K59.00 Constipation, unspecified; L30.9 Dermatitis, unspecified; Z79.899 Other long term (current) drug therapy; Z91.51 Personal history of suicidal behavior; Z68.20 Body mass index [BMI] 20.0-20.9, adult; W18.39XA Other fall on same level, initial encounter; Y93.89 Activity, other specified; Y92.230 Patient room in hospital as the place of occurrence of the external cause; Y99.8 Other external cause status; J34.89 Other specified disorders of nose and nasal sinuses
CPT/HCPCS: 36415; 71045; 71046; 80053; 80076; 81001; 81003; 82140; 85025; 86703; 87081; 87088; 87635; 93005

== ENCOUNTER 2025-01-16 13:09 | Outpatient (CLI) | payer MEDICARE, MEDICAID ==
[~2025-01-16 13:09] MED LIST changes: +COG1T PO; +DOCU100C40 PO; -ESCI5TAB PO; -GLYC1TAB23 PO; +Lorazepam PO; -METH-348 PO; +METH-350 PO; -PALI156D IM; +SODI104S3 NS; +VENL75CA61 PO; -ZIPR20CA12 PO; +ZIPR40CA14 PO; -ZIPR40CA2 PO; +ZIPR60CA7 PO; +hydrocortisone cream TP; +polyethylene glycol 3350 pkt PO
--- NOTE | 2025-01-17 21:09 | CONSULTATION ---
DATE OF CONSULTATION: 01/16/2025 DICTATING PHYSICIAN: Shea Hook M.S., [facility]-SUPERVISOR [employer] MODIFIED BARIUM SWALLOW STUDY REPORT REFERRING PHYSICIAN: Cuauhtemoc Duarte MD HISTORY OF PRESENT ILLNESS: The patient is a 64-year-old male who consents to this evaluation. History is obtained from the patient, staff from [facility], and medical records. The patient reports symptoms of dysphagia including coughing on food and liquids. He is unsure how often it occurs, but the staff reports that it occurs on a daily basis during meals. This has been going on for at least 4 months. CURRENT DIET: The patient is currently on a regular textured thin liquid diet. MEDICATIONS: Abilify 15 mg one tablet once daily orally; acetaminophen 325 mg two tablets every 4 hours as needed orally; amantadine HCL 100 mg one capsule once daily orally; anti-dandruff external shampoo 1% applied to scalp topically every evening shift every Sunday, Sunday, Sunday; atropine sulfate solution 1%, one drop sublingually 2 times a day for drooling; bisacodyl tablet delayed release 5 mg, 2 tablets every 24 hours orally as needed if suppository ineffective; docusate sodium 100 mg 2 capsules by mouth 2 times daily; Dry Mouth Drops throat lozenge, 1 lozenge every 4 hours as needed; Dulcolax suppository, 1 suppository rectally every 24 hours as needed if MOM ineffective; Fleet Enema 7-19 gm/118 mL, insert one application rectally every 24 hours as needed if tablets ineffective; Geodon capsule 80 mg 1 capsule by mouth 2 times daily, take with 40 mg Geodon to equal 100 mg, take within 1 hour of meal or with more than 350-calorie snack; Geodon oral capsule 20 mg 1 capsule by mouth 2 times a day, take within 1 hour of meal or with 350 plus calorie snack, give with 80 mg capsule for a total dose of 100 mg; glipizide ER oral tablet extended release 5 mg 1 tablet by mouth 1 time daily; glucose chewable, give 4 tablets by mouth as needed; Ingrezza 60 mg 1 capsule by mouth in the evening; ketoconazole external cream 2% applied to face topically every evening shift every Sunday, Sunday, Sunday; Lantus subcutaneous solution 100 units/mL, inject 15 units subcutaneously; melatonin 3 mg 1 tablet every 4 hours as needed; metformin HCL 1000 mg 1 tablet by mouth 2 times a day; milk of magnesia suspension 1200 mg/15 mL, 30 mL by mouth every 24 hours as needed; polyethylene glycol 3350 powder 17 g/scoop, 1 scoop by mouth 1 time daily; tuberculin PPD solution 5 units/0.1 mL, inject 0.1 mL intradermally every evening shift every 12 months; venlafaxine HCL ER 150 mg 2 capsules by mouth in the morning; venlafaxine HCL ER 75 mg 1 capsule by mouth in the morning. PARAMETERS: The patient is seated in a lateral 90-degree view and administered the usual protocol of thin and nectar-thick liquids, puree and solid consistencies, as well as self-regulated boluses of thin liquids from the cup. RESULTS: In the oral stage of the swallow, lingual strength is mild to moderately reduced. There is a mild to moderate oral residue following the initial swallow of the boluses. It is noted that the patient has secondary swallows for some of the thin liquid boluses, but that for some of the other thin liquid boluses, he did not have a spontaneous second swallow and he had no spontaneous second swallow for the nectar-thick bolus, puree or solid consistency. In the pharyngeal stage of the swallow, tongue base retraction was moderately reduced. Swallow initiation is within functional limits. Anterior movement of the posterior pharyngeal wall was observed. Elevation of the hyothyroid complex was accomplished with full range of motion. There was a mild to moderate pharyngeal residue residing at the level of the vallecula and the PES opening. There was about the same amount of residue for both the thin and nectar-thick liquid boluses; however, for the thick boluses, it would be residing at the level of the tongue base and the thin liquid bolus would be spread throughout the pharyngeal cavity. PES opening was within functional limits. In terms of airway safety, the patient demonstrated penetration for 1/2 administrations of the 3 mL thin liquid and 3 mL thick liquid bolus and 1/2 administrations of the self-regulated bolus of the liquid from a cup. The patient did not require cues to clear for the 3 mL boluses, but did require cues to clear for the self-regulated bolus. It is noted that he took an excessively large sip of the thin liquid for that self-regulated bolus. ANTERIOR, POSTERIOR VIEW: In the AP plane, the bolus split symmetrically between the piriform sinuses. There was proximal movement of the bolus below the level of the mid sternum. IMPRESSION: The patient demonstrates what appears to be a moderate oropharyngeal stage swallowing disorder characterized by reduced lingual strength, reduced tongue base retraction, absence of secondary swallows for some of the bolus sizes and consistencies, pharyngeal residue, and penetration of the 3 mL thin liquid bolus, 3 mL thick liquid bolus, and self-regulated bolus of thin liquids from a cup. DIAGNOSES: R13.12, dysphagia oropharyngeal phase; R05.9, cough. PATIENT EDUCATION: Immediately following modified barium swallow study, the patient and staff members were able to review the results. The normal anatomy of the swallowing mechanism was revealed. The patient was able to see how the current status of the oral motor and swallowing mechanism decreases his ability to swallow normally. The patient was educated on a recommendation to utilize a cue card at meals to swallow twice for the solid food consistencies. He was also educated on a recommendation to drink from a straw to both promote neutral head position rather than tilted head position when swallowing liquids and also to help limit bolus size. RECOMMENDATIONS: 1. It is recommended that the patient utilize compensatory strategies for swallowing, including a cue card for a reminder to swallow twice for his food textures at meals, utilizing a straw when drinking his thin liquids to help promote a neutral head position rather than a tilting backwards head position when swallowing to increase airway safety. 2. It is recommended that the patient remain on his regular texture thin liquid diet at this time. If the straw is unsuccessful in reducing the amount that the patient is demonstrating overt signs and symptoms of aspiration such as coughing on thin liquid boluses, then it would be recommended that a trial of the nectar-thick liquid bolus be utilized. Due to the amount of pharyngeal residue and the absence of the secondary swallow for nectar-thick liquid boluses in this study, it would not be recommended that this would be the first way to reduce the overt signs and symptoms of aspiration, but rather starting with utilizing a straw first. LONG-TERM GOALS: The patient will maintain adequate hydration/nutrition with optimum safety and efficiency of swallow function on p.o. intake without overt signs and symptoms of aspiration for the highest possible diet level. FUNCTIONAL ORAL INTAKE: FOIS was administered to establish and document a change in the functional eating activities of this patient over time. This is a 7-point scale with 1 indicating no oral intake and totally tube dependent and 7 indicating total oral intake with no restrictions. This patient received a 7, which indicates total oral intake with no restrictions. G-CODE: [id number]. Thank you very much for asking me to participate in the care of this kind patient. Should you have any questions regarding this evaluation or recommendations, please do not hesitate to contact me at [phone]. During this examination, 4 minutes 29 seconds of fluoroscopy time and 29.59 CAK mGy were utilized. Shea Hook M.S., [facility]-[employer]PERVISOR [employer] TID: [id number] RECEIPT: [id number] MICHELLE/LYNETTE ANTUNEZ
== END 2025-01-16 23:59 | disposition home or self-care (01) ==
LOC: RAD 13:09
PROVIDERS: ATTEND Internal Medicine
DX: R13.12 Dysphagia, oropharyngeal phase (principal); R05.9 Cough, unspecified
CPT/HCPCS: 74230